=== PATIENT | male | born 1960 | race Caucasian/White ===

== ENCOUNTER 2018-06-16 12:18 | Emergency (ER) | payer OTHER, SELFPAY ==
[2018-06-16 12:19] VITALS: BP 128/73; PULSE 96; RESP 23; TEMP 36.9; O2SAT 94; BMI 38.2
--- NOTE | 2018-06-16 13:14 | EKG12_ITS ---
Test Reason : SYNCOPE Blood Pressure : / mmHG Vent. Rate : 090 BPM Atrial Rate : 090 BPM P-R Int : 184 ms QRS Dur : 088 ms QT Int : 346 ms P-R-T Axes : 010 -10 017 degrees QTc Int : 423 ms Normal sinus rhythm Normal ECG Low voltage QRS (limb leads) Confirmed by DAX PEREZ, HEATHER ([id number]), acquisitions editor WALLACE MARRERO ([id number]) on 06/18/2018 4:21:30 PM Referred By: CATIE Confirmed By:HEATHER VERDUZCO MD
--- NOTE | 2018-06-16 13:14 | CT_ITS ---
STUDY: CT BRAIN WITHOUT CONTRAST REASON FOR EXAM: Male, 57 years old. Dizziness. RADIATION DOSAGE (If Supplied By Facility): CTDIvol = ( 60.81 ) mGy, DLP = ( 1089.89 ) mGycm TECHNIQUE: Transaxial CT imaging of the brain was performed without administration of intravenous contrast material. Individualized dose optimization techniques were used for this CT. COMPARISON: None. FINDINGS: Normal soft tissue structures. Normal calvarium. Normal size ventricles and extra-axial spaces for the patient's age. Normal white matter tracts of the cerebral hemispheres. Normal basal ganglia and thalami. Normal brainstem. Normal cerebellum. There is no intracranial hemorrhage. There are no findings of an acute ischemic infarction. Normal visualized paranasal sinuses. CT/Brain/Head without Contrast IMPRESSION: Normal unenhanced CT scan of the brain. Electronically Signed: Ian De La Torre MD at 14:39 EST Tel [phone], Service support ,
--- NOTE | 2018-06-16 13:16 | ED.VISSUMM ---
- ER Visit Summary Date of Service: 06/16/18 Chief Complaint: Dizziness History of Present Illness: The patient is a 57 M past medical history of low blood sugar. Possible prior cardiac dysrhythmia. Patient states the last 2 hours he had trouble with his balance. He denies any headache. He did have a minor head injury yesterday playing football. He tripped and fell onto a wood pile. Denies any LOC. He is on no blood thinners. Denies any neck pain. He denies any vertigo-like dizziness. Says he describes his dizziness as being off balance. Denies any trouble moving his arms or legs. No visual change. No nausea. Physical Examination: Middle-aged male. No acute distress. Vital signs are stable and afebrile. HEENT exam is a small bruise on his left cheek. Pupils round reactive light. Pupils are about 2 mm. No facial droop. Extraocular motions are intact. I will help her normal speech. Neck nontender. Lungs clear to auscultation bilaterally. Heart regular rhythm no murmur chest wall nontender. Abdomen soft nontender. Patient is moving all 4 extremities. They are neurovascularly intact. Neurologic exam patient is awake and alert. No focal motor deficits. Equal symmetrical account services associate strength. Equal symmetrical dorsi and plantar flexion. Fingertip to nose within normal limits. Normal speech. No facial droop. Extraocular motions are intact. While in bed his NIH score is 0. Exam I did look at his ear canals left has wax but is patent ending see the TM. Right's unremarkable without wax. Test Results: CT of the brain without contrast shows no acute abnormality read both by myself and the radiologist. EKG sinus rhythm rate of EMEA. No dysrhythmia. CBC normal. Electrolytes unremarkable. Normal gap and creatinine. Orthostatic vital signs patient lying and sitting unremarkable. Emergency Department Course and Treatment: She will be evaluated for his dizziness with screening labs and a CT scan of his brain. Treatment Plan: Patient doing well on repeat exam. Patient stood without any difficulty at 1638 and was able to ambulate without any ataxia. Disposition: Discharge Impression: Acute dizziness of uncertain etiology This note was generated with [employer] dictation software. It may contain incorrect words, spelling, and punctuation that were not noted in review of the chart prior to signing ED Disposition - Plan for ED Patient: Chief Complaint: Dizziness Referrals: Care Physician,No Primary [Primary Care Provider] -
--- NOTE | 2018-06-16 13:20 | PCA ---
NO OLD EKG
[2018-06-16 13:30] LABS: Absolute Lymphocyte Count 1.19 X10^3/ul (0.83-4.51); Absolute Neutrophil Count 12.3 X10^3/uL (2.0-7.7); Basophil# 0.04 X10^3/uL; Basophil% 0.3 % (0-1); Eosinophil# 0.44 X10^3/uL; Eosinophils% 3.1 % (0-5); Hematocrit 42.6 % (40-54); Hemoglobin 14.2 g/dl (13.0-16.5); Lymphocyte # 1.19 X10^3/ul (4.0); Lymphocyte % 8.3 % (19-41); Mean Corp Hgb Conc 33.3 g/gl (32-36); Mean Corpuscular Hgb 30.3 pg (27.0-32.0); Mean Platelet Vol. 10.5 fl (6.2-12.0); Monocyte# 0.41 X10^3/uL; Monocyte% 2.8 % (0-10); Neutrophil # 12.32 X10^3/uL (2.7-7.7); Neutrophil % 85.4 % (47-70); POSITIVE COUNT NO; POSITIVE DIFFERENTIAL NO; POSITIVE MORPHOLOGY NO; Platelet Count 220 K/mm3 (150-450); RBC Distribution Width CV 13.8 % (11.6-14.6); RBC Distribution Width SD 45.3 fl (35.1-43.9); Red Blood Count 4.68 M/mm3 (4.6-6.2); White Blood Count 14.4 K/mm3 (4.4-11.0)
[2018-06-16 13:36] VITALS: BP 111/79
[2018-06-16 13:36] LABS: Anion Gap 6 (5-15); BUN 20 mg/dL (7-18); BUN/Creat Ratio 16.1 RATIO (10-20); Calcium,Total 9.2 mg/dL (8.5-10.1); Chloride 103 mmol/L (98-107); Creatinine, Serum 1.24 mg/dL (0.70-1.30); EST Glomerular Filtration Rate 64 mL/min (>60); Est Glom Filt Rate - Afr Amer 77 mL/min (>60); Estimated Creatinine Clearance 57.17 ml/min; Glucose 142 mg/dL (74-106); Potassium 3.8 mmol/L (3.5-5.1); Sodium Level 137 mmol/L (136-145)
[2018-06-16 15:03] VITALS: BP 122/81
[2018-06-16 16:13] VITALS: TEMP 37.2
--- NOTE | 2018-06-16 16:38 | ED.DEP ---
ED Disposition - Plan for ED Patient: Disposition: Home or Assisted Living Chief Complaint: Dizziness Instructions: ED Dizziness [facility] Referrals: Care Physician,No Primary [Primary Care Provider] - 1-2 Days if not improving Additional Instructions: Your workup today was negative including your blood work and CAT scan. All up with your doctor if not improving or return to the ER feeling worse.
[2018-06-16 17:06] VITALS: BP 103/67; PULSE 72; RESP 18; O2SAT 97
== END 2018-06-16 17:07 | disposition home or self-care (01) ==
PROVIDERS: Emergency Provider Emergency Medicine
DX: R42 Dizziness and giddiness (principal); Z72.0 Tobacco use
CPT/HCPCS: 70450; 80048; 85025; 93005; 99285

== ENCOUNTER 2023-03-30 13:51 | Emergency (ER) | payer BC, SELFPAY ==
[2023-03-30 13:52] VITALS: BP 135/98; PULSE 73; RESP 16; TEMP 36.1; O2SAT 99; BMI 41.8
[2023-03-30 14:38] VITALS: BP 128/77; PULSE 64; RESP 18; O2SAT 97
--- NOTE | 2023-03-30 14:50 | EDS_ITS ---
<Statement entered by Levy Shafer MD - 03/30/23 21:30> I have personally performed a face to face assessment of the patient and have reviewed the IRENE Note. HPI <MITZY Frye - Last Filed: 03/30/23 16:13> History of Present Illness Chief Complaint: Chest Pain Narrative Narrative: Patient is a 62-year-old male with history of tobacco use, 1.5 to 2 packs/day however is currently trying to quit, history of CAD who had 2 stents placed in January 2022. Patient states he has not follow-up with a PCP, does not follow-up with a card decorator. Patient states over the last 24 hours he has been having palpitations where he feels like his heart is missing beats. He states every now and then he does get pain to the left upper shoulder. Patient is asymptomatic at this time. Patient has had difficulty sleeping last night secondary to the palpitations. He denies any shortness of breath. Denies any history of blood clots in the legs or lungs. He currently does take 1 baby aspirin. [facility] <MITZY Frye - Last Filed: 03/30/23 16:13> [facility] Medical History (Updated 03/30/23 @ 16:12 by MITZY Frye) Heart attack Home Medications NK 06/16/18 [History Last Taken Unknown] Allergy/AdvReac Type Severity Reaction Status Date / Time Penicillins Allergy Unknown Verified 03/30/23 13:53 Social History Smoking Status: Current every day smoker tobacco type: cigarettes ROS <MITZY Frye - Last Filed: 03/30/23 16:13> ROS ED ROS Narrative Constitutional: Negative for fever, chills, weight loss, weakness Eyes: Negative for vision loss, vision change, double vision ENT: Negative for any sore throat, ear pain, congestion Cardiovascular: Negative for any chest pain, tightness. Positive palpitations, pain to the left shoulder Respiratory: Negative for any cough, sputum production, hemoptysis, dyspnea, dyspnea on exertion, orthopnea Gastrointestinal: Negative for any abdominal pain, nausea, vomiting, diarrhea, constipation, blood in stool, blood in vomit : Negative for any urinary frequency, dysuria, retention, blood in urine Muscle skeletal: Negative for any muscle joint pain, stiffness, myalgias, arthralgias, neck pain, back pain Neurological: Negative for any headache, syncope, numbness or tingling, dizziness Skin: Negative for any rashes, lumps, itching, abrasions, lacerations Psychiatric: Negative for any depression, anxiety, stress, suicidal ideation, homicidal ideation Hematologic: Negative for any easy bruising, excessive bruising, easy bleeding Allergies: Negative for any eczema, hives, rash EXAM <MITZY Frye - Last Filed: 03/30/23 16:13> Physical Exam Narrative Exam Narrative: Vital signs reviewed. Patient is asymptomatic during initial assessment HEET: Head normocephalic atraumatic, TMs clear bilaterally. Posterior pharynx is clear, moist mucous membranes. Nares clear bilaterally. Neck: Supple with no lymphadenopathy or tenderness. No signs of meningismus, negative jolt sign. Cardiac: Regular rate and rhythm no murmurs gallops or rubs, equal peripheral pulses bilaterally. Respiratory: Lungs clear to auscultation bilaterally. No chest tenderness. Abdomen: Soft, nontender, nondistended. No abdominal bruit or pulsatile masses. No hepatosplenomegaly Extremities: No peripheral edema, no signs of gross trauma or deformity. Active full range of motion of all extremities. Neuro: Cranial nerves II through XII intact, no focal neurological deficits. Skin: Clean dry and intact with no rash, purpura, petechiae, vesicles or pustules. Backs/flank: No CVA tenderness, no midline spinal tenderness, no deformity. Psych: Normal mood and affect. No SI, HI or acute psychosis. Const Vital Signs: 03/30/23 13:52 03/30/23 14:38 03/30/23 15:59 Temperature 97 F L Temperature Source Temporal Pulse Rate 73 64 Respiratory Rate 16 18 Blood Pressure 135/98 H 128/77 H Blood Pressure Mean 110 94 Pulse Ox 99 97 Oxygen Delivery Method Room Air Room Air Room Air Positive well nourished and well developed General Appearance ED: well developed <Dr. Levy Shafer MD - Last Filed: 04/04/23 15:17> Physical Exam Const Vital Signs: 03/30/23 13:52 03/30/23 14:38 03/30/23 15:59 Temperature 97 F L Temperature Source Temporal Pulse Rate 73 64 Respiratory Rate 16 18 Blood Pressure 135/98 H 128/77 H Blood Pressure Mean 110 94 Pulse Ox 99 97 Oxygen Delivery Method Room Air Room Air Room Air [facility] <MITZY Frye - Last Filed: 03/30/23 16:13> [facility] Lab Data Labs: Laboratory Results - last 24 hr 03/30/23 03/30/23 03/30/23 14:35 14:35 15:24 WBC Cancelled 7.2 Corrected WBC Cancelled RBC Cancelled 4.65 Hgb Cancelled 14.1 Hct Cancelled 44.5 MCV Cancelled 95.7 H MCH Cancelled 30.3 MCHC Cancelled 31.7 L RDW Std Deviation Cancelled 49.4 H RDW Coeff of Ginny Cancelled 14.0 Plt Count Cancelled 236 MPV Cancelled 10.7 Immature Gran % (Auto) Cancelled 0.300 Neut % (Auto) Cancelled 58.5 Lymph % (Auto) Cancelled 30.9 [place] % (Auto) Cancelled 7.3 Eos % (Auto) Cancelled 1.9 Baso % (Auto) Cancelled 1.1 H Absolute Neuts (auto) Cancelled 4.2 Absolute Lymphs (auto) Cancelled 2.23 Total Counted Cancelled Neutrophils % (Manual) Cancelled Band Neutrophils % Cancelled Lymphocytes % (Manual) Cancelled Monocytes % (Manual) Cancelled Eosinophils % (Manual) Cancelled Basophils % (Manual) Cancelled Metamyelocytes % Cancelled Myelocytes % Cancelled Promyelocytes % Cancelled Blast Cells % Cancelled Plasma Cell % (Manual) Cancelled Other Cells % Cancelled Nucleated RBC % Cancelled 0 Nucleated RBCs/100 WBC Cancelled Differential Comment Cancelled Diff Path Review Cancelled Hypersegmented Neuts Cancelled Atypical Lymphocytes Cancelled Reactive Lymphocytes Cancelled Smudge Cells Cancelled Toxic Granulation Cancelled Toxic Vacuolation Cancelled Dohle Bodies Cancelled Khadar Rods Cancelled Platelet Estimate Cancelled Plt Morphology Comment Cancelled RBC Morphology Cancelled Cancelled Polychromasia Cancelled Hypochromasia Cancelled Poikilocytosis Cancelled Basophilic Stippling Cancelled Anisocytosis Cancelled Microcytosis Cancelled Macrocytosis Cancelled Spherocytes Cancelled Sickle Cells Cancelled Target Cells Cancelled Tear Drop Cells Cancelled Ovalocytes Cancelled Stomatocytes Cancelled [place] Bodies Cancelled Lazarus Cells Cancelled Bite Cells Cancelled Crenated Cell Cancelled Acanthocytes (Spur) Cancelled Rouleaux Cancelled Schistocytes Cancelled Sodium 137 Potassium 4.1 Chloride 107 Carbon Dioxide 25.0 Anion Gap 5 BUN 15 Creatinine 0.97 Estim Creat Clear Calc 71.25 Est GFR (MDRD) Af Amer 101 Est GFR (MDRD) Non-Af 83 BUN/Creatinine Ratio 15.5 Glucose 132 H Calcium 8.7 Troponin I High Sens 6 TSH 0.91 Radiography Diagnostic Testing: Clinical Impression(s) from Imaging Studies Chest X-Ray 03/30/23 15:18 IMPRESSION: No radiographic evidence of acute cardiopulmonary disease. Electronically Signed: Jame Phillips MD at 15:36 EDT , EKG EKG shows normal sinus rhythm: Attestation: I personally reviewed and interpreted this EKG as follows: Interpretation: Sinus Rhythm Comments: Sinus rhythm, rate of 63 bpm, ID 196 ms, QRS duration 90 ms, no acute ST elevation, no acute infarct noted. Treatment and Re-Evaluation :: Patient appears generally well, patient appears nontoxic, vital signs are stable. Presenting to the emergency department for palpitations, left shoulder pain. Secondary to the patient's cardiac history, patient received a cardiac work-up here. Chest pain work-up with 2 view chest x-ray, laboratory values including 2 troponins. This we concerning for any ACS, [place]. Patient will receive a chest x-ray concerning for any pleural effusion, pneumonia. Patient remains symptom-free. Patient's laboratory values showed a normal CBC, chemistries were unremarkable, negative troponin. TSH within normal limits at 0.91. At this time is no evidence of ACS, [place]. Speaking with the patient, patient is feeling better and will follow-up outpatient. Patient two-view chest x-ray is read by ER physician was negative for cardiopulmonary process. Patient will receive a 48-hour Holter monitor. This will be placed on another visit number. Patient will follow-up with cardiology here. At this time he verbally understands the importance of follow-up. All questions answered, patient stable for discharge. Patient's heart score was 2. Patient stable for discharge. <Dr. Levy Shafer MD - Last Filed: 04/04/23 15:17> MDM Lab Data Labs: Laboratory Results - last 24 hr 03/30/23 03/30/23 03/30/23 14:35 14:35 15:24 WBC Cancelled 7.2 Corrected WBC Cancelled RBC Cancelled 4.65 Hgb Cancelled 14.1 Hct Cancelled 44.5 MCV Cancelled 95.7 H MCH Cancelled 30.3 MCHC Cancelled 31.7 L RDW Std Deviation Cancelled 49.4 H RDW Coeff of Ginny Cancelled 14.0 Plt Count Cancelled 236 MPV Cancelled 10.7 Immature Gran % (Auto) Cancelled 0.300 Neut % (Auto) Cancelled 58.5 Lymph % (Auto) Cancelled 30.9 [place] % (Auto) Cancelled 7.3 Eos % (Auto) Cancelled 1.9 Baso % (Auto) Cancelled 1.1 H Absolute Neuts (auto) Cancelled 4.2 Absolute Lymphs (auto) Cancelled 2.23 Total Counted Cancelled Neutrophils % (Manual) Cancelled Band Neutrophils % Cancelled Lymphocytes % (Manual) Cancelled Monocytes % (Manual) Cancelled Eosinophils % (Manual) Cancelled Basophils % (Manual) Cancelled Metamyelocytes % Cancelled Myelocytes % Cancelled Promyelocytes % Cancelled Blast Cells % Cancelled Plasma Cell % (Manual) Cancelled Other Cells % Cancelled Nucleated RBC % Cancelled 0 Nucleated RBCs/100 WBC Cancelled Differential Comment Cancelled Diff Path Review Cancelled Hypersegmented Neuts Cancelled Atypical Lymphocytes Cancelled Reactive Lymphocytes Cancelled Smudge Cells Cancelled Toxic Granulation Cancelled Toxic Vacuolation Cancelled Dohle Bodies Cancelled Khadar Rods Cancelled Platelet Estimate Cancelled Plt Morphology Comment Cancelled RBC Morphology Cancelled Cancelled Polychromasia Cancelled Hypochromasia Cancelled Poikilocytosis Cancelled Basophilic Stippling Cancelled Anisocytosis Cancelled Microcytosis Cancelled Macrocytosis Cancelled Spherocytes Cancelled Sickle Cells Cancelled Target Cells Cancelled Tear Drop Cells Cancelled Ovalocytes Cancelled Stomatocytes Cancelled [place] Bodies Cancelled [place] Cells Cancelled Bite Cells Cancelled Crenated Cell Cancelled Acanthocytes (Spur) Cancelled Rouleaux Cancelled Schistocytes Cancelled Sodium 137 Potassium 4.1 Chloride 107 Carbon Dioxide 25.0 Anion Gap 5 BUN 15 Creatinine 0.97 Estim Creat Clear Calc 71.25 Est GFR (MDRD) Af Amer 101 Est GFR (MDRD) Non-Af 83 BUN/Creatinine Ratio 15.5 Glucose 132 H Calcium 8.7 Troponin I High Sens 6 TSH 0.91 Radiography Diagnostic Testing: Clinical Impression(s) from Imaging Studies Chest X-Ray 03/30/23 15:18 IMPRESSION: No radiographic evidence of acute cardiopulmonary disease. Electronically Signed: Jame Phillips MD at 15:36 EDT , Discharge Plan Triage Chief Complaint: Chest Pain ED Midlevel Provider: Levy Castro ED Provider: Levy Shafer Dx/Rx/DC Orders Clinical Impression: Heart palpitations Instructions: ED Palpitations Prescriptions: No Action NK Primary Care Provider: Care Physician,No Primary Referrals: Walker Erickson MD [Med Staff - Cosmetician Apprentice] - Leonel Torrez MD [Med Staff - Active Staff] - Care Physician,No Primary [Primary Care Provider] - Activity Restrictions/Additional Instructions: Please follow the instructions of the cafeteria monitor. Need to follow-up with both PCP as well as cardiology. Return for any worsening symptoms. Disposition Disposition: Home, Self Care Discharge Date/Time: 03/30/23 16:37
--- NOTE | 2023-03-30 15:08 | EKG12_ITS ---
Test Reason : Blood Pressure : / mmHG Vent. Rate : 063 BPM Atrial Rate : 063 BPM P-R Int : 196 ms QRS Dur : 090 ms QT Int : 416 ms P-R-T Axes : 000 -13 -09 degrees QTc Int : 425 ms Normal sinus rhythm Inferior infarct , age undetermined Abnormal ECG Confirmed by JORI PEREZ, CHERYL ([id number]), medical transcription editor PEREZ LEIVA ([id number]) on 04/08/2023 7:19:57 AM Referred By: MARIAM Confirmed By:CHERYL HSIEH MD
--- NOTE | 2023-03-30 15:18 | RAD_ITS ---
INDICATION: chest pain EXAMINATION/TECHNIQUE: X-RAY - XR Chest 2 Views COMPARISON: No prior examinations are available for comparison. FINDINGS: LINES/DEVICES: None. LUNGS: No consolidation, edema or effusion. No pneumothorax. MEDIASTINUM AND CARDIOVASCULAR STRUCTURES: Cardiac silhouette not enlarged. Central airways and mediastinal contour are unremarkable. BONES AND SOFT TISSUES: Unremarkable. RAD/Chest PA and Lateral IMPRESSION: No radiographic evidence of acute cardiopulmonary disease. Electronically Signed: Jame Phillips MD at 15:36 EDT ,
[2023-03-30 15:36] LABS: Absolute Lymphocyte Count 2.23 X10^3/uL (0.83-4.51); Absolute Neutrophil Count 4.2 X10^3/uL (2.0-7.7); Basophil# 0.08 X10^3/uL; Basophil% 1.1 % (0-1); Eosinophil# 0.14 X10^3/uL; Eosinophils% 1.9 % (0-5); Hematocrit 44.5 % (40-54); Hemoglobin 14.1 g/dL (13.0-16.5); Lymphocyte # 2.23 X10^3/ul (0.83-4.51); Lymphocyte % 30.9 % (19-41); Mean Corp Hgb Conc 31.7 g/dL (32-36); Mean Corpuscular Hgb 30.3 pg (27.0-32.0); Mean Corpuscular Volume 95.7 fL (80-94); Mean Platelet Vol. 10.7 fl (6.2-12.0); Monocyte# 0.53 X10^3/uL; Monocyte% 7.3 % (0-10); NRBC Flagged by Analyzer 0 % (0-5); Neutrophil # 4.22 X10^3/uL (2.7-7.7); Neutrophil % 58.5 % (47-70); Platelet Count 236 K/mm3 (150-450); RBC Distribution Width SD 49.4 fl (35.1-43.9); Red Blood Count 4.65 M/mm3 (4.6-6.2); White Blood Count 7.2 K/mm3 (4.4-11.0)
[2023-03-30 15:43] LABS: Anion Gap 5 (5-15); BUN 15 mg/dL (7-18); BUN/Creat Ratio 15.5 RATIO (10-20); Calcium,Total 8.7 mg/dL (8.5-10.1); Chloride 107 mmol/L (98-107); Creatinine, Serum 0.97 mg/dL (0.70-1.30); EST Glomerular Filtration Rate 83 mL/min (>60); Est Glom Filt Rate - Afr Amer 101 mL/min (>60); Estimated Creatinine Clearance 71.25 ml/min; Glucose 132 mg/dL (74-106); Potassium 4.1 mmol/L (3.5-5.1); Sodium Level 137 mmol/L (136-145); Thyroid Stim Hormone (TSH) 0.91 uIU/mL (0.358-3.74); Troponin-I HS (w/2H Reflex) 6 pg/mL (3.0-78.0)
[2023-03-30 16:36] VITALS: BP 125/69; PULSE 74; RESP 16; O2SAT 98
[2023-03-30 17:14] LABS: Reflex Troponin-HS? (from REC) Y
== END 2023-03-30 16:37 | disposition home or self-care (01) ==
PROVIDERS: Nurse Practitioner; Emergency Provider Emergency Medicine; Visit Provider Emergency Medicine
DX: R00.2 Palpitations (principal); I25.2 Old myocardial infarction; F17.210 Nicotine dependence, cigarettes, uncomplicated
CPT/HCPCS: 71046; 80048; 84443; 84484; 85025; 93005; 99284; A4216

== ENCOUNTER → 2023-03-30 | Outpatient (CLI) | payer OTHER, SELFPAY | END | disposition home or self-care (01) | PROVIDERS: Visit Provider Emergency Medicine | DX: R00.2 Palpitations (principal) | CPT/HCPCS: 93225; 93226 ==

== ENCOUNTER 2023-05-03 09:23 | Emergency (ER) | payer OTHER, BC, SELFPAY ==
[2023-05-03 09:24] VITALS: BP 153/71; PULSE 69; RESP 14; TEMP 36.4; O2SAT 98; BMI 40.3
--- NOTE | 2023-05-03 09:50 | RAD_ITS ---
STUDY: X-RAY - RIGHT KNEE REASON FOR EXAM: Male, 62 years old. Pain. TECHNIQUE: 4 views of the right knee. COMPARISON: None. FINDINGS: Normal visualized distal femur. Normal visualized proximal tibia and fibula. Normal proximal tibiofibular articulation. There is no demonstrated fracture. Normal medial femorotibial compartment. Normal lateral femorotibial compartment. Normal patellofemoral articulation. There is a small joint effusion. The soft tissue structures are unremarkable. RAD/Knee 4 or More Views IMPRESSION: Small joint effusion. No demonstrated fracture. Electronically Signed: Eliud Duncan MD at 10:01 EDT ,
[2023-05-03 10:24] VITALS: BP 118/76; PULSE 68; RESP 18; O2SAT 97
--- NOTE | 2023-05-03 11:11 | EDS_ITS ---
HPI History of Present Illness Chief Complaint: Lower Extremity Injury Narrative Narrative: 62-year-old male presenting with right knee pain. He states it is above and behind the right knee. It is on the medial aspect. Patient states he felt a pop the other day. He has been ambulating with an antalgic gait. No direct trauma. No numbness or tingling. No bruising. [facility] Medical History AAA (abdominal aortic aneurysm) without rupture Aortic stenosis Celiac artery stenosis Hyperlipidemia Obesity STEMI (ST elevation myocardial infarction) Tobacco abuse Home Medications aspirin 81 mg tablet,delayed release 81 mg PO DAILY 05/01/23 [History Last Taken Unknown] atorvastatin 40 mg tablet 40 mg PO QHS 05/01/23 [History Last Taken Unknown] glimepiride 4 mg tablet 4 mg PO DAILY 05/01/23 [History Last Taken Unknown] metformin 500 mg tablet 500 mg PO BID 05/01/23 [History Last Taken Unknown] Allergy/AdvReac Type Severity Reaction Status Date / Time Penicillins Allergy Unknown Verified 05/03/23 09:25 Family History Other Heart disease Surgical History History of appendectomy History of arthroscopy of right shoulder History of coronary artery stent placement (01/17/22) History of umbilical hernia repair Social History Smoking Status: Current every day smoker tobacco type: cigarettes alcohol intake: never substance use type: does not use ROS ROS ED Constitutional Constitutional ED: Denies chills, fever(s) or sweats Eyes Eyes: Denies blurry vision or change in vision ENT ENT ED: Denies ear pain or sore throat Cardiovascular Cardiovascular: Denies chest pain, palpitations or racing heartbeat Respiratory/Chest Respiratory/Chest: Denies cough, dyspnea or sputum Gastrointestinal Gastrointestinal: Denies abdominal pain, constipation, diarrhea, nausea or vomiting Genitourinary Genitourinary ED: Denies dysuria, hematuria or urinary frequency Musculoskeletal Musculoskeletal: Reports other Details: Left knee and posterior thigh pain ; Denies arthralgias, myalgias or neck pain Integumentary Denies abscess, Abrasions or rash Neurologic Neurologic: Denies headache(s), paresthesias or weakness Psychiatric Psychiatric: Denies anxiety, depression, suicidal ideation or suicidal thoughts Endocrine Endocrinology: Denies polydipsia or polyuria EXAM Physical Exam Const Vital Signs: 05/03/23 09:24 05/03/23 10:24 Temperature 97.5 F L Temperature Source Temporal Pulse Rate 69 68 Respiratory Rate 14 18 Blood Pressure 153/71 H 118/76 Blood Pressure Mean 98 90 Pulse Ox 98 97 Oxygen Delivery Method Room Air Positive well nourished HEENT Reports moist mucous membranes normocephalic and atraumatic Resp normal respiratory effort Cardio regular rate and regular rhythm Extremity Extremity Narrative: There is tenderness to palpation medially superior, posterior to the left knee. Left knee has no ligamentous laxity. Full range of motion in flexion and extension. No patellar tenderness. Neuro Motor Exam: strength 5/5 throughout Psych mental status grossly normal Skin no wounds MDM MDM MDM Narrative Medical decision making narrative: 62-year-old male with left knee pain. Differential includes muscle tear, knee strain, meniscal tear. Patient given ibuprofen for pain. X-ray of the left knee on my interpretation shows no acute fracture. There is small joint effusion. Patient counseled he could have torn something, however I do not believe it is a ACL, MCL, PCL. He is walking with a antalgic gait but his knee joint is not unstable. Recommended compression and NSAIDs. I will give him follow-up with orthopedics. Impression: 1. Knee strain 2. Muscle strain Radiography Diagnostic Testing: Clinical Impression(s) from Imaging Studies Knee X-Ray 05/03/23 09:50 IMPRESSION: Small joint effusion. No demonstrated fracture. Electronically Signed: Eliud Duncan MD at 10:01 EDT , Discharge Plan Triage Chief Complaint: Lower Extremity Injury ED Provider: Cortes Fraire Dx/Rx/DC Orders Instructions: ED Knee Sprain, ED Muscle Strain, Extremity Prescriptions: No Action aspirin 81 mg tablet,delayed release (DR/EC) 81 mg PO DAILY Patient Comments: TAKE 1 TABLET BY MOUTH EVERY DAY atorvastatin 40 mg tablet 40 mg PO QHS glimepiride 4 mg tablet 4 mg PO DAILY metformin 500 mg tablet 500 mg PO BID Primary Care Provider: Latrell Castillo Referrals: Paulo Carter MD [Med Staff - Active Staff] - 3-5 Days Care Physician,No Primary [Non-Staff] - Disposition Disposition: Home, Self Care
== END 2023-05-03 12:15 | disposition home or self-care (01) ==
LOC: ED 11:14
PROVIDERS: Emergency Provider Student in an Organized Health Care Education/Training Program; PCP Family Medicine; Visit Provider Student in an Organized Health Care Education/Training Program
DX: S86.811A Strain of other muscle(s) and tendon(s) at lower leg level, right leg, initial encounter (principal); E78.5 Hyperlipidemia, unspecified; I25.2 Old myocardial infarction; I5A Non-ischemic myocardial injury (non-traumatic); Z79.82 Long term (current) use of aspirin; Z79.899 Other long term (current) drug therapy; Z90.49 Acquired absence of other specified parts of digestive tract; Z95.5 Presence of coronary angioplasty implant and graft; F17.210 Nicotine dependence, cigarettes, uncomplicated
CPT/HCPCS: 73564; 99283

== ENCOUNTER → 2023-05-24 | Outpatient (CLI) | payer BC, SELFPAY ==
--- NOTE | 2023-05-24 08:35 | AAAS_ITS ---
Reason For Study: HX AAA Aorta Measurements Aorta Doppler Measurements Proximal aorta measures2.95 x 3.38cm. in cross- Peak systolic flow velocities within the proximal sectional axis. aorta measure 54.1 cm/sec. Proximal aorta measures2.87cm. in longitudinal Peak systolic flow velocities within the mid aorta axis. measure 132.6 cm/sec. Mid aorta measures5.08 x 4.90cm. in cross- Peak systolic flow velocities within the distal sectional axis. aorta measure 18.3 cm/sec. Mid aorta measures5.23cm. in longitudinal axis. Distal aorta measures4.78 x 4.96cm. in cross- sectional axis. Distal aorta measures4.76cm. in longitudinal axis. Left Iliac Artery Left iliac artery measures 1.23 x 1.29 cm. in the cross-sectional axis. Left iliac artery measures 1.25 cm. in the longitudinal axis. Peak systolic velocity in the left iliac artery measures 113.0 cm/sec. Right Iliac Artery Right iliac artery measures 1.79 x 1.64 cm. in the cross-sectional axis. Right iliac artery measures 1.56 cm. in the longitudinal axis. Peak systolic velocity in the right iliac artery measures 154.4 cm/sec. Procedure Aorta IVC Iliac vasculature or bypass grafts [id number]. The exam was diagnostic. Exam performed in department. VL/AAA Screening Interpretation Summary Aorta patent, 5.23 cm aneurysm present Right iliac artery patent, ectasia to 1.29 cm Left iliac artery patent, ectasia to 1.79 cm Ordering Physician: Mike Mcmahan Referring Physician: Latrell Castillo Performed By: Elian Harry, RVT
--- NOTE | 2023-05-24 08:35 | CDU_ITS ---
Reason For Study: BRUIT Rt. Velocities/BP Lt. Velocities/BP Prox CCA 77.1/19.5 cm/sec. Prox CCA 101.4/35.5 cm/sec. Mid CCA 63.9/20.4 cm/sec. Mid CCA 90.2/29.3 cm/sec. Dist CCA 66.0/27.0 cm/sec. Dist CCA 70.3/24.4 cm/sec. Prox ICA 66.6/27.0 cm/sec. Prox ICA 71.3/26.3 cm/sec. Mid ICA 101.4/44.9 cm/sec. Mid ICA 61.6/26.8 cm/sec. Dist ICA 84.2/35.1 cm/sec. Dist ICA 65.4/29.3 cm/sec. Rt. ICA/CCA = 101.4/63.9=1.6. Lt. ICA/CCA = 71.3/90.2=0.8. Prox ECA 108.8/24.1 cm/sec. Prox ECA 130.8/24.8 cm/sec. Rt. Vert. 37.2/14.5 cm/sec. Lt. Vert. 44.0/18.5 cm/sec. Right Extracranial There is intimal thickening but no significant atherosclerotic plaque noted in the right common carotid artery. There is heterogeneous, smooth atherosclerotic plaque noted in the right internal carotid artery. There is no significant atherosclerotic plaque noted in the right external carotid artery. Antegrade flow is noted in the right vertebral artery. Left Extracranial There is intimal thickening but no significant atherosclerotic plaque noted in the left common carotid artery. There is heterogeneous, smooth atherosclerotic plaque noted in the left internal carotid artery. There is homogeneous, smooth atherosclerotic plaque noted in the left external carotid artery. Antegrade flow is noted in the left vertebral artery. Procedure Carotid Duplex 37194. This is a Carotid Duplex examination using B-mode, color flow and specral Doppler. Exam performed in department. VL/Carotid Duplex Ultrasound Interpretation Summary Smooth calcific plaque with shadowing at the proximal right internal carotid ar sunny with less than 50% stenosis Less than 50% stenosis right external carotid artery Minimal smooth plaque at the proximal left internal carotid artery with less th an 50% stenosis Less than 50% stenosis left external carotid artery Patent and antegrade vertebral arteries bilaterally Ordering Physician: Mike Mcmahan Referring Physician: Latrell Castillo Performed By: Siri Soto, MITA, RVT
== END | disposition home or self-care (01) ==
LOC: CVS 08:35
PROVIDERS: PCP Family Medicine; Referring Provider Internal Medicine Cardiovascular Disease; Visit Provider Internal Medicine Cardiovascular Disease
DX: I71.40 Abdominal aortic aneurysm, without rupture, unspecified (principal); E78.5 Hyperlipidemia, unspecified; I25.10 Atherosclerotic heart disease of native coronary artery without angina pectoris; R09.89 Other specified symptoms and signs involving the circulatory and respiratory systems; Z95.5 Presence of coronary angioplasty implant and graft; I35.0 Nonrheumatic aortic (valve) stenosis
CPT/HCPCS: 76706; 93880

== ENCOUNTER → 2023-06-10 | Outpatient (CLI) | payer OTHER, SELFPAY ==
--- NOTE | 2023-06-10 08:45 | MRI_ITS ---
STUDY: MRI RIGHT KNEE REASON FOR EXAM: Male, 62 years old. Assess MCL tear. Evaluate for medial meniscal tear. TECHNIQUE: Standardized fat and water weighted pulse sequences were obtained in all 3 orthogonal planes. COMPARISON: Right knee radiographs dated 05/03/2023. FINDINGS: There is a radial tear of the posterior horn of the medial meniscus (axial T2 series 3 image 12; coronal T2 series 7 images 21-22). Normal hyaline cartilage of the medial femorotibial compartment. Normal medial femoral condyle and tibial plateau. Normal medial collateral ligamentous complex (MCL). Normal distal semimembranosus, gracilis and semitendinosus tendons. Normal lateral meniscus. Normal hyaline cartilage of the lateral femorotibial compartment. Normal lateral femoral condyle and tibial plateau. There is a 2.5 cm ganglion cyst deep to the popliteus muscle, posterior to the proximal tibiofibular articulation (sagittal T2 series 4 images 16-19). Normal lateral collateral (fibular) ligament. Normal popliteus tendon. Normal biceps femoris tendon. Normal anterior cruciate ligament (ACL). Normal posterior cruciate ligament (PCL). There is slight lateral patellar subluxation. Normal hyaline cartilage of the patellofemoral compartment. Normal medial and lateral patellar retinaculum. Normal quadriceps tendon. Normal patellar tendon. Normal Hoffa''s fat pad. There is a small joint effusion. There is no popliteal cyst. There is mild subcutaneous soft tissue edema around the anterior half of the knee. The otherwise visualized osseous structures are unremarkable. MRI/Lower Ext Joint Only (Routine) IMPRESSION: Radial tear of the posterior horn of the medial meniscus. 2.5 cm ganglion cyst deep to the popliteus muscle, posterior to the proximal tibiofibular articulation. Slight lateral patellar subluxation. Small joint effusion. Mild subcutaneous soft tissue edema around the anterior half of the knee. Electronically Signed: Eliud Duncan MD at 10:45 EST ,
== END | disposition home or self-care (01) ==
LOC: MRI 08:11
PROVIDERS: PCP Family Medicine; Referring Provider Orthopaedic Surgery Sports Medicine; Visit Provider Orthopaedic Surgery Sports Medicine
DX: S83.241A Other tear of medial meniscus, current injury, right knee, initial encounter (principal); M67.461 Ganglion, right knee; M25.461 Effusion, right knee; X58.XXXA Exposure to other specified factors, initial encounter
CPT/HCPCS: 73721

== ENCOUNTER → 2023-06-12 | Outpatient (CLI) | payer BC, SELFPAY ==
--- NOTE | 2023-06-12 06:54 | ECHOD_ITS ---
Reason For Study: CAD/ASHD Procedure This was a 2D Doppler, Color Flow transthoracic echocardiogram. Exam performed in department. Left Ventricle Normal LV size. Left ventricular systolic function is normal. The left ventricular ejection fraction is 50 %. Stage 1 diastolic dysfunction. No regional wall motion abnormalities noted. Right Ventricle Normal RV size. Normal systolic function. Atria Normal left atrium. Normal right atrium. Mitral Valve Normal mitral valve. Tricuspid Valve Normal tricuspid valve. Aortic Valve The aortic valve is not well visualized. Pulmonic Valve Normal pulmonic valve. Great Vessels Normal aortic root. The pulmonary artery is normal size. Normal inferior vena cava. Pericardium/Pleural No pericardial effusion. MMode/2D Measurements & Calculations Ao root diam: 3.6 cm LAV(MOD-bp): 38.9 ml LVAd ap4: 36.4 cm2 LAV(MOD-bp) Indexed: 17.7 ml/m2 LVLd ap4: 9.2 cm LAV(MOD-sp2): 35.2 ml EDV(MOD-sp4): 120.1 ml LAV(MOD-sp4): 40.7 ml EDV(sp4-el): 122.0 ml LVAs ap4: 19.0 cm2 LVLs ap4: 6.9 cm ESV(MOD-sp4): 47.3 ml ESV(sp4-el): 44.6 ml EF(MOD-sp4): 60.6 % EF(sp4-el): 63.5 % SV(MOD-sp4): 72.8 ml SV(sp4-el): 77.4 ml LA A4 area: 16.2 cm2 LA dimension(2D): 3.3 cm RA A4 area: 15.3 cm2 TAPSE: 3.2 cm Time Measurements MV dec time: 0.16 sec Doppler Measurements & Calculations MV E max akira: 66.3 cm/sec Lat Peak E' Akira: 10.7 cm/sec Med Peak E' Akira: 5.6 cm/sec MV A max akira: 94.9 cm/sec E/E' lat: 6.2 E/E' med: 11.7 MV E/A: 0.70 MV V2 max: 91.9 cm/sec MV dec slope: 459.2 cm/sec2 Ao V2 max: 115.5 cm/sec MV max P.4 mmHg Ao max P.3 mmHg MV V2 mean: 56.8 cm/sec Ao V2 mean: 78.0 cm/sec MV mean P.4 mmHg Ao mean P.8 mmHg MV V2 VTI: 37.0 cm Ao V2 VTI: 27.1 cm AV (velocity ratio): 0.88 LV V1 max: 100.3 cm/sec PA V2 max: 85.2 cm/sec LV V1 max P.0 mmHg PA V2 mean: 57.2 cm/sec LV V1 mean P.3 mmHg LV V1 mean: 70.7 cm/sec LV V1 VTI: 23.9 cm ECHO/Echo Complete Interpretation Summary Normal LV size. Left ventricular systolic function is normal. The left ventricular ejection fraction is 50 %. Stage 1 diastolic dysfunction. Ordering Physician: Mike Mcmahan Referring Physician: Mike Mcmahan Performed By: Jannie Swann RCS
--- NOTE | 2023-06-12 10:00 | STRESSREP ---
Stress Test Report Pharmacologic myocardial perfusion stress test. 62-year-old man with a history of chest pain Resting EKG demonstrates sinus rhythm with a rate of 58 bpm. Resting blood pressure is 134/80 mmHg. 0.4 mg of regadenoson was infused per usual protocol followed by rapid intravenous saline flush injection. Continuous EKG monitoring was performed. The maximum heart rate was 75 bpm which was 47% of max impacted heart rate the maximum workload was 1 metabolic equivalent. At rest there were no ST or T wave changes noted to suggest ischemia and at peak infusion nonspecific ST changes were noted which did not meet the criteria for ischemia. No clinical angina is noted. The final blood pressure was 124/70 mmHg. Myocardial perfusion protocol. 14.7 mCi of technetium 99m sestamibi was injected at rest. 0.4 mg of regadenoson was infused per usual protocol. At peak infusion 45.0 mCi of technetium 99m sestamibi was injected stress images were obtained stress and rest images were reconstructed and compared in the short axis vertical long and horizontal long axis. Gated images were also obtained. Perfusion SPECT analysis: Review of the stress images demonstrate normal uptake of tracer noted in all areas of the myocardium. The resting images similar demonstrated normal uptake of tracer noted in all areas of the myocardium. No areas of reversibility are noted to suggest ischemia and no previous infarct is noted. Gated SPECT analysis: The gated ejection fraction is 52%. Conclusion: Normal pharmacologic myocardial perfusion stress test. Preserved ejection fraction.
== END | disposition home or self-care (01) ==
LOC: CVS 06:52
PROVIDERS: PCP Family Medicine; Referring Provider Internal Medicine Cardiovascular Disease; Visit Provider Internal Medicine Cardiovascular Disease
DX: Z95.5 Presence of coronary angioplasty implant and graft (principal); I25.2 Old myocardial infarction; I5A Non-ischemic myocardial injury (non-traumatic)
CPT/HCPCS: 78452; 93017; 93306; A9500; Q9957; A4216; J2785

== ENCOUNTER → 2023-06-24 | Outpatient (CLI) | payer BC, SELFPAY ==
--- NOTE | 2023-06-24 17:42 | CT_ITS ---
STUDY: CTA ABDOMEN AND PELVIS WITH CONTRAST REASON FOR EXAM: Male, 63 years old. AAA RADIATION DOSAGE (If Supplied By Facility): CTDIvol = ( 25.64 ) mGy, DLP = ( 1130.29 ) mGycm TECHNIQUE: Transaxial images were obtained from the dome of the diaphragm to the symphysis pubis without oral contrast. IV 100mL Isovue-370 was administered. Sagittal and coronal images were reconstructed. 3-D images were reconstructed. Individualized dose optimization techniques were used for this CT. COMPARISON: None. FINDINGS: The visualized lung bases are unremarkable. Coronary artery calcification. There is a 6.7 mm hypodensity in the dome of the right lobe of the liver posteriorly. This may represent a small cyst. Normal gallbladder and extrahepatic biliary system. Normal spleen. Normal pancreas. Normal bilateral adrenal glands. Normal right kidney. Normal left kidney. There is a small hiatal hernia. Normal small intestine. There are multiple colonic diverticula consistent with diverticulosis. The appendix is visualized and appears normal. There is evidence of a fusiform infrarenal abdominal aortic aneurysm extending down to the aortic bifurcation. The transverse lumen measures 5.3 cm. Mural thrombus is seen. Normal inferior vena cava. Normal retroperitoneum. Normal urinary bladder. There are prostatic calcifications. There is a small umbilical hernia containing fat. There are diffuse degenerative changes of the visualized lumbar spine. CT/CTA Abd/Pelvis W/WO Contrast IMPRESSION: Fusiform infrarenal abdominal aortic aneurysm with a transverse dimension of 5.3 cm. Mural thrombus is seen. Electronically Signed: Ian De La Torre MD at 13:38 EST ,
[2023-06-24 18:06] LABS: CREATININE FINGERSTICK 1.1 mg/dL (0.70-1.30); EGFR FINGERSTICK > 60.0000 mL/min (>60)
== END | disposition home or self-care (01) ==
PROVIDERS: PCP Family Medicine; Referring Provider Physician Assistant; Visit Provider Physician Assistant
DX: I71.40 Abdominal aortic aneurysm, without rupture, unspecified (principal)
CPT/HCPCS: 74174; Q9967

== ENCOUNTER → 2023-09-02 | Outpatient (CLI) | payer BC, SELFPAY ==
--- OUTSIDE RECORDS SUMMARY | 2023-09-02 11:07 | XMS RPT_ITS | CCD ---
Author Name Unknown Address [address] [place] [address] Organization [facility] Care Team Providers Care Barrel Handler Name Role Phone NO REFERRING DR Unavailable Unavailable PARANJAPE, TRAUMA/CHARUD Unavailable Unavail able PARANJAPE, TRAUMA/CHARUD Unavailable Unavail able CHRISTINA ADAIR Unavailable Unavailable DAVIDFLASH WILLS G Unavailable Unavailable [place] HEENA WELCH Unavailable Unavailable System, Provider Not In Primary Care Provider Un available RACHELLE BISHOP Attending Unavailable RACHELLE BISHOP Primary Care Unavailable RACHELLE BISHOP Admitting Unavailable SYSTEM, PROVIDER NOT IN Referring Unavaila SHELDON Baugh Admitting Unavailab Salomón Rome III Consulting Unavailable SYSTEM, PROVIDER NOT IN Primary Care Unavaila MALLORIE William Attending Unavailable Unavailable Primary Care Provider UnavailBAYRON Duffy Referring Unavailable ORI WAGONER Attending Unavailable Allergies Allergy Classification Reported Allergen(s) Allergy Type Date of Onset Reaction(s) Facility (4 sources) Penicillins; Translations: [PENICILLINS] Propensity to adverse reactions (disorder) 0 [facility] Repository (1 source) Penicillin Drug Allergy [facility] Repository Medications Completed/Discontinued Medications Medication Drug Class(es) Dates Sig (Normalized) Sig (Original) acetaminophen 325 mg oral tablet (1 source) Start: 05-17-2020 End: 05-18-2020 take 1 tablet by mouth every four hours as needed 650 mg, Oral, Every 4 hours PRN, mild pain, fever 100.4 F or greater, headaches, Starting Sat05/17/20 at 0007 albuterol 0.83 mg/ml inhalant solution (1 source) beta2-Adrenergic Agonist Start: 05-17-2020 End: 05-18-2020 take 2.5 mg by inhalation every two hours as needed 2.5 mg, Inhalation, Every 2 hour PRN (RT), wheezing, shortness of breath, Starting Sat05/17/20 at 0007 bisacodyl 10 mg rectal suppository (1 source) Stimulant Laxative Start: 05-17-2020 End: 05-18-2020 take 10 mg rectal route once daily as needed for constipation 10 mg, Rectal, Daily PRN, constipation, Starting Sat05/17/20 at 0007 Try oral medications first for constipation.&nbs p; Try rectal medication if oral meds are ineffective, not tolerated, or not ordered. 250 ml heparin sodium, porcine 100 unt/ml injection (1 source) Unfractionated Heparin, Anti-coagulant Start: 05-17-2020 End: 05-17-2020 0-70 Units/kg/hr 117.3 kg Order-specific weight (0-82.11 mL/hr, rounded to 0-82.1 mL/hr), Intravenous, at 0-82.1 mL/hr, Continuous, Starting Sat05/17/20 at 0100 Choose one of the following protocols: Cardiac / Arterial Bolus options: Protocol WITH initial bolus AND re-bolus For Downtime Calculator, use: Heparin Infusion Standard heparin bolus from bag 0-5,000 Units (1 source) Start: 05-17-2020 End: 05-17-2020 0-5,000 Units, Intravenous, Continuous PRN, IF the MAR calculator for heparin infusion specifies a bolus from bag is to be administered, Starting Sat05/17/20 at 0007 Choose one of the following protocols: Cardiac / Arterial Bolus options: Protocol WITH initial bolus AND re-bolus For Downtime Calculator, use: Heparin Infusion Standard magnesium hydroxide 80 mg/ml oral suspension (1 source) Start: 05-17-2020 End: 05-18-2020 take 2400 mg by mouth once daily as needed for constipation 2,400 mg (30 mL), Oral, Daily PRN, constipation, For constipation., Starting Sat05/17/20 at 0007 1000 ml sodium chloride 9 mg/ml injection (1 source) Start: 05-17-2020 End: 05-17-2020 take 100 mL intravenous route every hour 100 mL/hr, Intravenous, Continuous, Starting Sat05/17/20 at 0100 traZODone hydrochloride 50 mg oral tablet (1 source) Serotonin Reuptake Inhibitor Start: 05-17-2020 End: 05-18-2020 take 50 mg by mouth once daily as needed for sleep 50 mg, Oral, Nightly PRN, sleep, Starting Sat05/17/20 at 0007 [] May repeat times 1 in 30 minutes if still awake. Problems Active Problems Problem Classification Problem Date Documented Da te Episodic/Chronic Allergic reactions (1 source) Allergy status to penicillin; Translations: [Allergy status to penicillin] Onset: 05-16-2020 Episodic Aortic; peripheral; and visceral artery aneurysms (3 sources) Abdominal aortic aneurysm without rupture; Translations: [Abdominal aortic aneurysm (AAA) without rupture (HCC)] Onset: 05-17-2020 05-17-2020 Chronic Heart valve disorders (1 source) Nonrheumatic aortic (valve) stenosis; Translations: [Nonrheumatic aortic (valve) stenosis] Onset: 05-16-2020 Chronic Other circulatory disease (3 sources) Stenosis of artery; Translations: [Celiac artery stenosis (HCC)] Onset: 05-17-2020 05-17-2020 Other connective tissue disease (2 sources) Muscle spasm of calf; Translations: [Muscle spasm of calf] Onset: 05-16-2020 Episodic Substance-related disorders (4 sources) Nicotine dependence; Translations: [Nicotine dependence, unspecified, uncomplicated] Onset: 05-16-2020 05-17-2020 Chronic Unclassified (1 source) Unknown / UNK(Unknown) Onset: 07-05-2014 Unclassified (1 source) Juxtarenal abdominal aortic aneurysm, without rupture; Translations: [Juxtarenal abdominal aortic aneurysm, without rupture] Onset: 08-12-2023 Past or Other Problems Problem Classification Problem Date Documented Da te Episodic/Chronic Unclassified (1 source) LUMBAR FRACTURE, FALL, RIB FRACTURE Onset: 07-05-2014 Unclassified (1 source) Juxtarenal abdominal aortic aneurysm, without rupture; Translations: [Juxtarenal abdominal aortic aneurysm, without rupture] Onset: 08-12-2023 Results Test Name Value Interpretation Reference Range Facil ity Vital Signs Date Time Vital Sign Value Performing Clinician Bjorn camarenay 05-18-2020 11:21-0400 Body Temperature 98.1 [degF] [facility] 05-18-2020 11:21-0400 BP Diastolic 91 mm[Hg] [facility] 05-18-2020 11:21-0400 BP Systolic 128 mm[Hg] [facility] 05-18-2020 11:21-0400 Pulse (Heart Rate) 73 /min [facility] 05-18-2020 11:21-0400 Pulse Oximetry 96 % [facility] 05-18-2020 11:21-0400 Respiratory Rate 16 /min [facility] 05-18-2020 06:28-0400 BMI (Body Mass Index) 41.6 kg/m2 [facility] 05-18-2020 06:28-0400 Body weight 116.9 kg [facility] 05-16-2020 23:-0400 Height 167.6 cm [facility] Encounters Encounter Date Encounter Type Care Provider Facility Start: 08-12-2023 [facility] Facility:[facility] Start: 01-24-2022 Telephone encounter No Current Pcp-General (Histo) Family [facility] Peng Procedures Date Procedure Procedure Detail Performing Clinician Start: 05-18-2020 Creatine kinase [Enz ymatic activity/volume] in Serum or Plasma Mallorie Rios Work Phone: Start: 05-18-2020 MRI of lumbar spine without contrast Tu Hsieh Work Phone: Start: 05-18-2020 MRI of thoracic spin e without contrast Courtney Gomez Work Phone: Start: 05-17-2020 APTT - reference Tu Hsieh Work Phone: Start: 05-17-2020 End: 05-17-2020 Computerized tomography, limited studies External Transcribed Start: 05-17-2020 Doppler ultrasonogra phy of artery of lower limb Yumiko Almeida Work Phone: Start: 05-17-2020 aPTT in Blood by Coa gulation assay Marci Freedman Work Phone: Start: 05-17-2020 Basic metabolic 2000 panel - Serum or Plasma Marci Freedman Work Phone: Start: 05-17-2020 Complete blood count with white cell differential, automated Marci Freedman Work Phone: Start: 05-17-2020 Complete blood count with white cell differential, manual Marci Freedman Work Phone: Start: 05-17-2020 Creatine kinase [Enz ymatic activity/volume] in Serum or Plasma Courtney Gomez Work Phone: Start: 05-17-2020 Erythrocyte sediment ation rate by Westergren method Courtney Gomez Work Phone: Start: 05-17-2020 Complete blood count (hemogram) panel - Blood by Automated count Marci Freedman Work Phone: Start: 05-16-2020 Urinalysis RACHELLE BLANTON JOSE E Plan of Treatment Date Care Activity Detail Author Start: 03-22-2022 Influenza vaccination INFLUENZA (#1) [facility] Start: 03-22-2020 Influenza vaccinatio n given Sequential Influenza Vaccine (#1) [facility] Start: 07-05-2017 DIABETES SCREEN DIABETES SCREEN [facility] Start: 2015 PROSTATE CANCER SCRE ENING DISCUSSION PROSTATE CANCER SCREENING DISCUSSION [facility] Start: 2010 Administration of he rpes zoster vaccine Zoster Vaccines (1 of 2) [facility] Start: 2010 Screening for malign ant neoplasm of colon [facility] Start: 2010 SHINGRIX VACCINE (1 of 2) SHINGRIX V ACCINE (1 of 2) [facility] Start: 2005 COLOGUARD (FIT-DNA) COLOGUARD (FIT-D NA) [facility] Start: 2005 Colonoscopy COLONOSCOPY [facility] Start: 2005 COLORECTAL CANCER SCREENING COLORECTAL CANCER SCREENING [facility] Start: [address] COLONOGRAPHY [facility] Start: 2005 FECAL OCCULT BLOOD FECAL OCCULT BLOO D [facility] Start: 2005 SIGMOIDOSCOPY SIGMOIDOSCOPY [facility] Start: 1995 LIPID SCREEN LIPID SCREEN [facility] Start: 1979 Urine microalbumin profile DTAP,TDAP ,TD (1 - Tdap) [facility] Start: 1978 Hepatitis C antibody , confirmatory test Hepatitis C Screening [facility] Start: 1978 HEPATITIS C SCREENING HEPATITIS C SC REENING [facility] Start: 1978 HIV SCREENING HIV SCREENING [facility] Start: 1976 COVID-19 Vaccine (1 of 2) COVID-19 V accine (1 of 2) [facility] Start: 1975 HIV screening HIV Screening [facility] Start: 1972 Adolescent depressio n screening assessment [facility] Start: 1963 History and physical examination, annual for health maintenance Wellness Visit [facility] Start: 1960 COVID-19 VACCINE (#1) COVID-19 VACCI NE (#1) [facility] Start: 1960 Prostate specific an tigen measurement PSA Level [facility] Start: 1960 Screening for malign ant neoplasm of lung Low-dose CT Lung Cancer Screen [facility] Start: 1960 Tetanus vaccination Tetanus: Every 1 0yrs [facility] Payers Date Payer Category Payer Unknown [id number] 2021 Unknown MICHAEL BRAMBILA ACCE SS PPO [id number] 2021-Present [phone] [address] [place] [address] PPO [id number] 1960 Unknown [id number] 1960 Unknown [id number] 1960 Unknown [id number] Unknown Unknown [facility] [id number] Effective for all dates [id number] Unknown [id number] Social History Date Type Detail Facility Start: 05-18-2020 Tobacco smoking stat [facility] Current every day smoker [facility] Start: 05-18-2020 Cigarettes smoked cu rrent (pack per day) - Reported [facility] Start: 05-18-2020 Tobacco use and exposure Never used [facility] Start: 05-18-2020 Alcohol intake Ex-drinker (finding) [facility] Start: 1960 Sex Assigned At Not on file [facility] Tobacco smoking stat [facility] Tobacco smoking consumption unknown [facility] Note 01-24-2022 Telephone Encounter - Emma Alonzo - 01/24/2022 1:58 PM EDTTelephone Encounter - Lanie Gutierrez APRN.SCAR - 01/24/2022 1:04 PM EDTTelephone Encounter - Aicha Andersen - 01/24/2022 12:34 PM EDT Note Date & Type Note Facility 01-24-2022 Miscellaneous Notes Patient is scheduled for first available and placed on wait list It does not appear he has been seen by a [facility] personal counselor. He will need to be scheduled with one of the personal counselor. 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 They did surgery there but since he's mainly from around here he needs to establish with a personal counselor. He is off this Saturday before heading back on the road If he's able to be seen, if not and you can advise a few other sooner dates I would appreciate it. [phone] documented in this encounter [facility] Summary Purpose Family History No Family History Records FoundNo Family History Records FoundNo Family History Records FoundNo Family History Records FoundNo Family History Records Found Advance Directives No Advanced Directives Records FoundDocuments on File Type Date Recorded 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 [employer] Expl anation Advance Directives and Livin g Will 05/17/2020 12:00 AM Latest Code Status on File Code Status Date Activated Date Inactivated Comments Full Code 05/17/2020 12:07 AM 05/18/2020 4:57 PM Documents on File Type Date Recorded 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 [employer] 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 Advance Directives and Livin g Will 05/17/2020 12:00 AM Latest Code Status on File Code Status Date Activated Date Inactivated Comments Full Code 05/17/2020 12:07 AM 05/18/2020 4:57 PM Hospital Course * Mallorie Rios MD - 05/18/2020 1:01 PM EDT HOSPITALIST DISCHARGE SUMMARY Patient: Tariq Apple Account: [id number] Admitted: 05/16/2020 Discharge Date/Time: 05/18/2020 Clinical Summary FINAL DIAGNOSIS: Active Problems: Celiac artery stenosis (HCC) Abdominal aortic aneurysm (AAA) without rupture (HCC) Cigarette nicotine dependence without complication Acute onset bilateral lower extremity weakness, improved REASON FOR HOSPITALIZATION AND ADMITTING DIAGNOSIS: No chief complaint on file. aortic stenosis, celiac artery stenosis HOSPITAL COURSE: Acute onset bilateral lower extremity weakness, improved Patient reports that it came on all of a sudden, he was getting to his truck when his knee started feeling weak and within seconds his legs totally gave out. Denies any urinary or bowel incontinence. Denies any sensory loss issues. Presented at outlying facility, CT angiogram of the abdomen showed some abnormality he was transferred here. Looks like he has infrarenal aneurysm with some stenosis ? Thrombus at this time continue Heparin drip. ABIs. Likely no further intervention per vascular surgery, but official consult pending Patient denies any recent viral-like syndrome. 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 Denies going in the yang or having any tick bites. We will obtain MRI lumbar spine. Neurology evaluation. Likely outpatient EMG. Nicotine dependence Consult of for smoking cessation for more than 3 minutes and discussed about his significant risk that smoking poses to progression of his AAA. He understands as his dad from AAA rupture as well. I will prescribe him nicotine patches. AAA aneurysm 4.4 cm, possibility of a thrombus present. Vascular surgery following. Likely routine screening with 6 months ultrasound CONDITION AT DISCHARGE: Stable Physical Examination: Blood pressure (!) 128/91, pulse 73, temperature 98.1 F (36.7 C), temperature source Oral, resp. rate 16, height 5' 6 , weight 116.9 kg (257 lb 11.5 oz), SpO2 96 %. General appearance: alert, cooperative, in no acute distress. Head/Neck: Head- normocephalic. Neck- supple, non-tender, without lymphadenopathy Eyes: No Scleral icterus or pallor; EOMI ENT: Trachea midline. Cardiovascular: regular rate and rhythm; normal S1, S2; no murmurs, rubs, clicks or gallops; No/+ peripheral edema. Respiratory: lungs clear to auscultation; without wheezes, rales or rhonchi. Abdomen: soft, non tender, non-distended; positive bowel sounds. Neurological: alert, oriented, normal speech; no focal findings or movement disorder noted. Musculoskeletal: no significant deformity noted. Skin: normal coloration, texture and turgor; no lesions or eruptions. Procedures: No orders of the defined types were placed in this encounter. Consults: Procedures Inpatient consult to Neurology Other Tests: No orders of the defined types were placed in this encounter. LAST LABS: Results from last 7 days Lab Units 05/17/20 0830 SODIUM mmol/L 139 POTASSIUM mmol/L 4.1 CHLORIDE mmol/L 107 BUN mg/dL 12 CREATININE mg/dL 0.97 GLUCOSE mg/dL 114* CALCIUM mg/dL 8.5 Invalid input(s): LABALBU Results from last 7 days Lab Units 05/17/20 1506 PTT seconds 55* Results from last 7 days Lab Units 05/17/20 0830 WBC K/mcL 8.23 HGB g/dL 14.8 HCT % 45.4 PLT K/mcL 214 Allergies: Penicillins Discharge Diet: Diet Special; Cardiac Disposition: Discharge Medications Medication List You have not been prescribed any medications. Physician(s) Family: Provider Not in System, Phone: None, Address: None Follow Up: EXTERNAL PLACE OF SERVICE NOT IN SYSTEM Follow up Patient instructions, including activity, were given to the patient/family at discharge. Please seethe After Visit Summary in the medical record for details. Time spent on discharge: 45 mins Completed by: Mallorie Rios on 05/18/20, 1:01 PM documented in this encounter Discharge Instructions * Attachments The following attachments cannot be sent through Care Everywhere. * Aortic Aneurysm: Abdominal (Kiswahili) documented in this encounter History of Present Illness * Courtney Gomez MD - 05/18/2020 7:08 AM EDT Neurology Inpatient Consult [facility] 05/18/2020 Patient: Tariq Apple Date of : 1960 (59 y.o.) Referring Provider: Refer to consult order in electronic medical record PCP: Provider Not in System ASSESSMENT: 59 y.o. male presented to [facility] on 05/16/2020 with an onset of bilateral severe leg cramps and weakness this lasted for an hour in duration and spontaneously resolved. There is no discoloration, radicular symptoms, incontinence, or numbness. He did mention years of mild aching chronic low back pain. He had history of vertebral disc fracture in the past. He denies any symptoms in the upper extremities. Current neurologic exam is unrevealing. ESR 15, CPK 778 to 760 Thoracic spine: 1. Mild degenerative disc disease as detailed above. Lumbar spine Lumbosacral spine: 1. The multilevel degenerative disc disease associated with significant amount of epidural lipomatosis causing significant spinal canal narrowing specially at L3-L4 and L4-5 as detailed above. Clinical correlation for level by level is recommended. PLAN: Outpatient Neurosurgery evaluation Monitor for any recurrent symptoms. Therapy and fall precautions. Discontinue smoking. Outpatient EMG if symptoms recurs or persists. No further suggestion at this time. Will sign off. Please call if needed. I have personally reviewed/visualized the patient's images, as documented above. I have personally reviewed the patient's labs, as listed above. Impression, plan and suggestions was discussed with the patient. Questions and concerns were discussed and addressed. Nicky miller: Portions of this chart was created using [employer] voice recognition software. Occasional wrong-word or sound-like substitutions may have occurred due to inherent limitations of the voice recognition software. Please read the chart carefully and recognize, using context, where the substitutions have occurred. Leg weakness Answered questions and rediscussed plan at length with Patient. DIAGNOSTIC TESTING SUMMARY: Resulted Testing: (MRI/CT/XR, EEG, EMG, CSF, Cardiac, Labs) SUBJECTIVE: Chief Complaint/Reason for Consult: Leg weakness Informant(s): Patient, Care Team/Chart History of Present Illness: Tariq Apple is a 59 y.o. male who was admitted because of sudden onset leg weakness. Around 2 PM May 16, 2020 while walking, he suddenly experienced severe cramping on both calves and radiatingproximally to the whole legs up to the inguinal area. This caused him to be weak and slowly went down on the floor. He has to drag himself to reach the phone and call for assistance. He denies any incontinence, headache, visual symptoms, dysarthria, dysphagia, or altered level consciousness. He denies any previous similar symptoms. He did mention chronic aching low back pain without any radicularsymptoms. He was initially seen at [facility]. CT angiogram showed infrarenal aortic aneurysm with thrombus and celiac artery stenosis. Patient mentioned history of vertebral fracture in the past and has an aching mild low back pain that he sometimes needs a cart to walk and leaned over when he goes to the grocery. He has no bladder or bowel symptoms. He has no neck pain or radicular symptoms. He denies any leg swelling or claudication. May 18- patient is awake and alert. He denies any new symptoms. No recurrent pain or weakness. He does have chronic low back pain and history of vertebral fractures in the past. No radicular symptoms. No bladder or bowel problems. Past medical history is otherwise unremarkable. Patient is a smoker but denies alcohol or recreational drug use. He lives alone. 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 Review of Systems: All systems reviewed and negative except pertinent positives and negatives documented in the History of Present Illness (HPI). History: History reviewed. No pertinent past medical history. Past Surgical History: Procedure Laterality Date APPENDECTOMY HERNIA REPAIR SHOULDER SURGERY Social History Socioeconomic History Marital status: Spouse name: Not on file Number of children: Not on file Years of education: Not on file Highest education level: Not on file Occupational History Not on file Social Needs Financial resource strain: Not on file Food insecurity Worry: Not on file Inability: Not on file Transportation needs Medical: Not on file Non-medical: Not on file Tobacco Use Smoking status: Current Every Day Smoker Packs/day: 1.00 Years: 43.00 Pack years: 43.00 Smokeless tobacco: Never Used Substance and Sexual Activity Alcohol use: Not Currently Drug use: Never Sexual activity: Not on file Lifestyle Physical activity Days per week: Not on file Minutes per session: Not on file Stress: Not on file Relationships Social connections Talks on phone: Not on file Gets together: Not on file Attends temple service: Not on file Active member of club or organization: Not on file Attends meetings of clubs or organizations: Not on file Relationship status: Not on file Other Topics Concern Not on file Social History Narrative Not on file History reviewed. No pertinent family history. Additional History Comments: None Allergies: Penicillins HOME Medications: Prior to Admission medications Not on File HOSPITAL Infusions: HOSPITAL Scheduled Medications: HOSPITAL PRN Medications: acetaminophen, albuterol, bisacodyL, magnesium hydroxide, traZODone OBJECTIVE: Physical Examination: BP (!) 142/86 Pulse 66 Temp 97.9 F (36.6 C) (Oral) Resp 16 Ht 5' 6 Wt 116.9 kg (257 lb 11.5 oz) SpO2 93% BMI 41.60 kg/m Patient is awake and alert. Neck is supple. No carotid bruit. Heart rate and rhythm is regular. Pulses are 2+ symmetrically. Patient is oriented. Attention is intact. Speech is fluent and is spontaneous. Language is intact. Pupils are 4 mm equally reactive to light. No ptosis, nystagmus, or visual field cuts. Face is symmetrical and facial sensation is intact. Hearing is grossly intact. Palate moved symmetrical upward. Positive shoulder shrug. Tongue is midline. Gross strength in the upper and lower extremity were 5/5. Normal muscle tone and bulk. No muscle fasciculations. Gross sensory is intact to primary modalities. No tremors, ataxia or dysmetria. Finger to nose test was normal. Deep tendon reflexes are symmetrical. Toes are downgoing on plantar stimulation. * Tu Hsieh MD - 05/17/2020 12:10 PM EDT [facility] Inpatient Follow-up 05/17/2020 Tu Hiseh MD [facility] Patient: Tariq Apple Date of : 1960 (59 y.o.) PCP: Provider Not in System ASSESSMENT/PLAN: Tariq Apple 59 y.o. male presented with complains of LE weakness Active Problems: Celiac artery stenosis (HCC) Abdominal aortic aneurysm (AAA) without rupture (HCC) Cigarette nicotine dependence without complication PLAN: Acute onset bilateral lower extremity weakness, improved Patient reports that it came on all of a sudden, he was getting to his truck when his knee started feeling weak and within seconds his legs totally gave out. Denies any urinary or bowel incontinence. Denies any sensory loss issues. Presented at outlying facility, CT angiogram of the abdomen showed some abnormality he was transferred here. Looks like he has infrarenal aneurysm with some stenosis ? Thrombus at this time continue Heparin drip. ABIs. Likely no further intervention per vascular surgery, but official consult pending Patient denies any recent viral-like syndrome. 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 Denies going in the yang or having any tick bites. We will obtain MRI lumbar spine. Neurology evaluation. Likely outpatient EMG. Nicotine dependence Consult of for smoking cessation for more than 3 minutes and discussed about his significant risk that smoking poses to progression of his AAA. He understands as his dad from AAA rupture as well. I will prescribe him nicotine patches. AAA aneurysm 4.4 cm, possibility of a thrombus present. Vascular surgery following. Likely routine screening with 6 months ultrasound. SUBJECTIVE: Currently feeling better still with minimal weakness of lower extremity but not as bad as when he came in. All other systems reviewed and negative other than noted above. OBJECTIVE: Physical Examination: BP 138/82 Pulse 69 Temp 98.2 F (36.8 C) (Oral) Resp 14 Ht 5' 6 Wt 117.5 kg (259 lb 0.7 oz) SpO2 95% BMI 41.81 kg/m General Appearance: Alert, well appearing, and in no acute distress. HEENT: Head - Normocephalic, atraumatic. Eyes - WILMA bilaterally and EOMI. Ears - normal external appearance, hearing intact. Nose - normal, no erythema. Throat - mucous membranes moist, pharynx without lesions. Neck: Supple, trachea midline. Cardiovascular: S1, S2 normal. No murmurs, rubs, clicks or gallops appreciated. No pedal edema. Respiratory: Lungs clear to auscultation, no wheezes, rales or rhonchi heard. Abdomen: Soft, non-tender, normal bowel sounds, non-distended, no masses or organomegaly appreciated. Neurological: Strength grossly back to normal both lower extremities. No sensory deficits. No facial droop. Vascular nerves intact. Musculoskeletal: No joint tenderness, deformity or swelling. Skin: Normal coloration and turgor. No rashes. Psych: Alert, oriented x 3. Normal mood and affect. CURRENT MEDICATIONS: Results/Medications Reviewed 05/17/20 12:10 PM: Results from last 7 days Lab Units 05/17/20 0830 SODIUM mmol/L 139 POTASSIUM mmol/L 4.1 CHLORIDE mmol/L 107 BUN mg/dL 12 CREATININE mg/dL 0.97 GLUCOSE mg/dL 114* CALCIUM mg/dL 8.5 Results from last 7 days Lab Units 05/17/20 0830 05/17/20 0021 WBC K/mcL 8.23 10.35 HGB g/dL 14.8 15.1 HCT % 45.4 46.5 PLT K/mcL 214 234 Results from last 7 days Lab Units 05/17/20 0830 PTT seconds 36* Invalid input(s): LABALBU CULTURES: Reviewed 12:10 PM IMAGING: Reviewed 12:10 PM documented in this encounter Assessments Diagnosis Celiac artery stenosis (HCC) Stricture of artery Abdominal aortic aneurysm (AAA) without rupture (HCC) Cigarette nicotine dependence without complication Additional Source Comments (unrecognized sect ion and content) No Status Records FoundNo Status Records FoundNo Status Records FoundNo Status Records FoundNo Status Records Found INFORMATION SOURCE (unrecogn ized section and content) DATE CREATED AUTHOR AUTHOR'S ORGANIZ ATION 05/27/2020 Jose Maria Peter [facility] DATE CREATED AUTHOR AUTHOR'S ORGANIZ ATION 06/06/2020 [facility] DATE CREATED AUTHOR AUTHOR'S ORGANIZ ATION 03/30/[address] [facility] DATE CREATED AUTHOR AUTHOR'S ORGANIZ ATION 08/18/2023 [facility] Reason for Visit (unrecogniz ed section and content) Reason Comments Appointment Crystal Cherry, PT - 05/18/2020 9:09 AM Salomón Dias III, DO - 05/17/2020 4:36 PM Audelia Tillman OTR/L - 05/17/2020 3:10 PM Courtney Hassan MD - 05/17/2020 2:39 PM EDT Consult Notes (unrecognized section and content) Physical Therapy PHYSICAL THERAPY EVALUATION NOTE Skilled Therapy Needs After Discharge Are Skilled Therapy Services Needed After Discharge: No Rehab Potential: Excellent Outcomes Measures Prior Function - Basic Mobility % Impaired: AM-PAC - Basic Mobility Raw Score: 24 Points AM-PAC - Basic Mobility % Impaired: 0% functionally impaired Physical Therapy Assessment History: Tariq Apple is a 59 y.o. male presenting from [facility] with complaint of bilateral lower extremity weakness. Patient reports at approximately 2 PM today he lost the ability to ambulate. States that prior to that he noticed that his legs were cramping especially in his calves. Patient stated that he had horrible pain that shot from his hip down to his feet. Patient states that the symptoms have resolved at this time. He reports that he is currently able to move his lower extremities, but they feel very weak. Patient denies any residual pain. Patient denies any spontaneous loss of bowel or bladder. Patient underwent a CT angiogram AAA with runoff at [facility] which revealed distal to the renal artery is an abrupt reduction in caliber of the aorta, proximal abdominal aorta diameter is 2.4 cm, distal to the renal arteries the diameter is 1.5 cm, the focal narrowing is a short segment with 10 mm, immediately distal to the focal narrowing is dilation of the aorta with diameter of 4.4 cm, true lumen is 3.4 cm x 2.8 cm, thrombus is present in the right, there is no other significant stenosis identified The following factors influence the patient's participation in the PT plan of care: Personal Factors: Age, Body Habitus, Limited Compliance Environmental Factors: Lives alone, Steps to enter home The following co-morbidities (from this admission or prior) influence the patient's participation in this plan of care: obesity, smoker, see H&P Number of History elements affecting this patient's PT plan of care: 3 or more Examination of Body Systems: The patient presents with: . These impairments result in limitations of . These impairments result in restrictions of . Number of Body Systems elements affecting this patient's PT plan of care: 1 to 2. Clinical Presentation: patient seen for PT evaluation. Patient is independent with all functional mobility.Pt is able to Ambulate without AD or LOB. Pt does not require and further PT intervention at this time.pt seen for evaluation only. The patient's clinical presentation for this PT evaluation is stable as evidenced by current PT documentation. Activity Tolerance Activity Tolerance: Endurance does not limit participation in activity Therapy Precautions Orthotic Devices: No Weight Bearing Status: WFL General Rehab Precautions: (pt isindependent) Balance Sitting Balance - Static: Sits without support for more than 30 seconds Sitting Balance - Dynamic: Moves / returns trunkal midpoint more than 2 inches in all planes Standing Balance - Static: Stands without support for more than 30 seconds Standing Balance - Dynamic: Moves / returns trunkal midpoint more than 2 inches in all planes Bed Mobility Rolling: Modified independence Supine to Sit: Modified independence Sit to Supine: Modified [place] Transfers Sit to Stand: Independent Bed to Chair: Independent Gait/Locomotion Gait Assistance: Supervision, Independent Assistive Device: None Distance: 100 Feet Pattern: Within Functional Limits Exercise Home Living Type of Home: House Home Layout: One level, Stairs to enter with rails Bathroom Shower/Tub: Tub/shower unit Bathroom Toilet: Standard Bathroom Accessibility: Accessible Additional Comments: no AD for gait Prior Level of Function Level of [place]: Independent with ADLs and functional transfers, Independent with homemaking with ambulation Lives With: Alone Receives Help From: Family ADL Assistance: Independent Homemaking Assistance: Independent 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 Independent with homemaing when home. History reviewed. No pertinent past medical history. Past Surgical History: Procedure Laterality Date APPENDECTOMY HERNIA REPAIR SHOULDER SURGERY For complete objective data, detailed plan of care and patient education refer to: PT EVALUATION flow sheet, PT TREATMENT flow sheet, patient Plan of Care, Plan of Care progress note, and Patient Education. This note stands as the current Discharge Summary upon patient discharge from the hospital or completion of Physical Therapy Plan of Care. Impression: 1) moderate sized infrarenal abdominal aortic aneurysm 2) morbid obesity 3) tobacco abuse Recommendation: At the present time, Mr. Apple has a 4.4 cm infra abdominal aortic aneurysm. There is no evidence of stenosis of the aorta. He also appears to have some ectasia/aneurysmal dilatation at the juxtarenal level measuring approximate 3.5 cm. I do not feel he needs a heparin drip at the present time since there is no evidence of arterial occlusive disease. I do feel that regular monitoring (yearly at the present time) is appropriate to monitor his infrarenal abdominal aortic aneurysm (specially since his father passed from a ruptured infrarenal abdominal aortic aneurysm). There is nothing further from a vascular surgical standpoint other than recommendation that he quit smoking and exercise and try to lose weight. He can be discharged at the discretion of neurology, as well as the hospitalist services. He is to probably coordinate with the [facility] for family doctor management and then will contact us if he wants to follow with our office for his AAA evaluation. If there are any problems or difficulties in the interval, please contact us. We will sign off of this case at the present time. HPI: This 59-year-old male was transferred to [facility] from [facility] after being seen at their emergency room for a fall with numbness and significant weakness and loss of function of the lower extremities. After a few moments, those symptoms resolved, but work-up in the emergency room included a CTA which was read as a stenosis of the infrarenal aorta with a poststenotic dilatation of 4.4 cm. At the time of transfer, he was asymptomatic regarding his legs with good warmth and palpable pulses, but the ER at [facility] was adamant about getting him into a larger facility. He states he is done well since his been in this hospital. He said no further problems with the legs. He denies any abdominal pain or back pain other than his arthritic changes with obesity. 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 He denies any claudication symptoms. He denies any venous disease. He denies any past history of aneurysmal disease. He does state his father from a ruptured abdominal aneurysm. It has been at least 15 to 20 years since he has been seen by family doctor and does not see a physician regularly. PMH: Morbid obesity, tobacco abuse PSH: Appendectomy, hernia repair, shoulder surgery. Allergies: Penicillins Medications: Home medications are none, Hospital medications include: As needed medications and IV heparin drip Social history: Positive tobacco abuse (1 pack/day) for greater than 40 years. Negative for alcohol drug use history. ROS: Noncontributory except above-noted medical issues. PE: This pleasant but morbidly obese white male is alert, oriented x3, no acute distress. HEENT is grossly within normal's. Neck is supple without JVD. No bruits are auscultated. Heart is regular rate and rhythm. Lungs decreased breath sounds at the bases but otherwise are clear. Chest is good inspiration expiration efforts bilaterally. Abdomen is morbidly obese, soft, nontender. Unable to palpate 1 aorta due to morbid obesity and limited body habitus evaluation. Extremities real palpable proximal distal pulses upper and lower extremities. No cyanosis clubbing edema tremors. Neurologically is grossly intact without lateralizing signs. Cranials 2 through 12 are satisfactory. Psychologically is intact without evidence of anxiety or depression. Vitals were reviewed. Laboratory/testing: CTA of the abdomen, pelvis, lower extremities formed at [facility] on May 16, 2020 was read as short segment stenosis of the abdominal aorta distal to the renal arteries measuring 10 mm in length, with a diameter of the aorta at that time is 1.5 cm. There is posttraumatic dilatation with a diameter 4.4 cm. The length of the aortic dilatation is 8.3 cm. There is a short segment stenosis (50%) of the celiac artery approximately 12 mm from its origin. No other evidence of lower extremity arterial disease noted. (My personal review of the CT films indicated no evidence of aortic stenosis or poststenotic dilatation. However findings of a moderate size infrarenal bowel aortic aneurysm measuring 4.4 cm is noted. The suspected stenosis is actually laminar clot thrombus at that level of the aorta. He is also noted to have ectasia/aneurysmal dilatation of the juxtarenal artery measuring approximate 3.5 cm.) Occupational Therapy OCCUPATIONAL THERAPY EVALUATION NOTE Diagnosis: celiac a. Stenosis, BLE weakness Skilled Therapy Needs After Discharge Are Skilled Therapy Services Needed After Discharge: No further occupational therapy is needed. Patient is accomplishing ADL's independently/modified independently. He is independent with bed mobility and toilet transfer. He does have to half-kneel to don his socks d/t past back injury, but this is his baseline. He does report that his BLE feel sore . He reports that his son is available if he needs any assist at home. Outcomes Measures Prior Function Daily Activity: Raw Score: 24 Prior Function Daily Activity % Impaired: 0% functionally impaired AM-PAC Daily Activity: Raw Score: 24 AM-PAC Daily Activity % Impaired: 0% functionally impaired Occupational Therapy Assessment Patient is accomplishing ADL's, bed mobility, toilet transfers WFL. The patient's co morbidities (past back injury) do affect patient performance in the above activities and roles. The patient's home setup is a curriculum facilitator, family / caregiver support is a curriculum facilitator for return to prior level of function. The patient's compliance is a curriculum facilitator, awareness of own capacity and performance is a curriculum facilitator to return to prior level of function. During the assessment, minimal to moderate modification of task was required and limited treatment options were identified in the plan of care. This consultation required brief review of the medical and therapy history. Activity Tolerance Activity Tolerance: Tolerates 10 - 20 min activity with multiple rests Therapy Precautions Orthotic Devices: No Weight Bearing Status: WFL Cognition Overall Cognitive Status: Within Functional Limits Arousal/Alertness: Appropriate responses to stimuli Orientation Level: Oriented X4 Safety Judgment: Good awareness of safety precautions Attention: Attends to quiet environment Hearing Status: WFL Social Interaction: WFL, Cooperative, Appropriate ADL/IADL Feeding: Independent Grooming : Independent LE Dressing: Modified independence Toileting : Independent Bed Mobility Supine to Sit: Modified independence Sit to Supine: Independent Functional Transfers Sit to Stand: Independent Bed to Chair Transfers: Independent Toilet Transfers: Independent Skilled Intervention: Walked, SBA, from bed to toilet to sink to bed. No LOB, but states his legs feel sore . Exercise BUE WNL. Interventions Home Living Type of Home: House Home Layout: One level, Stairs to enter with rails Bathroom Shower/Tub: Tub/shower unit Bathroom Toilet: Standard Bathroom Accessibility: Accessible Additional Comments: Ambulates independently w/o device. Showers in standing. 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 Independent with homemaing when home. History reviewed. No pertinent past medical history. Past Surgical History: Procedure Laterality Date APPENDECTOMY HERNIA REPAIR SHOULDER SURGERY For complete objective data, detailed plan of care and patient education refer to: OT EVALUATION flow sheet, OT TREATMENT flow sheet, patient Plan of Care, Plan of Care progress note, and Patient Education. This note stands as the current Discharge Summary upon patient discharge from the hospital or completion of Occupational Therapy Plan of Care. Neurology Inpatient Consult [facility] 05/17/2020 Patient: Traiq Apple Date of : 1960 (59 y.o.) Referring Provider: Refer to consult order in electronic medical record PCP: Provider Not in System ASSESSMENT: 59 y.o. male presented to [facility] on 05/16/2020 with an onset of bilateral severe leg cramps and weakness this lasted for an hour in duration and spontaneously resolved. There is no discoloration, radicular symptoms, incontinence, or numbness. He did mention years of mild aching chronic low back pain. He had history of vertebral disc fracture in the past. He denies any symptoms in the upper extremities. Current neurologic exam is unrevealing. PLAN: We will check MRI of the thoracic and lumbosacral area. Monitor for any recurrent symptoms. We will check CPK and sed rate. Therapy and fall precautions. Discontinue smoking. Outpatient EMG if symptoms recurs or persists. I have personally reviewed/visualized the patient's images, as documented above. I have personally reviewed the patient's labs, as listed above. Impression, plan and suggestions was discussed with the patient. Questions and concerns were discussed and addressed. Nicky miller: Portions of this chart was created using [employer] voice recognition software. Occasional wrong-word or sound-like substitutions may have occurred due to inherent limitations of the voice recognition software. Please read the chart carefully and recognize, using context, where the substitutions have occurred. Leg weakness Answered questions and rediscussed plan at length with Patient. DIAGNOSTIC TESTING SUMMARY: Resulted Testing: (MRI/CT/XR, EEG, EMG, CSF, Cardiac, Labs) SUBJECTIVE: Chief Complaint/Reason for Consult: Leg weakness Informant(s): Patient, Care Team/Chart History of Present Illness: Tairq Apple is a 59 y.o. male who was admitted because of sudden onset leg weakness. Around 2 PM May 16, 2020 while walking, he suddenly experienced severe cramping on both calves and radiating proximally to the whole legs up to the inguinal area. This caused him to be weak and slowly went down on the floor. He has to drag himself to reach the phone and call for assistance. He denies any incontinence, headache, visual symptoms, dysarthria, dysphagia, or altered level consciousness. He denies any previous similar symptoms. He did mention chronic aching low back pain without any radicular symptoms. He was initially seen at [facility]. CT angiogram showed infrarenal aortic aneurysm with thrombus and celiac artery stenosis. Patient mentioned history of vertebral fracture in the past and has an aching mild low back pain that he sometimes needs a cart to walk and leaned over when he goes to the grocery. He has no bladder or bowel symptoms. He has no neck pain or radicular symptoms. He denies any leg swelling or claudication. Past medical history is otherwise unremarkable. Patient is a smoker but denies alcohol or recreational drug use. He lives alone. 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 Review of Systems: All systems reviewed and negative except pertinent positives and negatives documented in the History of Present Illness (HPI). History: History reviewed. No pertinent past medical history. Past Surgical History: Procedure Laterality Date APPENDECTOMY HERNIA REPAIR SHOULDER SURGERY Social History Socioeconomic History Marital status: Spouse name: Not on file Number of children: Not on file Years of education: Not on file Highest education level: Not on file Occupational History Not on file Social Needs Financial resource strain: Not on file Food insecurity Worry: Not on file Inability: Not on file Transportation needs Medical: Not on file Non-medical: Not on file Tobacco Use Smoking status: Current Every Day Smoker Packs/day: 1.00 Years: 43.00 Pack years: 43.00 Smokeless tobacco: Never Used Substance and Sexual Activity Alcohol use: Not Currently Drug use: Never Sexual activity: Not on file Lifestyle Physical activity Days per week: Not on file Minutes per session: Not on file Stress: Not on file Relationships Social connections Talks on phone: Not on file Gets together: Not on file Attends temple service: Not on file Active member of club or organization: Not on file Attends meetings of clubs or organizations: Not on file Relationship status: Not on file Other Topics Concern Not on file Social History Narrative Not on file History reviewed. No pertinent family history. Additional History Comments: None Allergies: Penicillins HOME Medications: Prior to Admission medications Not on File HOSPITAL Infusions: heparin infusion (weight based dosing) 11 Units/kg/hr (05/17/20 1244) heparin HOSPITAL Scheduled Medications: HOSPITAL PRN Medications: acetaminophen, albuterol, bisacodyL, heparin, magnesium hydroxide, traZODone OBJECTIVE: Physical Examination: BP 138/82 Pulse 69 Temp 98.2 F (36.8 C) (Oral) Resp 16 Ht 5' 6 Wt 117.5 kg (259 lb 0.7 oz) SpO2 95% BMI 41.81 kg/m Patient is awake and alert. Normal development and fairly groomed. Not in distress or pain. Vital signs were reviewed. Neck is supple. No carotid bruits. No meningeal sign. Heart rate and rhythm is regular. No cardiac murmur. Breath sounds are clear bilateral lung martin. No pedal edema. Pulses are 2+ symmetrically. No skin rash. Negative straight leg raising. No calf tenderness or Homans' sign. Patient is oriented to month, season, year, place, and person. Attention is intact. Concentration is intact. Remote memory is intact. Recall: 3/3. Intact calculation, spelling, and abstraction. Language is intact. Able to name and repeat. Speech is fluent and is spontaneous. General fund of knowledge is intact. Pupils are 4 mm equally reactive to light. No ptosis, nystagmus, or visual field cuts. Extraocular muscles are intact. Fundus was not adequately visualized. Face is symmetrical and facial sensation is intact. Hearing is grossly intact. Palate moves symmetrical upward. Positive shoulder shrug. Tongue is midline. Gross strength is 5/5. Normal muscle tone and bulk. No muscle fasciculations. Sensory is intact to pinprick, vibration, light touch, and proprioception. No tremors, ataxia, dysmetria, or other abnormal involuntary movement. Deep tendon reflexes are 2+ symmetrically in the upper extremity and 1+ in the lower extremities. No ankle clonus. Toes are downgoing on plantar stimulation. Finger to nose tests was normal. Toe to finger test was normal. Heel knee to daigle test was normal. Associated Order(s): IP CONSULT TO VASCULAR SURGERY CONSULT NOTE Patient Name: Tariq Apple Admit Date: MR #: [id number] : 1960 Physicians: Physician No (Family); No ref. provider found (referring) Assessment and Plan: Abdominal aortic aneurysm (AAA) without rupture (HCC) Assessment & Plan A CT angiogram that was performed [place] prior to transfer to [facility] has been reviewed. Patient is noted to have a 4.4 cm infrarenal abdominal aortic aneurysm without evidence of rupture. Thrombus is noted within the aneurysmal sac which is a normal finding. This gentleman has no prior knowledge of his aneurysmal disease at this time is stable with no indications for urgent vascular intervention. Would recommend 6-month follow-up with repeat imaging and for patient to be monitored on a regular basis by PCP our vascular specialist near [place]. Discussion has been held with the gentleman regarding familial trait of aneurysmal disease. He is aware that complete smoking cessation is necessary at this time. This gentleman continues to smoke he will increase his risk of his aneurysm sac enlarging quicker over time. At this time there is no need for any further vascular interventions and we will sign off this patient at this time. Patient CTA findings are not to contribute to the patient's chief complaint of charley horse with brief leg paralysis. If we can be of any further assistance please do not hesitate to contact. Cigarette nicotine dependence without complication Assessment & Plan Patient does have a chronic nicotine abuse history. 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 Spent more than 10 minutes discussing the need for complete smoking cessation and ways to go about doing this. This gentleman is aware of increased risk of his general health as well as the increase in his aneurysmal sac if he continues to smoke tobacco. He does say his understanding of this and is willing to try to obtain the goal of complete smoking cessation. Chief Complaint/Reason for Visit: Charley horse with brief paralysis of lower extremities History of Present Illness: Tariq Apple is a 59 y.o. y/o male presenting from OSH with c/o acute episode of severe charley horse with brief leg paralysis. During this time he had sharp pain that shot from his hip down to his ankle. He has no residual side effects or symptoms at this time. Patient underwent a CT angiogram AAA with runoff at [facility] which revealed distal to the renal artery is an abrupt reduction in caliber of the aorta, proximal abdominal aorta diameter is 2.4 cm, distal to the renal arteries the diameter is 1.5 cm, the focal narrowing is a short segment with 10 mm, immediately distal to the focal narrowing is dilation of the aorta with diameter of 4.4 cm, true lumen is 3.4 cm x 2.8 cm, thrombus is present in the right, there is no other significant stenosis identified. 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 He is not followed up with a doctor in 20+ years and has no PCP. Gentleman had no incontinence, chest pain shortness of breath or history of back injury prior to his chief complaints. This gentleman is ambulatory without the aid of a cane or walker. He denies experiencing claudication with ambulation nor history of any peripheral vascular disease or interventions in the past. History: History reviewed. No pertinent past medical history. Past Surgical History: Procedure Laterality Date APPENDECTOMY HERNIA REPAIR SHOULDER SURGERY History reviewed. No pertinent family history. Social History Socioeconomic History Marital status: Spouse name: Not on file Number of children: Not on file Years of education: Not on file Highest education level: Not on file Occupational History Not on file Social Needs Financial resource strain: Not on file Food insecurity Worry: Not on file Inability: Not on file Transportation needs Medical: Not on file Non-medical: Not on file Tobacco Use Smoking status: Current Every Day Smoker Packs/day: 1.00 Years: 43.00 Pack years: 43.00 Smokeless tobacco: Never Used Substance and Sexual Activity Alcohol use: Not Currently Drug use: Never Sexual activity: Not on file Lifestyle Physical activity Days per week: Not on file Minutes per session: Not on file Stress: Not on file Relationships Social connections Talks on phone: Not on file Gets together: Not on file Attends temple service: Not on file Active member of club or organization: Not on file Attends meetings of clubs or organizations: Not on file Relationship status: Not on file Other Topics Concern Not on file Social History Narrative Not on file Allergy Information: I have reviewed the patient's allergies. Penicillins Home Medications: No current outpatient medications on file as of 05/17/2020. Review of Systems: The following system(s) were reviewed and pertinent findings noted: Review of Systems Constitution: Negative for chills and fever. HENT: Negative for congestion, nosebleeds and tinnitus. Eyes: Negative for blurred vision and double vision. Cardiovascular: Negative for chest pain, dyspnea on exertion, near-syncope and syncope. Respiratory: Negative for cough and shortness of breath. Endocrine: Negative for cold intolerance and heat intolerance. Hematologic/Lymphatic: Does not bruise/bleed easily. Skin: Negative for color change and rash. Musculoskeletal: Positive for muscle cramps and muscle weakness per chief complaint. Gastrointestinal: Negative for abdominal pain, change in bowel habit, nausea and vomiting. Genitourinary: Negative for dysuria. Neurological: Negative for dizziness and light-headedness. Psychiatric/Behavioral: Negative for altered mental status. Physical Examination: Vital Signs: BP 123/79 (BP Location: Right arm, Patient Position: Lying) Pulse 70 Temp 98 F (36.7 C) (Oral) Resp 16 Ht 5' 6 Wt 117.5 kg (259 lb 0.7 oz) SpO2 94% BMI 41.81 kg/m General Appearance: Alert, cooperative, no distress, appears stated age Head: Normocephalic, without obvious abnormality, atraumatic Eyes: PERRL, conjunctiva/corneas clear, EOM's intact, fundi benign both eyes Throat: Lips, mucosa, and tongue normal; teeth and gums normal Neck: Supple, symmetrical, trachea midline, no adenopathy; thyroid: no enlargement/tenderness/nodules; no carotid bruit or JVD Back: Symmetric, no curvature, ROM normal, no CVA tenderness Lungs: Clear to auscultation bilaterally, respirations unlabored Chest wall: No tenderness or deformity Cardiovascular: Regular rate and rhythm, S1 and S2 normal, no murmur, rub or gallop; palpable pulses 2+ femoral and popliteal bilaterally patient has palpable posterior tibial pulse 1-2+ with a 2+ palpable left DP, patient has nonpalpable right DP and symmetric all extremities Abdomen: Soft, non-tender, bowel sounds active all four quadrants, no masses, no organomegaly. Patient's body habitus does limit the abdominal examination. No abdominal pulsatile masses or bruits are noted Osteopathic: Extremities equal with normal ROM; no tenderness, swelling or joint deformities; no tissue texture changes; no kyphosis, scoliosis or lordosis; no asymmetry; no tenderness to palpation Skin: Skin color, texture, turgor normal, no rashes or lesions Neurologic: CNII-XII intact; normal strength, sensation and reflexes throughout Psych: Mood and affect appropriate Laboratory and Additional Data Reviewed: Lab Results Component Value Date WBC 8.23 05/17/2020 HGB 14.8 05/17/2020 HCT 45.4 05/17/2020 MCV 90.6 05/17/2020 PLT 214 05/17/2020 RBC 5.01 05/17/2020 Lab Results Component Value Date GLUCOSE 114 (H) 05/17/2020 CALCIUM 8.5 05/17/2020 NA 139 05/17/2020 K 4.1 05/17/2020 CL 107 05/17/2020 BUN 12 05/17/2020 CREATININE 0.97 05/17/[address] angiogram AAA with runoff at [facility] which revealed distal to the renal artery is an abrupt reduction in caliber of the aorta, proximal abdominal aorta diameter is 2.4 cm, distal to the renal arteries the diameter is 1.5 cm, the focal narrowing is a short segment with 10 mm, immediately distal to the focal narrowing is dilation of the aorta with diameter of 4.4 cm, true lumen is 3.4 cm x 2.8 cm, thrombus is present in the right, there is no other significant stenosis identified. Associated attestation - Ryne Witt MD - 05/18/2020 11:08 AM EDT The patient is a 4.4 cm juxtarenal abdominal aortic aneurysm. In a male there is no indication for repair following national guidelines until aneurysm reaches 5.5 cm. 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 It is asymptomatic and does not need intervention. The patient does not have intestinal angina.documented in this encounter Plan of Care - Krissy Castro RN - 05/18/2020 1:17 PM EDTUtilization Review - Lima Bryant RN - 05/18/2020 11:46 AM EDTPlan of Care - Joy Multani RN - 05/18/2020 1:12 AM EDT Miscellaneous Notes (unrecog nized section and content) Problem: Actual or potential alteration in health Goal: Absence of healthcare acquired conditions Outcome: Met Goal: Knowledge of Interdisciplinary Plan of Care Outcome: Met Goal: Knowledge of Enviroment Outcome: Met Problem: Plan for Discharge Goal: Knowledge of discharge plan and instructions Outcome: Met Problem: Cardiac Output - Decreased Goal: Cardiac output within specified parameters Outcome: Met [facility] Utilization Review Notes 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 from [facility] after being seen at their emergency room for a fall with numbness and significant weakness and loss of function of the lower extremities. After a few moments, those symptoms resolved, but work-up in the emergency room included a CTA which was read as a stenosis of the infrarenal aorta with a poststenotic dilatation of 4.4 cm. At the time of transfer, he was asymptomatic regarding his legs with good warmth and palpable pulses, but the ER at [facility] was adamant about getting him into a larger facility. He states he is done well since his been in this hospital. He said no further problems with the legs. SYMPTOMS: stated above in hx PENDING TESTS: Per vascular surgeon: Do not feel he needs a heparin drip at the present time since there is no evidence of arterial occlusive disease. I do feel that regular monitoring (yearly at the present time) is appropriate to monitor his infrarenal abdominal aortic aneurysm (specially since his father passed from a ruptured infrarenal abdominal aortic aneurysm). There is nothing further from a vascular surgical standpoint other than recommendation that he quit smoking and exercise and try to lose weight. He can be discharged at the discretion of neurology, as well as the hospitalist services. Per Neuro: Current neurologic exam is unrevealing. Outpatient EMG if symptoms recurs or persists. Problem: Actual or potential alteration in health Goal: Absence of healthcare acquired conditions Outcome: Met Goal: Knowledge of Interdisciplinary Plan of Care Outcome: Met Goal: Knowledge of Enviroment Outcome: Met Problem: Plan for Discharge Goal: Knowledge of discharge plan and instructions Outcome: Met Problem: Cardiac Output - Decreased Goal: Cardiac output within specified parameters Outcome: Met Associated Problem(s): Cigarette nicotine dependence without complication Patient does have a chronic nicotine abuse history. 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 Spent more than 10 minutes discussing the need for complete smoking cessation and ways to go about doing this. This gentleman is aware of increased risk of his general health as well as the increase in his aneurysmal sac if he continues to smoke tobacco. He does say his understanding of this and is willing to try to obtain the goal of complete smoking cessation. Associated Problem(s): Abdominal aortic aneurysm (AAA) without rupture (HCC) A CT angiogram that was performed [place] prior to transfer to [facility] has been reviewed. Patient is noted to have a 4.4 cm infrarenal abdominal aortic aneurysm without evidence of rupture. Thrombus is noted within the aneurysmal sac which is a normal finding. This gentleman has no prior knowledge of his aneurysmal disease at this time is stable with no indications for urgent vascular intervention. Would recommend 6-month follow-up with repeat imaging and for patient to be monitored on a regular basis by PCP our vascular specialist near [place]. Discussion has been held with the gentleman regarding familial trait of aneurysmal disease. He is aware that complete smoking cessation is necessary at this time. This gentleman continues to smoke he will increase his risk of his aneurysm sac enlarging quicker over time. At this time there is no need for any further vascular interventions and we will sign off this patient at this time. Patient CTA findings are not to contribute to the patient's chief complaint of charley horse with brief leg paralysis. If we can be of any further assistance please do not hesitate to contact. Problem: Actual or potential alteration in health Goal: Absence of healthcare acquired conditions Outcome: Partially Met Goal: Knowledge of Interdisciplinary Plan of Care Outcome: Partially Met Goal: Knowledge of Enviroment Outcome: Partially Met Problem: Plan for Discharge Goal: Knowledge of discharge plan and instructions Outcome: Partially Met Problem: Cardiac Output - Decreased Goal: Cardiac output within specified parameters Outcome: Partially Met Problem: Actual or potential alteration in health Goal: Absence of healthcare acquired conditions Outcome: Not Met Goal: Knowledge of Interdisciplinary Plan of Care Outcome: Not Met Goal: Knowledge of Enviroment Outcome: Not Met Problem: Plan for Discharge Goal: Knowledge of discharge plan and instructions Outcome: Not Met Problem: Cardiac Output - Decreased Goal: Cardiac output within specified parameters Outcome: Not Met documented in this encounter Source Comments (unrecognize d section and content) In the event this informatio n is protected by the Federal Confidentiality of Alcohol and Drug Abuse Patient Records regulations: The Federal rules restrict any use of the information to criminally investigate or prosecute any alcohol or drug abuse patient.[facility] FOR RECORDS PERTAINING TO PATIENTS WHO ARE OR HAVE BEEN ENROLLED IN A CHEMICAL DEPENDENCY/SUBSTANCEABUSE PROGRAM, SOME INFORMATION MAY BE OMITTED. This clinical summary was aggregated from multiple sources. Caution should be exercised in using it in the provision of clinical care. This summary normalizes information from multiple sources, and as a consequence, information in this document may materially change the coding, format and clinical context of patient data. In addition, data may be omitted in some cases. CLINICAL DECISIONS SHOULD BE BASED ON THE PRIMARY CLINICAL RECORDS. [facility]. provides no warranty or guarantee of the accuracy or completeness of information in this document.
== END | disposition home or self-care (01) ==
PROVIDERS: PCP Family Medicine
DX: I71.42 Juxtarenal abdominal aortic aneurysm, without rupture (principal)
CPT/HCPCS: 94060; 94726; 94729

== ENCOUNTER → 2024-01-06 | Outpatient (CLI) | payer BC, SELFPAY ==
[2024-01-06 18:31] LABS: Absolute Lymphocyte Count 4.42 X10^3/uL (0.83-4.51); Absolute Neutrophil Count 2.6 X10^3/uL (2.0-7.7); Basophil# 0.07 X10^3/uL; Basophil% 0.9 % (0-1); Eosinophils% 3.8 % (0-5); Hematocrit 39.2 % (40-54); Lymphocyte # 4.42 X10^3/ul (0.83-4.51); Lymphocyte % 55.6 % (19-41); Mean Corp Hgb Conc 30.6 g/dL (32-36); Mean Corpuscular Volume 88.1 fL (80-94); Mean Platelet Vol. 12.7 fl (6.2-12.0); Monocyte# 0.49 X10^3/uL; Monocyte% 6.2 % (0-10); NRBC Flagged by Analyzer 0 % (0-5); Neutrophil # 2.63 X10^3/uL (2.7-7.7); POSITIVE MORPHOLOGY YES; Platelet Count 181 K/mm3 (150-450); RBC Distribution Width CV 13.7 % (11.6-14.6); RBC Distribution Width SD 44.4 fl (35.1-43.9); Red Blood Count 4.45 M/mm3 (4.6-6.2)
[2024-01-06 18:52] LABS: ALB/GLOB Ratio 0.7 RATIO (0.9-2.4); AST(SGOT) 25 U/L (15-37); Alanine Aminotransfer ALT/SGPT 32 U/L (16-61); Albumin, Serum 3.1 g/dL (3.2-5.0); Alkaline Phosphatase 73 U/L (45-117); Anion Gap 6 (5-15); BUN 20 mg/dL (7-18); Calcium,Total 8.9 mg/dL (8.5-10.1); Chloride 107 mmol/L (98-107); EST Glomerular Filtration Rate 104 mL/min (>60); Est Glom Filt Rate - Afr Amer 126 mL/min (>60); Globulin 4.6 g/dL (2.2-4.2); Glucose 107 mg/dL (74-106); Potassium 3.7 mmol/L (3.5-5.1); Protein, Total 7.7 g/dL (6.4-8.2); Sodium Level 139 mmol/L (136-145)
[2024-01-06 18:57] LABS: Differential Indicated SCAN CRITERIA MET
[2024-01-06 19:17] LABS: Differential Comment SCANNED; Reactive Lymphocyte RARE
== END | disposition home or self-care (01) ==
LOC: MFPLAB 15:38
PROVIDERS: PCP Family Medicine; Visit Provider Family Medicine
DX: R50.9 Fever, unspecified (principal)
CPT/HCPCS: 36415; 80053; 85025

== ENCOUNTER → 2025-06-18 | Outpatient (CLI) | payer BC, SELFPAY ==
--- OUTSIDE RECORDS SUMMARY | 2025-06-18 06:08 | XMS RPT_ITS | CCD ---
Author Organization [facility] Inform ion Partnership [facility] Care Team Providers [employer] Division Chair Name Role Phone NO REFERRING DR Unavailable Unavailable PARANJAPE, TRAUMA/CHARUD Unavailable Unavail able PARANJAPE, TRAUMA/CHARUD Unavailable Unavail able CHRISTINA ADAIR Unavailable Unavailable DAVIDFLASH WILLS G Unavailable Unavailable [facility], HEENA Unavailable Unavailable System, Provider Not In Primary Care Provider Un available RACHELLE BISHOP Attending Unavailable RACHELLE BISHOP Primary Care Unavailable RACHELLE BISHOP Admitting Unavailable SYSTEM, PROVIDER NOT IN Referring Unavaila ble AL SHELDON SORIANO Admitting Unavailab Salomón Rome III Consulting Unavailable SYSTEM, PROVIDER NOT IN Primary Care Unavaila SANGEETA William Attending Unavailable Unavailable Primary Care Provider Unavailabl MD Latrell Buchanan Primary Care Provider MD Latrell Bernal Referring Provider MD Paulo Carter Attending Provider [phone] Care Physician, No Primary Referring Provider Un available Dr. Mike Mcmahan Attending Provider [phone] Ryne Taylor Attending Provider Dr. Mike Mcmahan Referring Provider [phone] Rush Rankin Attending Provider [phone] Regina GOSPEL WORKER, GOSPEL WORKER-C Omar Tim Attending Provider Tommy GOSPEL WORKER, GOSPEL WORKER-C Flakita Attending Provider ROGELIO Moore Attending Provider [phone] Mike Mcmahan Other Provider MD Latrell Bernal Primary Care Provider MD Latrell Bernal Referring Provider MD Paulo Carter Attending Provider Unavailable Primary Care Provider Unavailabl e Dolores PEREZ, Stevenjakub Primary Care Provider Dolores PEREZ, Latrell Primary Care Provider LATRELL BERNAL Primary Care Unavailable EYER, MOISE Referring Unavailable EYER, MOISE Attending Unavailable DOLORES, [facility] Primary Care Unavailable REX, XIAOYI Attending Unavailable FM [facility] PROVIDER, [facility] Referring Unavailable REX, XIAOYI Attending Unavailable MOORE MAGALI Referring Unavailable REX, XIAOYI Attending Unavailable SELF, SELF Referring Unavailable CONSULT, [facility] Consulting Radha vailable REX, XIAOYI Admitting Unavailable REX, XIAOYI Attending Unavailable REX, XIAOYI Referring Unavailable REX, XIAOYI Attending Unavailable [facility] Unavailable REX, XIAOYI Attending Unavailable REX, XIAOYI Referring Unavailable [facility] Primary Care Unavailable REX, XIAOYI Attending Unavailable REX, XIAOYI Referring Unavailable Dolores, Chalon Referring Unavailable Roof, Omar H Attending Unavailable [facility] Unavailable Dolores, Chalon Referring Unavailable Dolores, Chalon Primary Care Unavailable Dolores, Stevenon Attending Unavailable Allergies Allergy Classification Reported Allergen(s) Allergy Type Date of Onset Reaction(s) Facility (16 sources) Penicillins; Translations: [PENICILLINS] Propensity to adverse reactions (disorder) 0 Unknown [facility] Repository (1 source) Penicillin Drug Allergy [facility] Repository Medications Current Medications Medication Drug Class(es) Dates Sig (Normalized) Sig (Original) acetaminophen 325 mg oral tablet (6 sources) Start: 10-01-2023 End: 10-06-2023 take 2 tablets by mouth every four hours as needed Acetaminophen 325 MG tablet Take 2 tablets by mouth every 4 hours as needed for Mild Pain. 30 tablet 10/05/2023 Active Start: 05-17-2020 End: 05-18-2020 take 1 tablet by mouth every four hours as needed 650 mg, Oral, Every 4 hours PRN, mild pain, fever 100.4 F or greater, headaches, Starting 05/17/20 at 0007 cephalexin 500 mg oral capsule (3 sources) Cephalosporin Antibacterial Start: 10-04-2023 End: 10-09-2023 Drug or medicament (substance) (1 source) glimepiride 4 mg oral tablet (6 sources) Sulfonylurea Start: 05-01-2023 take 4 mg by mouth once daily Glimepiride Active 4 MG PO DAILY April 30, 2023 11:00pm metFORMIN hydrochloride 500 mg oral tablet (10 sources) Biguanide Start: 05-01-2023 take 500 mg by mouth twice daily Metformin Active 500 MG PO TWICE A DAY April 30, 2023 11:00pm take 1 tablet by mouth once lucinda y metFORMIN 1000 MG tablet Take 1 tablet by mouth daily. Active Semaglutide (OZEMPIC, 0.25 O R 0.5 MG/DOSE, SC) (3 sources) Semaglutide (OZE MPIC, 0.25 OR 0.5 MG/DOSE, SC) Inject 0.25 mg under the skin once a week. Active sennosides, detention 8.6 mg oral tablet (3 sources) Start: 10-01-2023 End: 11-05-2023 Completed/Discontinued Medications Medication Drug Class(es) Dates Sig (Normalized) Sig (Original) 500 ml albumin human, detention 50 mg/ml injection (1 source) Human Serum Albumin Start: 10-03-2023 End: 10-03-2023 [id number] 200 actuat albuterol 0.09 mg/actuat metered dose inhaler (2 sources) beta2-Adrenergic Agonist Start: 10-03-2023 End: 10-06-2023 Start: 05-17-2020 End: 05-18-2020 take 2.5 mg by inhalation every two hours as needed 2.5 mg, Inhalation, Every 2 hour PRN (RT), wheezing, shortness of breath, Starting Sat05/17/20 at 0007 aspirin 81 mg chewable tablet (12 sources) Platelet Aggregation Inhibitor, Nonsteroidal Anti-inflammatory Drug Start: 10-01-2023 End: 10-06-2023 Start: 09-30-2023 End: 10-01-2023 Start: 05-01-2023 take 81 mg by mouth once daily Aspirin Active 81 MG PO DAILY April 30, 2023 11:00pm atorvastatin 40 mg oral tabl et (11 sources) HMG-CoA Reductase Inhibitor Start: 05-01-2023 End: 10-06-2023 bisacodyl 10 mg rectal suppo sitory (2 sources) Stimulant Laxative Start: 09-30-2023 End: 10-06-2023 Start: 05-17-2020 End: 05-18-2020 take 10 mg rectal route once daily as needed for constipation 10 mg, Rectal, Daily PRN, constipation, Starting Sat05/17/20 at 0007 Try oral medications first for constipation. Try rectal medication if oral meds are ineffective, not tolerated, or not ordered. calcium chloride 0.0014 meq/ ml / potassium chloride 0.004 meq/ml / sodium chloride 0.103 meq/ml / sodium lactate 0.028 meq/ml injectable solution (4 sources) Start: 10-03-2023 End: 10-03-2023 Start: 09-30-2023 End: 10-01-2023 10 ml calcium gluconate 100 mg/ml injection (1 source) Start: 10-05-2023 End: 10-05-2023 castor oil 0.788 mg/mg / liberian balsam 0.087 mg/mg topical ointment (1 source) Standardized Chemical Allergen Start: 09-30-2023 End: 10-06-2023 4 ml furosemide 10 mg/ml injection (2 sources) Loop Diuretic Start: 10-05-2023 End: 10-05-2023 Start: 10-04-2023 End: 10-04-2023 250 ml heparin sodium, porcine 100 unt/ml [...] For Downtime Calculator, use: Heparin Infusion Standard 1 ml hydrALAZINE hydrochloride 20 mg/ml injection (1 source) Arteriolar Vasodilator Start: 09-30-2023 End: 10-06-2023 take 10 mg intravenously every four hours as needed 1 ml HYDROmorphone hydrochloride 1 mg/ml cartridge (6 sources) Opioid Agonist Start: 09-30-2023 End: 10-02-2023 take 1 mg intravenously every three hours as needed Start: 09-30-2023 End: 09-30-2023 take 0.5 mg intravenously every four hours as needed insulin, regular, human 100 unt/ml injectable solution (1 source) Insulin Start: 09-30-2023 End: 10-02-2023 iohexol (OMNIPAQUE) 350 MG/ML injection 1-171 mL (1 source) Start: 11-07-2023 End: 11-07-2023 1-171 mL, Intravenous, ONCE, 1 dose, On Lisa 11/07/23 at 0800, Extravasation Risk, CT Procedure 1 ml ketorolac tromethamine 15 mg/ml cartridge (1 source) Nonsteroidal Anti-inflammatory Drug, Cyclooxygenase Inhibitor Start: 10-02-2023 End: 10-04-2023 labetalol hydrochloride 5 mg/ml injectable solution (1 source) beta-Adrenergic Laura Start: 09-30-2023 End: 10-06-2023 take 10 mg intravenously every six hours as needed lidocaine 0.04 mg/mg medicated patch (1 source) Antiarrhythmic, Amide Local Anesthetic Start: 10-01-2023 End: 10-06-2023 magnesium hydroxide 80 mg/ml oral suspension (1 source) Start: 05-17-2020 End: 05-18-2020 take 2400 mg by mouth once daily as needed for constipation 2,400 mg (30 mL), Oral, Daily PRN, constipation, For constipation., Starting Sat05/17/20 at 0007 50 ml magnesium sulfate 80 mg/ml injection (1 source) Start: 09-30-2023 End: 10-06-2023 melatonin 3 mg oral tablet (1 source) Start: 10-04-2023 End: 10-06-2023 methocarbamol 750 mg oral tablet (6 sources) Muscle Relaxant Start: 10-05-2023 End: 11-07-2023 take 1 tablet by mouth three times daily as needed for muscle spasms Methocarbamol 750 MG tablet Take 1 tablet by mouth 3 times daily as needed for Muscle spasms for up to 14 days. 42 tablet 10/05/2023 11/07/2023 Discontinued Start: 10-01-2023 End: 10-06-2023 metoprolol tartrate 25 mg or al tablet (10 sources) beta-Adrenergic Laura Start: 10-02-2023 End: 10-06-2023 Start: 05-13-2023 take 1 tablet by contreras th once daily Metoprolol Succinate (Toprol Xl) 25 mg tablet extended release 24 hr Active 25 MG PO DAILY May 12, 2023 11:00pm nitrofurantoin, macrocrystals 25 mg / nitrofurantoin, monohydrate 75 mg oral capsule (1 source) Nitrofuran Antibacterial Start: 10-05-2023 End: 10-05-2023 oxyCODONE hydrochloride 5 mg oral tablet (7 sources) Opioid Agonist Start: 10-05-2023 End: 11-14-2023 take 1 tablet by mouth every six hours as needed for pain oxyCODONE 5 MG tablet Indications: Abdominal aortic aneurysm (AAA) without rupture, unspecified part Take 1 tablet by mouth every 6 hours as needed for Moderate Pain or Severe Pain for up to 7 days. 28 tablet 10/05/2023 11/07/2023 Discontinued Start: 10-01-2023 End: 10-02-2023 take 5 mg by mouth every four hours as needed microencapsulated potassium chloride 20 meq extended release oral tablet (4 sources) Start: 10-03-2023 End: 10-06-2023 Start: 09-30-2023 End: 10-06-2023 0.25 mg, 0.5 mg dose 1.5 ml semaglutide 1.34 mg/ml pen injector (1 source) Start: 08-05-2023 Semaglutide Ac tive 0.25 MG SC EVERY WEEK August 05, 2023 12:00am for 4 weeks 20 ml sodium chloride 9 mg/m l injection (3 sources) Start: 11-07-2023 End: 11-07-2023 1-100 mL, Intravenous, ONCE NEEDED, 1 dose, Starting on Lisa 11/07/23 at 0747, Until Lisa 11/07/23 at 0747, Flush, CT Procedure Start: 09-30-2023 End: 09-30-2023 Start: 05-17-2020 End: 05-17-2020 take 100 mL [...] 1 in 30 minutes if still awake. Vancomycin HCl in NaCl (Vancocin) 1,250 mg 287.5 ml premade IVPB (1 source) Start: 09-30-2023 End: 09-30-2023 (13 sources) Start: 10-04-2023 End: 10-06-2023 [Order 1 Start] Name: Sodium-potassium phosphate (K-PHOS NEUTRAL) tablet 500-1,000 mg Signed Summary: 500-1,000 mg, Oral, ADMINISTER DIRECTED, Starting on Sat10/04/23 at 0543, Until 10/06/23 at 1432, See admin instructions, Administer 2 tablets if phosphate level is 2.1-2.6mg/dL. Administer 4 tablets for phosphorous level less than or equal to 2.0 mg/dL. If patient does not have enteral access, please notify MD/DEWAYNE for intravenous replacements. Replacement is primarily indicated in critically ill patients. [Order 1 End] [Order 2 Start] Name: Sodium-potassium phosphate (K-PHOS NEUTRAL) tablet 500-1,000 mg Signed Summary: 500-1,000 mg, Per NG tube, ADMINISTER DIRECTED, Starting on Sat10/04/23 at 0543, Until 10/06/23 at 1432, See admin instructions, Administer 2 tablets if phosphate level is 2.1-2.6mg/dL. Administer 4 tablets for phosphorous level less than or equal to 2.0 mg/dL. If patient does not have enteral access, please notify MD/DEWAYNE for intravenous replacements. Replacement is primarily indicated in critically ill patients. [Order 2 End] Start: 10-04-2023 End: 10-04-2023 Start: 10-03-2023 End: 10-04-2023 take 2 g intravenously every eight hours Start: 10-02-2023 End: 10-03-2023 Start: 10-02-2023 End: 10-02-2023 Start: 10-02-2023 End: 10-06-2023 take 5 mg by mouth every four hours as needed [Order 1 Start] Name: oxyCODONE (ROXICODONE) tablet 5 mg Signed Summary: 5 mg, Oral, EVERY 4 HOURS NEEDED, Starting on Sat10/02/23 at 0954, Until 10/06/23 at 1432, Moderate Pain, Severe Pain, Use as initial dose. Higher dose may be administered if lower dose was previously documented as ineffective and did not result in adverse effects (RR<10, negative change in RASS of 2 or more). [Order 1 End] [Order 2 Start] Name: oxyCODONE HCl (ROXICODONE) tablet 10 mg Signed Summary: 10 mg, Oral, EVERY 4 HOURS NEEDED, Starting on Sat10/02/23 at 0954, Until Sat10/06/23 at 1432, Moderate Pain, Severe Pain, Higher dose may be administered if lower dose was previously documented as ineffective and did not result in adverse effects (RR<10, negative change in RASS of 2 or more). Decrease back to lower dose if patient has adverse effects or no PRN use in previous 12 hours. Hold for sedation. [Order 2 End] Start: 10-01-2023 End: 10-02-2023 Start: 10-01-2023 End: 10-01-2023 Start: 10-01-2023 End: 10-01-2023 Start: 10-01-2023 End: 10-06-2023 [Order 1 Start] Name: Nicoti ne (NICODERM CQ) 21 MG/24HR patch 1 patch Signed Summary: 1 patch, Transdermal, EVERY 24 HOURS, First dose on Sat10/01/23 at 0745, Until Discontinued, Apply patch to hairless skin site on upper body or arm. Rotate sites for each application. Do not cut or alter patch. Remove patch after duration of 16-24 hours. To dispose, fold adhesive ends together. [Order 1 End] [Order 2 Start] Name: VERIFY LINKED PATCH PLACEMENT Signed Summary: Other, EVERY 12 HOURS, First dose on Sat10/01/23 at 0900, Until Discontinued, Confirm continued adhesion of nicotine 21 mg/24hr patch at documented site. [Order 2 End] Start: 09-30-2023 End: 10-06-2023 [Order 1 Start] Name: Hepari n injection 7,500 Units Signed Summary: 7,500 Units, Subcutaneous, EVERY 8 HOURS (0800/1600/2200), First dose on Sat09/30/23 at 2200, Until Discontinued [Order 1 End] [Order 2 Start] Name: PLATELET COUNT Signed Summary: Routine, EVERY 3 DAYS AM LAB, First occurrence on Sat09/30/23 at 1635, Until Specified, New collection [Order 2 End] Start: 09-30-2023 End: 10-01-2023 Start: 09-30-2023 End: 10-06-2023 take 4 mg by mouth every six hours as needed [Order 1 Start] Name: Ondansetron (ZOFRAN) tablet 4 mg Signed Summary: 4 mg, Oral, EVERY 6 HOURS NEEDED, Starting on Sat09/30/23 at 1543, Until Sat10/06/23 at 1432, Nausea / Vomiting, 1st Line, Post-op/Post-Proc [Order 1 End] [Order 2 Start] Name: Ondansetron 4mg/2ml (ZOFRAN) injection 4 mg Signed Summary: 4 mg, Intravenous, EVERY 6 HOURS NEEDED, Starting on Sat09/30/23 at 1543, Until Sat10/06/23 at 1432, Nausea / Vomiting, 1st line, If patient unable to tolerate PO., Post-op/Post-Proc [Order 2 End] (1 source) Start: 09-30-2023 End: 10-01-2023 (1 source) Start: 09-29-2023 End: 09-30-2023 Problems Active Problems Problem Classification Problem Date Documented Da te Episodic/Chronic Acute myocardial infarction (6 sources) Myocardial infarction; Translations: [ST elevation (STEMI) myocardial infarction of unspecified site] 05-01-2023 Chronic Allergic reactions (1 source) Allergy status to penicillin; Translations: [Allergy status to penicillin] Onset: 05-16-2020 Episodic Aortic; peripheral; and visceral artery aneurysms (20 sources) Abdominal aortic aneurysm without rupture; Translations: [Abdominal aortic aneurysm (AAA) without rupture] Onset: 05-17-2020 05-17-2020 Chronic Cardiac dysrhythmias (7 sources) Palpitations; Translations: [Palpitations] 03-30-2023 Episodic Coronary atherosclerosis and other heart disease (6 sources) Coronary atherosclerosis; Translations: [Atherosclerotic heart disease of telida coronary artery without angina pectoris] Onset: 05-31-2025 05-14-2023 Chronic Diabetes mellitus without complication (6 sources) Increased glucose level; Translations: [Other abnormal glucose] 05-01-2023 Episodic Disorders of lipid metabolism (12 sources) Hyperlipidemia; Translations: [Hyperlipidemia, unspecified] Onset: 06-29-2024 05-01-2023 Chronic Heart valve disorders (7 sources) Nonrheumatic aortic (valve) stenosis; Translations: [Aortic valve stenosis] Onset: 05-16-2020 05-01-2023 Chronic Joint disorders and dislocations; trauma-related (5 sources) Tear of medial meniscus of knee; Translations: [Other tear of medial meniscus, current injury, right knee, initial encounter] 06-24-2023 Episodic Other circulatory disease (6 sources) Stenosis of celiac artery; Translations: [Stricture of artery] 05-01-2023 Chronic Other circulatory disease (5 sources) Carotid bruit; Translations: [Other specified symptoms and signs involving the circulatory and respiratory systems] 05-13-2023 Episodic Other circulatory disease (3 sources) Stenosis of artery; Translations: [Celiac artery stenosis (HCC)] Onset: 05-17-2020 05-17-2020 Other connective tissue disease (2 sources) Muscle spasm of calf; Translations: [Muscle spasm of calf] Onset: 05-16-2020 Episodic Other non-traumatic joint disorders (10 sources) Pain in right knee; Translations: [Right knee pain] 05-07-2023 Episodic Other non-traumatic joint disorders (2 sources) Effusion of right knee joint; Translations: [Effusion, right knee] 06-24-2023 Episodic Other non-traumatic joint disorders (3 sources) Effusion, right knee; Translations: [Effusion of joint, lower leg] 06-24-2023 Episodic Residual codes; unclassified (6 sources) Tobacco user; Translations: [Tobacco use] 05-01-2023 Episodic Sprains and strains (9 sources) Sprain of medial collateral ligament of right knee, initial encounter; Translations: [Sprain of medial collateral ligament of right knee] 05-07-2023 Episodic Substance-related disorders (4 sources) Nicotine dependence; Translations: [Nicotine dependence, unspecified, uncomplicated] Onset: 05-16-2020 05-17-2020 Chronic Unclassified (1 source) Unknown / UNK(Unknown) Onset: 07-05-2014 Unclassified (1 source) Abdominal aortic aneurysm, without rupture, unspecified; Translations: [Abdominal aortic aneurysm, without rupture, unspecified] Onset: 09-30-2023 Unclassified (2 sources) Juxtarenal abdominal aortic aneurysm, without rupture; Translations: [Juxtarenal abdominal aortic aneurysm, without rupture] Onset: 09-30-2023 Past or Other Problems Problem Classification Problem Date Documented Da te Episodic/Chronic Coronary atherosclerosis and other heart disease (6 sources) Presence of coronary angioplasty implant and graft; Translations: [Percutaneous transluminal coronary angioplasty status] Onset: 01-17-2022 05-13-2023 Episodic Other circulatory disease (6 sources) Other specified symptoms and signs involving the circulatory and respiratory systems; Translations: [Other symptoms involving cardiovascular system] Onset: 06-29-2024 05-13-2023 Episodic Unclassified (1 source) LUMBAR FRACTURE, FALL, RIB FRACTURE Onset: 07-05-2014 Unclassified (1 source) Abdominal aortic aneurysm, without rupture, unspecified; Translations: [Abdominal aortic aneurysm, without rupture, unspecified] Onset: 11-07-2023 Unclassified (1 source) Juxtarenal abdominal aortic aneurysm, without rupture; Translations: [Juxtarenal abdominal aortic aneurysm, without rupture] Onset: 11-07-2023 Results Test Name Value Interpretation Reference Range Facility Cardiology Visit Reporton Cardiology Visit Report [facility] [address] [place] [address] OFFICE VISIT Date of Service: 06/29/24 MR#: [id number] Acct: [id number] Name: TARIQ ARIAS Rep #: [id number] : 1960 Provider: MITZY caraballo Age/Sex: 64/M Location: [facility] Status: Signed HPI HPI History of Present Illness Details: 64-year-old man who presents for an initial evaluation here. 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 He underwent a cardiac catheterization which demonstrated an occluded right coronary artery for which she underwent PCI thrombectomy and stenting. His LAD and circumflex had no significant disease and he did have an echocardiogram which demonstrated an ejection fraction of 50 to 55% with mild mitral calcification and hypokinesis of the inferolateral segments. He was placed on aspirin as well as ticagrelor but he has not had any further cardiac follow-up. Prior to this in 2019 he said that he had a problem with his legs and was evaluated with a CT angiogram with runoff and contrast in [place] and he had an area in his descending aorta with a poststenotic dilatation of 4.4 cm. He has not had any further issues with his leg. He unfortunately continues to use tobacco products. He denies chest, arm, jaw, or neck discomfort. He denies palpitations. He denies bilateral lower extremity edema. He denies claudication. He denies shortness of breath with activity, shortness of breath at rest, orthopnea, or PND. He denies chronic cough. He denies significant, sudden weight gain. He denies lightheadedness, dizziness, near-syncope, or syncope. He denies blood in urine, blood in stool, or epistaxis. He denies fever with chills. He denies myalgia. He denies fatigue. His exercise level has remained stable. Intake Vital Signs 05/13/23 13:49 06/29/24 09:35 Height 5 ft 6 in 5 ft 6 in Weight: 250 lb BMI 40.3 BP 134/73 H Blood Pressure Location Lt brachial Position Sitting Respiration 16 Pulse 59 L Pulse Source NIBP Intake Visit Reasons: DOT APPT/OK PER R Switch Maker Required: No Is patient in pain?: No Allergies Penicillins Allergy (Intermediate, Verified 06/29/24 09:38) Unknown Medications ???Medication ???Instructions ???Recorded ???Confirmed ???Type aspirin 81 mg tablet,delayed 81 mg PO DAILY 05/01/23 06/29/24 History release atorvastatin 40 mg tablet 40 mg PO QHS 05/01/23 06/29/24 History metoprolol succinate 25 mg 25 mg PO DAILY #90 tabs 05/13/23 06/29/24 Rx tablet,extended release 24 hr (Toprol XL) metformin 1,000 mg tablet 1,000 mg PO BID 06/29/24 06/29/24 History Ejection fraction %: 50 Have you fallen in the past year?: No PFSH Medical History Tear of medial meniscus of right knee Effusion, right knee Atherosclerosis of coronary artery of telida heart without angina pectoris MCL sprain of right knee Right knee pain Obesity Tobacco abuse AAA (abdominal aortic aneurysm) without rupture Celiac artery stenosis Aortic stenosis Hyperlipidemia STEMI (ST elevation myocardial infarction) Surgical History History of abdominal aortic aneurysm (AAA) repair ( 09/2023) History of appendectomy History of coronary artery stent placement (01/17/22) History of arthroscopy of right shoulder History of umbilical hernia repair Family History Other Heart disease Social History (Updated 06/29/24 @ 09:41 by Maria C Da Silva) Smoking Status: Current every day smoker tobacco type: cigarettes alcohol intake: never substance use type: does not use caffeine: Yes Type: coffee Number of servings: 2 ROS Const Const: Negative for fatigue or weakness Eyes Eyes: Negative for change in vision ENT ENT: Negative for dizziness or balance problems Cardio Chest Pain: No Palpitations: No Edema: None Muscle aches with walking: None Resp Respiratory: Negative for SOB with activity, SOB at rest or SOB orthopnea SOB lying down GI GI: Negative nausea or heartburn : Negative for hematuria or frequent nighttime urination/ nocturia Musc Musc: Negative for balance problems Skin Skin: Negative non-healing lesions or rash Neuro Neuro: Negative for dizziness, lightheadedness, near syncope, syncope or weakness Endo Endo: Negative for fatigue Allergy Allergy/Immunology: Negative for rash Cardiology Exam Const Appearance: cooperative, healthy appearing, comfortable and no acute distress Nutritional Appearance: well nourished and obese Orientation: alert, awake and oriented x3 (more content not included)... Normal [facility] CREAT/GFRon 11-07-2023 Creatinine [Mass/Vol] 0.94 mg/dL 0.70 - 1.30 mg/dL [facility] GFR/1.73 sq M.predicted CKD-EPI (S/P/Bld) [Vol rate/Area] - PINF [facility] Comment on above: Reported eGFR is bas ed on the CKD-EPI 2020 equation using creatinine, age, and sex. Interpretation and review of laboratory results Normal [facility] Test performed at address of the patient encounter. [facility] CT ANGIO ABDOMEN PELVISon CT ANGIO ABDOMEN PELVIS EXAM: CT ANGIO ABDOMEN PELVIS, 11/07/2023 07:55 AM CLINICAL INDICATIONS: 09/29: retroperitoneal repair of AAA using 18x9 rifampin soaked gelsoft graft; RELEVANT CLINICAL HISTORY: I71.42:Juxtarenal abdominal aortic aneurysm (AAA) without rupture CONTRAST: iohexol (OMNIPAQUE) 350 MG/ML injection 1-171 mL; Route of Administration: Intravenous; Dose: 110 mL. --------- COMPARISON: June 24, 2023 TECHNIQUE: Submillimeter contiguous axial sections were taken from the intertronchanteric level to the upper pole of the kidneys during the arterial phase of intravenous injection of contrast. Oral contrast was not used so as to optimize the visualization of the vasculature. Additional multiplanar and 3D reconstructions were provided. 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 The grafted sac measures up to 5.4 x 4.6 cm distally. No evidence of active contrast examination or graft leak. Abdominal aortic branches: Proximally occluded inferior mesenteric artery, with distal reconstitution. Other visceral branches are grossly patent. Iliofemoral arteries: Patent bilateral iliac graft limbs Non-Vascular findings: Chest: Heart and pericardium: Coronary calcifications Lungs and airways: No consolidation or mass. Pleura:No pleural effusion or pleural thickening. Bones: No suspicious osseous lesions. Chest wall:Unremarkable. Abdomen and pelvis: Liver: Smooth hepatic surface contour. Small right hepatic lobe cyst. Gall bladder and biliary tract: Unremarkable. No intra- or extra- hepatic bile ductal dilation. Pancreas: Unremarkable. The main pancreatic duct is nondilated. Spleen: Unremarkable. Kidneys: Symmetric bilateral renal perfusion. Subcentimeter cortical hypodensities too small to characterize, likely cysts.. No nephrolithiasis or evidence of hydronephrosis. Adrenal glands:Unremarkable. Bowel: Uncomplicated colonic diverticulosis. The stomach and small bowel are unremarkable. Peritoneum and Mesentery: Mild retroperitoneal/lisa aortic stranding, could be postsurgical Lymph nodes: No evidence of intra-abdominal or pelvic lymphadenopathy. Genital organs: The prostate and seminal vesicles are within normal limits. Urinary bladder: Unremarkable. Portal veins: The main portal vein, and intrahepatic branches are grossly patent. IVC and hepatic veins: Patent. Abdominal wall: Postsurgical changes, with fluid collection along the left abdominal wall incision, likely postoperative seroma (series 8, image 44), 12.5 x 3.8 cm . Bones: Multilevel changes of the lumbosacral spine. No suspicious osseous lesions. IMPRESSION: 1. Postsurgical changes related to aortobiiliac open graft repair of juxtarenal aneurysm. 2. Other ancillary findings are noted as above. Normal [facility] CT Abdomen and Pelvis and CT angiogram Abdominal aorta WO and W contrast Jose 11-07-2023 IMPRESSION: 1. Postsurgical changes related to aortobiiliac open graft repair of juxtarenal aneurysm. 2. Other ancillary findings are noted as above. OLOGY EXAM: CT ANGIO ABDOMEN PELVIS, 11/07/2023 07:55 AM CLINICAL INDICATIONS: 09/29: retroperitoneal repair of AAA using 18x9 rifampin soaked gelsoft graft; RELEVANT CLINICAL HISTORY: I71.42:Juxtarenal abdominal aortic aneurysm (AAA) without rupture CONTRAST: iohexol (OMNIPAQUE) 350 MG/ML injection 1-171 mL; Route of Administration: Intravenous; Dose: 110 mL. --------- COMPARISON: June 24, 2023 TECHNIQUE: Submillimeter contiguous axial sections were taken from the intertronchanteric level to the upper pole of the kidneys during the arterial phase of intravenous injection of contrast. Oral contrast was not used so as to optimize the visualization of the vasculature. Additional multiplanar and 3D reconstructions were provided. 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 The grafted sac measures up to 5.4 x 4.6 cm distally. No evidence of active contrast examination or graft leak. Abdominal aortic branches: Proximally occluded inferior mesenteric artery, with distal reconstitution. Other visceral branches are grossly patent. Iliofemoral arteries: Patent bilateral iliac graft limbs Non-Vascular findings: Chest: Heart and pericardium: Coronary calcifications Lungs and airways: No consolidation or mass. Pleura:No pleural effusion or pleural thickening. Bones: No suspicious osseous lesions. Chest wall:Unremarkable. Abdomen and pelvis: Liver: Smooth hepatic surface contour. Small right hepatic lobe cyst. Gall bladder and biliary tract: Unremarkable. No intra- or extra- hepatic bile ductal dilation. Pancreas: Unremarkable. The main pancreatic duct is nondilated. Spleen: Unremarkable. Kidneys: Symmetric bilateral renal perfusion. Subcentimeter cortical hypodensities too small to characterize, likely cysts.. No nephrolithiasis or evidence of hydronephrosis. Adrenal glands:Unremarkable. Bowel: Uncomplicated colonic diverticulosis. The stomach and small bowel are unremarkable. Peritoneum and Mesentery: Mild retroperitoneal/lisa aortic stranding, could be postsurgical Lymph nodes: No evidence of intra-abdominal or pelvic lymphadenopathy. Genital organs: The prostate and seminal vesicles are within normal limits. Urinary bladder: Unremarkable. Portal veins: The main portal vein, and intrahepatic branches are grossly patent. IVC and hepatic veins: Patent. Abdominal wall: Postsurgical changes, with fluid collection along the left abdominal wall incision, likely postoperative seroma (series 8, image 44), 12.5 x 3.8 cm . Bones: Multilevel changes of the lumbosacral spine. No suspicious osseous lesions. RADIOLOGY Matt Strickland MD - 11/07/2023 EXAM: CT ANGIO ABDOMEN PELVIS, 11/07/2023 07:55 AM CLINICAL INDICATIONS: 09/29: retroperitoneal repair of AAA using 18x9 rifampin soaked gelsoft graft; RELEVANT CLINICAL HISTORY: I71.42:Juxtarenal abdominal aortic aneurysm (AAA) without rupture CONTRAST: iohexol (OMNIPAQUE) 350 MG/ML injection 1-171 mL; Route of Administration: Intravenous; Dose: 110 mL. --- --------- COMPARISON: June 24, 2023 TECHNIQUE: Submillimeter contiguous axial sections were taken from the intertronchanteric level to the upper pole of the kidneys during the arterial phase of intravenous injection of contrast. Oral contrast was not used so as to optimize the visualization of the vasculature. Additional multiplanar and 3D reconstructions were provided. 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 The grafted sac measures up to 5.4 x 4.6 cm distally. No evidence of active contrast examination or graft leak. Abdominal aortic branches: Proximally occluded inferior mesenteric artery, with distal reconstitution. Other visceral branches are grossly patent. Iliofemoral arteries: Patent bilateral iliac graft limbs Non-Vascular findings: Chest: Heart and pericardium: Coronary calcifications Lungs and airways: No consolidation or mass. Pleura:No pleural effusion or pleural thickening. Bones: No suspicious osseous lesions. Chest wall:Unremarkable. Abdomen and pelvis: Liver: Smooth hepatic surface contour. Small right hepatic lobe cyst. Gall bladder and biliary tract: Unremarkable. No intra- or extra- hepatic bile ductal dilation. Pancreas: Unremarkable. The main pancreatic duct is nondilated. Spleen: Unremarkable. Kidneys: Symmetric bilateral renal perfusion. Subcentimeter cortical hypodensities too small to characterize, likely cysts.. No nephrolithiasis or evidence of hydronephrosis. Adrenal glands:Unremarkable. Bowel: Uncomplicated colonic diverticulosis. The stomach and small bowel are unremarkable. Peritoneum and Mesentery: Mild retroperitoneal/lisa aortic stranding, could be postsurgical Lymph nodes: No evidence of intra-abdominal or pelvic lymphadenopathy. Genital organs: The prostate and seminal vesicles are within normal limits. Urinary bladder: Unremarkable. Portal veins: The main portal vein, and intrahepatic branches are grossly patent. IVC and hepatic veins: Patent. Abdominal wall: Postsurgical changes, with fluid collection along the left abdominal wall incision, likely postoperative seroma (series 8, image 44), 12.5 x 3.8 cm . Bones: Multilevel changes of the lumbosacral spine. No suspicious osseous lesions. IMPRESSION IMPRESSION: 1. Postsurgical changes related to aortobiiliac open graft repair of juxtarenal aneurysm. 2. Other ancillary findings are noted as above. [facility] Radiology Study observation (narrative) [facility] CT Abdomen and Pelvis and CT angiogram Abdominal aorta WO and W contrast IVOrdered By: Matt Strickland on 11-07-2023 [facility] CBC,PLATELETSon 10-06-2023 Hematocrit (Bld) [Volume fraction] 24.7 % Low 39.6-48.8 [facility] Comment on above: Performed By: #### I LEENA MENDEZ CMPN #### [facility] (DEFAULT) [address] [place] [address] Hemoglobin (Bld) [Mass/Vol] 8.0 g/dL Low 13.4-16.8 [facility] Comment on above: Performed By: #### I LEENA MENDEZ CMPN #### [facility] (DEFAULT) [address] [address] MCV (RBC) [Entitic vol] 91.8 fL Normal 79.0-94.5 [facility] Comment on above: Performed By: #### I PB, MGO, CMPN #### [facility] (DEFAULT) [address] [place] [address] 62287 Mean Cell Hgb 29.7 pg Normal 26.1-33.3 [facility] Comment on above: Performed By: #### I PB, MGO, CMPN #### [facility] (DEFAULT) [address] [place] [address] 61414 Mean Cell Hgb Conc 32.4 g/dL Normal 31.9-36.5 [facility] Comment on above: Performed By: #### I PB, MGO, CMPN #### [facility] (DEFAULT) [address] [place] [address] 23498 Platelet mean volume (Bld) [Entitic vol] 10.9 fL Normal 8.7-12.3 [facility] Comment on above: Performed By: #### I PB, MGO, CMPN #### [facility] (DEFAULT) [address] [place] [address] 24760 Platelets (Bld) [#/Vol] 241 10*3/uL Normal 146-337 [facility] Comment on above: Performed By: #### I PB, MGO, CMPN #### [facility] (DEFAULT) [address] [place] [address] 89142 RBC (Bld) [#/Vol] 2.69 10*6/uL Low 4.38-5.83 [facility] Comment on above: Performed By: #### I PB, MGO, CMPN #### [facility] (DEFAULT) [address] [place] [address] 20991 RBC Distribution 14.1 % Normal 10.9-14.3 [facility] Comment on above: Performed By: #### I PB, MGO, CMPN #### [facility] (DEFAULT) [address] [place] [address] 11266 WBC (Bld) [#/Vol] 8.81 10*3/uL Normal 3.73-10.10 [facility] Comment on above: Performed By: #### I PB, MGO, CMPN #### [facility] (DEFAULT) [address] [place] [address] 77950 Erythrocyte distribution width (RBC) [Ratio] 14.1 % 10.9 - 14.3 % [facility] Hematocrit (Bld) [Volume fraction] 24.7 % Low 39.6 - 48.8 % [facility] Hemoglobin (Bld) [Mass/Vol] 8.0 g/dL Low 13.4 - 16.8 g/dL [facility] Interpretation and review of laboratory results Abnormal [facility] MCH (RBC) [Entitic mass] 29.7 pg 26.1 - 33.3 pg [facility] MCHC (RBC) [Mass/Vol] 32.4 g/dL 31.9 - 36.5 g/dL [facility] MCV (RBC) [Entitic vol] 91.8 fL 79.0 - 94.5 fL [facility] Platelet mean volume (Bld) [Entitic vol] 10.9 fL 8.7 - 12.3 fL [facility] Platelets (Bld) [#/Vol] 241 10*3/uL 146 - 337 K/uL [facility] RBC (Bld) [#/Vol] 2.69 10*6/uL Low [facility] WBC (Bld) [#/Vol] 8.81 10*3/uL 3.73 - 10. 10 K/uL [facility] COMPREHENSIVE METABOLIC PANE Oniel 10-06-2023 Albumin [Mass/Vol] 3.3 g/dL Low 3.5-5.0 [facility] Comment on above: Performed By: #### RENÉ LEWIS #### [facility] (DEFAULT) [address] [place] [address] ALP [Catalytic activity/Vol] 61 U/L Normal 32-126 [facility] Comment on above: Performed By: #### RENÉ LEWIS #### [facility] (DEFAULT) [address] [place] [address] 75032 ALT [Catalytic activity/Vol] 55 U/L High 10-52 [facility] Comment on above: Performed By: #### Ann QUINONES CHM7 #### [facility] (DEFAULT) [address] [place] [address] 56714 Anion gap [Moles/Vol] 15 mmol/L Normal 7-17 [facility] Comment on above: Performed By: #### Ann QUINONES CHM7 #### [facility] (DEFAULT) [address] [place] [address] 39572 AST [Catalytic activity/Vol] 55 U/L High 10-39 [facility] Comment on above: Performed By: #### Ann QUINONES CHM7 #### [facility] (DEFAULT) [address] [place] [address] 96361 Bilirubin [Mass/Vol] 0.4 mg/dL Normal <1.5 [facility] Comment on above: Performed By: #### Ann QUINONES CHM7 #### [facility] (DEFAULT) [address] [place] [address] 9[address]10 Calcium [Mass/Vol] 8.0 mg/dL Low 8.6-10.5 [facility] Comment on above: Performed By: #### Ann QUINONES CHM7 #### [facility] (DEFAULT) [address] [place] [address] 78632 Chloride [Moles/Vol] 101 mmol/L Normal 98-108 [facility] Comment on above: Performed By: #### Ann QUINONES CHM7 #### [facility] (DEFAULT) [address] [place] [address] 87572 CO2 [Moles/Vol] 25 mmol/L Normal 21-31 [facility] Comment on above: Performed By: #### Ann QUINONES CHM7 #### [facility] (DEFAULT) [address] [place] [address] 74764 Creatinine [Mass/Vol] 1.16 mg/dL Normal 0.70-1.30 [facility] Comment on above: Performed By: #### Ann QUINONES CHM7 #### [facility] (DEFAULT) [address] [place] [address] 76448 GFR/1.73 sq M.predicted among non-blacks MDRD (S/P/Bld) [Vol rate/Area] 71 mL/min/{1.73_m2} Normal >=60 [facility] Comment on above: Result Comment: Repo rted eGFR is based on the CKD-EPI 2020 equation using creatinine, age, and sex. Performed By: #### CELESTE LEWIS7 #### [place] [facility] (DEFAULT) [address] [place] [address] 28070 Glucose [Mass/Vol] 122 mg/dL High 70-99 [facility] Comment on above: Performed By: #### CELESTE LEWIS7 #### [place] [facility] (DEFAULT) [address] [place] [address] 91061 Osmolality [Osmolality] 291 mosm/kg Normal 278-305 [facility] Comment on above: Performed By: #### Ann QUINONES CHM7 #### [facility] (DEFAULT) [address] [place] [address] 46195 Potassium [Moles/Vol] 3.8 mmol/L Normal 3.5-5.0 [facility] Comment on above: Performed By: #### Ann QUINONES CHM7 #### [facility] (DEFAULT) [address] [place] [address] 39456 Protein [Mass/Vol] 6.4 g/dL Normal 6.4-8.3 [facility] Comment on above: Performed By: #### Ann QUINONES CHM7 #### [facility] (DEFAULT) [address] [place] [address] 40912 Sodium [Moles/Vol] 137 mmol/L Normal 135-145 [facility] Comment on above: Performed By: #### Ann QUINONES CHM7 #### [facility] (DEFAULT) [address] [place] [address] Urea nitrogen [Mass/Vol] 21 mg/dL Normal 7-25 [facility] Comment on above: Performed By: #### CELESTE LEWIS7 #### [facility] (DEFAULT) [address] [place] [address] Urea nitrogen/Creatinine [Mass ratio] 18 mg/mg Normal [facility] Comment on above: Performed By: #### CELESTE LEWIS7 #### [facility] (DEFAULT) [address] [place] [address] Albumin [Mass/Vol] 3.3 g/dL Low 3.5 - 5.0 g/dL [facility] ALP [Catalytic activity/Vol] 61 U/L 32 - 126 U/L [facility] ALT [Catalytic activity/Vol] 55 U/L High 10 - 52 U/L [facility] Anion gap [Moles/Vol] 15 mmol/L 7 - 17 mmol/L [facility] AST [Catalytic activity/Vol] 55 U/L High 10 - 39 U/L [facility] Bilirubin [Mass/Vol] 0.4 mg/dL NINF - 1.5 mg/dL [facility] Calcium [Mass/Vol] 8.0 mg/dL Low 8.6 - 10. 5 mg/dL [facility] Chloride [Moles/Vol] 101 mmol/L 98 - 10 8 mmol/L [facility] CO2 [Moles/Vol] 25 mmol/L 21 - 31 mmol/L [facility] Creatinine [Mass/Vol] 1.16 mg/dL 0.70 - 1.30 mg/dL [facility] eGFR, CKD-EPI, Male 71 - PINF [facility] Glucose [Mass/Vol] 122 mg/dL High 70 - 99 mg/dL [facility] Interpretation and review of laboratory results Abnormal [facility] Osmolality Calc [Osmolality] 291 [facility] Potassium [Moles/Vol] 3.8 mmol/L 3.5 - 5.0 mmol/L [facility] Protein [Mass/Vol] 6.4 g/dL 6.4 - 8.3 g/dL [facility] Sodium [Moles/Vol] 137 mmol/L 135 - 145 mmol/L [facility] Urea nitrogen [Mass/Vol] 21 mg/dL 7 - 25 mg/dL [facility] Urea nitrogen/Creatinine [Mass ratio] 18 mg/mg [facility] IONIZED CALCIUM, WHOLE BLOOD on 10-06-2023 ICA 4.31 mg/dL Low 4.60-5.30 [facility] Comment on above: Performed By: #### RENÉ LEWIS #### [facility] (DEFAULT) [address] [place] [address] 48669 IONIZED CALCIUM, WHOLE BLOOD Ordered By: Jasson Jay on 10-06-2023 Calcium.ionized (Bld) [Moles/Vol] 4.31 mg/dL Low 4.60 - 5.30 mg/dL [facility] Interpretation and review of laboratory results Abnormal [facility] MAGNESIUMon 10-06-2023 Magnesium [Mass/Vol] 1.7 mg/dL Normal 1.6-2.6 [facility] Comment on above: Performed By: #### RENÉ LEWIS #### [facility] (DEFAULT) [address] [place] [address] Magnesium [Mass/Vol] 1.7 mg/dL 1.6 - 2 .6 mg/dL [facility] No Panel Informationon 10-05 Interpretation and review of laboratory results Normal [facility] PHOSPHATE, INORGANICon 10-05 Phosphorous 2.9 mg/dL Normal 2.2-4.6 [facility] Comment on above: Performed By: #### RENÉ LEWIS #### [facility] (DEFAULT) [address] [place] [address] 12372 Phosphate [Mass/Vol] 2.9 mg/dL 2.2 - 4 .6 mg/dL [facility] PT,INR,PTTon 10-06-2023 aPTT Coag (Bld) [Time] 32.4 s Normal 24.0-34.3 [facility] Comment on above: Performed By: #### X MPO #### [facility] (DEFAULT) [address] [place] [address] 09172 INR Coag (PPP) [Relative time] 0.9 {INR} Normal 0.9-1.1 [facility] Comment on above: Performed By: #### X MPO #### [facility] (DEFAULT) [address] [place] [address] 06267 PT Coag (PPP) [Time] 12.3 s Normal 11.9-14.2 [facility] Comment on above: Performed By: #### X MPO #### [facility] (DEFAULT) [address] [place] [address] 24034 aPTT Coag (PPP) [Time] 32.4 s [facility] INR Coag (Bld) [Relative time] 0.9 {INR} 0.9 - 1.1 [facility] Interpretation and review of laboratory results Normal [facility] PT Coag (PPP) [Time] 12.3 s [facility] CBC,PLATELETSon 10-05-2023 Hematocrit (Bld) [Volume fraction] 23.4 % Low 39.6-48.8 [facility] Comment on above: Performed By: #### H EMOGC #### [facility] (DEFAULT) [address] [place] [address] 79848 Hemoglobin (Bld) [Mass/Vol] 7.8 g/dL Low 13.4-16.8 [facility] Comment on above: Performed By: #### H EMOGC #### [facility] (DEFAULT) [address] [place] [address] 71734 MCV (RBC) [Entitic vol] 91.1 fL Normal 79.0-94.5 [facility] Comment on above: Performed By: #### H EMOGC #### [facility] (DEFAULT) [address] [place] [address] 78198 Mean Cell Hgb 30.4 pg Normal 26.1-33.3 [facility] Comment on above: Performed By: #### H EMOGC #### [facility] (DEFAULT) [address] [place] [address] 96162 Mean Cell Hgb Conc 33.3 g/dL Normal 31.9-36.5 [facility] Comment on above: Performed By: #### H EMOGC #### [facility] (DEFAULT) [address] [address] Platelet mean volume (Bld) [Entitic vol] 11.1 fL Normal 8.7-12.3 [facility] Comment on above: Performed By: #### H EMOGC #### [facility] (DEFAULT) [address] [address] Platelets (Bld) [#/Vol] 203 10*3/uL Normal 146-337 [facility] Comment on above: Performed By: #### H EMOGC #### [facility] (DEFAULT) [address] [address] RBC (Bld) [#/Vol] 2.57 10*6/uL Low 4.38-5.83 [facility] Comment on above: Performed By: #### H EMOGC #### [facility] (DEFAULT) [address] [address] RBC Distribution 13.7 % Normal 10.9-14.3 [facility] Comment on above: Performed By: #### H EMOGC #### [facility] (DEFAULT) [address] [address] WBC (Bld) [#/Vol] 8.74 10*3/uL Normal 3.73-10.10 [facility] Comment on above: Performed By: #### H EMOGC #### [facility] (DEFAULT) [address] [address] Erythrocyte distribution width (RBC) [Ratio] 13.7 % 10.9 - 14.3 % [facility] Hematocrit (Bld) [Volume fraction] 23.4 % Low 39.6 - 48.8 % [facility] Hemoglobin (Bld) [Mass/Vol] 7.8 g/dL Low 13.4 - 16.8 g/dL [facility] Interpretation and review of laboratory results Abnormal [facility] MCH (RBC) [Entitic mass] 30.4 pg 26.1 - 33.3 pg [facility] MCHC (RBC) [Mass/Vol] 33.3 g/dL 31.9 - 36.5 g/dL [facility] MCV (RBC) [Entitic vol] 91.1 fL 79.0 - 94.5 fL [facility] Platelet mean volume (Bld) [Entitic vol] 11.1 fL 8.7 - 12.3 fL [facility] Platelets (Bld) [#/Vol] 203 10*3/uL 146 - 337 K/uL [facility] RBC (Bld) [#/Vol] 2.57 10*6/uL Low [facility] WBC (Bld) [#/Vol] 8.74 10*3/uL 3.73 - 10. 10 K/uL [facility] COMPREHENSIVE METABOLIC PANE Oniel 10-05-2023 Albumin [Mass/Vol] 3.3 g/dL Low 3.5-5.0 [facility] Comment on above: Performed By: #### I PB, MGO, CMPN #### [facility] (DEFAULT) [address] [place] [address] ALP [Catalytic activity/Vol] 49 U/L Normal 32-126 [facility] Comment on above: Performed By: #### I PB, MGO, CMPN #### [facility] (DEFAULT) [address] [place] [address] ALT [Catalytic activity/Vol] 41 U/L Normal 10-52 [facility] Comment on above: Performed By: #### I PB, MGO, CMPN #### [facility] (DEFAULT) [address] [place] [address] 02275 Anion gap [Moles/Vol] 16 mmol/L Normal 7-17 [facility] Comment on above: Performed By: #### I PB, MGO, CMPN #### [facility] (DEFAULT) [address] [place] [address] 66642 AST [Catalytic activity/Vol] 45 U/L High 10-39 [facility] Comment on above: Performed By: #### I PB, MGO, CMPN #### [facility] (DEFAULT) [address] [place] [address] 14849 Bilirubin [Mass/Vol] 0.6 mg/dL Normal <1.5 [facility] Comment on above: Performed By: #### I PB, MGO, CMPN #### [facility] (DEFAULT) [address] [place] [address] 28177 Calcium [Mass/Vol] 7.9 mg/dL Low 8.6-10.5 [facility] Comment on above: Performed By: #### I PB, MGO, CMPN #### [facility] (DEFAULT) [address] [place] [address] 41219 Chloride [Moles/Vol] 100 mmol/L Normal 98-108 [facility] Comment on above: Performed By: #### I PB, MGO, CMPN #### [facility] (DEFAULT) [address] [place] [address] 37648 CO2 [Moles/Vol] 24 mmol/L Normal 21-31 [facility] Comment on above: Performed By: #### I PB, MGO, CMPN #### [facility] (DEFAULT) [address] [place] [address] 74883 Creatinine [Mass/Vol] 1.11 mg/dL Normal 0.70-1.30 [facility] Comment on above: Performed By: #### I PB, MGO, CMPN #### [facility] (DEFAULT) [address] [place] [address] 54043 GFR/1.73 sq M.predicted among non-blacks MDRD (S/P/Bld) [Vol rate/Area] 75 mL/min/{1.73_m2} Normal >=60 [facility] Comment on above: Result Comment: Repo rted eGFR is based on the CKD-EPI 2020 equation using creatinine, age, and sex. Performed By: #### I PB, MGO, CMPN #### [facility] (DEFAULT) [address] [place] [address] 41695 Glucose [Mass/Vol] 120 mg/dL High 70-99 [facility] Comment on above: Performed By: #### I PB MGO, CMPN #### [facility] (DEFAULT) [address] [place] [address] 58788 Osmolality [Osmolality] 292 mosm/kg Normal 278-305 [facility] Comment on above: Performed By: #### I PB MGO, CMPN #### [facility] (DEFAULT) [address] [place] [address] 61927 Potassium [Moles/Vol] 3.9 mmol/L Normal 3.5-5.0 [facility] Comment on above: Performed By: #### I PB, MGO, CMPN #### [facility] (DEFAULT) [address] [place] [address] 81261 Protein [Mass/Vol] 6.3 g/dL Low 6.4-8.3 [facility] Comment on above: Performed By: #### I PB, MGO, CMPN #### [facility] (DEFAULT) [address] [place] [address] 78059 Sodium [Moles/Vol] 136 mmol/L Normal 135-145 [facility] Comment on above: Performed By: #### I PB, MGO, CMPN #### [facility] (DEFAULT) [address] [place] [address] 79061 Urea nitrogen [Mass/Vol] 28 mg/dL High 7-25 [facility] Comment on above: Performed By: #### I LEENA MENDEZ CMPN #### [facility] (DEFAULT) [address] [place] [address] Urea nitrogen/Creatinine [Mass ratio] 25 mg/mg Normal [facility] Comment on above: Performed By: #### I LEENA MENDEZ CMPN #### [facility] (DEFAULT) [address] [place] [address] Albumin [Mass/Vol] 3.3 g/dL Low 3.5 - 5.0 g/dL [facility] ALP [Catalytic activity/Vol] 49 U/L 32 - 126 U/L [facility] ALT [Catalytic activity/Vol] 41 U/L 10 - 52 U/L [facility] Anion gap [Moles/Vol] 16 mmol/L 7 - 17 mmol/L [facility] AST [Catalytic activity/Vol] 45 U/L High 10 - 39 U/L [facility] Bilirubin [Mass/Vol] 0.6 mg/dL NINF - 1.5 mg/dL [facility] Calcium [Mass/Vol] 7.9 mg/dL Low 8.6 - 10. 5 mg/dL [facility] Chloride [Moles/Vol] 100 mmol/L 98 - 10 8 mmol/L [facility] CO2 [Moles/Vol] 24 mmol/L 21 - 31 mmol/L [facility] Creatinine [Mass/Vol] 1.11 mg/dL 0.70 - 1.30 mg/dL [facility] eGFR, CKD-EPI, Male 75 - PINF [facility] Glucose [Mass/Vol] 120 mg/dL High 70 - 99 mg/dL [facility] Interpretation and review of laboratory results Abnormal [facility] Osmolality Calc [Osmolality] 292 [facility] Potassium [Moles/Vol] 3.9 mmol/L 3.5 - 5.0 mmol/L [facility] Protein [Mass/Vol] 6.3 g/dL Low 6.4 - 8.3 g/dL [facility] Sodium [Moles/Vol] 136 mmol/L 135 - 145 mmol/L [facility] Urea nitrogen [Mass/Vol] 28 mg/dL High 7 - 25 mg/dL [facility] Urea nitrogen/Creatinine [Mass ratio] 25 mg/mg [facility] CONTINUOUS CARDIAC MONITORIN G STRIPon 10-05-2023 [facility] GLUCOSE POCon 10-05-2023 Glucose [Mass/Vol] 124 mg/dL High 70 - 99 mg/dL [facility] Interpretation and review of laboratory results Abnormal [facility] POC Sample Type CAPBL [facility] Glucose [Mass/Vol] 107 mg/dL High 70 - 99 mg/dL [facility] Interpretation and review of laboratory results Abnormal [facility] POC Sample Type CAPBL [facility] IONIZED CALCIUM, WHOLE BLOOD on 10-05-2023 ICA 4.33 mg/dL Low 4.60-5.30 [facility] Comment on above: Performed By: #### I PB, MGO, CMPN #### [facility] (DEFAULT) [address] [address] IONIZED CALCIUM, WHOLE BLOOD Ordered By: Nas Meeks on 10-05-2023 Calcium.ionized (Bld) [Moles/Vol] 4.33 mg/dL Low 4.60 - 5.30 mg/dL [facility] Interpretation and review of laboratory results Abnormal [facility] MAGNESIUMon 10-05-2023 Magnesium [Mass/Vol] 1.9 mg/dL Normal 1.6-2.6 [facility] Comment on above: Performed By: #### I PB, MGO, CMPN #### [facility] (DEFAULT) [address] [place] [address] 52888 Magnesium [Mass/Vol] 1.9 mg/dL 1.6 - 2 .6 mg/dL [facility] No Panel Informationon 10-04 Interpretation and review of laboratory results Normal [facility] PHOSPHATE, INORGANICon 10-04 Phosphorous 2.5 mg/dL Normal 2.2-4.6 [facility] Comment on above: Performed By: #### I PB, MGO, CMPN #### [facility] (DEFAULT) [address] [place] [address] 57482 Phosphate [Mass/Vol] 2.5 mg/dL 2.2 - 4 .6 mg/dL [facility] PT,INR,PTTon 10-05-2023 aPTT Coag (Bld) [Time] 36.5 s High 24.0-34.3 [facility] Comment on above: Performed By: #### X MPO #### [facility] (DEFAULT) [address] [place] [address] 59512 INR Coag (PPP) [Relative time] 1.1 {INR} Normal 0.9-1.1 [facility] Comment on above: Performed By: #### X MPO #### [facility] (DEFAULT) [address] [place] [address] 66703 PT Coag (PPP) [Time] 13.9 s Normal 11.9-14.2 [facility] Comment on above: Performed By: #### X MPO #### [facility] (DEFAULT) [address] [place] [address] 11226 aPTT Coag (PPP) [Time] 36.5 s High [facility] INR Coag (Bld) [Relative time] 1.1 {INR} 0.9 - 1.1 [facility] Interpretation and review of laboratory results Abnormal [facility] PT Coag (PPP) [Time] 13.9 s [facility] Portable XR Chest Viewson RADIOLOGY RADIOLOGY [facility] Radiology Study observation (narrative) [facility] TYPE AND SCREENon 10-05-2023 ABO/RH(D) TYPE Positive Normal [facility] Comment on above: Performed By: #### I LEENA MENDEZ, SEAMUSN #### [facility] (DEFAULT) [address] [address] ABO/RH(D) TYPE Positive [facility] XR CHEST 1 VIEW PORTABLEon 0 10-05-2023 XR CHEST 1 VIEW PORTABLE EXAM: XR CHEST 1 VIEW PORTABLE, 10/05/2023 09:17 AM CLINICAL INDICATIONS: previous PTX RELEVANT CLINICAL HISTORY: COMPARISON: Compared to the prior study performed one day prior. FINDINGS: No visible pneumothorax. Increased left effusion with volume loss in the left lung base. Clear right lung. Normal heart size. Pulmonary vascular engorgement, no pratibha pulmonary edema. Degenerative change of the thoracic spine. Suspected hiatal hernia. IMPRESSION: 1. No pneumothorax 2. Increased left effusion and associated volume loss in the left lung base. Normal [facility] CBC,PLATELETSon 10-04-2023 Hematocrit (Bld) [Volume fraction] 25.7 % Low 39.6-48.8 [facility] Comment on above: Performed By: #### C HM7 #### [facility] (DEFAULT) [address] [address] Hemoglobin (Bld) [Mass/Vol] 8.3 g/dL Low 13.4-16.8 [facility] Comment on above: Performed By: #### C HM7 #### [facility] (DEFAULT) [address] [address] MCV (RBC) [Entitic vol] 93.1 fL Normal 79.0-94.5 [facility] Comment on above: Performed By: #### C HM7 #### [facility] (DEFAULT) [address] [address] Mean Cell Hgb 30.1 pg Normal 26.1-33.3 [facility] Comment on above: Performed By: #### C HM7 #### [facility] (DEFAULT) [address] [address] Mean Cell Hgb Conc 32.3 g/dL Normal 31.9-36.5 [facility] Comment on above: Performed By: #### Lolly HM7 #### [facility] (DEFAULT) [address] [address] Platelet mean volume (Bld) [Entitic vol] 11.7 fL Normal 8.7-12.3 [facility] Comment on above: Performed By: #### C HM7 #### [facility] (DEFAULT) [address] [address] Platelets (Bld) [#/Vol] 171 10*3/uL Normal 146-337 [facility] Comment on above: Performed By: #### C HM7 #### [facility] (DEFAULT) [address] [address] RBC (Bld) [#/Vol] 2.76 10*6/uL Low 4.38-5.83 [facility] Comment on above: Performed By: #### C HM7 #### [facility] (DEFAULT) [address] [place] [address] 79755 RBC Distribution 13.8 % Normal 10.9-14.3 [facility] Comment on above: Performed By: #### C HM7 #### [place] [facility] (DEFAULT) [address] [address] WBC (Bld) [#/Vol] 7.74 10*3/uL Normal 3.73-10.10 [facility] Comment on above: Performed By: #### C HM7 #### [facility] (DEFAULT) [address] [address] Erythrocyte distribution width (RBC) [Ratio] 13.8 % 10.9 - 14.3 % [facility] Hematocrit (Bld) [Volume fraction] 25.7 % Low 39.6 - 48.8 % [facility] Hemoglobin (Bld) [Mass/Vol] 8.3 g/dL Low 13.4 - 16.8 g/dL [facility] Interpretation and review of laboratory results Abnormal [facility] MCH (RBC) [Entitic mass] 30.1 pg 26.1 - 33.3 pg [facility] MCHC (RBC) [Mass/Vol] 32.3 g/dL 31.9 - 36.5 g/dL [facility] MCV (RBC) [Entitic vol] 93.1 fL 79.0 - 94.5 fL [facility] Platelet mean volume (Bld) [Entitic vol] 11.7 fL 8.7 - 12.3 fL [facility] Platelets (Bld) [#/Vol] 171 10*3/uL 146 - 337 K/uL [facility] RBC (Bld) [#/Vol] 2.76 10*6/uL Low [facility] WBC (Bld) [#/Vol] 7.74 10*3/uL 3.73 - 10. 10 K/uL [facility] Hematocrit (Bld) [Volume fraction] 23.7 % Low 39.6-48.8 [facility] Comment on above: Performed By: #### H [facility] #### [facility] (DEFAULT) [address] [place] [address]00 Hemoglobin (Bld) [Mass/Vol] 7.7 g/dL Low 13.4-16.8 [facility] Comment on above: Performed By: #### H EMO #### [facility] (DEFAULT) [address] [place] [address] 12715 MCV (RBC) [Entitic vol] 92.9 fL Normal 79.0-94.5 [facility] Comment on above: Performed By: #### H EMOGC #### [facility] (DEFAULT) [address] [place] [address] Mean Cell Hgb 30.2 pg Normal 26.1-33.3 [facility] Comment on above: Performed By: #### H EMOGC #### [facility] (DEFAULT) [address] [address] Mean Cell Hgb Conc 32.5 g/dL Normal 31.9-36.5 [facility] Comment on above: Performed By: #### H EMOGC #### [facility] (DEFAULT) [address] [address] Platelet mean volume (Bld) [Entitic vol] 12.4 fL High 8.7-12.3 [facility] Comment on above: Performed By: #### H EMOGC #### [facility] (DEFAULT) [address] [address] Platelets (Bld) [#/Vol] 119 10*3/uL Low 146-337 [facility] Comment on above: Performed By: #### H EMOGC #### [facility] (DEFAULT) [address] [address] RBC (Bld) [#/Vol] 2.55 10*6/uL Low 4.38-5.83 [facility] Comment on above: Performed By: #### H EMOGC #### [facility] (DEFAULT) [address] [address] RBC Distribution 13.7 % Normal 10.9-14.3 [facility] Comment on above: Performed By: #### H EMOGC #### [facility] (DEFAULT) [address] [address] WBC (Bld) [#/Vol] 8.31 10*3/uL Normal 3.73-10.10 [facility] Comment on above: Performed By: #### H EMOGC #### [facility] (DEFAULT) [address] [address] Erythrocyte distribution width (RBC) [Ratio] 13.7 % 10.9 - 14.3 % [facility] Hematocrit (Bld) [Volume fraction] 23.7 % Low 39.6 - 48.8 % [facility] Hemoglobin (Bld) [Mass/Vol] 7.7 g/dL Low 13.4 - 16.8 g/dL [facility] Interpretation and review of laboratory results Abnormal [facility] MCH (RBC) [Entitic mass] 30.2 pg 26.1 - 33.3 pg [facility] MCHC (RBC) [Mass/Vol] 32.5 g/dL 31.9 - 36.5 g/dL [facility] MCV (RBC) [Entitic vol] 92.9 fL 79.0 - 94.5 fL [facility] Platelet mean volume (Bld) [Entitic vol] 12.4 fL High 8.7 - 12.3 fL [facility] Platelets (Bld) [#/Vol] 119 10*3/uL Low 146 - 337 K/uL [facility] RBC (Bld) [#/Vol] 2.55 10*6/uL Low [facility] WBC (Bld) [#/Vol] 8.31 10*3/uL 3.73 - 10. 10 K/uL [facility] CHEM 7 (LYTES,BUN,CREA,GLUC) on 10-04-2023 Anion gap [Moles/Vol] 12 mmol/L Normal 7-17 [facility] Comment on above: Performed By: #### RENÉ LEWIS #### [facility] (DEFAULT) [address] [address] Chloride [Moles/Vol] 101 mmol/L Normal 98-108 [facility] Comment on above: Performed By: #### RENÉ LEWIS #### [facility] (DEFAULT) [address] [place] [address] 86308 CO2 [Moles/Vol] 27 mmol/L Normal 21-31 [facility] Comment on above: Performed By: ###RENÉ DRISCOLL #### [facility] (DEFAULT) [address] [place] [address] 64187 Creatinine [Mass/Vol] 1.41 mg/dL High 0.70-1.30 [facility] Comment on above: Performed By: #### Ann QUINONES CHAnn7 #### [place] [facility] (DEFAULT) [address] [place] [address]69[address] GFR/1.73 sq M.predicted among non-blacks MDRD (S/P/Bld) [Vol rate/Area] 56 mL/min/{1.73_m2} Low >=60 [facility] Comment on above: Result Comment: Repo rted eGFR is based on the CKD-EPI 2020 equation using creatinine, age, and sex. Performed By: #### CELESTE LEWIS7 #### [place] [facility] (DEFAULT) [address] [place] [address] 12094 Glucose [Mass/Vol] 141 mg/dL High 70-99 [facility] Comment on above: Performed By: #### CELESTE LEWIS7 #### [place] [facility] (DEFAULT) [address] [place] [address] 28550 Osmolality [Osmolality] 295 mosm/kg Normal 278-305 [facility] Comment on above: Performed By: #### Ann QUINONES CHAnn7 #### [place] [facility] (DEFAULT) [address] [place] [address] 20375 Potassium [Moles/Vol] 3.9 mmol/L Normal 3.5-5.0 [facility] Comment on above: Performed By: #### Ann QUINONES CHM7 #### [place] [facility] (DEFAULT) [address] [place] [address] 18586 Sodium [Moles/Vol] 136 mmol/L Normal 135-145 [facility] Comment on above: Performed By: #### Ann QUINONES CHM7 #### [place] [facility] (DEFAULT) [address] [place] [address] 26788 Urea nitrogen [Mass/Vol] 32 mg/dL High 7-25 [facility] Comment on above: Performed By: #### M JONI CHM7 #### [facility] (DEFAULT) [address] [place] [address] Urea nitrogen/Creatinine [Mass ratio] 23 mg/mg Normal [facility] Comment on above: Performed By: #### M JONI CHM7 #### [facility] (DEFAULT) [address] [place] [address] Anion gap [Moles/Vol] 12 mmol/L 7 - 17 mmol/L [facility] Chloride [Moles/Vol] 101 mmol/L 98 - 10 8 mmol/L [facility] CO2 [Moles/Vol] 27 mmol/L 21 - 31 mmol/L [facility] Creatinine [Mass/Vol] 1.41 mg/dL High 0.70 - 1.30 mg/dL [facility] eGFR, CKD-EPI, Male 56 Low - PINF [facility] Glucose [Mass/Vol] 141 mg/dL High 70 - 99 mg/dL [facility] Interpretation and review of laboratory results Abnormal [facility] Osmolality Calc [Osmolality] 295 [facility] Potassium [Moles/Vol] 3.9 mmol/L 3.5 - 5.0 mmol/L [facility] Sodium [Moles/Vol] 136 mmol/L 135 - 145 mmol/L [facility] Urea nitrogen [Mass/Vol] 32 mg/dL High 7 - 25 mg/dL [facility] Urea nitrogen/Creatinine [Mass ratio] 23 mg/mg [facility] COMPREHENSIVE METABOLIC PANE Oniel 10-04-2023 Albumin [Mass/Vol] 3.4 g/dL Low 3.5-5.0 [facility] Comment on above: Performed By: #### I LEENA MENDEZ CMPN #### [facility] (DEFAULT) [address] [place] [address] ALP [Catalytic activity/Vol] 37 U/L Normal 32-126 [facility] Comment on above: Performed By: #### I LEENA MENDEZ CMPN #### [facility] (DEFAULT) [address] [place] [address] 66066 ALT [Catalytic activity/Vol] 37 U/L Normal 10-52 [facility] Comment on above: Result Comment: Slig htly hemolyzed Performed By: #### I PB, MGO, CMPN #### [facility] (DEFAULT) [address] [place] [address] Anion gap [Moles/Vol] 13 mmol/L Normal 7-17 [facility] Comment on above: Performed By: #### I PB, MGO, CMPN #### [facility] (DEFAULT) [address] [place] [address] 55761 AST [Catalytic activity/Vol] 60 U/L High 10-39 [facility] Comment on above: Result Comment: Slig htly hemolyzed Performed By: #### I PB, MGO, CMPN #### [facility] (DEFAULT) [address] [place] [address]21 Bilirubin [Mass/Vol] 0.5 mg/dL Normal <1.5 [facility] Comment on above: Result Comment: Slig htly hemolyzed Performed By: #### I PB, MGO, CMPN #### [facility] (DEFAULT) [address] [place] [address] Calcium [Mass/Vol] 8.2 mg/dL Low 8.6-10.5 [facility] Comment on above: Performed By: #### I PB, MGO, CMPN #### [facility] (DEFAULT) [address] [place] [address]111 Chloride [Moles/Vol] 101 mmol/L Normal 98-108 [facility] Comment on above: Performed By: #### I PB, MGO, CMPN #### [facility] (DEFAULT) [address] [place] [address] CO2 [Moles/Vol] 24 mmol/L Normal 21-31 [facility] Comment on above: Performed By: #### I PB MGO, SEAMUSN #### [facility] (DEFAULT) [address] [place] [address] 33390 Creatinine [Mass/Vol] 1.36 mg/dL High 0.70-1.30 [facility] Comment on above: Performed By: #### I PB MGOSEAMUSN #### [facility] (DEFAULT) [address] [place] [address] 59069 GFR/1.73 sq M.predicted among non-blacks MDRD (S/P/Bld) [Vol rate/Area] 58 mL/min/{1.73_m2} Low >=60 [facility] Comment on above: Result Comment: Repo rted eGFR is based on the CKD-EPI 2020 equation using creatinine, age, and sex. Performed By: #### I ANDREA MGSEAMUS SorianoN #### [place] [facility] (DEFAULT) [address] [place] [address] Glucose [Mass/Vol] 103 mg/dL High 70-99 [facility] Comment on above: Performed By: #### I LEENA MENDEZ CMPN #### [facility] (DEFAULT) [address] [place] [address] Osmolality [Osmolality] 288 mosm/kg Normal 278-305 [facility] Comment on above: Performed By: #### I LEENA MENDEZ CMPN #### [place] [facility] (DEFAULT) [address] [place] [address] Potassium [Moles/Vol] 4.8 mmol/L Normal 3.5-5.0 [facility] Comment on above: Result Comment: Slig htly hemolyzed Performed By: #### I PB MGOSEAMUSN #### [facility] (DEFAULT) [address] [place] [address]132 Protein [Mass/Vol] 6.3 g/dL Low 6.4-8.3 [facility] Comment on above: Performed By: #### I PB MGOSEAMUSN #### [facility] (DEFAULT) [address] [place] [address] Sodium [Moles/Vol] 133 mmol/L Low 135-145 [facility] Comment on above: Performed By: #### I PB, MGO, CMPN #### [facility] (DEFAULT) [address] [place] [address] Urea nitrogen [Mass/Vol] 32 mg/dL High 7-25 [facility] Comment on above: Performed By: #### I PB, MGO, CMPN #### [facility] (DEFAULT) [address] [place] [address] Urea nitrogen/Creatinine [Mass ratio] 24 mg/mg Normal [facility] Comment on above: Performed By: #### I PB, MGO, CMPN #### [facility] (DEFAULT) [address] [place] [address] Albumin [Mass/Vol] 3.4 g/dL Low 3.5 - 5.0 g/dL [facility] ALP [Catalytic activity/Vol] 37 U/L 32 - 126 U/L [facility] ALT [Catalytic activity/Vol] 37 U/L 10 - 52 U/L [facility] Anion gap [Moles/Vol] 13 mmol/L 7 - 17 mmol/L [facility] AST [Catalytic activity/Vol] 60 U/L High 10 - 39 U/L [facility] Bilirubin [Mass/Vol] 0.5 mg/dL NINF - 1.5 mg/dL [facility] Calcium [Mass/Vol] 8.2 mg/dL Low 8.6 - 10. 5 mg/dL [facility] Chloride [Moles/Vol] 101 mmol/L 98 - 10 8 mmol/L [facility] CO2 [Moles/Vol] 24 mmol/L 21 - 31 mmol/L [facility] Creatinine [Mass/Vol] 1.36 mg/dL High 0.70 - 1.30 mg/dL [facility] eGFR, CKD-EPI, Male 58 Low - PINF [facility] Glucose [Mass/Vol] 103 mg/dL High 70 - 99 mg/dL [facility] Osmolality Calc [Osmolality] 288 [facility] Potassium [Moles/Vol] 4.8 mmol/L 3.5 - 5.0 mmol/L [facility] Protein [Mass/Vol] 6.3 g/dL Low 6.4 - 8.3 g/dL [facility] Sodium [Moles/Vol] 133 mmol/L Low 135 - 145 mmol/L [facility] Urea nitrogen [Mass/Vol] 32 mg/dL High 7 - 25 mg/dL [facility] Urea nitrogen/Creatinine [Mass ratio] 24 mg/mg [facility] CONTINUOUS CARDIAC MONITORIN G STRIPon 10-04-2023 [facility] GLUCOSE POCon 10-04-2023 Glucose [Mass/Vol] 129 mg/dL High 70 - 99 mg/dL [facility] Interpretation and review of laboratory results Abnormal [facility] POC Sample Type CAPBL [facility] Glucose [Mass/Vol] 149 mg/dL High 70 - 99 mg/dL [facility] Interpretation and review of laboratory results Abnormal [facility] POC Sample Type [facility] Glucose [Mass/Vol] 116 mg/dL High 70 - 99 mg/dL [facility] Interpretation and review of laboratory results Abnormal [facility] POC Sample Type [facility] Glucose [Mass/Vol] 122 mg/dL High 70 - 99 mg/dL [facility] Interpretation and review of laboratory results Abnormal [facility] POC [facility] Glucose [Mass/Vol] 87 mg/dL 70 - 99 mg/dL [facility] POC Sample Type CAPBL [facility] IONIZED CALCIUM, WHOLE BLOOD on 10-04-2023 ICA 4.34 mg/dL Low 4.60-5.30 [facility] [facility] Comment on above: Performed By: #### H EMOGC #### [facility] (DEFAULT) [address] [place] [address] ICA 4.29 mg/dL Low 4.60-5.30 [facility] Comment on above: Performed By: #### X MPO #### [facility] (DEFAULT) [address] [place] [address] IONIZED CALCIUM, WHOLE BLOOD Ordered By: Lanie Malone on 10-04-2023 Calcium.ionized (Bld) [Moles/Vol] 4.34 mg/dL Low 4.60 - 5.30 mg/dL [facility] Interpretation and review of laboratory results Abnormal [facility] IONIZED CALCIUM, WHOLE BLOOD Ordered By: Jan Fowler on 10-04-2023 Calcium.ionized (Bld) [Moles/Vol] 4.29 mg/dL Low 4.60 - 5.30 mg/dL [facility] Interpretation and review of laboratory results Abnormal [facility] MAGNESIUMon 10-04-2023 Magnesium [Mass/Vol] 2.0 mg/dL Normal 1.6-2.6 [facility] Comment on above: Performed By: #### M GO, CHM7 #### [facility] (DEFAULT) [address] [place] [address] Interpretation and review of laboratory results Normal [facility] Magnesium [Mass/Vol] 2.0 mg/dL 1.6 - 2 .6 mg/dL [facility] Magnesium [Mass/Vol] 2.1 mg/dL Normal 1.6-2.6 [facility] Comment on above: Result Comment: Slig htly hemolyzed Performed By: #### I PB, MGO, CMPN #### [facility] (DEFAULT) [address] [place] [address] Interpretation and review of laboratory results Normal [facility] Magnesium [Mass/Vol] 2.1 mg/dL 1.6 - 2 .6 mg/dL [facility] No Panel Informationon 10-03 [facility] Interpretation and review of laboratory results Abnormal [facility] PHOSPHATE, INORGANICon 10-03 Phosphorous 1.9 mg/dL Low 2.2-4.6 [facility] Comment on above: Result Comment: Slig htly hemolyzed Performed By: #### I PB, MGO, CMPN #### [facility] (DEFAULT) [address] [place] [address] Phosphate [Mass/Vol] 1.9 mg/dL Low 2.2 - 4 .6 mg/dL [facility] PT,INR,PTTon 10-04-2023 aPTT Coag (Bld) [Time] 27.9 s Normal 24.0-34.3 [facility] Comment on above: Result Comment: Resu lts inconsistent with previous results Performed By: #### RENÉ LEWIS #### [facility] (DEFAULT) [address] [place] [address] 10114 INR Coag (PPP) [Relative time] 1.1 {INR} Normal 0.9-1.1 [facility] Comment on above: Performed By: #### RENÉ LEWIS #### [facility] (DEFAULT) [address] [place] [address] 56800 PT Coag (PPP) [Time] 13.6 s Normal 11.9-14.2 [facility] Comment on above: Performed By: #### RENÉ LEWIS #### [facility] (DEFAULT) [address] [place] [address] aPTT Coag (PPP) [Time] 27.9 s [facility] INR Coag (Bld) [Relative time] 1.1 {INR} 0.9 - 1.1 [facility] Interpretation and review of laboratory results Normal [facility] PT Coag (PPP) [Time] 13.6 s [facility] Portable XR Chest Viewson RADIOLOGY RADIOLOGY [facility] Radiology Study observation (narrative) [facility] XR CHEST 1 VIEW PORTABLEon 0 10-04-2023 XR CHEST 1 VIEW PORTABLE EXAM: XR CHEST 1 VIEW PORTABLE, 10/04/2023 06:23 AM COMPARISON: October 03, 2023 CLINICAL INDICATIONS: f/u left apical PTX RELEVANT CLINICAL HISTORY: FINDINGS: (Adequate technique) Implanted Devices: None Thorax: Tiny left apical pneumothorax is slightly decreased in size compared to the prior study. Minimal volume loss at the medial left lung base. Lungs are otherwise clear. No new abnormality. IMPRESSION: Slightly decreased size of tiny left apical pneumothorax. Normal [facility] XR CHEST PA AND LATERAL 2 EWSon 10-04-2023 XR CHEST PA AND LATERAL 2 VIEWS EXAM: XR CHEST PA AND LATERAL 2 VIEWS, 10/04/2023 18:52 PM CLINICAL INDICATIONS: F/U left apical PTX RELEVANT CLINICAL HISTORY: COMPARISON: October 04, 2023 FINDINGS: No visible residual pneumothorax. Trace left effusion with mild left basilar volume loss. Clear right lung. Normal heart size. No pulmonary edema IMPRESSION: 1. Resolved left apical pneumothorax. 2. Small left effusion with mild left basilar volume loss. Normal [facility] XR Chest PA and Lateralon RADIOLOGY RADIOLOGY [facility] Radiology Study observation (narrative) [facility] CBC,PLATELETSon 10-03-2023 Hematocrit (Bld) [Volume fraction] 25.5 % Low 39.6-48.8 [facility] Comment on above: Performed By: #### M RENÉ QUINONES #### [facility] (DEFAULT) [address] [place] [address] Hemoglobin (Bld) [Mass/Vol] 8.2 g/dL Low 13.4-16.8 [facility] Comment on above: Performed By: #### Ann QUINONES CHM7 #### U [facility] (DEFAULT) [address] [place] [address] 56149 MCV (RBC) [Entitic vol] 94.1 fL Normal 79.0-94.5 O [facility] Comment on above: Performed By: #### Ann QUINONES CHM7 #### U [facility] (DEFAULT) [address] [place] [address] 95262 Mean Cell Hgb 30.3 pg Normal 26.1-33.3 [facility] Comment on above: Performed By: #### Ann QUINONES CHM7 #### U [facility] (DEFAULT) [address] [place] [address] 40567 Mean Cell Hgb Conc 32.2 g/dL Normal 31.9-36.5 [facility] Comment on above: Performed By: #### Ann QUINONES CHM7 #### [facility] (DEFAULT) [address] [address] Mean Platelet Volume Normal [facility] Comment on above: Result Comment: Not measured Performed By: #### Ann QUINONES CHM7 #### [facility] (DEFAULT) [address] [place] [address] 21826 Platelets (Bld) [#/Vol] 137 10*3/uL Low 146-337 [facility] Comment on above: Performed By: #### Ann QUINONES CHM7 #### U [facility] (DEFAULT) [address] [place] [address]1854 RBC (Bld) [#/Vol] 2.71 10*6/uL Low 4.38-5.83 [facility] Comment on above: Performed By: #### Ann QUINONES, CHM7 #### U [facility] (DEFAULT) [address] [place] [address] 76693 RBC Distribution 13.8 % Normal 10.9-14.3 [facility] Comment on above: Performed By: #### M CELESTE QUINONES7 #### [facility] (DEFAULT) [address] [place] [address] 66028 WBC (Bld) [#/Vol] 9.08 10*3/uL Normal 3.73-10.10 [facility] Comment on above: Performed By: #### CELESTE LEWIS7 #### [facility] (DEFAULT) [address] [place] [address] Erythrocyte distribution width (RBC) [Ratio] 13.8 % 10.9 - 14.3 % [facility] Hematocrit (Bld) [Volume fraction] 25.5 % Low 39.6 - 48.8 % [facility] Hemoglobin (Bld) [Mass/Vol] 8.2 g/dL Low 13.4 - 16.8 g/dL [facility] Interpretation and review of laboratory results Abnormal [facility] MCH (RBC) [Entitic mass] 30.3 pg 26.1 - 33.3 pg [facility] MCHC (RBC) [Mass/Vol] 32.2 g/dL 31.9 - 36.5 g/dL [facility] MCV (RBC) [Entitic vol] 94.1 fL 79.0 - 94.5 fL [facility] Platelet mean volume (Bld) [Entitic vol] [facility] Platelets (Bld) [#/Vol] 137 10*3/uL Low 146 - 337 K/uL [facility] RBC (Bld) [#/Vol] 2.71 10*6/uL Low [facility] WBC (Bld) [#/Vol] 9.08 10*3/uL 3.73 - 10. 10 K/uL [facility] Hematocrit (Bld) [Volume fraction] 26.5 % Low 39.6-48.8 [facility] Comment on above: Performed By: #### I PB, MGO, CMPN #### [facility] (DEFAULT) [address] [place] [address]014 Hemoglobin (Bld) [Mass/Vol] 8.7 g/dL Low 13.4-16.8 [facility] Comment on above: Performed By: #### I PB, MGO, CMPN #### U [facility] (DEFAULT) [address] [place] [address] 23584 MCV (RBC) [Entitic vol] 94.0 fL Normal 79.0-94.5 [facility] Comment on above: Performed By: #### I PB, MGO, CMPN #### [facility] (DEFAULT) [address] [place] [address] 08769 Mean Cell Hgb 30.9 pg Normal 26.1-33.3 [facility] Comment on above: Performed By: #### I PB, MGO, CMPN #### [facility] (DEFAULT) [address] [place] [address] 88228 Mean Cell Hgb Conc 32.8 g/dL Normal 31.9-36.5 [facility] Comment on above: Performed By: #### I PB, MGO, CMPN #### [facility] (DEFAULT) [address] [place] [address] 32096 Platelet mean volume (Bld) [Entitic vol] 11.6 fL Normal 8.7-12.3 [facility] Comment on above: Performed By: #### I PB, MGO, CMPN #### [facility] (DEFAULT) [address] [place] [address] 51381 Platelets (Bld) [#/Vol] 141 10*3/uL Low 146-337 [facility] Comment on above: Performed By: #### I PB, MGO, CMPN #### [facility] (DEFAULT) [address] [place] [address] 43106 RBC (Bld) [#/Vol] 2.82 10*6/uL Low 4.38-5.83 [facility] Comment on above: Performed By: #### I LEENA MENDEZ CMPN #### [facility] (DEFAULT) [address] [place] [address] RBC Distribution 13.8 % Normal 10.9-14.3 [facility] Comment on above: Performed By: #### I ANDREA MGSEAMUS SorianoN #### [facility] (DEFAULT) [address] [place] [address] WBC (Bld) [#/Vol] 10.42 10*3/uL High 3.73-10.10 [facility] Comment on above: Performed By: #### I LEENA MENDEZ CMPN #### [facility] (DEFAULT) [address] [place] [address] 74667 Erythrocyte distribution width (RBC) [Ratio] 13.8 % 10.9 - 14.3 % [facility] Hematocrit (Bld) [Volume fraction] 26.5 % Low 39.6 - 48.8 % [facility] Hemoglobin (Bld) [Mass/Vol] 8.7 g/dL Low 13.4 - 16.8 g/dL [facility] Interpretation and review of laboratory results Abnormal [facility] MCH (RBC) [Entitic mass] 30.9 pg 26.1 - 33.3 pg [facility] MCHC (RBC) [Mass/Vol] 32.8 g/dL 31.9 - 36.5 g/dL [facility] MCV (RBC) [Entitic vol] 94.0 fL 79.0 - 94.5 fL [facility] Platelet mean volume (Bld) [Entitic vol] 11.6 fL 8.7 - 12.3 fL [facility] Platelets (Bld) [#/Vol] 141 10*3/uL Low 146 - 337 K/uL [facility] RBC (Bld) [#/Vol] 2.82 10*6/uL Low [facility] WBC (Bld) [#/Vol] 10.42 10*3/uL High 3.73 - 10 .10 K/uL [facility] CHEM 7 (LYTES,BUN,CREA,GLUC) on 10-03-2023 Anion gap [Moles/Vol] 13 mmol/L Normal 7-17 [facility] Comment on above: Performed By: #### I PB, MGO, CMPN #### [facility] (DEFAULT) [address] [place] [address] 35438 Chloride [Moles/Vol] 101 mmol/L Normal 98-108 [facility] Comment on above: Performed By: #### I PB, MGO, CMPN #### [facility] (DEFAULT) [address] [place] [address] 58249 CO2 [Moles/Vol] 26 mmol/L Normal 21-31 [facility] Comment on above: Performed By: #### I PB, MGO, CMPN #### [facility] (DEFAULT) [address] [place] [address] 11427 Creatinine [Mass/Vol] 1.60 mg/dL High 0.70-1.30 [facility] Comment on above: Performed By: #### I PB, MGO, CMPN #### [facility] (DEFAULT) [address] [place] [address] 25793 GFR/1.73 sq M.predicted among non-blacks MDRD (S/P/Bld) [Vol rate/Area] 48 mL/min/{1.73_m2} Low >=60 [facility] Comment on above: Result Comment: Repo rted eGFR is based on the CKD-EPI 2020 equation using creatinine, age, and sex. Performed By: #### I PB, MGO, CMPN #### [facility] (DEFAULT) [address] [place] [address] 47176 Glucose [Mass/Vol] 136 mg/dL High 70-99 [facility] Comment on above: Performed By: #### I PB, MGO, CMPN #### [facility] (DEFAULT) [address] [place] [address] 43900 Osmolality [Osmolality] 294 mosm/kg Normal 278-305 [facility] Comment on above: Performed By: #### I LEENA MENDEZ CMPN #### U [facility] (DEFAULT) [address] [place] [address] 41114 Potassium [Moles/Vol] 3.9 mmol/L Normal 3.5-5.0 [facility] Comment on above: Performed By: #### LEENA MIKE, SEAMUSN #### [facility] (DEFAULT) [address] [place] [address] 04761 Sodium [Moles/Vol] 136 mmol/L Normal 135-145 [facility] Comment on above: Performed By: #### LEENA MIKE CMPN #### [facility] (DEFAULT) [address] [place] [address] 94836 Urea nitrogen [Mass/Vol] 31 mg/dL High 7-25 [facility] Comment on above: Performed By: #### LEENA MIKE CMPN #### [facility] (DEFAULT) [address] [place] [address] 79321 Urea nitrogen/Creatinine [Mass ratio] 19 mg/mg Normal [facility] Comment on above: Performed By: #### LEENA MIKE CMPN #### [facility] (DEFAULT) [address] [place] [address] 75938 Anion gap [Moles/Vol] 13 mmol/L 7 - 17 mmol/L [facility] Chloride [Moles/Vol] 101 mmol/L 98 - 10 8 mmol/L [facility] CO2 [Moles/Vol] 26 mmol/L 21 - 31 mmol/L [facility] Creatinine [Mass/Vol] 1.60 mg/dL High 0.70 - 1.30 mg/dL [facility] eGFR, CKD-EPI, Male 48 Low - PINF [facility] Glucose [Mass/Vol] 136 mg/dL High 70 - 99 mg/dL [facility] Interpretation and review of laboratory results Abnormal [facility] Osmolality Calc [Osmolality] 294 [facility] Potassium [Moles/Vol] 3.9 mmol/L 3.5 - 5.0 mmol/L [facility] Sodium [Moles/Vol] 136 mmol/L 135 - 145 mmol/L [facility] Urea nitrogen [Mass/Vol] 31 mg/dL High 7 - 25 mg/dL [facility] Urea nitrogen/Creatinine [Mass ratio] 19 mg/mg [facility] COMPREHENSIVE METABOLIC PANE Oniel 10-03-2023 Albumin [Mass/Vol] 3.1 g/dL Low 3.5-5.0 [facility] Comment on above: Performed By: #### I LEENA MENDEZ CMPN #### [facility] (DEFAULT) [address] [place] [address] ALP [Catalytic activity/Vol] 40 U/L Normal 32-126 [facility] Comment on above: Performed By: #### I LEENA MENDEZ CMPN #### [facility] (DEFAULT) [address] [place] [address] ALT [Catalytic activity/Vol] 31 U/L Normal 10-52 [facility] Comment on above: Performed By: #### I LEENA MENDEZ CMPN #### [facility] (DEFAULT) [address] [place] [address] Anion gap [Moles/Vol] 13 mmol/L Normal 7-17 [facility] Comment on above: Performed By: #### I PB MGO CMPN #### [facility] (DEFAULT) [address] [place] [address] AST [Catalytic activity/Vol] 61 U/L High 10-39 [facility] Comment on above: Performed By: #### I PB MGO, CMPN #### [facility] (DEFAULT) [address] [place] [address] Bilirubin [Mass/Vol] 0.4 mg/dL Normal <1.5 [facility] Comment on above: Performed By: #### I PBMGO, CMPN #### [facility] (DEFAULT) [address] [place] [address] 77419 Calcium [Mass/Vol] 7.8 mg/dL Low 8.6-10.5 [facility] Comment on above: Performed By: #### I PB, MGO, CMPN #### [facility] (DEFAULT) [address] [place] [address] 15177 Chloride [Moles/Vol] 100 mmol/L Normal 98-108 [facility] Comment on above: Performed By: #### I PB, MGO, CMPN #### [facility] (DEFAULT) [address] [place] [address] 76564 CO2 [Moles/Vol] 23 mmol/L Normal 21-31 [facility] Comment on above: Performed By: #### I PB, MGO, CMPN #### [facility] (DEFAULT) [address] [place] [address] 45802 Creatinine [Mass/Vol] 1.38 mg/dL High 0.70-1.30 [facility] Comment on above: Performed By: #### I PB, MGO, CMPN #### [facility] (DEFAULT) [address] [place] [address] 21193 GFR/1.73 sq M.predicted among non-blacks MDRD (S/P/Bld) [Vol rate/Area] 57 mL/min/{1.73_m2} Low >=60 [facility] Comment on above: Result Comment: Repo rted eGFR is based on the CKD-EPI 2020 equation using creatinine, age, and sex. Performed By: #### I PB, MGO, CMPN #### [facility] (DEFAULT) [address] [place] [address] 42005 Glucose [Mass/Vol] 146 mg/dL High 70-99 [facility] Comment on above: Performed By: #### I PB, MGO, CMPN #### [facility] (DEFAULT) [address] [place] [address] 57762 Osmolality [Osmolality] 286 mosm/kg Normal 278-305 [facility] Comment on above: Performed By: #### I PB MGO, CMPN #### [facility] (DEFAULT) [address] [place] [address] 42103 Potassium [Moles/Vol] 4.1 mmol/L Normal 3.5-5.0 [facility] Comment on above: Performed By: #### I PB MGO, CMPN #### [facility] (DEFAULT) [address] [place] [address] 11395 Protein [Mass/Vol] 5.8 g/dL Low 6.4-8.3 [facility] Comment on above: Performed By: #### I PB, MGO, CMPN #### [facility] (DEFAULT) [address] [place] [address] 49599 Sodium [Moles/Vol] 132 mmol/L Low 135-145 [facility] Comment on above: Performed By: #### I PB, MGO, CMPN #### [facility] (DEFAULT) [address] [place] [address] 66814 Urea nitrogen [Mass/Vol] 26 mg/dL High 7-25 [facility] Comment on above: Performed By: #### I PB, MGO, CMPN #### [facility] (DEFAULT) [address] [place] [address] 55013 Urea nitrogen/Creatinine [Mass ratio] 19 mg/mg Normal [facility] Comment on above: Performed By: #### I PB, MGO, CMPN #### [facility] (DEFAULT) [address] [place] [address] 68107 Albumin [Mass/Vol] 3.1 g/dL Low 3.5 - 5.0 g/dL [facility] ALP [Catalytic activity/Vol] 40 U/L 32 - 126 U/L [facility] ALT [Catalytic activity/Vol] 31 U/L 10 - 52 U/L [facility] Anion gap [Moles/Vol] 13 mmol/L 7 - 17 mmol/L [facility] AST [Catalytic activity/Vol] 61 U/L High 10 - 39 U/L [facility] Bilirubin [Mass/Vol] 0.4 mg/dL NINF - 1.5 mg/[facility] Calcium [Mass/Vol] 7.8 mg/dL Low 8.6 - 10. 5 mg/dL [facility] Chloride [Moles/Vol] 100 mmol/L 98 - 10 8 mmol/L [facility] CO2 [Moles/Vol] 23 mmol/L 21 - 31 mmol/L [facility] Creatinine [Mass/Vol] 1.38 mg/dL High 0.70 - 1.30 mg/dL [facility] eGFR, CKD-EPI, Male 57 Low - PINF [facility] Glucose [Mass/Vol] 146 mg/dL High 70 - 99 mg/dL [facility] Osmolality Calc [Osmolality] 286 [facility] Potassium [Moles/Vol] 4.1 mmol/L 3.5 - 5.0 mmol/L [facility] Protein [Mass/Vol] 5.8 g/dL Low 6.4 - 8.3 g/dL [facility] Sodium [Moles/Vol] 132 mmol/L Low 135 - 145 mmol/L [facility] Urea nitrogen [Mass/Vol] 26 mg/dL High 7 - 25 mg/dL [facility] Urea nitrogen/Creatinine [Mass ratio] 19 mg/mg [facility] CONTINUOUS CARDIAC MONITORIN G STRIPOrdered By: Unassigned Pacs on 10-03-2023 [facility] Work Phone: GLUCOSE POCon 10-03-2023 Glucose [Mass/Vol] 114 mg/dL High 70 - 99 mg/dL [facility] Interpretation and review of laboratory results Abnormal [facility] POC Sample Type CAPBL [facility] Glucose [Mass/Vol] 135 mg/dL High 70 - 99 mg/dL [facility] Interpretation and review of laboratory results Abnormal [facility] POC Sample Type CAPBL [facility] Glucose [Mass/Vol] 108 mg/dL High 70 - 99 mg/dL [facility] Interpretation and review of laboratory results Abnormal [facility] POC Sample Type [facility] Glucose [Mass/Vol] 131 mg/dL High 70 - 99 mg/dL [facility] Interpretation and review of laboratory results Abnormal [facility] POC Sample Type CAPBL [facility] IONIZED CALCIUM, WHOLE BLOOD on 10-03-2023 ICA 4.43 mg/dL Low 4.60-5.30 [facility] Comment on above: Performed By: #### H [facility] #### [facility] (DEFAULT) [address] [address] ICA 4.37 mg/dL Low 4.60-5.30 [facility] Comment on above: Performed By: #### H [facility] #### [facility] (DEFAULT) [address] [place] [address] IONIZED CALCIUM, WHOLE BLOOD Ordered By: Marcy Bear on 10-03-2023 Calcium.ionized (Bld) [Moles/Vol] 4.43 mg/dL Low 4.60 - 5.30 mg/dL [facility] Interpretation and review of laboratory results Abnormal [facility] IONIZED CALCIUM, WHOLE BLOOD Ordered By: Emily Pulliam on 10-03-2023 Calcium.ionized (Bld) [Moles/Vol] 4.37 mg/dL Low 4.60 - 5.30 mg/dL [facility] Interpretation and review of laboratory results Abnormal [facility] MAGNESIUMon 10-03-2023 Magnesium [Mass/Vol] 2.0 mg/dL Normal 1.6-2.6 [facility] Comment on above: Performed By: #### I LEENA MENDEZ CMPN #### [facility] (DEFAULT) [address] [place] [address] 62595 Interpretation and review of laboratory results Normal [facility] Magnesium [Mass/Vol] 2.0 mg/dL 1.6 - 2 .6 mg/dL [facility] Magnesium [Mass/Vol] 1.9 mg/dL Normal 1.6-2.6 [facility] Comment on above: Performed By: #### I PB MGOSEAMUSN #### [facility] (DEFAULT) [address] [place] [address] 53526 Interpretation and review of laboratory results Normal [facility] Magnesium [Mass/Vol] 1.9 mg/dL 1.6 - 2 .6 mg/dL [facility] No Panel Informationon 10-02 [facility] Interpretation and review of laboratory results Abnormal [facility] PHOSPHATE, INORGANICon 10-02 Phosphorous 1.9 mg/dL Low 2.2-4.6 [facility] Comment on above: Performed By: #### I LEENA MENDEZ CMPN #### [facility] (DEFAULT) [address] [place] [address] 76145 Phosphate [Mass/Vol] 1.9 mg/dL Low 2.2 - 4 .6 mg/dL [facility] PT,INR,PTTon 10-03-2023 aPTT Coag (Bld) [Time] 38.1 s High 24.0-34.3 [facility] Comment on above: Performed By: #### RENÉ LEWIS #### [facility] (DEFAULT) [address] [place] [address] 86816 INR Coag (PPP) [Relative time] 1.1 {INR} Normal 0.9-1.1 [facility] Comment on above: Performed By: #### RENÉ LEWIS #### [facility] (DEFAULT) [address] [place] [address] PT Coag (PPP) [Time] 14.4 s High 11.9-14.2 [facility] Comment on above: Performed By: #### M CELESTE QUINONES7 #### [facility] (DEFAULT) [address] [place] [address] aPTT Coag (PPP) [Time] 38.1 s High [facility] INR Coag (Bld) [Relative time] 1.1 {INR} 0.9 - 1.1 [facility] Interpretation and review of laboratory results Abnormal [facility] [facility] PT Coag (PPP) [Time] 14.4 s High [facility] Portable XR Chest Viewson RADIOLOGY RADIOLOGY [facility] Radiology Study observation (narrative) [facility] URINE CULTUREon 10-03-2023 Bacteria identified Cx Nom (Unsp spec) No Growth [facility] XR CHEST 1 VIEW PORTABLEon 0 10-03-2023 XR CHEST 1 VIEW PORTABLE EXAM: XR CHEST 1 VIEW PORTABLE, 10/03/2023 06:38 AM COMPARISON: October 02, 2023 CLINICAL INDICATIONS: pneumothorax RELEVANT CLINICAL HISTORY: FINDINGS: (Adequate technique) Implanted Devices: None Thorax: Bibasilar atelectasis with increased airspace opacities of the bilateral lower lungs. Decreased size of left pneumothorax, now measures 0.4 cm from 0.9 cm. Cardiac mediastinal silhouette is within normal limits. No acute osseous abnormality. IMPRESSION: 1. Bibasilar atelectasis with worsening bibasilar opacities compatible with inflammatory/infecti ous etiology such as aspiration or pneumonia. 2. Improved size of left-sided pneumothorax. I personally viewed and interpreted these images and I have reviewed and approved this report. Normal [facility] ARTERIAL BLOOD GAS PLUS LACT ATEon 10-02-2023 Base Excess 0.4 mmol/L Normal -3.0-3.0 [facility] Comment on above: Performed By: #### Ann QUINONES CHM7 #### U [facility] (DEFAULT) [address] [place] [address] 43468 HCO3 (Bld) [Moles/Vol] 25 mmol/L Normal 22-28 [facility] Comment on above: Performed By: #### Ann QUINONES CHM7 #### U [facility] (DEFAULT) [address] [place] [address] 41956 Lactate, Whole Blood 0.9 mmol/L Normal 0.5-1.6 [facility] Comment on above: Performed By: #### Ann QUINONES CHM7 #### U [facility] (DEFAULT) [address] [place] [address] 08010 Oxygen saturation in Blood 97 % Normal 94-98 [facility] Comment on above: Performed By: #### Ann QUINONES CHM7 #### [facility] (DEFAULT) [address] [place] [address] 50551 pCO2 42 mm Hg Normal 32-48 [facility] Comment on above: Performed By: #### CELESTE LEWIS7 #### U [facility] (DEFAULT) [address] [place] [address] 35963 pH, Arterial 7.39 Normal 7.35-7.45 [facility] Comment on above: Performed By: #### Ann QUINONES CHM7 #### U [facility] (DEFAULT) [address] [place] [address] 94362 pO2 70 mm Hg Low 83-108 [facility] Comment on above: Performed By: #### Ann QUINONES CHM7 #### U [facility] (DEFAULT) [address] [place] [address] 65009 Specimen type Nom (Spec) Arterial Normal [facility] Comment on above: Performed By: #### Ann QUINONES CHM7 #### U [facility] (DEFAULT) [address] [place] [address] 04725 Base excess Calc (Bld) [Moles/Vol] 0.4 mmol/L -3.0 - 3.0 mmol/L [facility] CO2 (Bld) [Partial pressure] 42 mm[Hg] [facility] HCO3 (Bld) [Moles/Vol] 25 mmol/L 22 - 28 mmol/L [facility] Interpretation and review of laboratory results Abnormal [facility] Lactate [Moles/Vol] 0.9 mmol/L 0.5 - 1. 6 mmol/L [facility] Oxygen (Bld) [Partial pressure] 70 mm[Hg] Low [facility] Oxygen saturation in Blood 97 % 94 - 98 % [facility] pH (Bld) 7.39 [pH] 7.35 - 7.45 [facility] Specimen source Nom (Unsp spec) Arterial [facility] Base Excess 0.4 mmol/L Normal -3.0-3.0 [facility] Comment on above: Performed By: #### RENÉ LEWIS #### [facility] (DEFAULT) [address] [place] [address] 52332 FIO2 Normal [facility] Comment on above: Result Comment: 3l Performed By: #### RENÉ LEWIS #### [facility] (DEFAULT) [address] [place] [address] 56966 HCO3 (Bld) [Moles/Vol] 25 mmol/L Normal 22-28 [facility] Comment on above: Performed By: #### RENÉ LEWIS #### [facility] (DEFAULT) [address] [place] [address] 22399 Lactate, Whole Blood 1.3 mmol/L Normal 0.5-1.6 [facility] Comment on above: Performed By: #### RENÉ LEWIS #### [facility] (DEFAULT) [address] [place] [address] 62123 Oxygen saturation in Blood 96 % Normal 94-98 [facility] Comment on above: Performed By: #### RENÉ LEWIS #### [facility] (DEFAULT) [address] [place] [address] 09606 pCO2 42 mm Hg Normal 32-48 [facility] Comment on above: Performed By: #### RENÉ LEWIS #### [facility] (DEFAULT) [address] [place] [address] 48391 pH, Arterial 7.39 Normal 7.35-7.45 [facility] Comment on above: Performed By: #### RENÉ LEWIS #### [facility] (DEFAULT) [address] [place] [address] 27662 pO2 71 mm Hg Low 83-108 [facility] Comment on above: Performed By: #### RENÉ LEWIS #### [facility] (DEFAULT) [address] [place] [address] 90625 Specimen type Nom (Spec) Arterial Normal [facility] Comment on above: Performed By: #### RENÉ LEWIS #### [facility] (DEFAULT) [address] [place] [address] 75575 Base excess Calc (Bld) [Moles/Vol] 0.4 mmol/L -3.0 - 3.0 mmol/L [facility] CO2 (Bld) [Partial pressure] 42 mm[Hg] [facility] HCO3 (Bld) [Moles/Vol] 25 mmol/L 22 - 28 mmol/L [facility] Inhaled oxygen concentration [facility] Interpretation and review of laboratory results Abnormal [facility] Lactate [Moles/Vol] 1.3 mmol/L 0.5 - 1. 6 mmol/L [facility] Oxygen (Bld) [Partial pressure] 71 mm[Hg] Low [facility] Oxygen saturation in Blood 96 % 94 - 98 % [facility] pH (Bld) 7.39 [pH] 7.35 - 7.45 [facility] Specimen source Nom (Unsp spec) Arterial [facility] Base Excess 0.8 mmol/L Normal -3.0-3.0 [facility] Comment on above: Performed By: #### H EMOGC #### [facility] (DEFAULT) [address] [address] HCO3 (Bld) [Moles/Vol] 25 mmol/L Normal 22-28 [facility] Comment on above: Performed By: #### H EMOGC #### U [facility] (DEFAULT) [address] [address] Lactate, Whole Blood 1.0 mmol/L Normal 0.5-1.6 [facility] Comment on above: Performed By: #### H EMOGC #### [facility] (DEFAULT) [address] [address] Oxygen saturation in Blood 97 % Normal 94-98 [facility] Comment on above: Performed By: #### H EMOGC #### [facility] (DEFAULT) [address] [address] pCO2 40 mm Hg Normal 32-48 [facility] Comment on above: Performed By: #### H EMOGC #### [facility] (DEFAULT) [address] [address] pH, Arterial 7.41 Normal 7.35-7.45 [facility] Comment on above: Performed By: #### H EMOGC #### [facility] (DEFAULT) [address] [address] pO2 75 mm Hg Low 83-108 [facility] Comment on above: Performed By: #### H EMOGC #### [facility] (DEFAULT) [address] [address] Specimen type Nom (Spec) Arterial Normal [facility] Comment on above: Performed By: #### H EMOGC #### U [facility] (DEFAULT) [address] [address] BLOOD CULTUREon 10-02-2023 Bacteria identified Cx Nom (Unsp spec) NO GROWTH DAY 5 OF 5 Normal [facility] Comment on above: Order Comment: 2 Bot tles (1 Set - consists of 1 Aerobic bottle and 1 Anaerobic bottle) -1st Peripheral DrawFor syringe method draw:If able to obtain adequate sample (20 ml) inoculate anaerobic bottle firstIf inadequate sample obtained (less than 20 ml) inoculate aerobic bottle firstFor vacutainer method draw: Fill aerobic bottle first, then anaerobic Performed By: #### H EMO #### U [facility] (DEFAULT) [address] [place] [address] 56830 CBC,PLATELETSon 10-02-2023 Hematocrit (Bld) [Volume fraction] 30.8 % Low 39.6-48.8 [facility] Comment on above: Performed By: #### I PB MGO CMPN #### [place] [facility] (DEFAULT) [address] [place] [address] 25842 Hemoglobin (Bld) [Mass/Vol] 9.9 g/dL Low 13.4-16.8 [facility] Comment on above: Performed By: #### I PB MGO, CMPN #### U [facility] (DEFAULT) [address] [place] [address] 53712 MCV (RBC) [Entitic vol] 93.1 fL Normal 79.0-94.5 O [facility] Comment on above: Performed By: #### I PB MGO, CMPN #### U [facility] (DEFAULT) [address] [place] [address] 77359 Mean Cell Hgb 29.9 pg Normal 26.1-33.3 [facility] Comment on above: Performed By: #### I PB, MGO, CMPN #### U [facility] (DEFAULT) [address] [place] [address] 04192 Mean Cell Hgb Conc 32.1 g/dL Normal 31.9-36.5 [facility] Comment on above: Performed By: #### I PB, MGO, CMPN #### [facility] (DEFAULT) [address] [place] [address] 91704 Platelet mean volume (Bld) [Entitic vol] 11.8 fL Normal 8.7-12.3 [facility] Comment on above: Performed By: #### I PB MGO, CMPN #### [facility] (DEFAULT) [address] [place] [address] 73101 Platelets (Bld) [#/Vol] 145 10*3/uL Low 146-337 [facility] Comment on above: Performed By: #### I PB, MGO, CMPN #### [facility] (DEFAULT) [address] [place] [address] 04659 RBC (Bld) [#/Vol] 3.31 10*6/uL Low 4.38-5.83 [facility] Comment on above: Performed By: #### I PB, MGO, CMPN #### [facility] (DEFAULT) [address] [place] [address] 37209 RBC Distribution 14.2 % Normal 10.9-14.3 [facility] Comment on above: Performed By: #### I PB, MGO, CMPN #### [facility] (DEFAULT) [address] [place] [address] 03197 WBC (Bld) [#/Vol] 11.19 10*3/uL High 3.73-10.10 [facility] Comment on above: Performed By: #### I PB, MGO, CMPN #### [facility] (DEFAULT) [address] [place] [address] 02478 Erythrocyte distribution width (RBC) [Ratio] 14.2 % 10.9 - 14.3 % [facility] Hematocrit (Bld) [Volume fraction] 30.8 % Low 39.6 - 48.8 % [facility] Hemoglobin (Bld) [Mass/Vol] 9.9 g/dL Low 13.4 - 16.8 g/dL [facility] Interpretation and review of laboratory results Abnormal [facility] MCH (RBC) [Entitic mass] 29.9 pg 26.1 - 33.3 pg [facility] MCHC (RBC) [Mass/Vol] 32.1 g/dL 31.9 - 36.5 g/dL [facility] MCV (RBC) [Entitic vol] 93.1 fL 79.0 - 94.5 fL [facility] Platelet mean volume (Bld) [Entitic vol] 11.8 fL 8.7 - 12.3 fL [facility] Platelets (Bld) [#/Vol] 145 10*3/uL Low 146 - 337 K/uL [facility] RBC (Bld) [#/Vol] 3.31 10*6/uL Low [facility] WBC (Bld) [#/Vol] 11.19 10*3/uL High 3.73 - 10 .10 K/uL [facility] COMPREHENSIVE METABOLIC PANE Oniel 10-02-2023 Albumin [Mass/Vol] 3.2 g/dL Low 3.5-5.0 [facility] Comment on above: Performed By: #### X MPO #### [facility] (DEFAULT) [address] [place] [address] 41409 ALP [Catalytic activity/Vol] 40 U/L Normal 32-126 [facility] Comment on above: Performed By: #### X MPO #### [facility] (DEFAULT) [address] [place] [address] 22040 ALT [Catalytic activity/Vol] 28 U/L Normal 10-52 [facility] Comment on above: Performed By: #### X MPO #### [facility] (DEFAULT) [address] [place] [address] 66018 Anion gap [Moles/Vol] 11 mmol/L Normal 7-17 [facility] Comment on above: Performed By: #### X MPO #### [facility] (DEFAULT) [address] [place] [address] 85100 AST [Catalytic activity/Vol] 63 U/L High 10-39 [facility] Comment on above: Performed By: #### X MPO #### [facility] (DEFAULT) [address] [place] [address] 07049 Bilirubin [Mass/Vol] 0.6 mg/dL Normal <1.5 [facility] Comment on above: Performed By: #### X MPO #### [facility] (DEFAULT) [address] [place] [address] 67403 Calcium [Mass/Vol] 8.4 mg/dL Low 8.6-10.5 [facility] Comment on above: Performed By: #### X MPO #### U [facility] (DEFAULT) [address] [address] Chloride [Moles/Vol] 102 mmol/L Normal 98-108 [facility] Comment on above: Performed By: #### X MPO #### U [facility] (DEFAULT) [address] [address] CO2 [Moles/Vol] 26 mmol/L Normal 21-31 [facility] Comment on above: Performed By: #### X MPO #### [facility] (DEFAULT) [address] [address] Creatinine [Mass/Vol] 1.08 mg/dL Normal 0.70-1.30 [facility] Comment on above: Performed By: #### X MPO #### U [facility] (DEFAULT) [address] [place] [address] 13242 GFR/1.73 sq M.predicted among non-blacks MDRD (S/P/Bld) [Vol rate/Area] 77 mL/min/{1.73_m2} Normal >=60 [facility] Comment on above: Result Comment: Repo rted eGFR is based on the CKD-EPI 2020 equation using creatinine, age, and sex. Performed By: #### X MPO #### [facility] (DEFAULT) [address] [address] Glucose [Mass/Vol] 114 mg/dL High 70-99 [facility] Comment on above: Performed By: #### X MPO #### U [facility] (DEFAULT) [address] [place] [address] 27948 Osmolality [Osmolality] 288 mosm/kg Normal 278-305 [facility] Comment on above: Performed By: #### X MPO #### [facility] (DEFAULT) [address] [place] [address] 51759 Potassium [Moles/Vol] 4.4 mmol/L Normal 3.5-5.0 [facility] Comment on above: Performed By: #### X MPO #### [facility] (DEFAULT) [address] [place] [address] 06963 Protein [Mass/Vol] 5.6 g/dL Low 6.4-8.3 [facility] Comment on above: Performed By: #### X MPO #### [facility] (DEFAULT) [address] [place] [address] 22913 Sodium [Moles/Vol] 135 mmol/L Normal 135-145 [facility] Comment on above: Performed By: #### X MPO #### [facility] (DEFAULT) [address] [place] [address] 71800 Urea nitrogen [Mass/Vol] 20 mg/dL Normal 7-25 [facility] Comment on above: Performed By: #### X MPO #### [facility] (DEFAULT) [address] [place] [address] 55230 Urea nitrogen/Creatinine [Mass ratio] 19 mg/mg Normal [facility] Comment on above: Performed By: #### X MPO #### [facility] (DEFAULT) [address] [place] [address] 56830 Albumin [Mass/Vol] 3.2 g/dL Low 3.5 - 5.0 g/dL [facility] ALP [Catalytic activity/Vol] 40 U/L 32 - 126 U/L [facility] ALT [Catalytic activity/Vol] 28 U/L 10 - 52 U/L [facility] Anion gap [Moles/Vol] 11 mmol/L 7 - 17 mmol/L [facility] AST [Catalytic activity/Vol] 63 U/L High 10 - 39 U/L [facility] Bilirubin [Mass/Vol] 0.6 mg/dL NINF - 1.5 mg/dL [facility] Calcium [Mass/Vol] 8.4 mg/dL Low 8.6 - 10. 5 mg/dL [facility] Chloride [Moles/Vol] 102 mmol/L 98 - 10 8 mmol/L [facility] CO2 [Moles/Vol] 26 mmol/L 21 - 31 mmol/L [facility] Creatinine [Mass/Vol] 1.08 mg/dL 0.70 - 1.30 mg/dL [facility] eGFR, CKD-EPI, Male 77 - PINF [facility] Glucose [Mass/Vol] 114 mg/dL High 70 - 99 mg/dL [facility] Interpretation and review of laboratory results Abnormal [facility] Osmolality Calc [Osmolality] 288 [facility] Potassium [Moles/Vol] 4.4 mmol/L 3.5 - 5.0 mmol/L [facility] Protein [Mass/Vol] 5.6 g/dL Low 6.4 - 8.3 g/dL [facility] Sodium [Moles/Vol] 135 mmol/L 135 - 145 mmol/L [facility] Urea nitrogen [Mass/Vol] 20 mg/dL 7 - 25 mg/dL [facility] Urea nitrogen/Creatinine [Mass ratio] 19 mg/mg [facility] EXTRA MICROon 10-02-2023 [facility] GLUCOSE POCon 10-02-2023 Glucose [Mass/Vol] 160 mg/dL High 70 - 99 mg/dL [facility] Interpretation and review of laboratory results Abnormal [facility] POC Sample Type CAPBL [facility] Glucose [Mass/Vol] 139 mg/dL High 70 - 99 mg/dL [facility] Glucose [Mass/Vol] 137 mg/dL High 70 - 99 mg/dL [facility] POC Sample Type ARTER [facility] POC Sample Type CAPBL [facility] Glucose [Mass/Vol] 114 mg/dL High 70 - 99 mg/dL [facility] Interpretation and review of laboratory results Abnormal [facility] POC Sample Type ARTER [facility] IONIZED CALCIUM, WHOLE BLOOD on 10-02-2023 ICA 4.53 mg/dL Low 4.60-5.30 [facility] Comment on above: Performed By: #### M JONI CHM7 #### [facility] (DEFAULT) [address] [place] [address] Calcium.ionized (Bld) [Moles/Vol] 4.53 mg/dL Low 4.60 - 5.30 mg/dL [facility] Interpretation and review of laboratory results Abnormal [facility] LACTATE, BLOODon 10-02-2023 Lactate, Blood 1.1 mmol/L Normal 0.5-1.6 [facility] Comment on above: Performed By: #### M IVÁN QUINONESM7 #### [facility] (DEFAULT) [address] [place] [address] 95651 LACTATE, BLOODOrdered By: Olivia Raymundo on 10-02-2023 Interpretation and review of laboratory results Normal [facility] Lactate [Moles/Vol] 1.1 mmol/L 0.5 - 1. 6 mmol/L [facility] MAGNESIUMon 10-02-2023 Magnesium [Mass/Vol] 1.7 mg/dL Normal 1.6-2.6 [facility] Comment on above: Performed By: #### X MPO #### [facility] (DEFAULT) [address] [place] [address] 43334 Magnesium [Mass/Vol] 1.7 mg/dL 1.6 - 2 .6 mg/dL [facility] No Panel Informationon 10-01 Interpretation and review of laboratory results Abnormal [facility] Interpretation and review of laboratory results Normal [facility] PHOSPHATE, INORGANICon 10-01 Phosphorous 3.3 mg/dL Normal 2.2-4.6 [facility] Comment on above: Performed By: #### X MPO #### [facility] (DEFAULT) [address] [place] [address] 19114 Phosphate [Mass/Vol] 3.3 mg/dL 2.2 - 4 .6 mg/dL [facility] PT,INR,PTTon 10-02-2023 aPTT Coag (Bld) [Time] 31.7 s Normal 24.0-34.3 [facility] Comment on above: Performed By: #### C HM7 #### [facility] (DEFAULT) [address] [place] [address] 74255 INR Coag (PPP) [Relative time] 1.1 {INR} Normal 0.9-1.1 [facility] Comment on above: Performed By: #### C HM7 #### [facility] (DEFAULT) [address] [place] [address] 46249 PT Coag (PPP) [Time] 14.5 s High 11.9-14.2 [facility] Comment on above: Performed By: #### C HM7 #### [facility] (DEFAULT) [address] [place] [address] 04423 aPTT Coag (PPP) [Time] 31.7 s OS [facility] INR Coag (Bld) [Relative time] 1.1 {INR} 0.9 - 1.1 [facility] Interpretation and review of laboratory results Abnormal [facility] PT Coag (PPP) [Time] 14.5 s High [facility] Portable XR Chest Viewson RADIOLOGY RADIOLOGY [facility] Radiology Study observation (narrative) [facility] Portable XR Chest ViewsOrder ed By: Tariq Raymundo on 10-02-2023 [facility] Work Phone: URINALYSIS REFLEX TO CULTURE PERFORMABLEon 10-02-2023 Appearance (U) Cloudy Abnormal Clear [facility] Comment on above: Order Comment: For i ndwelling catheters, specimen collection is acceptable on catheter day 1 and 2 only. ? Performed By: #### U [id number] #### U [facility] (DEFAULT) [address] [place] [address]21 Bacteria TRACE Abnormal ABSENT [facility] Comment on above: Order Comment: For i ndwelling catheters, specimen collection is acceptable on catheter day 1 and 2 only. ? Performed By: #### U [id number] #### [facility] (DEFAULT) [address] [place] [address] 95118 Blood Urine Large Abnormal Negative [facility] Comment on above: Order Comment: For i ndwelling catheters, specimen collection is acceptable on catheter day 1 and 2 only. ? Performed By: #### U [id number] #### [facility] (DEFAULT) [address] [place] [address] 83749 Color (U) Yellow Normal Yellow [facility] Comment on above: Order Comment: For i ndwelling catheters, specimen collection is acceptable on catheter day 1 and 2 only. ? Performed By: #### U [id number] #### [facility] (DEFAULT) [address] [place] [address] 7[address]99 Glucose Ql (U) Negative Normal Negative [facility] Comment on above: Order Comment: For i ndwelling catheters, specimen collection is acceptable on catheter day 1 and 2 only. ? Performed By: #### U [id number] #### U [facility] (DEFAULT) [address] [place] [address] 80373 Ketones Ql (U) Negative Normal Negative [facility] Comment on above: Order Comment: For i ndwelling catheters, specimen collection is acceptable on catheter day 1 and 2 only. ? Performed By: #### U [id number] #### [facility] (DEFAULT) [address] [place] [address] 59560 Leukocyte esterase Test strip Ql (U) Moderate Abnormal Negative [facility] Comment on above: Order Comment: For i ndwelling catheters, specimen collection is acceptable on catheter day 1 and 2 only. ? Performed By: #### U [id number] #### U [facility] (DEFAULT) [address] [place] [address] 24833 Nitrites Urine Negative Normal Negative [facility] Comment on above: Order Comment: For i ndwelling catheters, specimen collection is acceptable on catheter day 1 and 2 only. ? Performed By: #### U [id number] #### [facility] (DEFAULT) [address] [place] [address] 57856 pH (U) 5.0 [pH] Normal 5.0-7.0 [facility] Comment on above: Order Comment: For i ndwelling catheters, specimen collection is acceptable on catheter day 1 and 2 only. ? Performed By: #### U [id number] #### [facility] (DEFAULT) [address] [place] [address] 42289 Protein Urine 30 mg/dL Abnormal Negative [facility] Comment on above: Order Comment: For i ndwelling catheters, specimen collection is acceptable on catheter day 1 and 2 only. ? Performed By: #### U [id number] #### [facility] (DEFAULT) [address] [place] [address] 64983 RBC Urine 11-25 Abnormal 0-2 [facility] Comment on above: Order Comment: For i ndwelling catheters, specimen collection is acceptable on catheter day 1 and 2 only. ? Performed By: #### U [id number] #### [facility] (DEFAULT) [address] [place] [address] 28174 Specific [place] Urine 1.017 Normal 1.001-1.035 [facility] Comment on above: Order Comment: For i ndwelling catheters, specimen collection is acceptable on catheter day 1 and 2 only. ? Performed By: #### U [id number] #### [facility] (DEFAULT) [address] [place] [address] 65051 Squamous/Epithelial Cells 0-2/hpf Normal 0-2/hpf, 3-5/hpf = 1+ [facility] Comment on above: Order Comment: For i ndwelling catheters, specimen collection is acceptable on catheter day 1 and 2 only. ? Performed By: #### U [id number] #### [facility] (DEFAULT) [address] [place] [address] 21752 Urobilinogen Urine 0.2 E.U./dL Normal 0.2 E.U/d L, 1.0 E.U/dL [facility] Comment on above: Order Comment: For i ndwelling catheters, specimen collection is acceptable on catheter day 1 and 2 only. ? Performed By: #### U [id number] #### [facility] (DEFAULT) [address] [place] [address] 22334 WBC Urine 11 - 20 Abnormal 0 - 5 [facility] Comment on above: Order Comment: For i ndwelling catheters, specimen collection is acceptable on catheter day 1 and 2 only. ? Performed By: #### U [id number] #### [facility] (DEFAULT) [address] [place] [address] 69351 Appearance (U) Cloudy Abnormal Clear [facility] Bacteria LM Ql (Urine sed) TRACE Abnormal ABSENT [facility] Color (U) Yellow Yellow [facility] Epithelial cells.squamous LM Ql (Urine sed) 0-2/hpf 0-2/hpf, 3-5/hpf = 1+ [facility] Glucose Test strip (U) [Mass/Vol] Negative Negative [facility] Interpretation and review of laboratory results Abnormal [facility] Ketones (U) [Mass/Vol] Negative Negative [facility] Leukocyte esterase Test strip Ql (U) Moderate Abnormal Negative [facility] Nitrite Ql (U) Negative Negative [facility] pH (U) 5.0 [pH] 5.0 - 7.0 [facility] Protein (U) [Mass/Vol] 30 mg/dL Abnormal Negative [facility] RBC (U) [#/Vol] Large Abnormal Negative [facility] RBC LM.HPF (Urine sed) [#/Area] 11-25 Abnormal [facility] Specific gravity (U) [Rel density] 1.017 1.001 - 1.035 [facility] Urobilinogen (U) [Mass/Vol] 0.2 E.U./dL 0.2 E.U/dL, 1.0 E.U/dL [facility] WBC LM.HPF (Urine sed) [#/Area] 11 - 20 Abnormal [facility] URINE CULTUREon 10-02-2023 Bacteria identified Cx Nom (U) No Growth Normal [facility] Comment on above: Order Comment: For i ndwelling catheters, specimen collection is acceptable on catheter day 1 and 2 only. Anderson top vacutainer. Urine must be to the fill line to process (4mls). If minimum volume, send urine in a yellow top vacutainer tube.For indwelling catheters, specimen collection is acceptable on catheter day 1 and 2 only. ? Performed By: #### I ANDREA, LEENA, CMPN #### [facility] (DEFAULT) [address] [place] [address] XR CHEST 1 VIEW PORTABLEon 0 10-02-2023 XR CHEST 1 VIEW PORTABLE EXAM: XR CHEST 1 VIEW PORTABLE, 10/02/2023 05:57 AM COMPARISON: October 01, 2023 CLINICAL INDICATIONS: f/u left apical PTX RELEVANT CLINICAL HISTORY: FINDINGS: (Adequate technique) Implanted Devices: Right IJ sheath. Interval removal of enteric tube. Thorax: No area of focal consolidation or pattern of edema. Unchanged small left apicolateral pneumothorax. No pleural effusion. Normal heart size. No acute osseous abnormality. IMPRESSION: Unchanged small left apicolateral pneumothorax. I personally viewed and interpreted these images and I have reviewed and approved this report. Normal [facility] ARTERIAL BLOOD GAS PLUS LACT ATEon 10-01-2023 Base excess Calc (Bld) [Moles/Vol] 0.8 mmol/L -3.0 - 3.0 mmol/L [facility] CO2 (Bld) [Partial pressure] 40 mm[Hg] [facility] HCO3 (Bld) [Moles/Vol] 25 mmol/L 22 - 28 mmol/L [facility] Interpretation and review of laboratory results Abnormal [facility] Lactate [Moles/Vol] 1.0 mmol/L 0.5 - 1. 6 mmol/L [facility] Oxygen (Bld) [Partial pressure] 75 mm[Hg] Low [facility] Oxygen saturation in Blood 97 % 94 - 98 % [facility] pH (Bld) 7.41 [pH] 7.35 - 7.45 [facility] Specimen source Nom (Unsp spec) Arterial [facility] Base Excess 0.0 mmol/L Normal -3.0-3.0 [facility] Comment on above: Performed By: #### H [facility] #### [facility] (DEFAULT) [address] [place] [address] 34941 HCO3 (Bld) [Moles/Vol] 25 mmol/L Normal 22-28 [facility] Comment on above: Performed By: #### H EMO #### [facility] (DEFAULT) [address] [place] [address] 79632 Lactate, Whole Blood 2.1 mmol/L High 0.5-1.6 [facility] Comment on above: Result Comment: Lact ate results >/= 2.0 mmol/L should be followed up with a measurement 4 hours later for patients with suspicion of sepsis. Performed By: #### H EMOGC #### [facility] (DEFAULT) [address] [place] [address] 81032 Oxygen saturation in Blood 91 % Low 94-98 [facility] Comment on above: Performed By: #### H EMOGC #### [facility] (DEFAULT) [address] [place] [address] 83518 pCO2 40 mm Hg Normal 32-48 [facility] Comment on above: Performed By: #### H EMOGC #### [facility] (DEFAULT) [address] [place] [address] 07902 pH, Arterial 7.40 Normal 7.35-7.45 [facility] Comment on above: Performed By: #### H [facility] #### [facility] (DEFAULT) [address] [place] [address] 54395 pO2 56 mm Hg Low 83-108 [facility] Comment on above: Performed By: #### H EMO #### [facility] (DEFAULT) [address] [place] [address] 45731 Specimen type Nom (Spec) Arterial Normal [facility] Comment on above: Performed By: #### H [facility] #### [facility] (DEFAULT) [address] [place] [address] 74189 Base excess Calc (Bld) [Moles/Vol] 0.0 mmol/L -3.0 - 3.0 mmol/L [facility] CO2 (Bld) [Partial pressure] 40 mm[Hg] [facility] HCO3 (Bld) [Moles/Vol] 25 mmol/L 22 - 28 mmol/L [facility] Interpretation and review of laboratory results Abnormal [facility] Lactate [Moles/Vol] 2.1 mmol/L High 0.5 - 1. 6 mmol/L [facility] Oxygen (Bld) [Partial pressure] 56 mm[Hg] Low [facility] Oxygen saturation in Blood 91 % Low 94 - 98 % [facility] pH (Bld) 7.40 [pH] 7.35 - 7.45 [facility] Specimen source Nom (Unsp spec) Arterial [facility] Base Excess -1.1 mmol/L Normal -3.0-3.0 [facility] Comment on above: Performed By: #### M RENÉ QUINONES #### [facility] (DEFAULT) [address] [place] [address] 83655 HCO3 (Bld) [Moles/Vol] 24 mmol/L Normal 22-28 [facility] Comment on above: Performed By: #### M JONI CHM7 #### [facility] (DEFAULT) [address] [place] [address] 02074 Lactate, Whole Blood 1.2 mmol/L Normal 0.5-1.6 [facility] Comment on above: Performed By: #### Ann QUINONES, CHM7 #### [facility] (DEFAULT) [address] [place] [address] 83840 Oxygen saturation in Blood 98 % Normal 94-98 [facility] Comment on above: Performed By: #### Ann QUINONES CHM7 #### [facility] (DEFAULT) [address] [place] [address] 27879 pCO2 43 mm Hg Normal 32-48 [facility] Comment on above: Performed By: #### Ann QUINONES CHM7 #### [facility] (DEFAULT) [address] [place] [address] 22395 pH, Arterial 7.36 Normal 7.35-7.45 [facility] Comment on above: Performed By: #### Ann QUINONES CHM7 #### [facility] (DEFAULT) [address] [place] [address] 52671 pO2 84 mm Hg Normal 83-108 [facility] Comment on above: Performed By: #### Ann QUINONES CHM7 #### [facility] (DEFAULT) [address] [place] [address] 12301 Specimen type Nom (Spec) Arterial Normal [facility] Comment on above: Performed By: #### Ann QUINONES CHM7 #### [facility] (DEFAULT) [address] [place] [address] 16652 Base excess Calc (Bld) [Moles/Vol] -1.1000 mmol/L -3.0 - 3.0 mmol/L [facility] CO2 (Bld) [Partial pressure] 43 mm[Hg] [facility] HCO3 (Bld) [Moles/Vol] 24 mmol/L 22 - 28 mmol/L [facility] Lactate [Moles/Vol] 1.2 mmol/L 0.5 - 1. 6 mmol/L [facility] Oxygen (Bld) [Partial pressure] 84 mm[Hg] [facility] Oxygen saturation in Blood 98 % 94 - 98 % [facility] pH (Bld) 7.36 [pH] 7.35 - 7.45 [facility] Specimen source Nom (Unsp spec) Arterial [facility] Base Excess -0.5 mmol/L Normal -3.0-3.0 [facility] Comment on above: Performed By: #### Ann QUINONES CHM7 #### [facility] (DEFAULT) [address] [place] [address] 55740 HCO3 (Bld) [Moles/Vol] 25 mmol/L Normal 22-28 [facility] Comment on above: Performed By: #### Ann QUINONES CHM7 #### [facility] (DEFAULT) [address] [place] [address] 56627 Lactate, Whole Blood 0.9 mmol/L Normal 0.5-1.6 [facility] Comment on above: Performed By: #### Ann QUINONES CHM7 #### [facility] (DEFAULT) [address] [place] [address] 25470 Oxygen saturation in Blood 97 % Normal 94-98 [facility] Comment on above: Performed By: #### Ann QUINONES CHM7 #### [facility] (DEFAULT) [address] [place] [address] 40804 pCO2 44 mm Hg Normal 32-48 [facility] Comment on above: Performed By: #### Ann QUINONES CHM7 #### [facility] (DEFAULT) [address] [place] [address] 33368 pH, Arterial 7.36 Normal 7.35-7.45 [facility] Comment on above: Performed By: #### Ann QUINONES CHM7 #### [facility] (DEFAULT) [address] [place] [address] 24258 pO2 76 mm Hg Low 83-108 [facility] Comment on above: Performed By: #### RENÉ LEWIS #### [facility] (DEFAULT) [address] [place] [address] 14598 Specimen type Nom (Spec) Arterial Normal [facility] Comment on above: Performed By: #### RENÉ LEWIS #### [facility] (DEFAULT) [address] [place] [address] Base excess Calc (Bld) [Moles/Vol] -0.5000 mmol/L -3.0 - 3.0 mmol/L [facility] CO2 (Bld) [Partial pressure] 44 mm[Hg] [facility] HCO3 (Bld) [Moles/Vol] 25 mmol/L 22 - 28 mmol/L [facility] Interpretation and review of laboratory results Abnormal [facility] Lactate [Moles/Vol] 0.9 mmol/L 0.5 - 1. 6 mmol/L [facility] Oxygen (Bld) [Partial pressure] 76 mm[Hg] Low [facility] Oxygen saturation in Blood 97 % 94 - 98 % [facility] pH (Bld) 7.36 [pH] 7.35 - 7.45 [facility] Specimen source Nom (Unsp spec) Arterial [facility] Base Excess -2.2 mmol/L Normal -3.0-3.0 [facility] Comment on above: Performed By: #### RENÉ LEWIS #### [facility] (DEFAULT) [address] [place] [address] 32212 HCO3 (Bld) [Moles/Vol] 24 mmol/L Normal 22-28 [facility] Comment on above: Performed By: #### RENÉ LEWIS #### [facility] (DEFAULT) [address] [place] [address] 31412 Lactate, Whole Blood 1.0 mmol/L Normal 0.5-1.6 [facility] Comment on above: Performed By: #### RENÉ LEWIS #### U [facility] (DEFAULT) [address] [place] [address] 75019 Oxygen saturation in Blood 98 % Normal 94-98 [facility] Comment on above: Performed By: #### Ann QUINONES CHM7 #### [facility] (DEFAULT) [address] [place] [address] 46922 pCO2 45 mm Hg Normal 32-48 [facility] Comment on above: Performed By: #### Ann QUINONES CHM7 #### [facility] (DEFAULT) [address] [place] [address] 70393 pH, Arterial 7.33 Low 7.35-7.45 [facility] Comment on above: Performed By: #### Ann QUINONES CHM7 #### [facility] (DEFAULT) [address] [place] [address] 34408 pO2 89 mm Hg Normal 83-108 [facility] Comment on above: Performed By: #### CELESTE LEWIS7 #### [facility] (DEFAULT) [address] [place] [address] 80462 Specimen type Nom (Spec) Arterial Normal [facility] Comment on above: Performed By: #### CELESTE LEWIS7 #### [facility] (DEFAULT) [address] [place] [address] 33778 Base excess Calc (Bld) [Moles/Vol] -2.2000 mmol/L -3.0 - 3.0 mmol/L [facility] CO2 (Bld) [Partial pressure] 45 mm[Hg] [facility] HCO3 (Bld) [Moles/Vol] 24 mmol/L 22 - 28 mmol/L [facility] Interpretation and review of laboratory results Abnormal [facility] Lactate [Moles/Vol] 1.0 mmol/L 0.5 - 1. 6 mmol/L [facility] Oxygen (Bld) [Partial pressure] 89 mm[Hg] [facility] Oxygen saturation in Blood 98 % 94 - 98 % [facility] pH (Bld) 7.33 [pH] Low 7.35 - 7.45 [facility] Specimen source Nom (Unsp spec) Arterial [facility] CBC,PLATELETSon 10-01-2023 Hematocrit (Bld) [Volume fraction] 34.6 % Low 39.6-48.8 [facility] Comment on above: Performed By: #### I PB, MGO, CMPN #### [facility] (DEFAULT) [address] [place] [address] 12530 Hemoglobin (Bld) [Mass/Vol] 11.0 g/dL Low 13.4-16.8 [facility] Comment on above: Performed By: #### I PB, MGO, CMPN #### [facility] (DEFAULT) [address] [place] [address] 48582 MCV (RBC) [Entitic vol] 94.3 fL Normal 79.0-94.5 [facility] Comment on above: Performed By: #### I PB, MGO, CMPN #### [facility] (DEFAULT) [address] [place] [address] 01269 Mean Cell Hgb 30.0 pg Normal 26.1-33.3 [facility] Comment on above: Performed By: #### I PB, MGO, CMPN #### [facility] (DEFAULT) [address] [place] [address] 16757 Mean Cell Hgb Conc 31.8 g/dL Low 31.9-36.5 [facility] Comment on above: Performed By: #### I PB, MGO, CMPN #### [facility] (DEFAULT) [address] [place] [address] 46362 Platelet mean volume (Bld) [Entitic vol] 11.5 fL Normal 8.7-12.3 [facility] Comment on above: Performed By: #### I PB, MGO, CMPN #### [facility] (DEFAULT) [address] [place] [address] 61176 Platelets (Bld) [#/Vol] 172 10*3/uL Normal 146-337 [facility] Comment on above: Performed By: #### I LEENA MENDEZ CMPN #### [facility] (DEFAULT) [address] [place] [address] RBC (Bld) [#/Vol] 3.67 10*6/uL Low 4.38-5.83 [facility] Comment on above: Performed By: #### I LEENA MENDEZ CMPN #### [facility] (DEFAULT) [address] [place] [address] 31754 RBC Distribution 14.4 % High 10.9-14.3 [facility] Comment on above: Performed By: #### LEENA MIKE CMPN #### [facility] (DEFAULT) [address] [place] [address] 05890 WBC (Bld) [#/Vol] 9.04 10*3/uL Normal 3.73-10.10 [facility] Comment on above: Performed By: #### I LEENA MENDEZ CMPN #### [facility] (DEFAULT) [address] [place] [address] 95079 Erythrocyte distribution width (RBC) [Ratio] 14.4 % High 10.9 - 14.3 % [facility] Hematocrit (Bld) [Volume fraction] 34.6 % Low 39.6 - 48.8 % [facility] Hemoglobin (Bld) [Mass/Vol] 11.0 g/dL Low 13.4 - 16.8 g/dL [facility] Interpretation and review of laboratory results Abnormal [facility] MCH (RBC) [Entitic mass] 30.0 pg 26.1 - 33.3 pg [facility] MCHC (RBC) [Mass/Vol] 31.8 g/dL Low 31.9 - 36.5 g/dL [facility] MCV (RBC) [Entitic vol] 94.3 fL 79.0 - 94.5 fL [facility] Platelet mean volume (Bld) [Entitic vol] 11.5 fL 8.7 - 12.3 fL [facility] Platelets (Bld) [#/Vol] 172 10*3/uL 146 - 337 K/uL [facility] RBC (Bld) [#/Vol] 3.67 10*6/uL Low [facility] WBC (Bld) [#/Vol] 9.04 10*3/uL 3.73 - 10. 10 K/uL [facility] Hematocrit (Bld) [Volume fraction] 37.1 % Low 39.6-48.8 [facility] Comment on above: Performed By: #### CELESTE LEWIS7 #### [facility] (DEFAULT) [address] [address] Hemoglobin (Bld) [Mass/Vol] 11.9 g/dL Low 13.4-16.8 [facility] Comment on above: Performed By: #### CELESTE LEWIS7 #### [facility] (DEFAULT) [address] [address] MCV (RBC) [Entitic vol] 93.9 fL Normal 79.0-94.5 [facility] Comment on above: Performed By: #### Ann QUINONES CHM7 #### [facility] (DEFAULT) [address] [place] [address] 42766 Mean Cell Hgb 30.1 pg Normal 26.1-33.3 [facility] Comment on above: Performed By: #### Ann QUINONES CHM7 #### [facility] (DEFAULT) [address] [place] [address] 75681 Mean Cell Hgb Conc 32.1 g/dL Normal 31.9-36.5 [facility] Comment on above: Performed By: #### Ann QUINONES CHM7 #### [facility] (DEFAULT) [address] [place] [address] 09101 Platelet mean volume (Bld) [Entitic vol] 11.4 fL Normal 8.7-12.3 [facility] Comment on above: Performed By: #### CELESTE LEWIS7 #### [facility] (DEFAULT) [address] [place] [address] 26828 Platelets (Bld) [#/Vol] 174 10*3/uL Normal 146-337 [facility] Comment on above: Performed By: #### CELESTE LEWIS7 #### [facility] (DEFAULT) [address] [place] [address] 24963 RBC (Bld) [#/Vol] 3.95 10*6/uL Low 4.38-5.83 [facility] Comment on above: Performed By: #### CELESTE LEWIS7 #### [facility] (DEFAULT) [address] [place] [address] 29095 RBC Distribution 14.3 % Normal 10.9-14.3 [facility] Comment on above: Performed By: #### RENÉ LEWIS #### [facility] (DEFAULT) [address] [place] [address] 91185 WBC (Bld) [#/Vol] 10.55 10*3/uL High 3.73-10.10 [facility] Comment on above: Performed By: #### CELESTE LEWIS7 #### [facility] (DEFAULT) [address] [place] [address] 30509 Erythrocyte distribution width (RBC) [Ratio] 14.3 % 10.9 - 14.3 % [facility] Hematocrit (Bld) [Volume fraction] 37.1 % Low 39.6 - 48.8 % [facility] Hemoglobin (Bld) [Mass/Vol] 11.9 g/dL Low 13.4 - 16.8 g/dL [facility] Interpretation and review of laboratory results Abnormal [facility] MCH (RBC) [Entitic mass] 30.1 pg 26.1 - 33.3 pg [facility] MCHC (RBC) [Mass/Vol] 32.1 g/dL 31.9 - 36.5 g/dL [facility] MCV (RBC) [Entitic vol] 93.9 fL 79.0 - 94.5 fL [facility] Platelet mean volume (Bld) [Entitic vol] 11.4 fL 8.7 - 12.3 fL [facility] Platelets (Bld) [#/Vol] 174 10*3/uL 146 - 337 K/uL [facility] RBC (Bld) [#/Vol] 3.95 10*6/uL Low [facility] WBC (Bld) [#/Vol] 10.55 10*3/uL High 3.73 - 10 .10 K/uL [facility] COMPREHENSIVE METABOLIC PANE Oniel 10-01-2023 Albumin [Mass/Vol] 3.2 g/dL Low 3.5-5.0 [facility] Comment on above: Performed By: #### C HM7 #### [facility] (DEFAULT) [address] [place] [address] 40715 ALP [Catalytic activity/Vol] 44 U/L Normal 32-126 [facility] Comment on above: Performed By: #### C HM7 #### [facility] (DEFAULT) [address] [place] [address] 56468 ALT [Catalytic activity/Vol] 23 U/L Normal 10-52 [facility] Comment on above: Performed By: #### C HM7 #### [facility] (DEFAULT) [address] [place] [address] 83722 Anion gap [Moles/Vol] 12 mmol/L Normal 7-17 [facility] Comment on above: Performed By: #### C HM7 #### [facility] (DEFAULT) [address] [place] [address] 33704 AST [Catalytic activity/Vol] 38 U/L Normal 10-39 [facility] Comment on above: Performed By: #### C HM7 #### [facility] (DEFAULT) [address] [place] [address] 74433 Bilirubin [Mass/Vol] 0.4 mg/dL Normal <1.5 [facility] Comment on above: Performed By: #### C HM7 #### [facility] (DEFAULT) [address] [place] [address] 43274 Calcium [Mass/Vol] 8.3 mg/dL Low 8.6-10.5 [facility] Comment on above: Performed By: #### C HM7 #### [place] [facility] (DEFAULT) [address] [place] [address] 90878 Chloride [Moles/Vol] 107 mmol/L Normal 98-108 [facility] Comment on above: Performed By: #### C HM7 #### [place] [facility] (DEFAULT) [address] [place] [address] 36443 CO2 [Moles/Vol] 24 mmol/L Normal 21-31 [facility] Comment on above: Performed By: #### C HM7 #### [facility] (DEFAULT) [address] [place] [address] 83942 Creatinine [Mass/Vol] 1.04 mg/dL Normal 0.70-1.30 [facility] Comment on above: Performed By: #### C HM7 #### [facility] (DEFAULT) [address] [place] [address] 10572 GFR/1.73 sq M.predicted among non-blacks MDRD (S/P/Bld) [Vol rate/Area] 81 mL/min/{1.73_m2} Normal >=60 [facility] Comment on above: Result Comment: Repo rted eGFR is based on the CKD-EPI 2020 equation using creatinine, age, and sex. Performed By: #### C HM7 #### [facility] (DEFAULT) [address] [place] [address] 79201 Glucose [Mass/Vol] 113 mg/dL High 70-99 [facility] Comment on above: Performed By: #### C HM7 #### [place] [facility] (DEFAULT) [address] [place] [address] 72601 Osmolality [Osmolality] 293 mosm/kg Normal 278-305 [facility] Comment on above: Performed By: #### C HM7 #### [facility] (DEFAULT) [address] [place] [address] 52403 Potassium [Moles/Vol] 4.8 mmol/L Normal 3.5-5.0 [facility] Comment on above: Performed By: #### C HM7 #### [facility] (DEFAULT) [address] [place] [address] 78348 Protein [Mass/Vol] 5.3 g/dL Low 6.4-8.3 [facility] Comment on above: Performed By: #### C HM7 #### [place] [facility] (DEFAULT) [address] [place] [address] 20929 Sodium [Moles/Vol] 138 mmol/L Normal 135-145 [facility] Comment on above: Performed By: #### C HM7 #### [facility] (DEFAULT) [address] [place] [address] 26496 Urea nitrogen [Mass/Vol] 18 mg/dL Normal 7-25 [facility] Comment on above: Performed By: #### C HM7 #### [facility] (DEFAULT) [address] [place] [address] [id number] Urea nitrogen/Creatinine [Mass ratio] 17 mg/mg Normal [facility] Comment on above: Performed By: #### C HM7 #### [facility] (DEFAULT) [address] [place] [address]6514 Albumin [Mass/Vol] 3.2 g/dL Low 3.5 - 5.0 g/dL [facility] ALP [Catalytic activity/Vol] 44 U/L 32 - 126 U/L [facility] ALT [Catalytic activity/Vol] 23 U/L 10 - 52 U/L [facility] Anion gap [Moles/Vol] 12 mmol/L 7 - 17 mmol/L [facility] AST [Catalytic activity/Vol] 38 U/L 10 - 39 U/L [facility] Bilirubin [Mass/Vol] 0.4 mg/dL NINF - 1.5 mg/dL [facility] Calcium [Mass/Vol] 8.3 mg/dL Low 8.6 - 10. 5 mg/dL [facility] Chloride [Moles/Vol] 107 mmol/L 98 - 10 8 mmol/L [facility] CO2 [Moles/Vol] 24 mmol/L 21 - 31 mmol/L [facility] Creatinine [Mass/Vol] 1.04 mg/dL 0.70 - 1.30 mg/dL [facility] eGFR, CKD-EPI, Male 81 - PINF [facility] Glucose [Mass/Vol] 113 mg/dL High 70 - 99 mg/dL [facility] Interpretation and review of laboratory results Abnormal [facility] Osmolality Calc [Osmolality] 293 [facility] Potassium [Moles/Vol] 4.8 mmol/L 3.5 - 5.0 mmol/L [facility] Protein [Mass/Vol] 5.3 g/dL Low 6.4 - 8.3 g/dL [facility] Sodium [Moles/Vol] 138 mmol/L 135 - 145 mmol/L [facility] Urea nitrogen [Mass/Vol] 18 mg/dL 7 - 25 mg/dL [facility] Urea nitrogen/Creatinine [Mass ratio] 17 mg/mg [facility] Albumin [Mass/Vol] 3.2 g/dL Low 3.5-5.0 [facility] Comment on above: Performed By: #### X MPO #### [facility] (DEFAULT) [address] [place] [address] ALP [Catalytic activity/Vol] 43 U/L Normal 32-126 [facility] Comment on above: Performed By: #### X MPO #### [facility] (DEFAULT) [address] [place] [address] ALT [Catalytic activity/Vol] 23 U/L Normal 10-52 [facility] Comment on above: Performed By: #### X MPO #### [facility] (DEFAULT) [address] [place] [address] 50716 Anion gap [Moles/Vol] 13 mmol/L Normal 7-17 [facility] Comment on above: Performed By: #### X MPO #### [facility] (DEFAULT) [address] [place] [address] 08734 AST [Catalytic activity/Vol] 33 U/L Normal 10-39 [facility] Comment on above: Performed By: #### X MPO #### [facility] (DEFAULT) [address] [place] [address] 48541 Bilirubin [Mass/Vol] 0.3 mg/dL Normal <1.5 [facility] Comment on above: Performed By: #### X MPO #### [facility] (DEFAULT) [address] [place] [address] 26275 Calcium [Mass/Vol] 8.0 mg/dL Low 8.6-10.5 [facility] Comment on above: Performed By: #### X MPO #### [facility] (DEFAULT) [address] [place] [address] 91167 Chloride [Moles/Vol] 107 mmol/L Normal 98-108 [facility] Comment on above: Performed By: #### X MPO #### [facility] (DEFAULT) [address] [place] [address] 48377 CO2 [Moles/Vol] 22 mmol/L Normal 21-31 [facility] Comment on above: Performed By: #### X MPO #### [facility] (DEFAULT) [address] [place] [address] 31616 Creatinine [Mass/Vol] 0.97 mg/dL Normal 0.70-1.30 [facility] Comment on above: Performed By: #### X MPO #### [facility] (DEFAULT) [address] [place] [address] 33346 GFR/1.73 sq M.predicted among non-blacks MDRD (S/P/Bld) [Vol rate/Area] 88 mL/min/{1.73_m2} Normal >=60 [facility] Comment on above: Result Comment: Repo rted eGFR is based on the CKD-EPI 2020 equation using creatinine, age, and sex. Performed By: #### X MPO #### [facility] (DEFAULT) [address] [place] [address]10 Glucose [Mass/Vol] 99 mg/dL Normal 70-99 [facility] Comment on above: Performed By: #### X MPO #### [facility] (DEFAULT) [address] [place] [address]505 Osmolality [Osmolality] 291 mosm/kg Normal 278-305 [facility] Comment on above: Performed By: #### X MPO #### [facility] (DEFAULT) [address] [place] [address] 20091 Potassium [Moles/Vol] 5.4 mmol/L High 3.5-5.0 [facility] Comment on above: Performed By: #### X MPO #### [facility] (DEFAULT) [address] [place] [address] 29034 Protein [Mass/Vol] 5.6 g/dL Low 6.4-8.3 [facility] Comment on above: Performed By: #### X MPO #### [facility] (DEFAULT) [address] [place] [address] 27443 Sodium [Moles/Vol] 137 mmol/L Normal 135-145 [facility] Comment on above: Performed By: #### X MPO #### [facility] (DEFAULT) [address] [place] [address] 67311 Urea nitrogen [Mass/Vol] 17 mg/dL Normal 7-25 [facility] Comment on above: Performed By: #### X MPO #### [facility] (DEFAULT) [address] [place] [address] 97133 Urea nitrogen/Creatinine [Mass ratio] 18 mg/mg Normal [facility] Comment on above: Performed By: #### X MPO #### [facility] (DEFAULT) [address] [place] [address] Albumin [Mass/Vol] 3.2 g/dL Low 3.5 - 5.0 g/dL [facility] ALP [Catalytic activity/Vol] 43 U/L 32 - 126 U/L [facility] ALT [Catalytic activity/Vol] 23 U/L 10 - 52 U/L [facility] Anion gap [Moles/Vol] 13 mmol/L 7 - 17 mmol/L [facility] AST [Catalytic activity/Vol] 33 U/L 10 - 39 U/L [facility] Bilirubin [Mass/Vol] 0.3 mg/dL NINF - 1.5 mg/dL [facility] Calcium [Mass/Vol] 8.0 mg/dL Low 8.6 - 10. 5 mg/dL [facility] Chloride [Moles/Vol] 107 mmol/L 98 - 10 8 mmol/L [facility] CO2 [Moles/Vol] 22 mmol/L 21 - 31 mmol/L [facility] Creatinine [Mass/Vol] 0.97 mg/dL 0.70 - 1.30 mg/dL [facility] eGFR, CKD-EPI, Male 88 - [facility]F [facility] Glucose [Mass/Vol] 99 mg/dL 70 - 99 mg/dL [facility] Interpretation and review of laboratory results Abnormal [facility] Osmolality Calc [Osmolality] 291 [facility] Potassium [Moles/Vol] 5.4 mmol/L High 3.5 - 5.0 mmol/L [facility] Protein [Mass/Vol] 5.6 g/dL Low 6.4 - 8.3 g/dL [facility] Sodium [Moles/Vol] 137 mmol/L 135 - 145 mmol/L [facility] Urea nitrogen [Mass/Vol] 17 mg/dL 7 - 25 mg/dL [facility] Urea nitrogen/Creatinine [Mass ratio] 18 mg/mg [facility] GLUCOSE POCon 10-01-2023 Glucose [Mass/Vol] 140 mg/dL High 70 - 99 mg/dL [facility] Glucose [Mass/Vol] 118 mg/dL High 70 - 99 mg/dL [facility] Glucose [Mass/Vol] 127 mg/dL High 70 - 99 mg/dL [facility] Interpretation and review of laboratory results Abnormal [facility] POC Sample Type ARTER [facility] Glucose [Mass/Vol] 110 mg/dL High 70 - 99 mg/dL [facility] Interpretation and review of laboratory results Abnormal [facility] POC Sample Type ARTER [facility] Glucose [Mass/Vol] 97 mg/dL 70 - 99 mg/dL [facility] POC Sample Type ARTER [facility] IONIZED CALCIUM, WHOLE BLOOD on 10-01-2023 ICA 4.67 mg/dL Normal 4.60-5.30 [facility] Comment on above: Performed By: #### C HM7 #### [facility] (DEFAULT) [address] [address] ICA 4.76 mg/dL Normal 4.60-5.30 [facility] Comment on above: Performed By: #### RENÉ LEWIS #### [facility] (DEFAULT) [address] [address] Calcium.ionized (Bld) [Moles/Vol] 4.76 mg/dL 4.60 - 5.30 mg/dL [facility] Interpretation and review of laboratory results Normal [facility] ICA 4.35 mg/dL Low 4.60-5.30 [facility] Comment on above: Performed By: #### Ann QUINONES CHM7 #### [facility] (DEFAULT) [address] [place] [address] IONIZED CALCIUM, WHOLE BLOOD Ordered By: Estrellita Tristan on 10-01-2023 Calcium.ionized (Bld) [Moles/Vol] 4.67 mg/dL 4.60 - 5.30 mg/dL [facility] Interpretation and review of laboratory results Normal [facility] IONIZED CALCIUM, WHOLE BLOOD Ordered By: Dangelo Jeronimo on 10-01-2023 Calcium.ionized (Bld) [Moles/Vol] 4.35 mg/dL Low 4.60 - 5.30 mg/dL [facility] Interpretation and review of laboratory results Abnormal [facility] MAGNESIUMon 10-01-2023 Magnesium [Mass/Vol] 1.9 mg/dL Normal 1.6-2.6 [facility] Comment on above: Performed By: #### I PB, MGO, CMPN #### [facility] (DEFAULT) [address] [address] Magnesium [Mass/Vol] 1.9 mg/dL 1.6 - 2 .6 mg/dL [facility] Magnesium [Mass/Vol] 2.1 mg/dL 1.6 - 2 .6 mg/dL [facility] Magnesium [Mass/Vol] 2.1 mg/dL Normal 1.6-2.6 [facility] Comment on above: Performed By: #### C HM7 #### [facility] (DEFAULT) [address] [place] [address] Magnesium [Mass/Vol] 1.8 mg/dL Normal 1.6-2.6 [facility] Comment on above: Performed By: #### H [facility] #### [facility] (DEFAULT) [address] [place] [address] Interpretation and review of laboratory results Normal [facility] Magnesium [Mass/Vol] 1.8 mg/dL 1.6 - 2 .6 mg/dL [facility] No Panel Informationon 09-30 Interpretation and review of laboratory results Abnormal [facility] POC Sample Type ARTER [facility] Interpretation and review of laboratory results Normal [facility] Interpretation and review of laboratory results Normal [facility] ABO/RH(D) TYPE Positive [facility] BLOOD COMPONENT TYPE Red Cells, Leukoreduced [facility] BLOOD COMPONENT TYPE Plasma, Thawed [facility] EXPIRATION DATE [facility] EXPIRATION DATE [facility] Product ABO/RH(D) Positive [facility] Product ABO/RH(D) NUMBER 5100 [facility] PRODUCT CODE [id number] [facility] PRODUCT CODE [id number] [facility] UNIT NUMBER [id number] [facility] UNIT STATUS released [facility] PHOSPHATE, INORGANICon 09-30 Phosphate [Mass/Vol] 4.3 mg/dL 2.2 - 4 .6 mg/dL [facility] Phosphorous 4.3 mg/dL Normal 2.2-4.6 [facility] Comment on above: Performed By: #### G AS5L #### [facility] (DEFAULT) [address] [place] [address] 060[address] POTASSIUMon 10-01-2023 Potassium [Moles/Vol] 4.7 mmol/L Normal 3.5-5.0 [facility] Comment on above: Performed By: #### I PB, MGO, CMPN #### [facility] (DEFAULT) [address] [place] [address] 19120 Potassium [Moles/Vol] 4.7 mmol/L 3.5 - 5.0 mmol/L [facility] PREPARE TO TRANSFUSE OR PLAS MAon 10-01-2023 PRODUCT CODE [id number] [facility] UNIT NUMBER [id number] [facility] UNIT NUMBER [id number] [facility] UNIT NUMBER [id number] [facility] UNIT NUMBER [id number] [facility] PREPARE TO TRANSFUSE OR RED BLOOD CELLSon 10-01-2023 PRODUCT CODE [id number] [facility] PRODUCT CODE [id number] [facility] UNIT NUMBER [id number] [facility] UNIT NUMBER [id number] [facility] PT,INR,PTTon 10-01-2023 aPTT Coag (Bld) [Time] 31.5 s Normal 24.0-34.3 [facility] Comment on above: Performed By: #### LEENA MIKE CMPN #### [facility] (DEFAULT) [address] [place] [address]459 INR Coag (PPP) [Relative time] 1.1 {INR} Normal 0.9-1.1 [facility] Comment on above: Performed By: #### LEENA MIKE CMPN #### [facility] (DEFAULT) [address] [place] [address] 37963 PT Coag (PPP) [Time] 13.8 s Normal 11.9-14.2 [facility] Comment on above: Performed By: #### LEENA MIKE, CMPN #### [facility] (DEFAULT) [address] [place] [address] 08599 aPTT Coag (PPP) [Time] 31.5 s [facility] INR Coag (Bld) [Relative time] 1.1 {INR} 0.9 - 1.1 [facility] Interpretation and review of laboratory results Normal [facility] PT Coag (PPP) [Time] 13.8 s [facility] aPTT Coag (Bld) [Time] 29.9 s Normal 24.0-34.3 [facility] Comment on above: Performed By: #### C HM7 #### [facility] (DEFAULT) [address] [place] [address] [place] [address] INR Coag (PPP) [Relative time] 1.0 {INR} Normal 0.9-1.1 [facility] Comment on above: Performed By: #### C HM7 #### [facility] [address] [place] [address] PT Coag (PPP) [Time] 13.0 s Normal 11.9-14.2 [facility] Comment on above: Performed By: #### C HM7 #### [facility] (DEFAULT) [address] [place] [address] 767[address] aPTT Coag (PPP) [Time] 29.9 s [facility] INR Coag (Bld) [Relative time] 1.0 {INR} 0.9 - 1.1 [facility] Interpretation and review of laboratory results Normal [facility] PT Coag (PPP) [Time] 13.0 s [facility] Portable XR Chest Viewson RADIOLOGY RADIOLOGY [facility] RADIOLOGY RADIOLOGY [facility] Radiology Study observation (narrative) [facility] Portable XR Chest ViewsOrder ed By: Richar Hansen on 10-01-2023 [facility] Work Phone: XR CHEST 1 VIEW PORTABLEon 0 10-01-2023 XR CHEST 1 VIEW PORTABLE EXAM: XR CHEST 1 VIEW PORTABLE, 10/01/2023 06:25 AM COMPARISON: September 30, 2023 CLINICAL INDICATIONS: Evaluate L. Apical Pneumo RELEVANT CLINICAL HISTORY: FINDINGS: (Adequate technique) Implanted Devices: Unchanged and adequately positioned. Thorax: Small left apical pneumothorax appears slightly increased in size compared to the prior study. Pleural separation laterally measures up to about 1.0 cm compared to 0.4 cm previously. No pleural effusion. No new airspace disease. No other change. IMPRESSION: Slightly increased size of a small left apical pneumothorax. Normal [facility] XR CHEST 1 VIEW PORTABLE EXAM: XR CHEST 1 VIEW PORTABLE, 09/30/2023 22:10 PM COMPARISON: September 30, 2023 CLINICAL INDICATIONS: Monitor post operative pneumothorax RELEVANT CLINICAL HISTORY: FINDINGS: (Adequate technique) Implanted Devices: Unchanged and adequately positioned. Thorax: The tiny left apical pneumothorax is stable in size. No other change compared to the prior exam. IMPRESSION: Stable size of a tiny left apical pneumothorax. Normal [facility] ABORH TYPE RECONFIRMATIONon 09-30-2023 ABO/RH(D) TYPE Positive Normal [facility] Comment on above: Performed By: #### I LEENA MENDEZ CMPN #### [facility] (DEFAULT) [address] [place] [address] ABO/RH(D) TYPE Positive [facility] ACT* LOW RANGE, POCon 2023 ACT LOW RANGE, POC 137.0 [facility] Interpretation and review of laboratory results Normal [facility] ACT LOW RANGE, POC 232.0 High [facility] Interpretation and review of laboratory results Abnormal [facility] ACT LOW RANGE, POC 281.0 High [facility] Interpretation and review of laboratory results Abnormal [facility] ACT LOW RANGE, POC 265.0 High [facility] Interpretation and review of laboratory results Abnormal [facility] ACT LOW RANGE, POC 239.0 High [facility] Interpretation and review of laboratory results Abnormal [facility] ARTERIAL BLOOD GAS PLUS LACT ATEon 09-30-2023 Base Excess -4.4 mmol/L Low -3.0-3.0 [facility] Comment on above: Performed By: #### M RENÉ QUINONES #### [facility] (DEFAULT) [address] [place] [address] FIO2 Normal [facility] Comment on above: Result Comment: 15L Performed By: #### CELESTE LEWIS7 #### [facility] (DEFAULT) [address] [place] [address] 68743 HCO3 (Bld) [Moles/Vol] 23 mmol/L Normal 22-28 [facility] Comment on above: Performed By: #### CELESTE LEWIS7 #### [facility] (DEFAULT) [address] [place] [address] 60186 Lactate, Whole Blood 1.8 mmol/L High 0.5-1.6 [facility] Comment on above: Performed By: #### RENÉ LEWIS #### [facility] (DEFAULT) [address] [place] [address] 49753 Oxygen saturation in Blood 100 % High 94-98 [facility] Comment on above: Performed By: #### RENÉ LEWIS #### [facility] (DEFAULT) [address] [place] [address] 82312 pCO2 49 mm Hg High 32-48 [facility] Comment on above: Performed By: #### CELESTE LEWIS7 #### [facility] (DEFAULT) [address] [place] [address] 83629 pH, Arterial 7.27 Low 7.35-7.45 [facility] Comment on above: Performed By: #### RENÉ LEWIS #### [facility] (DEFAULT) [address] [place] [address] 24894 pO2 241 mm Hg High 83-108 [facility] Comment on above: Performed By: #### RENÉ LEWIS #### [facility] (DEFAULT) [address] [place] [address] 75058 Specimen type Nom (Spec) Arterial Normal [facility] Comment on above: Performed By: #### RENÉ LEWIS #### [place] [facility] (DEFAULT) [address] [place] [address] 49909 Base excess Calc (Bld) [Moles/Vol] -4.4000 mmol/L Low -3.0 - 3.0 mmol/L [facility] CO2 (Bld) [Partial pressure] 49 mm[Hg] [facility] HCO3 (Bld) [Moles/Vol] 23 mmol/L 22 - 28 mmol/L [facility] Inhaled oxygen concentration [facility] Interpretation and review of laboratory results Abnormal [facility] Lactate [Moles/Vol] 1.8 mmol/L High 0.5 - 1. 6 mmol/L [facility] Oxygen (Bld) [Partial pressure] 241 mm[Hg] High [facility] Oxygen saturation in Blood 100 % High 94 - 98 % [facility] pH (Bld) 7.27 [pH] Low 7.35 - 7.45 [facility] Specimen source Nom (Unsp spec) Arterial [facility] Base Excess -3.9 mmol/L Low -3.0-3.0 [facility] Comment on above: Performed By: #### G AS5L #### [facility] (DEFAULT) [address] [place] [address] 15672 FIO2 Normal [facility] Comment on above: Result Comment: 6L Performed By: #### G AS5L #### [facility] (DEFAULT) [address] [place] [address] 89621 HCO3 (Bld) [Moles/Vol] 22 mmol/L Normal 22-28 [facility] Comment on above: Performed By: #### G AS5L #### [facility] (DEFAULT) [address] [address] Lactate, Whole Blood 2.8 mmol/L High 0.5-1.6 [facility] Comment on above: Result Comment: Lact ate results >/= 2.0 mmol/L should be followed up with a measurement 4 hours later for patients with suspicion of sepsis. Performed By: #### G AS5L #### [facility] (DEFAULT) [address] [place] [address] 54423 Oxygen saturation in Blood 96 % Normal 94-98 [facility] Comment on above: Performed By: #### Tremayne AS5L #### [facility] (DEFAULT) [address] [place] [address] 05792 pCO2 43 mm Hg Normal 32-48 [facility] Comment on above: Performed By: #### G AS5L #### [facility] (DEFAULT) [address] [place] [address] 91468 pH, Arterial 7.32 Low 7.35-7.45 [facility] Comment on above: Performed By: #### Tremayne AS5L #### [facility] (DEFAULT) [address] [place] [address] 98985 pO2 71 mm Hg Low 83-108 [facility] Comment on above: Performed By: #### Tremayne AS5L #### [facility] (DEFAULT) [address] [place] [address] 46151 Specimen type Nom (Spec) Arterial Normal [facility] Comment on above: Performed By: #### Tremayne AS5L #### [facility] (DEFAULT) [address] [place] [address] Base excess Calc (Bld) [Moles/Vol] -3.9000 mmol/L Low -3.0 - 3.0 mmol/L [facility] CO2 (Bld) [Partial pressure] 43 mm[Hg] [facility] HCO3 (Bld) [Moles/Vol] 22 mmol/L 22 - 28 mmol/L [facility] Inhaled oxygen concentration [facility] Interpretation and review of laboratory results Abnormal [facility] Lactate [Moles/Vol] 2.8 mmol/L High 0.5 - 1. 6 mmol/L [facility] Oxygen (Bld) [Partial pressure] 71 mm[Hg] Low [facility] Oxygen saturation in Blood 96 % 94 - 98 % [facility] pH (Bld) 7.32 [pH] Low 7.35 - 7.45 [facility] Specimen source Nom (Unsp spec) Arterial [facility] CBC,PLATELETSon 09-30-2023 Hematocrit (Bld) [Volume fraction] 38.1 % Low 39.6-48.8 [facility] Comment on above: Performed By: #### C HM7 #### [facility] (DEFAULT) [address] [place] [address] 00355 Hemoglobin (Bld) [Mass/Vol] 12.2 g/dL Low 13.4-16.8 [facility] Comment on above: Performed By: #### C HM7 #### [facility] (DEFAULT) [address] [place] [address] 54676 MCV (RBC) [Entitic vol] 94.3 fL Normal 79.0-94.5 [facility] Comment on above: Performed By: #### C HM7 #### [facility] (DEFAULT) [address] [place] [address] 28204 Mean Cell Hgb 30.2 pg Normal 26.1-33.3 [facility] Comment on above: Performed By: #### C HM7 #### [facility] (DEFAULT) [address] [place] [address] 18435 Mean Cell Hgb Conc 32.0 g/dL Normal 31.9-36.5 [facility] Comment on above: Performed By: #### C HM7 #### [facility] (DEFAULT) [address] [place] [address] 50642 Platelet mean volume (Bld) [Entitic vol] 11.6 fL Normal 8.7-12.3 [facility] Comment on above: Performed By: #### C HM7 #### [facility] (DEFAULT) [address] [place] [address] 61492 Platelets (Bld) [#/Vol] 195 10*3/uL Normal 146-337 [facility] Comment on above: Performed By: #### C HM7 #### [facility] (DEFAULT) [address] [place] [address] 44311 RBC (Bld) [#/Vol] 4.04 10*6/uL Low 4.38-5.83 [facility] Comment on above: Performed By: #### C HM7 #### [facility] (DEFAULT) [address] [place] [address] 37646 RBC Distribution 14.1 % Normal 10.9-14.3 [facility] Comment on above: Performed By: #### C HM7 #### [facility] (DEFAULT) [address] [place] [address] 86[address] WBC (Bld) [#/Vol] 12.39 10*3/uL High 3.73-10.10 [facility] Comment on above: Performed By: #### C HM7 #### [facility] (DEFAULT) [address] [place] [address] 39662 Erythrocyte distribution width (RBC) [Ratio] 14.1 % 10.9 - 14.3 % [facility] Hematocrit (Bld) [Volume fraction] 38.1 % Low 39.6 - 48.8 % [facility] Hemoglobin (Bld) [Mass/Vol] 12.2 g/dL Low 13.4 - 16.8 g/dL [facility] Interpretation and review of laboratory results Abnormal [facility] MCH (RBC) [Entitic mass] 30.2 pg 26.1 - 33.3 pg [facility] MCHC (RBC) [Mass/Vol] 32.0 g/dL 31.9 - 36.5 g/dL [facility] MCV (RBC) [Entitic vol] 94.3 fL 79.0 - 94.5 fL [facility] Platelet mean volume (Bld) [Entitic vol] 11.6 fL 8.7 - 12.3 fL [facility] Platelets (Bld) [#/Vol] 195 10*3/uL 146 - 337 K/uL [facility] RBC (Bld) [#/Vol] 4.04 10*6/uL Low [facility] WBC (Bld) [#/Vol] 12.39 10*3/uL High 3.73 - 10 .10 K/uL [facility] Hematocrit (Bld) [Volume fraction] 37.1 % Low 39.6-48.8 [facility] Comment on above: Performed By: #### H EMOGC #### [facility] (DEFAULT) [address] [place] [address] 50470 Hemoglobin (Bld) [Mass/Vol] 12.1 g/dL Low 13.4-16.8 [facility] Comment on above: Performed By: #### H EMOGC #### [facility] (DEFAULT) [address] [place] [address] 50274 MCV (RBC) [Entitic vol] 92.5 fL Normal 79.0-94.5 [facility] Comment on above: Performed By: #### H EMOGC #### [facility] (DEFAULT) [address] [place] [address] 06416 Mean Cell Hgb 30.2 pg Normal 26.1-33.3 [facility] Comment on above: Performed By: #### H EMOGC #### [facility] (DEFAULT) [address] [place] [address] 98393 Mean Cell Hgb Conc 32.6 g/dL Normal 31.9-36.5 [facility] Comment on above: Performed By: #### H EMOGC #### [facility] (DEFAULT) [address] [place] [address] 17791 Platelet mean volume (Bld) [Entitic vol] 11.1 fL Normal 8.7-12.3 [facility] Comment on above: Performed By: #### H EMOGC #### [facility] (DEFAULT) [address] [place] [address] 46522 Platelets (Bld) [#/Vol] 187 10*3/uL Normal 146-337 [facility] Comment on above: Performed By: #### H EMO #### [facility] (DEFAULT) [address] [place] [address] 09462 RBC (Bld) [#/Vol] 4.01 10*6/uL Low 4.38-5.83 [facility] Comment on above: Performed By: #### H EMO #### [facility] (DEFAULT) [address] [place] [address] 13055 RBC Distribution 13.9 % Normal 10.9-14.3 [facility] Comment on above: Performed By: #### H EMO #### [facility] (DEFAULT) [address] [place] [address] 75550 WBC (Bld) [#/Vol] 14.22 10*3/uL High 3.73-10.10 [facility] Comment on above: Performed By: #### H [facility] #### [facility] (DEFAULT) [address] [place] [address] 85282 Erythrocyte distribution width (RBC) [Ratio] 13.9 % 10.9 - 14.3 % [facility] Hematocrit (Bld) [Volume fraction] 37.1 % Low 39.6 - 48.8 % [facility] Hemoglobin (Bld) [Mass/Vol] 12.1 g/dL Low 13.4 - 16.8 g/dL [facility] Interpretation and review of laboratory results Abnormal [facility] MCH (RBC) [Entitic mass] 30.2 pg 26.1 - 33.3 pg [facility] MCHC (RBC) [Mass/Vol] 32.6 g/dL 31.9 - 36.5 g/dL [facility] MCV (RBC) [Entitic vol] 92.5 fL 79.0 - 94.5 fL [facility] Platelet mean volume (Bld) [Entitic vol] 11.1 fL 8.7 - 12.3 fL [facility] Platelets (Bld) [#/Vol] 187 10*3/uL 146 - 337 K/uL [facility] RBC (Bld) [#/Vol] 4.01 10*6/uL Low [facility] WBC (Bld) [#/Vol] 14.22 10*3/uL High 3.73 - 10 .10 K/uL [facility] COMPREHENSIVE METABOLIC PANE Oniel 09-30-2023 Albumin [Mass/Vol] 3.2 g/dL Low 3.5-5.0 [facility] Comment on above: Performed By: #### X MPO #### [facility] (DEFAULT) [address] [place] [address] ALP [Catalytic activity/Vol] 45 U/L Normal 32-126 [facility] Comment on above: Performed By: #### X MPO #### [facility] (DEFAULT) [address] [place] [address] ALT [Catalytic activity/Vol] 22 U/L Normal 10-52 [facility] Comment on above: Performed By: #### X MPO #### [facility] (DEFAULT) [address] [place] [address] 90960 Anion gap [Moles/Vol] 14 mmol/L Normal 7-17 [facility] Comment on above: Performed By: #### X MPO #### [facility] (DEFAULT) [address] [place] [address] AST [Catalytic activity/Vol] 25 U/L Normal 10-39 [facility] Comment on above: Performed By: #### X MPO #### [facility] (DEFAULT) [address] [place] [address] Bilirubin [Mass/Vol] 0.3 mg/dL Normal <1.5 [facility] Comment on above: Performed By: #### X MPO #### [facility] (DEFAULT) [address] [place] [address] Calcium [Mass/Vol] 8.0 mg/dL Low 8.6-10.5 [facility] Comment on above: Performed By: #### X MPO #### [facility] (DEFAULT) [address] [place] [address] 20527 Chloride [Moles/Vol] 107 mmol/L Normal 98-108 [facility] Comment on above: Performed By: #### X MPO #### [facility] (DEFAULT) [address] [place] [address] 35427 CO2 [Moles/Vol] 21 mmol/L Normal 21-31 [facility] Comment on above: Performed By: #### X MPO #### [facility] (DEFAULT) [address] [place] [address] 83559 Creatinine [Mass/Vol] 0.97 mg/dL Normal 0.70-1.30 [facility] Comment on above: Performed By: #### X MPO #### [facility] (DEFAULT) [address] [place] [address] 46024 GFR/1.73 sq M.predicted among non-blacks MDRD (S/P/Bld) [Vol rate/Area] 88 mL/min/{1.73_m2} Normal >=60 [facility] Comment on above: Result Comment: Repo rted eGFR is based on the CKD-EPI 2020 equation using creatinine, age, and sex. Performed By: #### X MPO #### [facility] (DEFAULT) [address] [place] [address] 35310 Glucose [Mass/Vol] 183 mg/dL High 70-99 [facility] Comment on above: Performed By: #### X MPO #### [facility] (DEFAULT) [address] [place] [address] 28722 Osmolality [Osmolality] 296 mosm/kg Normal 278-305 [facility] Comment on above: Performed By: #### X MPO #### [facility] (DEFAULT) [address] [place] [address] 79788 Potassium [Moles/Vol] 5.2 mmol/L High 3.5-5.0 [facility] Comment on above: Performed By: #### X MPO #### [facility] (DEFAULT) [address] [place] [address] 99452 Protein [Mass/Vol] 5.5 g/dL Low 6.4-8.3 [facility] Comment on above: Performed By: #### X MPO #### [facility] (DEFAULT) [address] [place] [address] Sodium [Moles/Vol] 137 mmol/L Normal 135-145 [facility] Comment on above: Performed By: #### X MPO #### [facility] (DEFAULT) [address] [place] [address] 92872 Urea nitrogen [Mass/Vol] 17 mg/dL Normal 7-25 [facility] Comment on above: Performed By: #### X MPO #### [facility] (DEFAULT) [address] [place] [address] 05456 Urea nitrogen/Creatinine [Mass ratio] 18 mg/mg Normal [facility] Comment on above: Performed By: #### X MPO #### [facility] (DEFAULT) [address] [place] [address] 88357 Albumin [Mass/Vol] 3.2 g/dL Low 3.5 - 5.0 g/dL [facility] ALP [Catalytic activity/Vol] 45 U/L 32 - 126 U/L [facility] ALT [Catalytic activity/Vol] 22 U/L 10 - 52 U/L [facility] Anion gap [Moles/Vol] 14 mmol/L 7 - 17 mmol/L [facility] AST [Catalytic activity/Vol] 25 U/L 10 - 39 U/L [facility] Bilirubin [Mass/Vol] 0.3 mg/dL NINF - 1.5 mg/dL [facility] Calcium [Mass/Vol] 8.0 mg/dL Low 8.6 - 10. 5 mg/dL [facility] Chloride [Moles/Vol] 107 mmol/L 98 - 10 8 mmol/L [facility] CO2 [Moles/Vol] 21 mmol/L 21 - 31 mmol/L [facility] Creatinine [Mass/Vol] 0.97 mg/dL 0.70 - 1.30 mg/dL [facility] eGFR, CKD-EPI, Male 88 - PINF [facility] Glucose [Mass/Vol] 183 mg/dL High 70 - 99 mg/dL [facility] Interpretation and review of laboratory results Abnormal [facility] Osmolality Calc [Osmolality] 296 [facility] Potassium [Moles/Vol] 5.2 mmol/L High 3.5 - 5.0 mmol/L [facility] Protein [Mass/Vol] 5.5 g/dL Low 6.4 - 8.3 g/dL [facility] Sodium [Moles/Vol] 137 mmol/L 135 - 145 mmol/L [facility] Urea nitrogen [Mass/Vol] 17 mg/dL 7 - 25 mg/dL [facility] Urea nitrogen/Creatinine [Mass ratio] 18 mg/mg [facility] Albumin [Mass/Vol] 2.9 g/dL Low 3.5-5.0 [facility] Comment on above: Performed By: #### U [id number] #### [facility] (DEFAULT) [address] [place] [address] 65772 ALP [Catalytic activity/Vol] 44 U/L Normal 32-126 [facility] Comment on above: Performed By: #### U [id number] #### [facility] (DEFAULT) [address] [place] [address] ALT [Catalytic activity/Vol] 20 U/L Normal 10-52 [facility] Comment on above: Performed By: #### U [id number] #### [facility] (DEFAULT) [address] [place] [address] Anion gap [Moles/Vol] 15 mmol/L Normal 7-17 [facility] Comment on above: Performed By: #### U [id number] #### [facility] (DEFAULT) [address] [place] [address] 40789 AST [Catalytic activity/Vol] 19 U/L Normal 10-39 [facility] Comment on above: Performed By: #### U [id number] #### [facility] (DEFAULT) [address] [place] [address] 69308 Bilirubin [Mass/Vol] 0.5 mg/dL Normal <1.5 [facility] Comment on above: Performed By: #### U [id number] #### [facility] (DEFAULT) [address] [place] [address] 53700 Calcium [Mass/Vol] 7.7 mg/dL Low 8.6-10.5 [facility] Comment on above: Performed By: #### U [id number] #### [facility] (DEFAULT) [address] [place] [address] 63649 Chloride [Moles/Vol] 109 mmol/L High 98-108 [facility] Comment on above: Performed By: #### U [id number] #### [facility] (DEFAULT) [address] [place] [address] 67620 CO2 [Moles/Vol] 21 mmol/L Normal 21-31 [facility] Comment on above: Performed By: #### U [id number] #### [facility] (DEFAULT) [address] [place] [address] 11063 Creatinine [Mass/Vol] 0.97 mg/dL Normal 0.70-1.30 [facility] Comment on above: Performed By: #### U [id number] #### [facility] (DEFAULT) [address] [place] [address] 36991 GFR/1.73 sq M.predicted among non-blacks MDRD (S/P/Bld) [Vol rate/Area] 88 mL/min/{1.73_m2} Normal >=60 [facility] Comment on above: Result Comment: Repo rted eGFR is based on the CKD-EPI 2020 equation using creatinine, age, and sex. Performed By: #### U [id number] #### [facility] (DEFAULT) [address] [place] [address] 22197 Glucose [Mass/Vol] 158 mg/dL High 70-99 [facility] Comment on above: Performed By: #### U [id number] #### [facility] (DEFAULT) [address] [place] [address] 96483 Osmolality [Osmolality] 299 mosm/kg Normal 278-305 [facility] Comment on above: Performed By: #### U [id number] #### [facility] (DEFAULT) [address] [place] [address] 23818 Potassium [Moles/Vol] 4.9 mmol/L Normal 3.5-5.0 [facility] Comment on above: Performed By: #### U [id number] #### [facility] (DEFAULT) [address] [place] [address] 42385 Protein [Mass/Vol] 5.2 g/dL Low 6.4-8.3 [facility] Comment on above: Performed By: #### U [id number] #### [facility] (DEFAULT) [address] [place] [address] 21920 Sodium [Moles/Vol] 140 mmol/L Normal 135-145 [facility] Comment on above: Performed By: #### U [id number] #### [facility] (DEFAULT) [address] [place] [address] 94377 Urea nitrogen [Mass/Vol] 16 mg/dL Normal 7-25 [facility] Comment on above: Performed By: #### U [id number] #### [facility] (DEFAULT) [address] [place] [address] 42439 Urea nitrogen/Creatinine [Mass ratio] 16 mg/mg Normal [facility] Comment on above: Performed By: #### U [id number] #### [facility] (DEFAULT) [address] [place] [address] 93735 Albumin [Mass/Vol] 2.9 g/dL Low 3.5 - 5.0 g[facility] ALP [Catalytic activity/Vol] 44 U/L 32 - 126 U/L [facility] ALT [Catalytic activity/Vol] 20 U/L 10 - 52 U/L [facility] Anion gap [Moles/Vol] 15 mmol/L 7 - 17 mmol/L [facility] AST [Catalytic activity/Vol] 19 U/L 10 - 39 U/L [facility] Bilirubin [Mass/Vol] 0.5 mg/dL NINF - 1.5 mg/dL [facility] Calcium [Mass/Vol] 7.7 mg/dL Low 8.6 - 10. 5 mg/dL [facility] Chloride [Moles/Vol] 109 mmol/L High 98 - 10 8 mmol/L [facility] CO2 [Moles/Vol] 21 mmol/L 21 - 31 mmol/L [facility] Creatinine [Mass/Vol] 0.97 mg/dL 0.70 - 1.30 mg/dL [facility] eGFR, CKD-EPI, Male 88 - PINF [facility] Glucose [Mass/Vol] 158 mg/dL High 70 - 99 mg/dL [facility] Interpretation and review of laboratory results Abnormal [facility] Osmolality Calc [Osmolality] 299 [facility] Potassium [Moles/Vol] 4.9 mmol/L 3.5 - 5.0 mmol/L [facility] Protein [Mass/Vol] 5.2 g/dL Low 6.4 - 8.3 g/dL [facility] Sodium [Moles/Vol] 140 mmol/L 135 - 145 mmol/L [facility] Urea nitrogen [Mass/Vol] 16 mg/dL 7 - 25 mg/dL [facility] Urea nitrogen/Creatinine [Mass ratio] 16 mg/mg [facility] FIBRINOGEN, CLOTTABLEon 09-19 Fibrinogen-Clottable 276 mg/dL Normal 220-410 [facility] Comment on above: Result Comment: Func tional Fibrinogen (activity) levels can be affected by direct thrombin inhibitors such as heparins (>2.0 IU/ml) and dabigatran. Abnormal results should be interpreted with caution. Performed By: #### C HM7 #### [facility] (DEFAULT) [address] [place] [address] Fibrinogen Coag (PPP) [Mass/Vol] 276 mg/dL 220 - 410 mg/dL [facility] GLUCOSE POCon 09-30-2023 Glucose [Mass/Vol] 172 mg/dL High 70 - 99 mg/dL [facility] Interpretation and review of laboratory results Abnormal [facility] POC Sample Type ARTER [facility] Glucose [Mass/Vol] 162 mg/dL High 70 - 99 mg/dL [facility] Interpretation and review of laboratory results Abnormal [facility] POC Sample Type ARTER [facility] Glucose [Mass/Vol] 195 mg/dL High 70 - 99 mg/dL [facility] Interpretation and review of laboratory results Abnormal [facility] POC Sample Type ARTER [facility] Glucose [Mass/Vol] 98 mg/dL 70 - 99 mg/dL [facility] POC Sample Type VENO [facility] IONIZED CALCIUM, WHOLE BLOOD on 09-30-2023 ICA 4.16 mg/dL Low 4.60-5.30 [facility] Comment on above: Performed By: #### M GO, CHM7 #### [facility] (DEFAULT) [address] [address] Calcium.ionized (Bld) [Moles/Vol] 4.16 mg/dL Low 4.60 - 5.30 mg/dL [facility] Interpretation and review of laboratory results Abnormal [facility] ICA 4.65 mg/dL Normal 4.60-5.30 [facility] Comment on above: Performed By: #### I PB, MGO, CMPN #### [facility] (DEFAULT) [address] [place] [address] IONIZED CALCIUM, WHOLE BLOOD Ordered By: Radha Quinones on 09-30-2023 Calcium.ionized (Bld) [Moles/Vol] 4.65 mg/dL 4.60 - 5.30 mg/dL [facility] Interpretation and review of laboratory results Normal [facility] No Panel Informationon 09-29 Interpretation and review of laboratory results Normal [facility] POC ARTERIAL BLOOD GASon Base excess Calc (Bld) [Moles/Vol] -5.6000 mmol/L Low -3.0 - 3.0 mmol/L [facility] Calcium.ionized (Bld) [Mass/Vol] 4.59 mg/dL Low 4.60 - 5.30 mg/dL [facility] CO2 (Bld) [Partial pressure] 33 mm[Hg] [facility] Glucose [Mass/Vol] 141 mg/dL High 70 - 99 mg/dL [facility] HCO3 (Bld) [Moles/Vol] 20 mmol/L Low 22 - 28 mmol/L [facility] Hematocrit (Bld) [Volume fraction] 35.0 % Low 40.2 - 50.4 % [facility] Hemoglobin (Bld) [Mass/Vol] 11.5 g/dL Low 13.4 - 16.8 g/dL [facility] Interpretation and review of laboratory results Abnormal [facility] Lactate [Moles/Vol] 3.0 mmol/L High 0.5 - 1. 6 mmol/L [facility] Oxygen (Bld) [Partial pressure] 91 mm[Hg] [facility] Oxygen saturation in Blood 99 % High 94 - 98 % [facility] pH (Bld) 7.38 [pH] 7.35 - 7.45 [facility] Potassium [Moles/Vol] 4.4 mmol/L 3.5 - 5.0 mmol/L [facility] Sodium [Moles/Vol] 133 mmol/L Low 135 - 145 mmol/L [facility] Specimen source Nom (Unsp spec) Arterial [facility] Base excess Calc (Bld) [Moles/Vol] -6.2000 mmol/L Low -3.0 - 3.0 mmol/L [facility] Calcium.ionized (Bld) [Mass/Vol] 4.65 mg/dL 4.60 - 5.30 mg/dL [facility] CO2 (Bld) [Partial pressure] 31 mm[Hg] Low [facility] Glucose [Mass/Vol] 144 mg/dL High 70 - 99 mg/dL [facility] HCO3 (Bld) [Moles/Vol] 19 mmol/L Low 22 - 28 mmol/L [facility] Hematocrit (Bld) [Volume fraction] 34.0 % Low 40.2 - 50.4 % [facility] Hemoglobin (Bld) [Mass/Vol] 11.3 g/dL Low 13.4 - 16.8 g/dL [facility] Interpretation and review of laboratory results Abnormal [facility] Lactate [Moles/Vol] 3.2 mmol/L High 0.5 - 1. 6 mmol/L [facility] Oxygen (Bld) [Partial pressure] 96 mm[Hg] [facility] Oxygen saturation in Blood 99 % High 94 - 98 % [facility] pH (Bld) 7.39 [pH] 7.35 - 7.45 [facility] Potassium [Moles/Vol] 4.4 mmol/L 3.5 - 5.0 mmol/L [facility] Sodium [Moles/Vol] 133 mmol/L Low 135 - 145 mmol/L [facility] Specimen source Nom (Unsp spec) Arterial [facility] Base excess Calc (Bld) [Moles/Vol] -7.0000 mmol/L Low -3.0 - 3.0 mmol/L [facility] Calcium.ionized (Bld) [Mass/Vol] 4.47 mg/dL Low 4.60 - 5.30 mg/dL [facility] CO2 (Bld) [Partial pressure] 42 mm[Hg] [facility] Glucose [Mass/Vol] 155 mg/dL High 70 - 99 mg/dL [facility] HCO3 (Bld) [Moles/Vol] 20 mmol/L Low 22 - 28 mmol/L [facility] Hematocrit (Bld) [Volume fraction] 34.0 % Low 40.2 - 50.4 % [facility] Hemoglobin (Bld) [Mass/Vol] 11.3 g/dL Low 13.4 - 16.8 g/dL [facility] Interpretation and review of laboratory results Abnormal [facility] Lactate [Moles/Vol] 4.3 mmol/L High 0.5 - 1. 6 mmol/L [facility] Oxygen (Bld) [Partial pressure] 89 mm[Hg] [facility] Oxygen saturation in Blood 98 % 94 - 98 % [facility] pH (Bld) 7.28 [pH] Low 7.35 - 7.45 [facility] Potassium [Moles/Vol] 4.6 mmol/L 3.5 - 5.0 mmol/L [facility] Sodium [Moles/Vol] 134 mmol/L Low 135 - 145 mmol/L [facility] Specimen source Nom (Unsp spec) Arterial [facility] Base excess Calc (Bld) [Moles/Vol] -4.4000 mmol/L Low -3.0 - 3.0 mmol/L [facility] Calcium.ionized (Bld) [Mass/Vol] 4.91 mg/dL 4.60 - 5.30 mg/dL [facility] CO2 (Bld) [Partial pressure] 35 mm[Hg] [facility] Glucose [Mass/Vol] 169 mg/dL High 70 - 99 mg/dL [facility] HCO3 (Bld) [Moles/Vol] 21 mmol/L Low 22 - 28 mmol/L [facility] Hematocrit (Bld) [Volume fraction] 34.0 % Low 40.2 - 50.4 % [facility] Hemoglobin (Bld) [Mass/Vol] 11.3 g/dL Low 13.4 - 16.8 g/dL [facility] Interpretation and review of laboratory results Abnormal [facility] Lactate [Moles/Vol] 2.6 mmol/L High 0.5 - 1. 6 mmol/L [facility] Oxygen (Bld) [Partial pressure] 72 mm[Hg] Low [facility] Oxygen saturation in Blood 97 % 94 - 98 % [facility] pH (Bld) 7.38 [pH] 7.35 - 7.45 [facility] Potassium [Moles/Vol] 4.7 mmol/L 3.5 - 5.0 mmol/L [facility] Sodium [Moles/Vol] 134 mmol/L Low 135 - 145 mmol/L [facility] Specimen source Nom (Unsp spec) Arterial [facility] Base excess Calc (Bld) [Moles/Vol] -3.0000 mmol/L -3.0 - 3.0 mmol/L [facility] Calcium.ionized (Bld) [Mass/Vol] 4.33 mg/dL Low 4.60 - 5.30 mg/dL [facility] CO2 (Bld) [Partial pressure] 41 mm[Hg] [facility] Glucose [Mass/Vol] 206 mg/dL High 70 - 99 mg/dL [facility] HCO3 (Bld) [Moles/Vol] 23 mmol/L 22 - 28 mmol/L [facility] Hematocrit (Bld) [Volume fraction] 38.0 % Low 40.2 - 50.4 % [facility] Hemoglobin (Bld) [Mass/Vol] 12.8 g/dL Low 13.4 - 16.8 g/dL [facility] Interpretation and review of laboratory results Abnormal [facility] Lactate [Moles/Vol] 1.3 mmol/L 0.5 - 1. 6 mmol/L [facility] Oxygen (Bld) [Partial pressure] 70 mm[Hg] Low [facility] Oxygen saturation in Blood 96 % 94 - 98 % [facility] pH (Bld) 7.35 [pH] 7.35 - 7.45 [facility] Potassium [Moles/Vol] 4.9 mmol/L 3.5 - 5.0 mmol/L [facility] Sodium [Moles/Vol] 134 mmol/L Low 135 - 145 mmol/L [facility] Specimen source Nom (Unsp spec) Arterial [facility] Base excess Calc (Bld) [Moles/Vol] -2.1000 mmol/L -3.0 - 3.0 mmol/L [facility] Calcium.ionized (Bld) [Mass/Vol] 4.51 mg/dL Low 4.60 - 5.30 mg/dL [facility] CO2 (Bld) [Partial pressure] 48 mm[Hg] [facility] Glucose [Mass/Vol] 111 mg/dL High 70 - 99 mg/dL [facility] HCO3 (Bld) [Moles/Vol] 24 mmol/L 22 - 28 mmol/L [facility] Hematocrit (Bld) [Volume fraction] 38.0 % Low 40.2 - 50.4 % [facility] Hemoglobin (Bld) [Mass/Vol] 12.8 g/dL Low 13.4 - 16.8 g/dL [facility] Interpretation and review of laboratory results Abnormal [facility] Lactate [Moles/Vol] 1.1 mmol/L 0.5 - 1. 6 mmol/L [facility] [facility] Oxygen (Bld) [Partial pressure] 74 mm[Hg] Low [facility] Oxygen saturation in Blood 96 % 94 - 98 % [facility] pH (Bld) 7.31 [pH] Low 7.35 - 7.45 [facility] Potassium [Moles/Vol] 3.7 mmol/L 3.5 - 5.0 mmol/L [facility] Sodium [Moles/Vol] 136 mmol/L 135 - 145 mmol/L [facility] Specimen source Nom (Unsp spec) Arterial [facility] PT,INR,PTTon 09-30-2023 aPTT Coag (Bld) [Time] 28.6 s Normal 24.0-34.3 [facility] Comment on above: Performed By: #### C HM7 #### [facility] (DEFAULT) [address] [place] [address] INR Coag (PPP) [Relative time] 1.0 {INR} Normal 0.9-1.1 [facility] Comment on above: Performed By: #### C HM7 #### [facility] (DEFAULT) [address] [place] [address] PT Coag (PPP) [Time] 13.2 s Normal 11.9-14.2 [facility] Comment on above: Performed By: #### C HM7 #### [facility] (DEFAULT) [address] [place] [address] 61436 aPTT Coag (PPP) [Time] 28.6 s [facility] INR Coag (Bld) [Relative time] 1.0 {INR} 0.9 - 1.1 [facility] Interpretation and review of laboratory results Normal [facility] PT Coag (PPP) [Time] 13.2 s [facility] aPTT Coag (Bld) [Time] 29.8 s Normal 24.0-34.3 [facility] Comment on above: Performed By: #### C HM7 #### [facility] (DEFAULT) [address] [place] [address] 08349 INR Coag (PPP) [Relative time] 1.1 {INR} Normal 0.9-1.1 [facility] Comment on above: Performed By: #### C HM7 #### [facility] (DEFAULT) [address] [place] [address] 85917 PT Coag (PPP) [Time] 13.9 s Normal 11.9-14.2 [facility] Comment on above: Performed By: #### C HM7 #### [facility] (DEFAULT) [address] [place] [address] 15079 aPTT Coag (PPP) [Time] 29.8 s [facility] INR Coag (Bld) [Relative time] 1.1 {INR} 0.9 - 1.1 [facility] PT Coag (PPP) [Time] 13.9 s [facility] Portable XR Chest Viewson Radiology Study observation (narrative) U [facility] RADIOLOGY RADIOLOGY [facility] Radiology Study observation (narrative) [facility] Portable XR Chest ViewsOrder ed By: Chava Griggs on 09-30-2023 [facility] Work Phone: XR ABDOMEN 1 VIEW PORTABLEon 09-30-2023 XR ABDOMEN 1 VIEW PORTABLE EXAM: XR ABDOMEN 1 VIEW PORTABLE, 09/30/2023 16:22 PM COMPARISON: No prior abdominal radiographs available for comparison. CLINICAL INDICATIONS: NG tube placement confirmation On arrival to unit.; FINDINGS: Tubes: Enteric tube is present in the proximal stomach with the sidehole not well seen due to motion. However, the sidehole is likely near the GE junction with the tip in the proximal gastric body or fundus. Bowel gas pattern: Normal. No visible free air. Abnormal calcifications/Radio pacities: None. Bones: No acute abnormality. Other findings: None. IMPRESSION: Gastric tube sidehole is likely near the GE junction. Recommend advancement. Normal [facility] XR Abdomen Single viewon RADIOLOGY RADIOLOGY [facility] Radiology Study observation (narrative) [facility] XR Abdomen Single viewOrdere d By: Natalio Beltran on 09-30-2023 [facility] XR CHEST 1 VIEW PORTABLEon 0 09-30-2023 XR CHEST 1 VIEW PORTABLE EXAM: XR CHEST 1 VIEW PORTABLE, 09/30/2023 16:21 PM CLINICAL INDICATIONS: s/p intubation RELEVANT CLINICAL HISTORY: On arrival to unit.; COMPARISON: January 15, 2024 FINDINGS: Nasogastric tube tip off the inferior edge of the study, distal GE junction. Right IJ sheath. Small left apicolateral pneumothorax. Clear lungs Normal heart size. No pulmonary edema. Mild degenerative change of the thoracic spine. IMPRESSION: Small left apicolateral pneumothorax. I discussed this finding with Juan R Hernadnez MD in anesthesia by telephone with readback at the time of this dictation. Normal [facility] CBC AND ELECTRONIC DIFFon Basophils (Bld) [#/Vol] 0.07 10*3/uL Normal 0.00-0.09 [facility] Comment on above: Order Comment: Labs to be completed within 6 weeks before procedure/surgeryIf done outside the [facility] please fax results to [phone] Performed By: #### X MPO #### [facility] (DEFAULT) [address] [address] Basophils/100 WBC (Bld) 0.9 % Normal [facility] Comment on above: Order Comment: Labs to be completed within 6 weeks before procedure/surgeryIf done outside the [facility] please fax results to [phone] Performed By: #### X MPO #### [facility] (DEFAULT) [address] [place] [address] 61554 DIFF STATUS Electronic Differential Normal [facility] Comment on above: Order Comment: Labs to be completed within 6 weeks before procedure/surgeryIf done outside the [facility] please fax results to [phone] Performed By: #### X MPO #### [facility] (DEFAULT) [address] [address] Eosinophils (Bld) [#/Vol] 0.22 10*3/uL Normal 0.00-0.48 [facility] Comment on above: Order Comment: Labs to be completed within 6 weeks before procedure/surgeryIf done outside the [facility] please fax results to [phone] Performed By: #### X MPO #### [facility] (DEFAULT) [address] [address] Eosinophils/100 WBC (Bld) 2.8 % Normal [facility] Comment on above: Order Comment: Labs to be completed within 6 weeks before procedure/surgeryIf done outside the [facility] please fax results to [phone] Performed By: #### X MPO #### [facility] (DEFAULT) [address] [address] Hematocrit (Bld) [Volume fraction] 46.2 % Normal 39.6-48.8 [facility] Comment on above: Order Comment: Labs to be completed within 6 weeks before procedure/surgeryIf done outside the [facility] please fax results to [phone] Performed By: #### X MPO #### [facility] (DEFAULT) [address] [address] Hemoglobin (Bld) [Mass/Vol] 14.9 g/dL Normal 13.4-16.8 [facility] Comment on above: Order Comment: Labs to be completed within 6 weeks before procedure/surgeryIf done outside the [facility] please fax results to [phone] Performed By: #### X MPO #### [facility] (DEFAULT) [address] [address] Immature Grans % 0.5 % Normal [facility] Comment on above: Order Comment: Labs to be completed within 6 weeks before procedure/surgeryIf done outside the [facility] please fax results to [phone] Performed By: #### X MPO #### [facility] (DEFAULT) [address] [address] Immature Grans Absolute 0.04 K/uL Normal <=0.07 [facility] Comment on above: Order Comment: Labs to be completed within 6 weeks before procedure/surgeryIf done outside the [facility] please fax results to [phone] Performed By: #### X MPO #### [facility] (DEFAULT) [address] [address] Lymphocytes (Bld) [#/Vol] 2.77 10*3/uL Normal 0.83-3.57 [facility] Comment on above: Order Comment: Labs to be completed within 6 weeks before procedure/surgeryIf done outside the [facility] please fax results to [phone] Performed By: #### X MPO #### [facility] (DEFAULT) [address] [address] Lymphocytes/100 WBC (Bld) 35.3 % Normal [facility] Comment on above: Order Comment: Labs to be completed within 6 weeks before procedure/surgeryIf done outside the [facility] please fax results to [phone] Performed By: #### X MPO #### [facility] (DEFAULT) [address] [address] MCV (RBC) [Entitic vol] 93.0 fL Normal 79.0-94.5 [facility] Comment on above: Order Comment: Labs to be completed within 6 weeks before procedure/surgeryIf done outside the [facility] please fax results to [phone] Performed By: #### X MPO #### [facility] (DEFAULT) [address] [address] Mean Cell Hgb 30.0 pg Normal 26.1-33.3 [facility] Comment on above: Order Comment: Labs to be completed within 6 weeks before procedure/surgeryIf done outside the [facility] please fax results to [phone] Performed By: #### X MPO #### [facility] (DEFAULT) [address] [address] Mean Cell Hgb Conc 32.3 g/dL Normal 31.9-36.5 [facility] Comment on above: Order Comment: Labs to be completed within 6 weeks before procedure/surgeryIf done outside the [facility] please fax results to [phone] Performed By: #### X MPO #### [facility] (DEFAULT) [address] [place] [address] Monocytes (Bld) [#/Vol] 0.56 10*3/uL Normal 0.24-0.93 [facility] Comment on above: Order Comment: Labs to be completed within 6 weeks before procedure/surgeryIf done outside the [facility] please fax results to [phone] Performed By: #### X MPO #### [facility] (DEFAULT) [address] [place] [address] Monocytes/100 WBC (Bld) 7.1 % Normal [facility] Comment on above: Order Comment: Labs to be completed within 6 weeks before procedure/surgeryIf done outside the [facility] please fax results to [phone] Performed By: #### X MPO #### [facility] (DEFAULT) [address] [place] [address] Nucleated RBC 0.0 /100 WBC Normal <=0.2 [facility] Comment on above: Order Comment: Labs to be completed within 6 weeks before procedure/surgeryIf done outside the [facility] please fax results to [phone] Performed By: #### X MPO #### [facility] (DEFAULT) [address] [place] [address] Platelet mean volume (Bld) [Entitic vol] 11.6 fL Normal 8.7-12.3 [facility] Comment on above: Order Comment: Labs to be completed within 6 weeks before procedure/surgeryIf done outside the [facility] please fax results to [phone] Performed By: #### X MPO #### [facility] (DEFAULT) [address] [place] [address] Platelets (Bld) [#/Vol] 249 10*3/uL Normal 146-337 [facility] Comment on above: Order Comment: Labs to be completed within 6 weeks before procedure/surgeryIf done outside the [facility] please fax results to [phone] Performed By: #### X MPO #### [facility] (DEFAULT) [address] [address] RBC (Bld) [#/Vol] 4.97 10*6/uL Normal 4.38-5.83 [facility] Comment on above: Order Comment: Labs to be completed within 6 weeks before procedure/surgeryIf done outside the [facility] please fax results to [phone] Performed By: #### X MPO #### [facility] (DEFAULT) [address] [address] RBC Distribution 13.9 % Normal 10.9-14.3 [facility] Comment on above: Order Comment: Labs to be completed within 6 weeks before procedure/surgeryIf done outside the [facility] please fax results to [phone] Performed By: #### X MPO #### [facility] (DEFAULT) [address] [address] Segs + Bands Auto 53.4 % Normal [facility] Comment on above: Order Comment: Labs to be completed within 6 weeks before procedure/surgeryIf done outside the [facility] please fax results to [phone] Performed By: #### X MPO #### [facility] (DEFAULT) [address] [address] Segs + Bands,Absolute Auto 4.18 K/uL Normal 1.57-6.19 [facility] Comment on above: Order Comment: Labs to be completed within 6 weeks before procedure/surgeryIf done outside the [facility] please fax results to [phone] Performed By: #### X MPO #### [facility] (DEFAULT) [address] [address] WBC (Bld) [#/Vol] 7.84 10*3/uL Normal 3.73-10.10 [facility] Comment on above: Order Comment: Labs to be completed within 6 weeks before procedure/surgeryIf done outside the [facility] please fax results to [phone] Performed By: #### X MPO #### [facility] (DEFAULT) [address] [place] [address] CHEM 7 (LYTES,BUN,CREA,GLUC) on 09-16-2023 Anion gap [Moles/Vol] 12 mmol/L Normal 7-17 [facility] Comment on above: Order Comment: Labs to be completed within 6 weeks before procedure/surgery If done outside the [facility] please fax results to [phone] Performed By: #### C HM7 #### [facility] (DEFAULT) [address] [place] [address] Chloride [Moles/Vol] 105 mmol/L Normal 98-108 [facility] Comment on above: Order Comment: Labs to be completed within 6 weeks before procedure/surgery If done outside the [facility] please fax results to [phone] Performed By: #### C HM7 #### [facility] (DEFAULT) [address] [place] [address] CO2 [Moles/Vol] 28 mmol/L Normal 21-31 [facility] Comment on above: Order Comment: Labs to be completed within 6 weeks before procedure/surgery If done outside the [facility] please fax results to [phone] Performed By: #### C HM7 #### [facility] (DEFAULT) [address] [place] [address] Creatinine [Mass/Vol] 0.87 mg/dL Normal 0.70-1.30 [facility] Comment on above: Order Comment: Labs to be completed within 6 weeks before procedure/surgery If done outside the [facility] please fax results to [phone] Performed By: #### C HM7 #### [facility] (DEFAULT) [address] [place] [address] eGFR, CKD-EPI, Male > Normal >=60 [facility] Comment on above: Order Comment: Labs to be completed within 6 weeks before procedure/surgery If done outside the [facility] please fax results to [phone] Result Comment: Repo rted eGFR is based on the CKD-EPI 2020 equation using creatinine, age, and sex. Performed By: #### C HM7 #### [facility] (DEFAULT) [address] [place] [address] Glucose [Mass/Vol] 111 mg/dL High 70-99 [facility] Comment on above: Order Comment: Labs to be completed within 6 weeks before procedure/surgery If done outside the [facility] please fax results to [phone] Performed By: #### C HM7 #### [facility] (DEFAULT) [address] [place] [address] Osmolality [Osmolality] 296 mosm/kg Normal 278-305 [facility] Comment on above: Order Comment: Labs to be completed within 6 weeks before procedure/surgery If done outside the [facility] please fax results to [phone] Performed By: #### C HM7 #### [facility] (DEFAULT) [address] [address] Potassium [Moles/Vol] 5.2 mmol/L High 3.5-5.0 [facility] Comment on above: Order Comment: Labs to be completed within 6 weeks before procedure/surgery If done outside the [facility] please fax results to [phone] Performed By: #### C HM7 #### [facility] (DEFAULT) [address] [place] [address] Sodium [Moles/Vol] 140 mmol/L Normal 135-145 [facility] Comment on above: Order Comment: Labs to be completed within 6 weeks before procedure/surgery If done outside the [facility] please fax results to [phone] Performed By: #### C HM7 #### [facility] (DEFAULT) [address] [place] [address] Urea nitrogen [Mass/Vol] 13 mg/dL Normal 7-25 [facility] Comment on above: Order Comment: Labs to be completed within 6 weeks before procedure/surgery If done outside the [facility] please fax results to [phone] Performed By: #### C HM7 #### [facility] (DEFAULT) [address] [place] [address] Urea nitrogen/Creatinine [Mass ratio] 15 mg/mg Normal [facility] Comment on above: Order Comment: Labs to be completed within 6 weeks before procedure/surgery If done outside the [facility] please fax results to [phone] Performed By: #### C HM7 #### [facility] (DEFAULT) [address] [place] [address] HEMOGLOBIN A1Con 09-16-2023 Glucose [Mass/Vol] 126 mg/dL Normal [facility] Comment on above: Order Comment: Labs to be completed within 6 weeks before procedure/surgeryIf done outside the [facility] please fax results to [phone] Performed By: #### X MPO #### [facility] (DEFAULT) [address] [address] Hemoglobin A1C HPLC 6.0 % High 4.7-5.6 [facility] Comment on above: Order Comment: Labs to be completed within 6 weeks before procedure/surgeryIf done outside the [facility] please fax results to [phone] Performed By: #### X MPO #### [facility] (DEFAULT) [address] [address] PT,INR,PTTon 09-16-2023 aPTT Coag (Bld) [Time] 34.6 s High 24.0-34.3 [facility] Comment on above: Order Comment: Labs to be completed within 6 weeks before procedure/surgeryIf done outside the [facility] please fax results to [phone] Performed By: #### M IVÁN QUINONESM7 #### [facility] (DEFAULT) [address] [place] [address] INR Coag (PPP) [Relative time] 1.0 {INR} Normal 0.9-1.1 [facility] Comment on above: Order Comment: Labs to be completed within 6 weeks before procedure/surgeryIf done outside the [facility] please fax results to [phone] Performed By: #### M IVÁN QUINONESM7 #### [facility] (DEFAULT) [address] [place] [address] PT Coag (PPP) [Time] 12.6 s Normal 11.9-14.2 [facility] Comment on above: Order Comment: Labs to be completed within 6 weeks before procedure/surgeryIf done outside the [facility] please fax results to [phone] Performed By: #### Ann QUINONES CHM7 #### [facility] (DEFAULT) [address] [place] [address] TYPE AND SCREEN - PREADMISSI ONon 09-16-2023 ABO/RH(D) TYPE Positive Normal [facility] Comment on above: Performed By: #### X MPO #### [facility] (DEFAULT) [address] [place] [address] XR CHEST PA AND LATERAL 2 EWSon 09-16-2023 XR CHEST PA AND LATERAL 2 VIEWS EXAM: XR CHEST PA AND LATERAL 2 VIEWS, 09/16/2023 10:45 AM COMPARISON: No prior studies available for comparison. 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 Pleural Spaces: No pleural effusion. No pneumothorax. Mediastinum and Rochelle: Normal Cardiac silhouette and great vessels: Normal heart size. Unremarkable aorta. Chest Wall: Normal IMPRESSION: No acute cardiopulmonary disease Normal [facility] Basophil percentageOrdered B y: Magali Cisneroshn on 06-24-2023 Creatinine [Mass/Vol] 1.1 mg/dL 0.70-1.30 [facility] No Panel InformationOrdered By: Magali Moore on 06-24-2023 Bedside Estimated GFR (eGFR) > 60.0000 mL/min >60 [facility] Absolute lymphocyte countOrd ered By: Levy Shafer on 03-30-2023 Lymphocytes Auto (Unsp spec) [#/Vol] 2.23 10*3/uL 0.83-4.51 [facility] Basophil percentageOrdered B y: Levy Shafer on 03-30-2023 Basophils/100 WBC (Bld) 1.1 % 0-1 [facility] Eosinophils/100 WBC (Bld) 1.9 % 0-5 [facility] Neutrophils (Bld) [#/Vol] 4.2 10*3/uL 2.0-7.7 [facility] Neutrophils/100 WBC (Bld) 58.5 % 47-70 [facility] WBC (Bld) [#/Vol] 7.2 10*3/uL 4.4-11.0 [facility] Basophil percentageOrdered B y: Levy Castro on 03-30-2023 Chloride [Moles/Vol] 107 mmol/L 98-107 [facility] Glucose [Mass/Vol] 132 mg/dL 74-106 [facility] Comment on above: Fasting Glucose resu lt greater than or equal to 126 mg/dL suggests DIABETES MELLITUS per A.D.A. criteria. Potassium [Moles/Vol] 4.1 mmol/L 3.5-5.1 [facility] Sodium [Moles/Vol] 137 mmol/L 136-145 [facility] Blood erythrocytes count (nu mber/volume)Ordered By: Levy Shafer on 03-30-2023 RBC (Bld) [#/Vol] 4.65 10*6/uL 4.6-6.2 [facility] Blood hemoglobin measurement (mass/volume)Ordered By: Levy Shafer on 03-30-2023 Hemoglobin (Bld) [Mass/Vol] 14.1 g/dL 13.0-16.5 [facility] Blood lymphocytes/100 leukoc ytesOrdered By: Levy Shafer on 03-30-2023 Lymphocytes/100 WBC (Bld) 30.9 % 19-41 [facility] Blood monocytes/100 leukocyt esOrdered By: Levy Shafer on 03-30-2023 Monocytes/100 WBC (Bld) 7.3 % 0-10 [facility] Blood platelet mean volumeOr dered By: Levy Shafer on 03-30-2023 Platelet mean volume (Bld) [Entitic vol] 10.7 fL 6.2-12.0 [facility] Determination of erythrocyte mean corpuscular volume (MCV)Ordered By: Levy Shafer on 03-30-2023 MCV (RBC) [Entitic vol] 95.7 fL 80-94 [facility] Hematocrit Auto (Bld) [Volum e fraction]Ordered By: Levy Shafer on 03-30-2023 Hematocrit (Bld) [Volume fraction] 44.5 % 40-54 [facility] Laboratory - Chemistry and C hemistry - challengeOrdered By: Levy Castro on 03-30-2023 CO2 [Moles/Vol] 25.0 mmol/L 21.0-32.0 [facility] Urea nitrogen/Creatinine [Mass ratio] 15.5 mg/mg 10-20 [facility] - Hematology and Cell countsOrdered By: Levy Shafer on 03-30-2023 Erythrocyte distribution width (RBC) [Entitic vol] 49.4 fL 35.1-43.9 [facility] Erythrocyte distribution width (RBC) [Ratio] 14.0 % 11.6-14.6 [facility] Immature granulocytes/100 WBC (Bld) 0.300 % 0.0-0.9 [facility] Comment on above: IG% - Immature Granu locytes (promyelocytes, myelocytes and metamyelocytes) > 1% indicates that a LEFT SHIFT is Present. MCH (RBC) [Entitic mass] 30.3 pg 27.0-32.0 [facility] Nucleated RBC/100 WBC (Bld) [Ratio] 0 % 0-5 [facility] MCHC Auto (RBC) [Mass/Vol]Or dered By: Levy Shafer on 03-30-2023 MCHC (RBC) [Mass/Vol] 31.7 g/dL 32-36 [facility] No Panel InformationOrdered By: Levy Castro on 03-30-2023 Estimated Creatinine Clearance Calc 71.25 ml/min [facility] Estimated GFR (MDRD) Amer 101 mL/min >60 [facility] Comment on above: GFR Calc Estimated GFR (MDRD) Non-Af Amer 83 mL/min >60 [facility] Comment on above: Non- GFR Calc Thyroid Stimulating Hormone (TSH) 0.91 uIU/mL 0.358-3.74 [facility] Troponin I High Sensitivity 6 pg/mL 3.0-78.0 [facility] Comment on above: Please Note: [place] t Units and Gender Specific Reference Ranges. For more information see Policy Stat Procedure Searchlight High Sensitivity Troponin (TNIH) and attachments. Platelets bldOrdered By: Aleta Shafer on 03-30-2023 Platelets (Bld) [#/Vol] 236 10*3/uL 150-450 [facility] Serum or plasma calcium brayan urement (mass/volume)Ordered By: Levy Castro on 03-30-2023 Calcium [Mass/Vol] 8.7 mg/dL 8.5-10.1 [facility] Serum or plasma creatinine m easurement (mass/volume)Ordered By: Levy Castro on 03-30-2023 Creatinine [Mass/Vol] 0.97 mg/dL 0.70-1.30 [facility] Comment on above: The validity of the calculated GFR & GFRAA in patients over 70 years has not been determined. Clinical correlation is essential. Serum or plasma urea nitroge n measurement (mass/volume)Ordered By: Levy Castro on 03-30-2023 Urea nitrogen [Mass/Vol] 15 mg/dL 7-18 [facility] Thin prep Papanicolaou smear with manual screeningOrdered By: Levy Castro on 03-30-2023 Thin prep Papanicolaou smear with manual screening 5 5-15 [facility] CNCOon 03-29-2022 CNCO Letter Text Normal [facility] CNPNon 01-24-2022 CNPN Telephone [facility] TARIQ ARIAS ([id number]) 1960 M DEF Date Time Provider Department 01/24/22 NO CURRENT PCP-GENERAL (ALANA)ESE During your visit today, we recorded the following information about you: Aicha Andersen 01/24/2022 12:40 PM Signed 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 They did surgery there but since he's mainly from around here he needs to establish with a inspector wire rope. He is off this Saturday before heading back on the road If he's able to be seen, if not and you can advise a few other sooner dates I would appreciate it. PH:[phone] Lanie Gutierrez APRN.CNP 01/24/2022 1:06 PM Signed It does not appear he has been seen by a [facility] inspector wire rope. He will need to be scheduled with one of the inspector wire rope. Thanks, Lanie Gutierrez APRN.SCAR Alonzo 01/24/2022 1:59 PM Signed Patient is scheduled for first available and placed on wait list Allergies As of Date: 01/24/2022 (Not on File) Date Reviewed: Never Reviewed Reason for Visit: Appointment [186] Problem List As Of Date: 01/24/2022 (None) Encounter Status:Closed by LANIE GUTIERREZ on 01/24/22 Normal [facility] EMERGENCY REPORTon 0 EMERGENCY REPORT [facility] EMERGENCY ROOM REPORT NAME ACCOUNT SEX AGE ADMIT DISCHARGE PT MED. 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 He got up out of his truck and started feeling cramps and spasms in his bilateral calfs, similar to Art horses. HISTORY OF PRESENT ILLNESS: It went up into his thighs and then both of his legs were stabbing and hurting him, and for a few seconds he felt like he could not walk. He said he has never had anything like that happen before. The ambulance got there and it was almost gone. They gave him some Fentanyl prior to arrival. On arrival, it was resolved and he was able to walk. There was no loss of bowel or bladder function. He states he has had some problems with his back in the past, mostly arthritis but he has never done anything about it. 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 He is overweight. He smokes. He has had high blood pressure in the past. He has not seen a family doctor in about 15 years so he has a lot of risk factors for cardiovascular disease but on arrival he said it is completely gone. His feet have not been cold and he has not had anything in the way of claudication. No abdominal pain. No back pain. No numbness, tingling, weakness, loss of bowel or bladder function. No trauma. No chest pain. No cough. No shortness of breath. No headache, blurred vision, double vision. PAST MEDICAL HISTORY: He says he knows his blood pressure is high but he does not take medicines for it. PAST SURGICAL HISTORY: Appendectomy, shoulder, hernia. MEDICATIONS: See nurses notes. SOCIAL HISTORY: Positive for tobacco. Denies illicit drug abuse. REVIEW OF SYSTEMS: As stated above. PHYSICAL EXAMINATION: Blood pressure 135/60, pulse 84, respiratory rate 16, O2 saturation 97% on room air. General: He is awake, alert. Super nice stacy, talkative. He says everything is resolved now and he feels silly for coming in. He is able to move his extremities. I get him up and ambulate him in the department and he has no trouble walking. His head is normocephalic, atraumatic. Pupils are equal and reactive to light bilaterally. Mucous membranes are moist. Trachea midline. Neck is supple. No anterior or posterior cervical lymphadenopathy. Full range of motion of the neck Page 1 of 2 TARIQ ARIAS Emergency Room Report TARIQ ARIAS : 1960 without any difficulty. Heart rate and rhythm regular without murmur, gallop or rub. Lungs clear to auscultation bilaterally without wheezes, rales or rhonchi. Abdomen is soft, nondistended. Equal bilateral femoral, dorsalis pedis, and posterior tibial pulses and perfusion. DIAGNOSTIC DATA: Labs look normal. CT of the lumbar spine shows arthritis but no acute changes. EMERGENCY DEPARTMENT COURSE AND TREATMENT: Pain is controlled. He is neurovascularly intact. I am going to go ahead and do a CT of the abdomen and pelvis with IV contrast and run off just to make sure there is no arterial vascular disease. DIAGNOSIS: Dictated By: Rachelle Bowie DO 05/16/20 17:31 JOB #: [id number] Transcribed By: hood 05/16/20 20:09 Electronically signed by: E-Sign: RACHELLE BOWIE MD 05/27/20 07:38 Page 2 of 2 TARIQ ARIAS Emergency Room Report Normal [facility] EMERGENCY REPORT [facility] EMERGENCY ROOM REPORT NAME ACCOUNT SEX AGE ADMIT DISCHARGE PT MED. RECORD# NUMBER DATE DATE TYPE TARIQ ARIAS [id number] M 59 05/16/20 05/16/20 3 [id number] ROOM: ER DATE OF : 1960 DICTATING PHYSICIAN: Rachelle Bowie ADDENDUM EMERGENCY DEPARTMENT COURSE AND TREATMENT: As I was preparing for discharge on the patient, I discussed the story with him again, and even though he is completely normal right now I became concerned about a patient I had seen previously with this being related to his aorta so I talked him into doing a CT of the abdomen and pelvis, and he has stenosis of the abdominal aorta distal to the renal arteries with stenosis of 10 mm at the level of 1.5 cm. There is post-stenotic dilatation of 4.4 cm. The length of the aortic dilatation is 8.3 cm with 50% stenosis of the celiac artery at 12 mm from its origin. Given the fact that the patient had an acute neurological event and described almost a paralysis when it first occurred, I feel as though he should be transferred. He wanted to go to [facility]. I spoke with [facility] and arranged for transfer. Critical Care time at the bedside was 30 minutes, excluding billable procedures, including clinical assessment, reassessment and monitoring of vital signs. 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 Dictated By: Rachelle Bowie DO 05/17/20 07:17 JOB #: [id number] Transcribed By: melania 05/17/20 16:16 Electronically signed by: E-Sign: RACHELLE BOWIE MD 05/27/20 07:38 Page 1 of 1 TARIQ ARIAS Emergency Room Report Normal [facility] CPK NO MBon 05-18-2020 CK [Catalytic activity/Vol] 760 U/L High 60 - 225 U/L [facility] Interpretation and review of laboratory results Abnormal [facility] Otheron 05-18-2020 EXAMINATION: MR THORACIC SPINE WITHOUT CONTRAST; MR LUMBAR SPINE WITHOUT CONTRAST HISTORY: Thoracic osteoarthritis Injury/Trauma or Illness?:Illness/Oth er How long have you had these symptoms (acute/chronic)?:Unk nown Reason for exam?:59 y.o. male presented to [facility] on 05/16/2020 with an onset of bilateral severe leg cramps and weakness this lasted for an hour in duration and spontaneously resolved per neurology note:upper and lower back pain: no recent injury: no hx of cancer: Type of Exam?:Unknown Additional signs and symptoms?:n ; chronic back pain, acute onset LE weakness Injury/Trauma or Illness?:Illness/Oth er How long have you had these symptoms (acute/chronic)?:Unk nown Reason for exam?:59 y.o. male presented to [facility] on 05/16/2020 with an onset of bilateral severe leg cramps and weakness this lasted for an hour in duration and spontaneously resolved per neurology note:upper and lower back pain: no recent injury: no hx of cancer: Type of Exam?:Unknown Additional signs and symptoms?:n Injury/Trauma or Illness?:Illness/Oth er How long have you had these symptoms (acute/chronic)?:Unk nown TECHNIQUE: Multiplanar multiecho sequences were obtained through the thoracic spine utilizing T1 and T2 weighting without the administration of intravenous contrast.. 15 series were obtained including localizer series. Multiplanar multiecho sequences were obtained through the lumbar spine utilizing T1 and T2 weighting without the administration of intravenous contrast.. 10 series were obtained including localizer series. FINDINGS: FINDINGS: Thoracic Spine: Diagnostic Quality: Adequate . Alignment: The bony alignment is normal . Marrow: The bone marrow signal overall is within normal limits for patient age.. Vertebrae and Intervertebral Discs: Vertebral bodies height and with and intervertebral disc spaces are reasonably preserved. The intervertebral disc spaces are well-hydrated. Ligaments: The anterior and posterior longitudinal ligaments and interspinous ligaments are intact . Spinal Cord and Spinal Canal: The spinal cord is of normal caliber without abnormal intrinsic signal. Degenerative changes are present at the following levels:Minimal most notably at T7-T8 with posterior disc osteophyte complex causing indentation of the thecal sac with deformity of the cord with no significant spinal canal narrowing. Prevertebral and Paraspinal Soft Tissues: There is no prevertebral or paraspinal soft tissue swelling or mass. Other Findings: None. Lumbar Spine: Diagnostic Quality: Adequate . Alignment: There is an S-shaped scoliosis in the lumbar spine . Marrow: The bone marrow signal overall is within normal limits for patient age.. Vertebrae and Intervertebral Discs: The vertebral bodies height and with are within normal limits. There is loss of disc height at L5-S1. There is mild disc desiccation throughout the lumbar spine.. Ligaments: The anterior and posterior longitudinal ligaments and interspinous ligaments are intact . Spinal Cord and Spinal Canal: The spinal cord is of normal caliber without abnormal intrinsic signal. The conus terminates at the T12 level. There is significant amount of epidural lipomatosis in the lumbar spine especially from L3-L4 down to the sacrum region. Degenerative changes are as follows: T12-L1: . L1-L2: No significant spinal canal or neural foraminal stenosis. L2-L3: No significant spinal canal or neural foraminal stenosis. L3-L4: Minimal broad disc bulge associated with ligamentum flavum thickening, facet joint hypertrophy and significant amount of epidural lipomatosis causing moderate to severe spinal canal narrowing. There is witq-kj-ejsyjxqp bilateral neural foraminal stenosis. L4-L5: Minimal broad disc bulge associated with ligamentum flavum thickening, facet joint hypertrophy and significant amount of epidural lipomatosis causing moderate spinal canal narrowing. There is pijz-wh-erghxscl bilateral neural foraminal stenosis. L5-S1: Broad disc bulge associated with ligamentum flavum thickening and facet joint hypertrophy with epidural lipomatosis causing moderate spinal canal narrowing. There is zegj-jo-scefqhac right and mild left neural foraminal stenosis. Prevertebral and Paraspinal Soft Tissues: There is no prevertebral or paraspinal soft tissue swelling or mass. Other Findings: None . [facility] Rad In [facility] Speechq - 05/18/2020 11:15 AM EDT EXAMINATION: MR THORACIC SPINE WITHOUT CONTRAST; MR LUMBAR SPINE WITHOUT CONTRAST HISTORY: Thoracic osteoarthritis Injury/Trauma or Illness?:Illness/Oth er How long have you had these symptoms (acute/chronic)?:Unk nown Reason for exam?:59 y.o. male presented to [facility] on 05/16/2020 with an onset of bilateral severe leg cramps and weakness this lasted for an hour in duration and spontaneously resolved per neurology note:upper and lower back pain: no recent injury: no hx of cancer: Type of Exam?:Unknown Additional signs and symptoms?:n ; chronic back pain, acute onset LE weakness Injury/Trauma or Illness?:Illness/Oth er How long have you had these symptoms (acute/chronic)?:Unk nown Reason for exam?:59 y.o. male presented to [facility] on 05/16/2020 with an onset of bilateral severe leg cramps and weakness this lasted for an hour in duration and spontaneously resolved per neurology note:upper and lower back pain: no recent injury: no hx of cancer: Type of Exam?:Unknown Additional signs and symptoms?:n Injury/Trauma or Illness?:Illness/Oth er How long have you had these symptoms (acute/chronic)?:Unk nown TECHNIQUE: Multiplanar multiecho sequences were obtained through the thoracic spine utilizing T1 and T2 weighting without the administration of intravenous contrast.. 15 series were obtained including localizer series. Multiplanar multiecho sequences were obtained through the lumbar spine utilizing T1 and T2 weighting without the administration of intravenous contrast.. 10 series were obtained including localizer series. FINDINGS: FINDINGS: Thoracic Spine: Diagnostic Quality: Adequate . Alignment: The bony alignment is normal . Marrow: The bone marrow signal overall is within normal limits for patient age.. Vertebrae and Intervertebral Discs: Vertebral bodies height and with and intervertebral disc spaces are reasonably preserved. The intervertebral disc spaces are well-hydrated. Ligaments: The anterior and posterior longitudinal ligaments and interspinous ligaments are intact . Spinal Cord and Spinal Canal: The spinal cord is of normal caliber without abnormal intrinsic signal. Degenerative changes are present at the following levels:Minimal most notably at T7-T8 with posterior disc osteophyte complex causing indentation of the thecal sac with deformity of the cord with no significant spinal canal narrowing. Prevertebral and Paraspinal Soft Tissues: There is no prevertebral or paraspinal soft tissue swelling or mass. Other Findings: None. Lumbar Spine: Diagnostic Quality: Adequate . Alignment: There is an S-shaped scoliosis in the lumbar spine . Marrow: The bone marrow signal overall is within normal limits for patient age.. Vertebrae and Intervertebral Discs: The vertebral bodies height and with are within normal limits. There is loss of disc height at L5-S1. There is mild disc desiccation throughout the lumbar spine.. Ligaments: The anterior and posterior longitudinal ligaments and interspinous ligaments are intact . Spinal Cord and Spinal Canal: The spinal cord is of normal caliber without abnormal intrinsic signal. The conus terminates at the T12 level. There is significant amount of epidural lipomatosis in the lumbar spine especially from L3-L4 down to the sacrum region. Degenerative changes are as follows: T12-L1: . L1-L2: No significant spinal canal or neural foraminal stenosis. L2-L3: No significant spinal canal or neural foraminal stenosis. L3-L4: Minimal broad disc bulge associated with ligamentum flavum thickening, facet joint hypertrophy and significant amount of epidural lipomatosis causing moderate to severe spinal canal narrowing. There is zhcc-qh-wveqpxdp bilateral neural foraminal stenosis. L4-L5: Minimal broad disc bulge associated with ligamentum flavum thickening, facet joint hypertrophy and significant amount of epidural lipomatosis causing moderate spinal canal narrowing. There is dsgf-vk-rggylhhf bilateral neural foraminal stenosis. L5-S1: Broad disc bulge associated with ligamentum flavum thickening and facet joint hypertrophy with epidural lipomatosis causing moderate spinal canal narrowing. There is gkjv-le-gaxohado right and mild left neural foraminal stenosis. Prevertebral and Paraspinal Soft Tissues: There is no prevertebral or paraspinal soft tissue swelling or mass. Other Findings: None . IMPRESSION: Thoracic spine: 1. Mild degenerative disc disease as detailed above. Lumbar spine 1. The multilevel degenerative disc disease associated with significant amount of epidural lipomatosis causing significant spinal canal narrowing specially at L3-L4 and L4-5 as detailed above. Clinical correlation for level by level is recommended. Workstation ID: [id number] [facility] Thoracic spine: 1. Mild degenerative disc disease as detailed above. Lumbar spine 1. The multilevel degenerative disc disease associated with significant amount of epidural lipomatosis causing significant spinal canal narrowing specially at L3-L4 and L4-5 as detailed above. Clinical correlation for level by level is recommended. Workstation ID: [id number] [facility] APTTon 05-17-2020 aPTT Coag (Bld) [Time] Therapeutic range for APTT's is 68 - 104 seconds [facility] aPTT Coag (Bld) [Time] 55 s High [facility] Interpretation and review of laboratory results Abnormal [facility] aPTT Coag (Bld) [Time] Therapeutic range for APTT's is 68 - 104 seconds [facility] aPTT Coag (Bld) [Time] 36 s High [facility] Interpretation and review of laboratory results Abnormal [facility] Basic Metabolic Panelon 04-22 Anion gap [Moles/Vol] 12 mmol/L 10 - 2 0 mmol/L [facility] Calcium [Mass/Vol] 8.5 mg/dL 8.4 - 10. 2 mg/dL [facility] Chloride [Moles/Vol] 107 mmol/L 98 - 10 8 mmol/L [facility] Creatinine [Mass/Vol] 0.97 mg/dL 0.50 - 1.30 [facility] GFR/1.73 sq M predicted among non-blacks MDRD (S/P/Bld) [Vol rate/Area] The eGFR should be used for monitoring renal function only and not for medication dosing. [facility] GFR/1.73 sq M.predicted CKD-EPI (S/P/Bld) [Vol rate/Area] 85 >=60 mL/min/1.73 m2 [facility] Glucose [Mass/Vol] 114 mg/dL High 65 - 99 mg/dL [facility] HCO3 [Moles/Vol] 24 mmol/L 21 - 32 mmol/L [facility] Interpretation and review of laboratory results Abnormal [facility] Potassium [Moles/Vol] 4.1 mmol/L 3.5 - 5.1 mmol/L [facility] Sodium [Moles/Vol] 139 mmol/L 135 - 145 mmol/L [facility] Urea nitrogen [Mass/Vol] 12 mg/dL 8 - 25 mg/dL [facility] Urea nitrogen/Creatinine [Mass ratio] 12.4 mg/mg [facility] CBCon 05-17-2020 Erythrocyte distribution width (RBC) [Entitic vol] 13.7 % 11.6 - 14.8 % [facility] Hematocrit (Bld) [Volume fraction] 46.5 % 41 - 53 % [facility] Hemoglobin (Bld) [Mass/Vol] 15.1 g/dL 13.5 - 17.5 g/dL [facility] MCH (RBC) [Entitic mass] 29.5 pg 26 - 34 pg [facility] MCHC (RBC) [Mass/Vol] 32.5 g/dL 31 - 37 g/dL [facility] MCV (RBC) [Entitic vol] 91.0 fL 80 - 100 fL [facility] Nucleated RBC (Bld) [#/Vol] 0.00 10*3/uL [facility] Nucleated RBC/100 WBC (Bld) [Ratio] 0.0 % [facility] Platelet mean volume (Bld) [Entitic vol] 10.3 fL 9.4 - 12.4 fL [facility] Platelets (Bld) [#/Vol] 234 10*3/uL [facility] RBC (Bld) [#/Vol] 5.11 10*6/uL [facility] WBC (Bld) [#/Vol] 10.35 10*3/uL [facility] CBC WITH AUTO DIFFERENTIALon 05-17-2020 Basophils (Bld) [#/Vol] 0.07 10*3/uL [facility] Basophils/100 WBC (Bld) 0.9 % [facility] Eosinophils (Bld) [#/Vol] 0.36 10*3/uL [facility] Eosinophils/100 WBC (Bld) 4.4 % [facility] Erythrocyte distribution width (RBC) [Entitic vol] 13.9 % 11.6 - 14.8 % [facility] Hematocrit (Bld) [Volume fraction] 45.4 % 41 - 53 % [facility] Hemoglobin (Bld) [Mass/Vol] 14.8 g/dL 13.5 - 17.5 g/dL [facility] Immature granulocytes (Bld) [#/Vol] 0.03 10*3/uL [facility] Immature granulocytes/100 WBC (Bld) 0.40 % [facility] Comment on above: The IG parameter is the percentage of metamyelocytes, myelocytes and promyelocytes. An immature granulocyte count (IG) of 1% or more suggests the possibility of infection, an IG count of 3% is very likely related to an infection. Lymphocytes (Bld) [#/Vol] 2.39 10*3/uL [facility] Lymphocytes/100 WBC (Bld) 29.0 % [facility] MCH (RBC) [Entitic mass] 29.5 pg 26 - 34 pg [facility] MCHC (RBC) [Mass/Vol] 32.6 g/dL 31 - 37 g/dL [facility] MCV (RBC) [Entitic vol] 90.6 fL 80 - 100 fL [facility] Monocytes (Bld) [#/Vol] 0.62 10*3/uL [facility] Monocytes/100 WBC (Bld) 7.5 % [facility] Neutrophils (Bld) [#/Vol] 4.76 10*3/uL [facility] Neutrophils/100 WBC (Bld) 57.8 % [facility] Nucleated RBC (Bld) [#/Vol] 0.00 10*3/uL [facility] Nucleated RBC/100 WBC (Bld) [Ratio] 0.0 % [facility] Platelet mean volume (Bld) [Entitic vol] 10.7 fL 9.4 - 12.4 fL [facility] Platelets (Bld) [#/Vol] 214 10*3/uL [facility] RBC (Bld) [#/Vol] 5.01 10*6/uL [facility] WBC (Bld) [#/Vol] 8.23 10*3/uL [facility] CPKon 05-17-2020 CK [Catalytic activity/Vol] 778 U/L High 60 - 225 U/L [facility] Interpretation and review of laboratory results Abnormal [facility] CT COMPARISON IMPORTon 05-17 This order has been auto-finalized and does not contain a result. [facility] This order has been auto-finalized and does not contain a result. [facility] MR LUMBAR SPINE WITHOUT CONT RASTon 05-17-2020 MR LUMBAR SPINE WITHOUT CONTRAST EXAMINATION: MR THORACIC SPINE WITHOUT CONTRAST; MR LUMBAR SPINE WITHOUT CONTRAST HISTORY: Thoracic osteoarthritis Injury/Trauma or Illness?:Illness/Oth er How long have you had these symptoms (acute/chronic)?:Unk nown Reason for exam?:59 y.o. male presented to [facility] on 05/16/2020 with an onset of bilateral severe leg cramps and weakness this lasted for an hour in duration and spontaneously resolved per neurology note:upper and lower back pain: no recent injury: no hx of cancer: Type of Exam?:Unknown Additional signs and symptoms?:n ; chronic back pain, acute onset LE weakness Injury/Trauma or Illness?:Illness/Oth er How long have you had these symptoms (acute/chronic)?:Unk nown Reason for exam?:59 y.o. male presented to [facility] on 05/16/2020 with an onset of bilateral severe leg cramps and weakness this lasted for an hour in duration and spontaneously resolved per neurology note:upper and lower back pain: no recent injury: no hx of cancer: Type of Exam?:Unknown Additional signs and symptoms?:n Injury/Trauma or Illness?:Illness/Oth er How long have you had these symptoms (acute/chronic)?:Unk nown TECHNIQUE: Multiplanar multiecho sequences were obtained through the thoracic spine utilizing T1 and T2 weighting without the administration of intravenous contrast.. 15 series were obtained including localizer series. Multiplanar multiecho sequences were obtained through the lumbar spine utilizing T1 and T2 weighting without the administration of intravenous contrast.. 10 series were obtained including localizer series. FINDINGS: FINDINGS: Thoracic Spine: Diagnostic Quality: Adequate . Alignment: The bony alignment is normal . Marrow: The bone marrow signal overall is within normal limits for patient age.. Vertebrae and Intervertebral Discs: Vertebral bodies height and with and intervertebral disc spaces are reasonably preserved. The intervertebral disc spaces are well-hydrated. Ligaments: The anterior and posterior longitudinal ligaments and interspinous ligaments are intact . Spinal Cord and Spinal Canal: The spinal cord is of normal caliber without abnormal intrinsic signal. Degenerative changes are present at the following levels:Minimal most notably at T7-T8 with posterior disc osteophyte complex causing indentation of the thecal sac with deformity of the cord with no significant spinal canal narrowing. Prevertebral and Paraspinal Soft Tissues: There is no prevertebral or paraspinal soft tissue swelling or mass. Other Findings: None. Lumbar Spine: Diagnostic Quality: Adequate . Alignment: There is an S-shaped scoliosis in the lumbar spine . Marrow: The bone marrow signal overall is within normal limits for patient age.. Vertebrae and Intervertebral Discs: The vertebral bodies height and with are within normal limits. There is loss of disc height at L5-S1. There is mild disc desiccation throughout the lumbar spine.. Ligaments: The anterior and posterior longitudinal ligaments and interspinous ligaments are intact . Spinal Cord and Spinal Canal: The spinal cord is of normal caliber without abnormal intrinsic signal. The conus terminates at the T12 level. There is significant amount of epidural lipomatosis in the lumbar spine especially from L3-L4 down to the sacrum region. Degenerative changes are as follows: T12-L1: . L1-L2: No significant spinal canal or neural foraminal stenosis. L2-L3: No significant spinal canal or neural foraminal stenosis. L3-L4: Minimal broad disc bulge associated with ligamentum flavum thickening, facet joint hypertrophy and significant amount of epidural lipomatosis causing moderate to severe spinal canal narrowing. There is asmz-yt-cjlzbgfb bilateral neural foraminal stenosis. L4-L5: Minimal broad disc bulge associated with ligamentum flavum thickening, facet joint hypertrophy and significant amount of epidural lipomatosis causing moderate spinal canal narrowing. There is ungq-mw-dzmywwdl bilateral neural foraminal stenosis. L5-S1: Broad disc bulge associated with ligamentum flavum thickening and facet joint hypertrophy with epidural lipomatosis causing moderate spinal canal narrowing. There is yyga-od-nctrnpol right and mild left neural foraminal stenosis. Prevertebral and Paraspinal Soft Tissues: There is no prevertebral or paraspinal soft tissue swelling or mass. Other Findings: None . IMPRESSION: Thoracic spine: 1. Mild degenerative disc disease as detailed above. Lumbar spine 1. The multilevel degenerative disc disease associated with significant amount of epidural lipomatosis causing significant spinal canal narrowing specially at L3-L4 and L4-5 as detailed above. Clinical correlation for level by level is recommended. Workstation ID: [id number] Dictated by: PALMA SOL on SatMay 18, 2020 11:12:51 AM EDT Transcribed by: PALMA SOL on SatMay 18, 2020 11:12:51 AM EDT Finalized by: PALMA SOL on SatMay 18, 2020 11:12:51 AM EDT Normal [facility] Comment on above: Order Comment: Injur y/Trauma or Illness?:Illness/Other How long have you had these symptoms (acute/chronic)?:Unknown Reason for exam?:59 y.o. male presented to [facility] on 05/16/2020 with an onset of bilateral severe leg cramps and weakness this lasted for an hour in duration and spontaneously resolved per neurology note:upper and lower back pain: no recent injury: no hx of cancer: Type of Exam?:Unknown Additional signs and symptoms?:n MR THORACIC SPINE WITHOUT CO NTRASTon 05-17-2020 MR THORACIC SPINE WITHOUT CONTRAST EXAMINATION: MR THORACIC SPINE WITHOUT CONTRAST; MR LUMBAR SPINE WITHOUT CONTRAST HISTORY: Thoracic osteoarthritis Injury/Trauma or Illness?:Illness/Oth er How long have you had these symptoms (acute/chronic)?:Unk nown Reason for exam?:59 y.o. male presented to [facility] on 05/16/2020 with an onset of bilateral severe leg cramps and weakness this lasted for an hour in duration and spontaneously resolved per neurology note:upper and lower back pain: no recent injury: no hx of cancer: Type of Exam?:Unknown Additional signs and symptoms?:n ; chronic back pain, acute onset LE weakness Injury/Trauma or Illness?:Illness/Oth er How long have you had these symptoms (acute/chronic)?:Unk nown Reason for exam?:59 y.o. male presented to [facility] on 05/16/2020 with an onset of bilateral severe leg cramps and weakness this lasted for an hour in duration and spontaneously resolved per neurology note:upper and lower back pain: no recent injury: no hx of cancer: Type of Exam?:Unknown Additional signs and symptoms?:n Injury/Trauma or Illness?:Illness/Oth er How long have you had these symptoms (acute/chronic)?:Unk nown TECHNIQUE: Multiplanar multiecho sequences were obtained through the thoracic spine utilizing T1 and T2 weighting without the administration of intravenous contrast.. 15 series were obtained including localizer series. Multiplanar multiecho sequences were obtained through the lumbar spine utilizing T1 and T2 weighting without the administration of intravenous contrast.. 10 series were obtained including localizer series. FINDINGS: FINDINGS: Thoracic Spine: Diagnostic Quality: Adequate . Alignment: The bony alignment is normal . Marrow: The bone marrow signal overall is within normal limits for patient age.. Vertebrae and Intervertebral Discs: Vertebral bodies height and with and intervertebral disc spaces are reasonably preserved. The intervertebral disc spaces are well-hydrated. Ligaments: The anterior and posterior longitudinal ligaments and interspinous ligaments are intact . Spinal Cord and Spinal Canal: The spinal cord is of normal caliber without abnormal intrinsic signal. Degenerative changes are present at the following levels:Minimal most notably at T7-T8 with posterior disc osteophyte complex causing indentation of the thecal sac with deformity of the cord with no significant spinal canal narrowing. Prevertebral and Paraspinal Soft Tissues: There is no prevertebral or paraspinal soft tissue swelling or mass. Other Findings: None. Lumbar Spine: Diagnostic Quality: Adequate . Alignment: There is an S-shaped scoliosis in the lumbar spine . Marrow: The bone marrow signal overall is within normal limits for patient age.. Vertebrae and Intervertebral Discs: The vertebral bodies height and with are within normal limits. There is loss of disc height at L5-S1. There is mild disc desiccation throughout the lumbar spine.. Ligaments: The anterior and posterior longitudinal ligaments and interspinous ligaments are intact . Spinal Cord and Spinal Canal: The spinal cord is of normal caliber without abnormal intrinsic signal. The conus terminates at the T12 level. There is significant amount of epidural lipomatosis in the lumbar spine especially from L3-L4 down to the sacrum region. Degenerative changes are as follows: T12-L1: . L1-L2: No significant spinal canal or neural foraminal stenosis. L2-L3: No significant spinal canal or neural foraminal stenosis. L3-L4: Minimal broad disc bulge associated with ligamentum flavum thickening, facet joint hypertrophy and significant amount of epidural lipomatosis causing moderate to severe spinal canal narrowing. There is yisc-kq-tfdxlsrp bilateral neural foraminal stenosis. L4-L5: Minimal broad disc bulge associated with ligamentum flavum thickening, facet joint hypertrophy and significant amount of epidural lipomatosis causing moderate spinal canal narrowing. There is gtmp-hy-zevhajhg bilateral neural foraminal stenosis. L5-S1: Broad disc bulge associated with ligamentum flavum thickening and facet joint hypertrophy with epidural lipomatosis causing moderate spinal canal narrowing. There is qnhv-yw-htpyluvq right and mild left neural foraminal stenosis. Prevertebral and Paraspinal Soft Tissues: There is no prevertebral or paraspinal soft tissue swelling or mass. Other Findings: None . IMPRESSION: Thoracic spine: 1. Mild degenerative disc disease as detailed above. Lumbar spine 1. The multilevel degenerative disc disease associated with significant amount of epidural lipomatosis causing significant spinal canal narrowing specially at L3-L4 and L4-5 as detailed above. Clinical correlation for level by level is recommended. Workstation ID: [id number] Dictated by: PALMA SOL on SatMay 18, 2020 11:12:51 AM EDT Transcribed by: PALMA SOL on SatMay 18, 2020 11:12:51 AM EDT Finalized by: PALMA SOL on SatMay 18, 2020 11:12:51 AM EDT Normal [facility] Comment on above: Order Comment: Injur y/Trauma or Illness?:Illness/Other How long have you had these symptoms (acute/chronic)?:Unknown Reason for exam?:59 y.o. male presented to [facility] on 05/16/2020 with an onset of bilateral severe leg cramps and weakness this lasted for an hour in duration and spontaneously resolved per neurology note:upper and lower back pain: no recent injury: no hx of cancer: Type of Exam?:Unknown Additional signs and symptoms?:n Sedimentation Rateon 020 ESR (Bld) [Velocity] 15 mm/h [facility] Interpretation and review of laboratory results Normal [facility] US DOPPLER SEGMENTAL ARTERIA L LEGS BILATERALon 05-17-2020 US DOPPLER SEGMENTAL ARTERIAL LEGS BILATERAL Patient Info Name: TARIQ ARIAS Age: 59 years : 1960 Gender: Male Exam Date: 05/17/2020 8:43 AM Patient Status: Inpatient 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 Conclusions * Right. * Right ankle brachial index is not accurate due to vessel wall calcification. Based on waveform criteria, this is a normal resting arterial evaluation. * No evidence of small vessel disease at the transmetatarsal level in the right foot. * Right toe brachial index is normal. * Left. * Left ankle brachial index is normal. * No evidence of small vessel disease at the transmetatarsal level in the left foot. * Left toe brachial index is normal. . Doppler Rt Common Femoral: Triphasic Rt Popliteal: Triphasic Rt Posterior Tibial: Triphasic Rt Dorsalis Pedis: Triphasic Lt Common Femoral: Triphasic Lt Popliteal: Triphasic Lt Posterior Tibial: Triphasic Lt Dorsalis Pedis: Triphasic PVR Rt Thigh: Normal Rt Calf: Normal Rt Ankle: Normal Lt Thigh: Normal Lt Calf: Normal Lt Ankle: Normal Rt Digit: Normal Lt Digit: Normal Rt Brachial: 103 Rt Thigh: 122 Rt Calf: 152 Rt Posterior Tibial: 157 Rt Dorsalis Pedis: 126 Rt Digit: 101 1.04 1.30 1.34 1.08 0.86 Lt Brachial: 117 Lt Thigh: 132 Lt Calf: 132 Lt Posterior Tibial: 140 Lt Dorsalis Pedis: 118 Lt Digit: 111 1.13 1.13 1.20 1.01 0.95 Risk Factors Patient has a history of tobacco use-current. Patient states bilateral calves cramped and bilateral leg weakness yesterday. Today bilateral calf muscle soreness. . Report Signatures Finalized by Ryne Witt MD, RPVI on 05/17/2020 11:53 AM Normal [facility] Interface, Rad In [facility] Ech[facility] - 05/17/2020 11:55 AM EDT Patient Info Name: TARIQ ARIAS Age: 59 years : 1960 Gender: Male Exam Date: 05/17/2020 8:43 AM Patient Status: Inpatient School Principal: KAREN DUDLEY RVSp Referring Physician: YUMIKO CAMPA; Indications I73.9 - Peripheral vascular disease, unspecified Procedure Description 53440 Limited bilateral noninvasive physiologic studies of upper or lower extremity arteries with bidirectional Doppler/PVR waveform analysis at 1-2 levels. Conclusions * Right. * Right ankle brachial index is not accurate due to vessel wall calcification. Based on waveform criteria, this is a normal resting arterial evaluation. * No evidence of small vessel disease at the transmetatarsal level in the right foot. * Right toe brachial index is normal. * Left. * Left ankle brachial index is normal. * No evidence of small vessel disease at the transmetatarsal level in the left foot. * Left toe brachial index is normal. . Doppler Rt Common Femoral: Triphasic Rt Popliteal: Triphasic Rt Posterior Tibial: Triphasic Rt Dorsalis Pedis: Triphasic Lt Common Femoral: Triphasic Lt Popliteal: Triphasic Lt Posterior Tibial: Triphasic Lt Dorsalis Pedis: Triphasic PVR Rt Thigh: Normal Rt Calf: Normal Rt Ankle: Normal Lt Thigh: Normal Lt Calf: Normal Lt Ankle: Normal Rt Digit: Normal Lt Digit: Normal Rt Brachial: 103 Rt Thigh: 122 Rt Calf: 152 Rt Posterior Tibial: 157 Rt Dorsalis Pedis: 126 Rt Digit: 101 1.04 1.30 1.34 1.08 0.86 Lt Brachial: 117 Lt Thigh: 132 Lt Calf: 132 Lt Posterior Tibial: 140 Lt Dorsalis Pedis: 118 Lt Digit: 111 1.13 1.13 1.20 1.01 0.95 Risk Factors Patient has a history of tobacco use-current. Patient states bilateral calves cramped and bilateral leg weakness yesterday. Today bilateral calf muscle soreness. . Report Signatures Finalized by Ryne Witt MD, RPVI on 05/17/2020 11:53 AM [facility] Patient Info Name: TARIQ ARIAS Age: 59 years : 1960 Gender: Male Exam Date: 05/17/2020 8:43 AM Patient Status: Inpatient School Principal: KAREN DUDLEY RVT Referring Physician: YUMIKO CAMPA; Indications I73.9 - Peripheral vascular disease, unspecified Procedure Description 31114 Limited bilateral noninvasive physiologic studies of upper or lower extremity arteries with bidirectional Doppler/PVR waveform analysis at 1-2 levels. Conclusions * Right. * Right ankle brachial index is not accurate due to vessel wall calcification. Based on waveform criteria, this is a normal resting arterial evaluation. * No evidence of small vessel disease at the transmetatarsal level in the right foot. * Right toe brachial index is normal. * Left. * Left ankle brachial index is normal. * No evidence of small vessel disease at the transmetatarsal level in the left foot. * Left toe brachial index is normal. . Doppler Rt Common Femoral: Triphasic Rt Popliteal: Triphasic Rt Posterior Tibial: Triphasic Rt Dorsalis Pedis: Triphasic Lt Common Femoral: Triphasic Lt Popliteal: Triphasic Lt Posterior Tibial: Triphasic Lt Dorsalis Pedis: Triphasic PVR Rt Thigh: Normal Rt Calf: Normal Rt Ankle: Normal Lt Thigh: Normal Lt Calf: Normal Lt Ankle: Normal Rt Digit: Normal Lt Digit: Normal Rt Brachial: 103 Rt Thigh: 122 Rt Calf: 152 Rt Posterior Tibial: 157 Rt Dorsalis Pedis: 126 Rt Digit: 101 1.04 1.30 1.34 1.08 0.86 Lt Brachial: 117 Lt Thigh: 132 Lt Calf: 132 Lt Posterior Tibial: 140 Lt Dorsalis Pedis: 118 Lt Digit: 111 1.13 1.13 1.20 1.01 0.95 Risk Factors Patient has a history of tobacco use-current. Patient states bilateral calves cramped and bilateral leg weakness yesterday. Today bilateral calf muscle soreness. . Report Signatures Finalized by Ryne Witt MD, RPVI on 05/17/2020 11:53 AM [facility] with eGFRon 05-16-2020 Age - Reported 59 years Normal [facility] Comment on above: Performed By: #### 2 [id number] #### [facility],[address] [place] [address] 35818 Anion gap [Moles/Vol] 15 mmol/L Normal 10 - 20 [facility] Comment on above: Performed By: #### 2 65964 #### [facility],[address] [place] [address] 89922 Calcium [Mass/Vol] 9.3 mg/dL Normal 8.6 - 10.2 [facility] Comment on above: Performed By: #### 2 64718 #### [facility],[address] [place] [address] 39478 Chloride [Moles/Vol] 99 mmol/L Normal 98 - 107 [facility] Comment on above: Performed By: #### 2 97985 #### [facility],[address] [place] [address] 03589 CO2 [Moles/Vol] 25.7 mmol/L Normal 21.0 - 31.0 [facility] Comment on above: Performed By: #### 2 09061 #### [facility],[address] [place] [address] 88965 Creatinine [Mass/Vol] 1.0 mg/dL Normal 0.7 - 1.3 [facility] Comment on above: Performed By: #### 2 16248 #### [facility],[address] [place] [address] 71253 GFR/1.73 sq M predicted among non-blacks MDRD (S/P/Bld) [Vol rate/Area] mL/min/{1.73_m2} Normal 60 - 999 [facility] Comment on above: Performed By: #### 2 55249 #### [facility],[address] [place], [place] [id number] Result Comment: ACCO RDING TO THE NATIONAL KIDNEY DISEASE EDUCATION PROGRAM(NKDE), A NORMAL eGFR IS A VALUE GREATER THAN OR EQUAL TO 60 ML/MIN/1.73 SQ METERS. CHRONIC KIDNEY DISEASE: <60mL/MIN/1.73 SQ METERS KIDNEY FAILURE: <15mL/MIN/1.73 SQ METERS THIS TEST SHOULD ONLY BE USED FOR PATIENTS 18 YEARS OF AGE AND OLDER. GFR/1.73 sq M predicted among non-blacks MDRD (S/P/Bld) [Vol rate/Area] Normal [facility] Comment on above: Result Comment: BASI C METABOLIC PANEL Performed By: #### 2 20679 #### [facility],[address] [place], [place] [id number] Glucose [Mass/Vol] 122 mg/dL High 74 - 106 [facility] Comment on above: Performed By: #### 2 76735 #### [facility],[address] [place] [address] 95927 Potassium [Moles/Vol] 4.3 mmol/L Normal 3.5 - 5.1 [facility] Comment on above: Performed By: #### 2 48803 #### [facility],[address] [place] [address] 69292 Sodium [Moles/Vol] 135 mmol/L Low 136 - 145 [facility] Comment on above: Performed By: #### 2 22407 #### [facility],[address] [place] [address] 34994 Urea nitrogen [Mass/Vol] 16 mg/dL Normal 6 - 20 [facility] Comment on above: Performed By: #### 2 87684 #### [facility],[address] [place] [address] 31685 CBC + DIFFon 05-16-2020 Basophils (Bld) [#/Vol] 0.10 x10EE3/UL Normal 0.00 - 0 .10 [facility] Comment on above: Performed By: #### 2 23056 #### [facility],[address] [place] [address] 83017 Basophils/100 WBC (Bld) 1.1 % Normal 0.0 - 2.0 [facility] Comment on above: Performed By: #### 2 96871 #### [facility],[address] [place] [address] 00715 CBC + DIFF Normal [facility] Comment on above: Result Comment: CBC- COMPLETE BLOOD COUNT Performed By: #### 2 40324 #### [facility],[address] [place], [place] [phone] Eosinophils (Bld) [#/Vol] 0.30 x10EE3/UL Normal 0.00 - 0.50 [facility] Comment on above: Performed By: #### 2 58560 #### [address] [address] Eosinophils/100 WBC (Bld) 2.8 % Normal 0.0 - 7.0 [facility] Comment on above: Performed By: #### 2 60363 #### [facility],[address] [place], [place] [phone] Erythrocyte distribution width (RBC) [Ratio] 14.4 % Normal 12.0 - 15.6 [facility] Comment on above: Performed By: #### 2 34685 #### [facility],[address] [place], [place] [phone] Hematocrit (Bld) [Volume fraction] 44.2 % Normal 40.0 - 52.0 [facility] Comment on above: Performed By: #### 2 33203 #### [facility],[address] [place] [address] 92834 Hemoglobin (Bld) [Mass/Vol] 15.2 g/dL Normal 13.0 - 17.5 [facility] Comment on above: Performed By: #### 2 24453 #### [facility],[address] [place], [place] [phone] Lymphocytes (Bld) [#/Vol] 1.80 x10EE3/UL Normal 0.80 - 2.80 [facility] Comment on above: Performed By: #### 2 26668 #### [facility],[address] [place] [address] 28087 Lymphocytes/100 WBC (Bld) 19.2 % Low 20.0 - 45.0 [facility] Comment on above: Performed By: #### 2 79344 #### [facility],[address] [place] [address] 85875 MANUAL DIFF N/A Normal [facility] Comment on above: Performed By: #### 2 52332 #### [facility],[address] [place] [address] 35104 MCH (RBC) [Entitic mass] 31 pg Normal 27 - 33 [facility] Comment on above: Performed By: #### 2 44477 #### [facility],[address] [place] [address] 14092 MCHC (RBC) [Mass/Vol] 35 X10 3 Normal 32 - 36 [facility] Comment on above: Performed By: #### 2 82961 #### [facility],[address] [place] [address] 58082 MCV (RBC) [Entitic vol] 89 fL Normal 81 - 98 [facility] Comment on above: Performed By: #### 2 32823 #### [facility],[address] [place] [address] 05015 Monocytes (Bld) [#/Vol] 0.50 x10EE3/UL Normal 0.20 - 1 .00 [facility] Comment on above: Performed By: #### 2 32045 #### [facility],[address] [place] [address] 25681 MONOS % 5.5 % Normal 0.0 - 10.0 [facility] Comment on above: Performed By: #### 2 84090 #### [facility],[address] [place] [address] Morphology Collin (Bld) [Interp] N/A Normal [facility] Comment on above: Performed By: #### 2 54786 #### [facility],[address] [place] [address] Neutrophils (Bld) [#/Vol] 6.70 x10EE3/UL Normal 1.50 - 7.10 [facility] Comment on above: Performed By: #### 2 42411 #### [facility],[address] [place], [place] [phone] Neutrophils/100 WBC (Bld) 71.4 % Normal 46.0 - 76.0 [facility] Comment on above: Performed By: #### 2 93200 #### [facility],[address] [place] [address] Platelet mean volume (Bld) [Entitic vol] 8.8 fL Normal 6.4 - 10.5 [facility] Comment on above: Result Comment: AUTO MATED DIFFERENTIAL Performed By: #### 2 05539 #### [address] [address] Platelets (Bld) [#/Vol] 240 x10EE3/UL Normal 150 - 450 [facility] Comment on above: Performed By: #### 2 51580 #### [address] [address] RBC (Bld) [#/Vol] 4.97 x 10EE6/UL Normal 4.50 - 6.00 [facility] Comment on above: Performed By: #### 2 11270 #### [address] [address] WBC (Bld) [#/Vol] 9.4 x 10EE3/UL Normal 4.5 - 10.8 [facility] Comment on above: Performed By: #### 2 54254 #### [address] [address] [address] ANGIO AAA WITH RUNOFFon 1 CT ANGIO AAA WITH RUNOFF [place] [address] [place], [place] [address] Patient: TARIQ ARIAS Phone#: : [phone] Age: 59 Gender: M Pt. Type: ER Account: [id number] Location: 052 Ordering: DR. RACHELLE BOWIE Exam Date: 05/16/2020/18:20 Family Phys: Charge Code: 526187 Physician: [place] Order #: [id number] DLP Dose#: 8.10 mGy PROCEDURE: CT ANGIOGRAPHY AAA WITH RUNOFF WITH CONTRAST COMPARISON: None. INDICATIONS: Leg weakness. TECHNIQUE: After obtaining the patient's consent, CT images of the abdomen, pelvis, and lower extremities were obtained with non-ionic intravenous contrast material. MPR/MIPS and 3D images were created to optimize visualization of vascular anatomy. All CT scans at this facility use dose modulation, iterative reconstruction, and/or weight based dosing when appropriate to reduce radiation dose to as low as reasonably achievable. IV CONTRAST: Omnipaque 350,123ml TOTAL DOSE: 8.10 CTDIvol(mGy) FINDINGS: AORTO-ILIAC: Distal to the renal arteries is an abrupt reduction in caliber of the aorta. The proximal abdominal aorta diameter is 2.4 centimeters. Distal to the renal arteries the diameter is 1.5 centimeters. This focal narrowing is a short segment measuring 10 millimeters. Immediately distal to the focal narrowing is dilatation of the aorta with diameter of 4.4 centimeters. True lumen is 3.4 x 2.8 centimeters. Thrombus is present to the right. The there is no other significant stenosis identified. 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 Stenosis is approximately 50%. RIGHT LEG: Normal. No significant stenosis or occlusion. LEFT LEG: Normal. No significant stenosis or occlusion. LIVER: Fatty changes of the liver are present.. No enlargement, atrophy, abnormal density, or significant focal lesion. BILIARY: Normal. No visible dilatation or calcification. PANCREAS: Normal. No lesion, fluid collection, ductal dilatation, or atrophy. SPLEEN: Normal. No enlargement or focal lesion. Continued Report - Page 2 of 2 Patient: TARIQ ARIAS Phone#: : 1960 Age: 59 Gender: M Pt. Type: ER Account: [id number] Location: 052 Ordering: DR. RACHELLE BOWIE Exam Date: 05/16/2020/18:20 Family Phys: Charge Code: [id number] Physician: [place] Order #: [id number] DLP Dose#: 8.10 mGy KIDNEYS: Normal. No mass, obstruction, or calcification. ADRENALS: Normal. No mass or enlargement. AORTA/VASCULAR: Normal. No aneurysm or dissection. RETROPERITONEUM: Normal. No mass or adenopathy. BOWEL/MESENTERY: Normal. No visible mass, obstruction, or bowel wall thickening. ABDOMINAL WALL: Normal. No mass or hernia. URINARY BLADDER: Normal. No visible focal wall thickening, lesion, or calculus. PELVIC NODES: Normal. No adenopathy. PELVIC ORGANS: Normal. No visible mass. Pelvic organs appropriate for patient age. BONES: Normal. No bony lesion or fracture. LUNG BASES: Normal. No visible pulmonary or pleural disease. OTHER: Negative. CONCLUSION: 1. Short segment stenosis of the abdominal aorta distal to the renal arteries. Length of the stenosis is 10 millimeters. Diameter of the aorta at this level is 1.5 centimeters. There is poststenotic dilatation with diameter 4.4 centimeters. Length of the aortic dilatation is 8.3 centimeters. 2. 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 Dictated by: Melinda Maddox MD on 05/16/2020 at 18:53 Approved by: Melinda Maddox MD on 05/16/2020 at 19:01 Normal [facility] CT LUMBAR W/O CONTRASTon CT LUMBAR W/O CONTRAST [place] [address] Patient: TARIQ ARIAS Phone#: : 1960 Age: 59 Gender: M Pt. Type: ER Account: [id number] Location: 052 Ordering: DR. RACHELLE BOWIE Exam Date: 05/16/2020/16:44 Family Phys: Charge Code: [id number] Physician: [place] Order #: [id number] DLP Dose#: 56.9 mGy PROCEDURE: CT LUMBAR SPINE WITHOUT CONTRAST COMPARISON: None. INDICATIONS: Pain. TECHNIQUE: After obtaining the patient's consent, multi-planar CT images were created without intravenous contrast material. All CT scans at this facility use dose modulation, iterative reconstruction, and/or weight based dosing when appropriate to reduce radiation dose to as low as reasonably achievable. IV CONTRAST: No IV contrast used,0ml TOTAL DOSE: 56.9 CTDIvol(mGy) FINDINGS: PARASPINAL AREA: Normal with no visible mass. BONES: No fracture, pars defect, or osseous lesion. Remote avulsion from the tip of the right transverse process at L2. Remote fracture at the base of the right transverse process at L4 LUMBAR DISC LEVELS: L1-L2: No significant disc/facet abnormality, spinal stenosis, or foraminal stenosis. L2-L3: No significant disc/facet abnormality, spinal stenosis, or foraminal stenosis. L3-L4: Bony hypertrophy is present at the articular facettes. There is right foraminal narrowing. Annular disc bulging is present. L4-L5: Bony hypertrophy is present at the articular facettes. Annular disc bulging is present to the left. There is mild narrowing of the spinal canal. L5-S1: Disc space narrowing is present. There is bony hypertrophy at the endplates. There is moderate right foraminal narrowing. CONCLUSION: Continued Report - Page 2 of 2 Patient: TARIQ ARIAS Phone#: : 1960 Age: 59 Gender: M Pt. Type: ER Account: [id number] Location: 052 Ordering: DR. RACHELLE BOWIE Exam Date: 05/16/2020/16:44 Family Phys: Charge Code: [id number] Physician: [place] Order #: [id number] DLP Dose#: 56.9 mGy 1. Degenerative changes are present in most marked at the L5-S1 level. Dictated by: Melinda Maddox MD on 05/16/2020 at 17:02 Approved by: Melinda Maddox MD on 05/16/2020 at 17:08 Normal [facility] URINALYSISon 10-26-2020 Bilirubin [Mass/Vol] Negative Normal NORMAL: NEGATIVE [facility] Comment on above: Performed By: #### 2 [id number] #### [facility],[address] [place] [address] 56898 Blood Negative Normal NORMAL: NEGATIVE [facility] Comment on above: Performed By: #### 2 [id number] #### [facility],[address] [place] [address] 47127 Clarity (U) clear Normal NORMAL: CLEAR [facility] Comment on above: Performed By: #### 2 [id number] #### [facility],[address] [place], [place] [id number] Color (U) p.yel Normal NORMAL: YELLOW [facility] Comment on above: Performed By: #### 2 [id number] #### [facility],[address] [place], [place] [id number] Glucose [Mass/Vol] NORM Normal NORMAL: NORMAL [facility] Comment on above: Performed By: #### 2 [id number] #### [facility],[address] [place], [place] [id number] Ketone Negative Normal NORMAL: NEGATIVE [facility] Comment on above: Performed By: #### 2 [id number] #### [facility],[address] [place], [place] [id number] Microscopic NOT INDICATED Normal [facility] Comment on above: Performed By: #### 2 [id number] #### [facility],[address] [place] [address] 49098 Nitrite Ql (U) Negative Normal NORMAL: NEGATIVE [facility] Comment on above: Performed By: #### 2 [id number] #### [facility],[address] [place] [address] 24325 pH (Bld) 6 Normal NORMAL: 5.0-8.0 [facility] Comment on above: Performed By: #### 2 [id number] #### [facility],[address] [place] [address] 40153 Protein (U) [Mass/Vol] Negative Normal BREANNE L: NEGATIVE [facility] Comment on above: Performed By: #### 2 43159 #### [facility],[address] [place] [address] Sp [place] 1.015 Normal NORMAL: 1.010-1.030 [facility] Comment on above: Performed By: #### 2 02660 #### [facility],[address] [place] [address] Specimen type Nom (Spec) Void Normal [facility] Comment on above: Performed By: #### 2 14686 #### [facility],[address] [place] [address] Urobilinog NORM Normal NORMAL: NORMAL [facility] Comment on above: Performed By: #### 2 03051 #### [facility],[address] [place] [address] WBC (Bld) [#/Vol] Negative Normal NORMAL: NEGATIVE [facility] Comment on above: Performed By: #### 2 [id number] #### [facility],[address] [place] [address] Vital Signs Date Time Vital Sign Value Performing Clinician Facility 11-07-2023 08:41-0400 Body mass index (BMI) [Ratio] 38.54 kg/m2 Chance Goodman MD Work Phone: [facility] 11-07-2023 08:41-0400 Body weight 108.32 kg Chance Goodman MD Work Phone: [facility] 11-07-2023 08:41-0400 Diastolic blood pressure 78 mm[Hg] Chance Goodman MD Work Phone: [facility] 11-07-2023 08:41-0400 Heart rate 65 /min Chance Goodman MD Work Phone: [facility] 11-07-2023 08:41-0400 SaO2% (BldA) [Mass fraction] 97 % Chance Goodman MD Work Phone: 0(432)765-101238 [place] [address] 11-07-2023 08:41-0400 Systolic blood pressure 140 mm[Hg] Chance Goodman MD Work Phone: 5(421)640-885538 [place] [address] 11-07-2023 07:29-0400 Body height 167.6 cm Moise Eyer [employer] Work Phone: 5(021)547-780138 [place] [address] 11-07-2023 07:29-0400 Body mass index (BMI) [Ratio] 40.35 kg/m2 Moise Eyer [employer] Work Phone: 0(063)419-603538 [place] [address] 11-07-2023 07:29-0400 Body weight 113.4 kg Moise Eyer V, [employer] Work Phone: 7(904)652-902338 [place] [address] 11-07-2023 07:29-0400 Heart rate 70 /min Moise Eyer [employer] Work Phone: 4(781)732-308838 [place] [address] 10-06-2023 08:15-0400 Body temperature 99.61 [degF] Chance Goodman MD Work Phone: 4(128)750-206938 [place] [address] 10-06-2023 08:15-0400 Diastolic blood pressure 50 mm[Hg] Chance Goodman MD Work Phone: 1(739)455-255638 [place] [address] 10-06-2023 08:15-0400 Heart rate 67 /min Chance Goodman MD Work Phone: 2(899)265-665638 [place] [address] 10-06-2023 08:15-0400 Respiratory rate 18 /min Chance Goodman MD Work Phone: 5(315)576-560138 [place] [address] 10-06-2023 08:15-0400 Systolic blood pressure 102 mm[Hg] Chance Goodman MD Work Phone: 5(693)911-410438 [place] [address] 10-06-2023 04:33-0400 Body mass index (BMI) [Ratio] 43.09 kg/m2 Chance Goodman MD Work Phone: 6(715)727-047138 [place] [address] 10-06-2023 04:33-0400 Body weight 121.11 kg Chance Goodman MD Work Phone: 2(921)717-829238 [place] [address] 10-06-2023 04:33-0400 SaO2% (BldA) [Mass fraction] 98 % Chance Goodman MD Work Phone: 4(246)056-254838 [place] [address] 09-30-2023 06:32-0400 Body height 167.6 cm Chance Goodman MD Work Phone: 6(422)824-862738 [place] [address] 09-10-2023 08:04-0500 Body height 167.6 cm Chance Goodman MD Work Phone: 6(415)185-957238 [place] [address] 09-10-2023 08:04-0500 Body mass index (BMI) [Ratio] 40.35 kg/m2 Chance Goodman MD Work Phone: 8(314)718-467838 [place] [address] 09-10-2023 08:04-0500 Body weight 113.4 kg Chance Goodman MD Work Phone: 6(652)478-182238 [place] [address] 09-10-2023 08:04-0500 Diastolic blood pressure 85 mm[Hg] Chance Goodman MD Work Phone: 5(700)940-549638 [place] [address] 09-10-2023 08:04-0500 Heart rate 55 /min Chance Goodman MD Work Phone: 4(238)931-660338 [place] [address] 09-10-2023 08:04-0500 Systolic blood pressure 145 mm[Hg] Chance Goodman MD Work Phone: 8(337)348-386038 [place] [address] 08-05-2023 13:01-0500 Body temperature 98.4 [degF] No Primary Care Physician [facility] 08-05-2023 13:01-0500 Body weight 114.3 kg No Primary Care Physician [facility] 08-05-2023 13:01-0500 Diastolic blood pressure 84 mm[Hg] No Primary Care Physician [facility] 08-05-2023 13:01-0500 Heart rate 68 /min No Primary Care Physician [facility] 08-05-2023 13:01-0500 Respiratory rate 16 /min No Primary Care Physician [facility] 08-05-2023 13:01-0500 SaO2% (BldA) [Mass fraction] 96 % No Primary Care Physician [facility] 08-05-2023 13:01-0500 Systolic blood pressure 129 mm[Hg] No Primary Care Physician [facility] 06-11-2023 10:16-0500 Body temperature 98.4 [degF] MD Latrell Bernal Work Phone: [facility] 06-11-2023 10:16-0500 Body weight 115.66 kg MD Latrell Bernal Work Phone: [facility] 06-11-2023 10:16-0500 Diastolic blood pressure 76 mm[Hg] MD Latrell Bernal Work Phone: [facility] 06-11-2023 10:16-0500 Heart rate 81 /min MD Latrell Bernal Work Phone: [facility] 06-11-2023 10:16-0500 Respiratory rate 18 /min MD Latrell Bernal Work Phone: [facility] 06-11-2023 10:16-0500 SaO2% (BldA) [Mass fraction] 96 % MD Latrell Bernal Work Phone: [facility] 06-11-2023 10:16-0500 Systolic blood pressure 123 mm[Hg] MD Latrell Bernal Work Phone: [facility] 05-13-2023 13:49-0400 Body height 167.64 cm MD Latrell Bernal Work Phone: [facility] 05-13-2023 13:49-0400 Body mass index (BMI) [Ratio] 41.3 kg/m2 MD Latrell Bernal Work Phone: [facility] 05-13-2023 13:49-0400 Body weight 116.11 kg MD Latrell Bernal Work Phone: [facility] 05-13-2023 13:49-0400 Diastolic blood pressure 84 mm[Hg] MD Latrell Bernal Work Phone: [facility] 05-13-2023 13:49-0400 Heart rate 68 /min MD Latrell Bernal Work Phone: [facility] 05-13-2023 13:49-0400 Respiratory rate 16 /min MD Latrell Bernal Work Phone: [facility] 05-13-2023 13:49-0400 Systolic blood pressure 137 mm[Hg] MD Latrell Bernal Work Phone: [facility] 05-07-2023 10:53-0400 Body mass index (BMI) [Ratio] 41.3 kg/m2 MD Latrell Bernal Work Phone: [facility] 05-07-2023 10:53-0400 Body weight 116.11 kg MD Latrell Bernal Work Phone: [facility] 05-03-2023 10:24-0400 Diastolic blood pressure 76 mm[Hg] [facility] 05-03-2023 10:24-0400 Heart rate 68 /min [facility] 05-03-2023 10:24-0400 Respiratory rate 18 /min [facility] 05-03-2023 10:24-0400 SaO2% (BldA) [Mass fraction] 97 % [facility] 05-03-2023 10:24-0400 Systolic blood pressure 118 mm[Hg] [facility] 05-03-2023 09:24-0400 Body height 167.64 cm [facility] 05-03-2023 09:24-0400 Body mass index (BMI) [Ratio] 40.3 kg/m2 [facility] 05-03-2023 09:24-0400 Body temperature 97.5 [degF] [facility] 05-03-2023 09:24-0400 Body weight 113.39 kg [facility] 03-30-2023 16:36-0400 Diastolic blood pressure 69 mm[Hg] [facility] 03-30-2023 16:36-0400 Heart rate 74 /min [facility] 03-30-2023 16:36-0400 Respiratory rate 16 /min [facility] 03-30-2023 16:36-0400 SaO2% (BldA) [Mass fraction] 98 % [facility] 03-30-2023 16:36-0400 Systolic blood pressure 125 mm[Hg] [facility] 03-30-2023 13:52-0400 Body height 167.64 cm [facility] 03-30-2023 13:52-0400 Body mass index (BMI) [Ratio] 41.8 kg/m2 [facility] 03-30-2023 13:52-0400 Body temperature 97 [degF] [facility] 03-30-2023 13:52-0400 Body weight 117.48 kg [facility] 05-18-2020 11:21-0400 Body Temperature 98.1 [degF] Generic [facility] 05-18-2020 11:21-0400 BP Diastolic 91 mm[Hg] Generic [facility] 05-18-2020 11:21-0400 BP Systolic 128 mm[Hg] Generic [facility] 05-18-2020 11:21-0400 Pulse (Heart Rate) 73 /min [facility] 05-18-2020 11:21-0400 Pulse Oximetry 96 % Generic [facility] 05-18-2020 11:21-0400 Respiratory Rate 16 /min Generic [facility] 05-18-2020 06:28-0400 BMI (Body Mass Index) 41.6 kg/m2 Generic [facility] 05-18-2020 06:28-0400 Body weight 116.9 kg Generic [facility] 05-16-2020 23:01-0400 Height 167.6 cm Generic [facility] Encounters Encounter Date Encounter Type Care Provider Facility Start: 06-14-2025 ambulatory [facility] Facility:[facility] Start: 06-29-2024 End: 06-29-2024 ambulatory Chalon Dolores Facility:[facility] Start: 11-07-2023 ambulatory [facility] Facility:[facility] Start: 11-07-2023 End: 11-07-2023 Office outpatient visit 40 minutes Chance Goodman MD Work Phone: [facility] Comment on above: Abdominal aortic ane urysm (AAA) without rupture, unspecified part Start: 11-07-2023 End: 11-07-2023 Subsequent hospital visit by physician Moise RESENDEZ Work Phone: [facility] Comment on above: Arrived Start: 09-30-2023 End: 10-06-2023 Evaluation and management of inpatient ANESTHESIA PAIN MED CONSULT Facility:[facility] Start: 09-30-2023 End: 10-06-2023 Evaluation and management of inpatient Chance Goodman MD Work Phone: [facility] Start: 09-16-2023 ambulatory [facility] Facility:[facility] Start: 09-10-2023 ambulatory [facility] Facility:[facility] Start: 09-10-2023 End: 09-10-2023 Office outpatient visit 40 minutes Chance Goodman MD Work Phone: [facility] [place] Comment on above: Juxtarenal abdominal aortic aneurysm (AAA) without rupture (Primary Dx) Start: 09-02-2023 End: 09-02-2023 ambulatory No Primary Care Physician [facility] Work Phone: Start: 09-02-2023 End: 09-02-2023 Patient encounter procedure No Primary Care Physician [facility] Services/Neurology Work Phone: Start: 08-12-2023 ambulatory [facility] Facility:[facility] Start: 08-05-2023 End: 08-05-2023 Patient encounter procedure No Primary Care Physician [facility] Work Phone: Start: 07-23-2023 End: 07-23-2023 Patient encounter procedure No Primary Care Physician [facility] Work Phone: Start: 06-24-2023 End: 06-24-2023 ambulatory MD Latrell Bernal Work Phone: [facility] Work Phone: Start: 06-24-2023 End: 06-24-2023 Patient encounter procedure MD Latrell Bernal Work Phone: [facility] Work Phone: Start: 06-24-2023 End: 06-24-2023 Patient encounter procedure MD Latrell Bernal Work Phone: [facility] Work Phone: Start: 06-20-2023 Non-patient / Non-visit MD Latrell Bernal Work Phone: [facility] Work Phone: Start: 06-17-2023 Non-patient / Non-visit MD Latrell Bernal Work Phone: [facility] Work Phone: Start: 06-12-2023 Non-patient / Non-visit MD Latrell Bernal Work Phone: [facility] Start: 06-12-2023 End: 06-12-2023 ambulatory MD Latrell Bernal Work Phone: [facility] Work Phone: Start: 06-12-2023 End: 06-12-2023 Patient encounter procedure [facility] Start: 06-11-2023 End: 06-11-2023 Patient encounter procedure MD Latrell Bernal Work Phone: [facility] Work Phone: Start: 06-10-2023 End: 06-10-2023 ambulatory MD Latrell Bernal Work Phone: [facility] Work Phone: Start: 06-10-2023 End: 06-10-2023 Patient encounter procedure MD Latrell Bernal Work Phone: [facility] Work Phone: Start: 05-27-2023 Non-patient / Non-visit MD Latrell Bernal Work Phone: [facility] Work Phone: Start: 05-24-2023 Non-patient / Non-visit MD Latrell Bernal Work Phone: [facility] Work Phone: Start: 05-24-2023 Non-patient / Non-visit MD Latrell Bernal Work Phone: [facility] Start: 05-24-2023 End: 05-24-2023 ambulatory MD Latrell Bernal Work Phone: [facility] Work Phone: Start: 05-24-2023 End: 05-24-2023 Patient encounter procedure MD [facility]atrell Bernal [facility] Start: 05-13-2023 End: 05-13-2023 Patient encounter procedure MD Latrell Bernal Work Phone: [facility] Work Phone: Start: 05-07-2023 End: 05-07-2023 Patient encounter procedure MD Latrell Bernal Work Phone: [facility] Work Phone: Start: 05-03-2023 End: 05-03-2023 Emergency department patient visit [facility] Work Phone: Start: 03-30-2023 End: 03-30-2023 [facility] Start: 03-30-2023 End: 03-30-2023 Emergency department patient visit [facility] Work Phone: Start: 01-24-2022 Telephone encounter No Current Pcp-General ([facility] Comment on above: Appointment Start: 09-21-2020 End: 09-21-2020 Orders Only Lisy Nix Work Phone: [facility] Start: 05-17-2020 End: 05-18-2020 Patient encounter procedure PROVIDER NOT IN SYSTEM [facility] Start: 05-16-2020 End: 05-18-2020 Subsequent hospital visit by physician [facility] Work Phone: [facility] Start: 05-16-2020 End: 05-16-2020 Emergency department patient visit RACHELLE Juarez [facility] Start: 07-05-2014 End: 07-06-[address] Facility:[facility] Procedures Date Procedure Procedure Detail Performing Clinician Start: 11-07-2023 Ct angio abd&plvis c ntrst mtrl w/wo cntrst img Moise Eyer [employer] Work Phone: Start: 11-07-2023 Creatinine blood Moise Eyer [employer] Work Phone: Start: 10-06-2023 Comprehensive metabo lic panel Moise Eyer [employer] Work Phone: Start: 10-05-2023 Glucose measurement, blood Chance Goodman MD Work Phone: Start: 10-05-2023 Radiologic exam ches t single view Waleska Dasilva MD Work Phone: Start: 10-05-2023 Glucose measurement, blood Chance Goodman MD Work Phone: Start: 10-05-2023 CONTINUOUS CARDIAC MONITORING STRIP Other Other Start: 10-05-2023 End: 10-05-2023 Antibody screen Chance Goodman MD Work Phone: Comment on above: Performed By: #### I PB, MGO, CMPN #### [facility] ([facility]) [address] [place] [address] Start: 10-05-2023 Blood typing serologic abo Moise Drake MD Work Phone: Start: 10-05-2023 Comprehensive metabo lic panel Moise Eyer [employer] Work Phone: Start: 10-04-2023 CONTINUOUS CARDIAC MONITORING STRIP Other Other Start: 10-04-2023 Glucose measurement, blood Chance Goodman MD Work Phone: Start: 10-04-2023 Radiologic exam ches t 2 views Moise Eyer [employer] Work Phone: Start: 10-04-2023 Glucose measurement, blood Chance Goodman MD Work Phone: Start: 10-04-2023 Assay of magnesium Rick smith Eyer [employer] Work Phone: Start: 10-04-2023 CONTINUOUS CARDIAC MONITORING STRIP Other Other Start: 10-04-2023 Glucose measurement, blood Chance Goodman MD Work Phone: Start: 10-04-2023 Glucose measurement, blood Chance Goodman MD Work Phone: Start: 10-04-2023 Radiologic exam ches t single view Moise [employer] Work Phone: Start: 10-04-2023 Glucose measurement, blood Chance Goodman MD Work Phone: Start: 10-04-2023 Comprehensive metabo lic panel Moise Eyer [employer]ITER Work Phone: Start: 10-03-2023 CONTINUOUS CARDIAC MONITORING STRIP Other Other Start: 10-03-2023 Glucose measurement, blood Chance Goodman MD Work Phone: Start: 10-03-2023 Glucose measurement, blood Chance Goodman MD Work Phone: Start: 10-03-2023 Assay of magnesium Rick smith [employer]ITER Work Phone: Start: 10-03-2023 Glucose measurement, blood Chance Goodman MD Work Phone: Start: 10-03-2023 Glucose measurement, blood Chance Goodman MD Work Phone: Start: 10-03-2023 Radiologic exam ches t single view Renetta Torres MD Work Phone: Start: 10-03-2023 Comprehensive metabo lic panel Moise [employer]yer [employer] Work Phone: Start: 10-02-2023 Glucose measurement, blood Chance Goodman MD Work Phone: Start: 10-02-2023 Glucose measurement, blood Chance Goodman MD Work Phone: Start: 10-02-2023 Blood gases any combination ph pco2 po2 co2 hco3 Moise Drake MD Work Phone: Start: 10-02-2023 Glucose measurement, blood Chance Goodman MD Work Phone: Start: 10-02-2023 Culture bct isol&prs mptv id isolate ea urine Moise [employer]yer [employer] Work Phone: Start: 10-02-2023 EXTRA MICRO Moise Eye r [employer]ITER Work Phone: Start: 10-02-2023 URINALYSIS REFLEX TO CULTURE Moise Eyer [employer] Work Phone: Start: 10-02-2023 Blood gases any combination ph pco2 po2 co2 hco3 Moise Drake MD Work Phone: Start: 10-02-2023 Radiologic exam ches t single view Moise Eyer [employer]ITER Work Phone: Start: 10-02-2023 Glucose measurement, blood Chance Goodman MD Work Phone: Start: 10-01-2023 Blood gases any combination ph pco2 po2 co2 hco3 Moise Drake MD Work Phone: Start: 10-01-2023 Potassium serum plasma/whole blood Moise Kaylah [employer] Work Phone: Start: 10-01-2023 Glucose measurement, blood Chance Goodman MD Work Phone: Start: 10-01-2023 Blood gases any combination ph pco2 po2 co2 hco3 Moise Drake MD Work Phone: Start: 10-01-2023 Glucose measurement, blood Chance Goodman MD Work Phone: Start: 10-01-2023 Glucose measurement, blood Chance Goodman MD Work Phone: Start: 10-01-2023 Assay of magnesium Rick sarah [employer] Work Phone: Start: 10-01-2023 Blood gases any combination ph pco2 po2 co2 hco3 Moise Drake MD Work Phone: Start: 10-01-2023 Radiologic exam ches t single view Candida Adams MD Work Phone: Start: 10-01-2023 Blood gases any combination ph pco2 po2 co2 hco3 Moise Drake MD Work Phone: Start: 10-01-2023 Comprehensive metabo lic panel Moise Drake MD Work Phone: Start: 10-01-2023 Glucose measurement, blood Chance Goodman MD Work Phone: Start: 10-01-2023 Blood gases any combination ph pco2 po2 co2 hco3 Moise Drake MD Work Phone: Start: 10-01-2023 Comprehensive metabo lic panel Moise Drake MD Work Phone: Start: 10-01-2023 Glucose measurement, blood Chance Goodman MD Work Phone: Start: 09-30-2023 Radiologic exam ches t single view Juan R Hernandez MD Work Phone: Start: 09-30-2023 Glucose measurement, blood Chance Goodman MD Work Phone: Start: 09-30-2023 Blood gases any combination ph pco2 po2 co2 hco3 Moise Drake MD Work Phone: Start: 09-30-2023 Comprehensive metabo lic panel Moise Drake MD Work Phone: Start: 09-30-2023 Radiologic exam abdo men 1 view Moise Drake MD Work Phone: Start: 09-30-2023 Radiologic exam ches t single view Moise Drake MD Work Phone: Start: 09-30-2023 Glucose measurement, blood Chance Goodman MD Work Phone: Start: 09-30-2023 Blood gases any combination ph pco2 po2 co2 hco3 Moise Drake MD Work Phone: Start: 09-30-2023 Comprehensive metabo lic panel Moise Drake MD Work Phone: Start: 09-30-2023 End: 09-30-2023 Calcium ionized Chance Goodman MD Work Phone: Start: 09-30-2023 End: 09-30-2023 Calcium ionized Chance Goodman MD Work Phone: Start: 09-30-2023 End: 09-30-2023 ACT* LOW RANGE, POC Chance Goodman MD Work Phone: Start: 09-30-2023 End: 09-30-2023 ACT* LOW RANGE, POC Chance Goodman MD Work Phone: Start: 09-30-2023 Calcium ionized Chance Goodman MD Work Phone: Start: 09-30-2023 Glucose measurement, blood Chance Goodman MD Work Phone: Start: 09-30-2023 End: 09-30-2023 Calcium ionized Chance Goodman MD Work Phone: Start: 09-30-2023 End: 09-30-2023 Dir rpr aneurysm abdominal aorta Chance oGodman MD Work Phone: Start: 09-30-2023 Glucose measurement, blood Chance Goodman MD Work Phone: Start: 09-30-2023 ABORH TYPE RECONFIRMATION Paulo Parra MD Work Phone: Start: 09-16-2023 Antibody screen LATRELL BERNAL Comment on above: Performed By: #### X MPO #### [facility] ([facility]) [address] [place] [address] Start: 09-16-2023 PREPARE TO TRANSFUSE OR PLASMA Chance Goodman MD Work Phone: Start: 09-16-2023 PREPARE TO TRANSFUSE OR RED BLOOD CELLS Bianca Gomez PAC Work Phone: Start: 06-24-2023 Computed tomography angiography of abdominal and/or pelvic blood vessel MD Latrell Bernal Work Phone: Start: 06-12-2023 Cardiovascular stres s test using pharmacologic stress agent MD Latrell Bernal Work Phone: Start: 06-10-2023 MRI of joint of lowe r extremity MD Latrell Bernal Work Phone: Start: 05-03-2023 Radiologic examinati on of knee Start: 03-30-2023 Plain chest X-ray Start: 01-17-2022 History of placement of stent for coronary artery disease History of coronary artery stent placement Start: 05-18-2020 Creatine kinase [Enz ymatic activity/volume] in Serum or Plasma Sangeeta Rios Work Phone: Start: 05-18-2020 MRI of lumbar spine without contrast Tu Hsieh Work Phone: Start: 05-18-2020 MRI of thoracic spin e without contrast Courtney Dakota Gomez Work Phone: Start: 05-17-2020 APTT - reference Tu Hsieh Work Phone: Start: 05-17-2020 End: 05-17-2020 Computerized tomography, limited studies External Transcribed Start: 05-17-2020 Doppler ultrasonogra phy of artery of lower limb Yumiko Armendariz Campa Work Phone: Start: 05-17-2020 aPTT in Blood by Coagulation assay Marci Freedman Work Phone: Start: 05-17-2020 Basic metabolic 2000 panel - Serum or Plasma Marci Freedman Work Phone: Start: 05-17-2020 Complete blood count with white cell differential, automated Marci Freedman Work Phone: Start: 05-17-2020 Complete blood count with white cell differential, manual Marci Freedman Work Phone: Start: 05-17-2020 Creatine kinase [Enz ymatic activity/volume] in Serum or Plasma Fredrickkeiko Duncan Jason Work Phone: Start: 05-17-2020 Erythrocyte sediment ation rate by Westergren method Fredrickkeiko Gomez Work Phone: Start: 05-17-2020 Complete blood count (hemogram) panel - Blood by Automated count Marci Freedman Work Phone: Start: 05-16-2020 Urinalysis RACHELLE DORANTES Comment on above: Result Comment: URIN ALYSIS Performed By: #### [id number] #### [facility],[address] [place], [place] [id number] Plan of Treatment Date Care Activity Detail Author Start: 03-22-2024 Influenza vaccination INFLUENZ A VACCINE (Season Ended) [facility] Start: 11-07-2023 End: 11-07-2023 Patient encounter procedure 11/07/2023 8:45 AM EDT Office Visit [facility] [address] [place], [place] [id number] Chance Goodman MD [address] [place] [address] [facility] Start: 11-07-2023 End: 11-07-2023 ambulatory Imaging [facility] Start: 10-04-2023 End: 10-03-2024 BUN CREA [facility] Start: 10-04-2023 End: 10-03-2024 CT Abdomen and Pelvis and CT angiogram Abdominal aorta WO and W contrast IV [facility] Start: 09-30-2023 End: 09-30-2023 Dir rpr aneurysm abdominal aorta REPAIR AAA RETROPERITONEAL APPROACH Juxtarenal abdominal aortic aneurysm (AAA) without rupture 09/30/2023 8:00 AM EDT [facility] Start: 09-30-2023 End: 09-30-2023 Evaluation and management of inpatient Ross PERIOP Comment on above: Juxtarenal abdominal aortic aneurysm (AAA) without rupture REPAIR AAA RETROPERI TONEAL APPROACH Start: 09-10-2023 End: 09-09-2024 CHEM 7 (LYTES,BUN,CREA,GLUC) CHEM 7 (LYTES,BUN,CREA,GLUC) Lab Routine Juxtarenal abdominal aortic aneurysm (AAA) without rupture Expected: 09/10/2023, Expires: 09/09/2024 [facility] Comment on above: Expected: 09/10/2023 , Expires: 09/09/2024 Start: 09-10-2023 End: 09-10-2024 Complete blood count with white cell differential, automated CBC, EDIF, PLATELET Lab Routine Juxtarenal abdominal aortic aneurysm (AAA) without rupture Expected: 09/10/2023, Expires: 09/10/2024 [facility] Comment on above: Expected: 09/10/2023 , Expires: 09/10/2024 Start: 09-10-2023 End: 09-10-2024 Hemoglobin A1c/Hemoglobin.total in Blood HEMOGLOBIN A1C Lab Routine Juxtarenal abdominal aortic aneurysm (AAA) without rupture Expected: 09/10/2023, Expires: 09/10/2024 [facility] Comment on above: Expected: 09/10/2023 , Expires: 09/10/2024 Start: 09-10-2023 End: 09-10-2024 PT,INR,PTT PT,INR,PTT Lab Routine Juxtarenal abdominal aortic aneurysm (AAA) without rupture Expected: 09/10/2023, Expires: 09/10/2024 [facility] Comment on above: Expected: 09/10/2023 , Expires: 09/10/2024 Start: 09-10-2023 End: 09-10-2024 TYPE AND SCREEN - PREADMISSION TYPE AND SCREEN - PREADMISSION Blood Bank Routine Juxtarenal abdominal aortic aneurysm (AAA) without rupture Expected: 09/10/2023, Expires: 09/10/2024 [facility] Comment on above: Expected: 09/10/2023 , Expires: 09/10/2024 Start: 09-10-2023 End: 09-10-2024 XR Chest PA and Lateral XR CHEST PA AND LATERAL 2 VIEWS Imaging Routine Juxtarenal abdominal aortic aneurysm (AAA) without rupture Expected: 09/10/2023, Expires: 09/10/2024 [facility] Comment on above: Expected: 09/10/2023 , Expires: 09/10/2024 Start: 05-03-2023 [facility] Start: 03-30-2023 Ambulatory ECG [facility] Start: 03-30-2023 Blood chemistry [facility] Start: 03-30-2023 Thyroid stimulating hormone measurement [facility] Start: 03-30-2023 End: 03-30-2023 [facility] Start: 03-22-2023 COVID-19 VACCINE ( season) COVID-19 VACCINE ( season) [facility] Start: 03-22-2023 Influenza vaccination O SALMERON [facility] Start: 03-22-2023 [facility] Start: 03-22-2022 Influenza vaccination INFLUENZA (#1) [facility] Start: 03-22-2020 Influenza vaccinatio n given Sequential Influenza Vaccine (#1) [facility] Start: 07-05-2017 DIABETES SCREEN DIABETES SCREEN [facility] Start: 2015 PROSTATE CANCER SCRE ENING DISCUSSION PROSTATE CANCER SCREENING DISCUSSION [facility] Start: 2010 Administration of he rpes zoster vaccine Zoster Vaccines (1 of 2) [facility] Start: 2010 Prostate specific an tigen measurement [facility] Start: 2010 Screening for malign ant neoplasm of colon [facility] Start: 2010 SHINGRIX VACCINE (1 of 2) DAIGLE GRIX VACCINE (1 of 2) [facility] Start: 2010 Zoster vaccine hzv l spencer for subcutaneous use ZOSTER (SHINGLES) VACCINE (1 of 2) [facility] Start: 2010 [facility] Start: 2005 COLOGUARD (FIT-DNA) COLOGUARD (FIT-D NA) [facility] Start: 2005 Colonoscopy COLONOSCOPY [facility] Start: 2005 COLORECTAL CANCER SCREENING COLORECTAL CANCER SCREENING [facility] Start: [address] COLONOGRAPHY [facility] Start: 2005 FECAL OCCULT BLOOD FECAL OCCULT BLOO D [facility] Start: 2005 Screening for malign ant neoplasm of colon [facility] Start: 2005 SIGMOIDOSCOPY SIGMOIDOSCOPY [facility] Start: 2000 Lipid panel [facility] Start: 1995 LIPID SCREEN LIPID SCREEN [facility] Start: 1979 Third diphtheria, te tanus and acellular pertussis (DTaP) vaccination [facility] Start: 1979 Urine microalbumin profile DTAP,TDAP,TD (1 - Tdap) [facility] Start: 1978 Hepatitis C antibody , confirmatory test Hepatitis C Screening [facility] Start: 1978 HEPATITIS C SCREENING HEPATITIS C SC REENING [facility] Start: 1978 HIV SCREENING HIV SCREENING [facility] Start: 1976 COVID-19 Vaccine (1 of 2) COVI D-19 Vaccine (1 of 2) [facility] Start: 1975 HIV screening [facility] Start: 1972 Adolescent depressio n screening assessment [facility] Start: 1966 PNEUMOCOCCAL VACCINE SERIES (1 of 2 - PCV) PNEUMOCOCCAL VACCINE SERIES (1 of 2 - PCV) [facility] Start: 1966 [facility] Start: 1963 History and physical examination, annual for health maintenance Wellness Visit [facility] Start: 1960 COVID-19 VACCINE (#1) COVID-19 VACCI NE (#1) [facility] Start: 1960 Hepatitis C screening [facility] Start: 1960 Prostate specific an tigen measurement PSA Level [facility] Start: 1960 Screening for malign ant neoplasm of lung Low-dose CT Lung Cancer Screen [facility] Start: 1960 Tetanus vaccination [facility] End: 10-02-2023 Bacteria identified in Blood by Culture [facility] Work Phone: CT Abdomen and Pelvis [facility] MR Lower Extremity Joint [facility] NM Heart Views W str ess and W radionuclide IV [facility] Patient Education [facility] Work Phone: Patient referral [facility] Work Phone: [facility] c Payers Date Payer Category Payer Self-pay [id number] 2023 Unknown 2023 Unknown [id number] 2021 Unknown MICHAEL BRAMBILA ACCE SS PPO [id number] 2021-Present [phone] [address] [place] [address] PPO [id number] 1960 Unknown [id number] 1960 Unknown [id number] 1960 Unknown [id number] 1960 Unknown [id number] 1960 Unknown [id number] 1960 Unknown [id number] 1960 Unknown [id number] 1960 Unknown [id number] 1960 Unknown [id number] 1960 Unknown [id number] Unknown [facility] [id number] Effective for all dates [id number] Unknown [id number] Unknown [facility] [phone] [id number] Unknown [facility] [id number] Unknown [id number] Unknown [id number] Social History Date Type Detail Facility Start: 05-18-2020 End: 08-09-2023 Tobacco smoking status MIIS Current every day smoker [facility] Start: 05-18-2020 End: 11-07-2023 Cigarettes smoked current (pack per day) - Reported [facility] Start: 05-18-2020 End: 08-09-2023 Tobacco use and exposure Never used [facility] Start: 05-18-2020 Alcohol intake Ex-drinker (finding) [facility] Start: 1960 Sex Assigned At Not on file [facility] Start: 03-30-2023 End: 08-05-2023 Tobacco smoking status MIIS Tobacco smoking consumption unknown [facility] Start: 1960 Sex Assigned At Male [facility] History of tobacco use Cigarette Smoker O SALMERON [facility] Start: 09-10-2023 End: 11-07-2023 Alcoholic beverage intake Lifetime non-drinker (finding) [facility] Start: 09-10-2023 End: 11-07-2023 Tobacco use panel [facility] Medical Equipment Procedure Code Equipment Code Equipment Origin al Text Equipment Identifier Dates [id number] Start: 09-30-2023 Mental Status Date Assessment Result Facility 03-30-2023 Cognitive function Level Of Cons ciousness Awake;Alert;Appropriate;Follow s Commands [facility] Work Phone: Clinical Notes 01-17-2022 to 11-07-2023 GEOFF Adair - 11/07/2023 8:45 AM EDTPatient Nicole Melendez - 10/06/2023 12:32 PM EDFermin Salguero [facility] - 10/06/2023 10:27 AM EDTLeslie Quijano MD - 10/05/2023 12:04 PM EDT Note Date & Type Note Facility 11-07-2023 History of Presen t illness Narrative Tariq Arias is a 63 y.o. male who was seen at the [facility] on 11[facility]07/2023 for follow up after open pararenal AAA. Overall he has recovered well; however he has been experiencing pain of the lower Left quadrant of his abdomen. The pain is constant, but worse with straining, sitting or driving over bumps in the road. It often keeps him up at nighttime. He denies pain with eating, claudication, leg pain. Otherwise he feels well and is back to his baseline mobility. Patients current medications and allergies reviewed. A complete review of systems was otherwise negative. Physical Exam revealed: Vitals: 11/07/23 0841 BP: 140/78 Pulse: 65 SpO2: 97% Weight: 108.3 kg (238 lb 12.8 oz) Heart: RR Lungs: CTA bilaterally Abd: Well healed RP incision. Mildly tender in the LLQ with palpation. Bowel sounds present. Pulses: Palpable femoral, DP and PT pulses. Extremities: without erythema, edema, induration. Bilateral good capillary refill, warm, pink. No ulcerations present. IMAGING REVIEWED: CTA images reviewed with attending. Formal read pending. ASSESSMENT/PLAN: Tariq Arias is a pleasant 63 y.o. male s/p open pararenal aortic aneurysm repair. Overall he is recovering well despite some c/o pain beneath the distal aspect of his incision site. CTA demonstrates widely patent aortic graft with what appears to be a seroma beneath his incision. Will follow up on final read. He can follow up in vascular surgery in five years. He will call us to be seen sooner if his pain worsens. Bianca Gomez PA-C Division of Vascular Diseases and Surgery I saw and evaluated the patient independent from the Physician's Blanket Binder. I provided a substantive portion of the care for this patient. I personally performed all aspects of the medical decision making for this encounter. I have reviewed and verified this documentation and it accurately reflects our care. The PA and I spoke with the patient and provided written and verbal instructions for the patient. The PA has scribed limited portions of this note for cohesiveness and continuity. The above note has been reviewed and I agree with the assessment and plan. Follow-up arrangements were made prior to the patient being discharged from the clinic. Doing well. Having incisional pain. No abnormal stools, no drainage from incisions. Overall healing well. However, he is a light sleeper and reports that the pain keeps him up at night. Reviewed CT - awaiting final read, but no evidence of hernia or bowel issues. There is a small to moderate seroma around the incision, but not unexpected. Otherwise aorta looks good and repair looks good. Will give him additional narcotic medications for pain control. He should call us to see if his pain gets better. Continue to move as much as possible. Chance Goodman MD Department of Vascular Surgery [facility] 11/07/2023 documented in this encounter [facility] 11-07-2023 Instructions Alise Gunn RN - 11/07/2023 8:45 AM EDT - Dr. Goodman is requesting to see you back in 5 years. Approximately 2 months prior to your follow up, you will receive a call from our office to schedule your appointment. Testing that will also be scheduled with your follow up appointment: CTA. CTA Scan Instructions - Be sure to have your required blood work done within 30 days prior to your scan. If you have your blood work done outside the [facility] system, please call [phone] to inform us where you went so that we may obtain the results. - If you are not on any fluid restrictions from your doctor, increase the amount of water you drink the evening before your test. You should continue to drink water the day of your scan. This will help flush the contrast medicine from your body when the exam is finished. - Hold all Metformin (Glucophage) drugs and any combination drugs using this medication the evening before AND the morning of your scan. You may take the rest of your normal medicines with water before your scan. - If you have an allergy to IVP dye or shellfish, be sure to take your pre-medications Benadryl (Diphenhydramine) and Prednisone as directed prior to your scan. - Do not eat or drink anything except water for 4 hours before your scan. - Bring a list of your current medications with you to your scan. - If you have any questions regarding your scheduled CTA please call radiology at [phone]. documented in this encounter [facility] 10-06-2023 History of Presen t illness Narrative Images from the original note were not included. [facility] Note: Bedside Delivery Documentation The following prescription(s) were delivered to the patient's bedside. Marques Melendez [facility] ([place]) [phone] Iesha [phone] [facility] Bedside Delivery [phone] [facility] [phone] [facility] Bedside Delivery [phone] On[facility] [phone] [facility] Bedside Delivery [phone] [place] [phone] [place] [phone] Images from the original note were not included. [facility] Note: Non-Verbal Med Rec [facility] received the following discharge prescription(s): Total cost is $26.68. I have reviewed the Discharge Rx Reconciliation Report. The discharge prescription(s) will be delivered to the patient on 10/06/2023. Sonali Salguero [facility] Specialty ([place]) [phone] [facility] [phone] [facility] Bedside Delivery [phone] [facility] [phone] [facility] Bedside Delivery [phone] [facility] [phone] [facility] Bedside Delivery [phone] [place] [phone] [place] [phone] Attempted to see on rounds twice but using bedside commode. Pain well controlled. CXR today. If this is stable, consider discharge this afternoon. VASCULAR SURGERY PROGRESS NOTE HPI: 63 y.o. male with a past medical history of T2DM not on insulin, hyperlipidemia, and HTN. He has followed in Vascular Surgery clinic for enlarging AAA, now at 5.8cm per last clinic visit. He presented for scheduled open repair via RP approach. SUBJECTIVE: NAEON, did well yesterday, responded well to lasix yesterday. Denies n/v, +Bm, +flatus OBJECTIVE: Vital Signs: Temp: [98.6 F (37 C)-99 F (37.2 C)] 98.9 F (37.2 C) Pulse (Heart Rate): [65-89] 67 Resp Rate: [18-33] 25 BP: (89-130)/(56-69) 127/60 O2 Sat (%): [93 %-97 %] 95 % Weight: [121.1 kg (266 lb 14.4 oz)] 121.1 kg (266 lb 14.4 oz) Fluid Management: I/O last 3 completed shifts: In: 790.1 [P.O.:690; IV Piggyback:100.1] Out: 2300 [Urine:2300] Wt Readings from Last 3 Encounters: 10/05/23 121.1 kg (266 lb 14.4 oz) 09/10/23 113.4 kg (250 lb) 08/09/23 111.1 kg (245 lb) Physical Exam: Gen: NAD, resting comfortably Neuro: CN II-XII grossly intact, no focal signs Cardiac: RRR Lungs: no respiratory distress, on room air Abd: soft, non-tender, minimal distention Incision: RP dressing removed. Closed w/ dissolving sutures, covered w/ skin adhesive. No erythema or ecchymosis. Extremities: pink, warm, mild distal edema, 5+ motor, sensation intact in BLE Pulses: Doppler DP/PT bilaterally LDA: The patient continues to require the followings lines, tubes and drains: Patient Lines/Drains/Airways Status Active Lines, Drains, Airways, & Wound Overview Name Placement date Placement time Site Days Peripheral IV Line - Single Lumen 09/30/23 0625 metacarpal vein (top of hand), left 09/30/23 0625 -- 5 Peripheral IV Line - Single Lumen 10/02/23 1200 forearm, anterior, right 20 gauge 10/02/23 1200 -- 2 Wound Incision 09/30/23 1036 Left;Upper Flank 09/30/23 1036 Flank 5 These are required for the following reasons: Continuation of inpatient Care Monitoring for strict blood pressure control Labs: WBC/Hgb/Hct/Plts: 8.74/7.8/23.4/203 (10/04 24) Na/K+/Phos/Mg/Ca: 136/3.9/2.5/1.9/7.9 (10/04 24) Bun/Creat/Cl/CO2/Glucose: 28/1.11/100/24/107 (10/04 0025-10/05 815) Ptt/Pt/Inr: 36.5/13.9/1.1 (10/04 24) ASSESSMENT & PLAN: Tariq Arias is a 63 y.o. male who presented with enlarging AAA. Now on 5 Days Post-Op s/p Procedure(s) (LRB): REPAIR AAA RETROPERITONEAL APPROACH (Midline) on 09/30/23. Diet: Heart Healthy Activity: OOBTC, ambulate DVT ppx: SQH Bowel regimen: senna, miralax SBP goal < 140 Daily Plan: - Cr CTM, will encourage water intake - CXR this morning - multi-modal pain management - encourage OOB, IS - NEEDS TO WALK MULTIPLE TIMES TODAY - likely home today, pending CXR and pain, son will be there with him Enlarging Pararenal AAA (POA) - s/p RP Exposure for Open AAA Repair wx9 Bifurcated Graft (09/30/23 Rex) - Anticoagulation: not indicated - Antiplatelet: 81 ASA - Incision care: PVS removed OR dressing this AM. Ok to leave open to air or cover w/ dry gauze dressing if any drainage - PT/OT for mobility/dispo planning - Hourly IS while awake Fever - UA +, cont aztreonam, fu urine cultures- Oral keflex 7 days total course - NGTD BCx Acute Pain due to surgery - Multimodal pain control: - scheduled tylenol, toradol, increase robaxin to 750mg TID - PRN variable oxycodone - Epidural- removed T2DM not on insulin (POA) - SSI - Hold home Metformin while inpatient Hyperlipidemia (POA) - Atorvastatin 40mg daily (home med) Hypertension (POA) - Metoprolol 25mg q12h (home med) - 20mg IV lasix today Complexity. Hypocalcemia - Continue to monitor and replete. Morbid Obesity Body mass index is 43.08 kg/m . - Follow with PCP for dietary and lifestyle modifications. Any conditions listed below are present on admission unless otherwise specified. .None DISPO: Continue PCU care. Transfer to [facility] when able. Waleska Dasilva MD 10/02/2023 Vascular Surgery Floor patients: M-F 6am-5pm please call. Daily # [phone]/Doug #[phone]. After 5pm M-F and weekends please page the electronic systems security assessment resident. Consults: please page the electronic systems security assessment resident ICU patients: page electronic systems security assessment fellow or chief resident. -Path.To chat is not a reliable method of communication with a surgical service for urgent needs -The person who wrote this note may be off service, post call, or otherwise unavailable 1899: Report received from ROGER August. 1944: Pt requesting something for sleep. Paged Dr. Nunn for orders. Orders for 3mg melatonin received. 1999: Initial assessment completed. See flowsheets. 0000: Reassessment. No changes unless otherwise noted. Labs drawn. 0130: Ical 4.33. Notified Dr Nunn. Orders for 2g calcium received. 0400: Reassessment.No changes unless otherwise noted in flowsheets. VASCULAR SURGERY PROGRESS NOTE HPI: 63 y.o. male with a past medical history of T2DM not on insulin, hyperlipidemia, and HTN. He has followed in Vascular Surgery clinic for enlarging AAA, now at 5.8cm per last clinic visit. He presented for scheduled open repair via RP approach. SUBJECTIVE: NAEON, yesterday little hypotensive received 500ml LR and 500ml albumin. Cr improved to 1.36 from 1.60. having +BM, denies n/v. Feels puffy in exam. OBJECTIVE: Vital Signs: Temp: [98.9 F (37.2 C)-99.5 F (37.5 C)] 99.3 F (37.4 C) Pulse (Heart Rate): [59-81] 62 Resp Rate: [16-33] 17 BP: (85-165)/(49-87) 96/64 O2 Sat (%): [83 %-97 %] 94 % Weight: [121.5 kg (267 lb 14.4 oz)] 121.5 kg (267 lb 14.4 oz) Fluid Management: I/O last 3 completed shifts: In: 2345.5 [P.O.:1010; I.V.:499.2; IV Piggyback:836.2] Out: 1275 [Urine:1275] Wt Readings from Last 3 Encounters: 10/04/23 121.5 kg (267 lb 14.4 oz) 09/10/23 113.4 kg (250 lb) 08/09/23 111.1 kg (245 lb) Physical Exam: Gen: NAD, resting comfortably Neuro: CN II-XII grossly intact, no focal signs Cardiac: RRR Lungs: no respiratory distress, on room air Abd: soft, non-tender, minimal distention Incision: RP dressing removed. Closed w/ dissolving sutures, covered w/ skin adhesive. No erythema or ecchymosis. Extremities: pink, warm, mild distal edema, 5+ motor, sensation intact in BLE Pulses: Doppler DP/PT bilaterally LDA: The patient continues to require the followings lines, tubes and drains: Patient Lines/Drains/Airways Status Active Lines, Drains, Airways, & Wound Overview Name Placement date Placement time Site Days Peripheral IV Line - Single Lumen 09/30/23 0625 metacarpal vein (top of hand), left 09/30/23 0625 -- 4 Peripheral IV Line - Single Lumen 10/02/23 1200 forearm, anterior, right 20 gauge 10/02/23 1200 -- 1 Wound Incision 09/30/23 1036 Left;Upper Flank 09/30/23 1036 Flank 3 These are required for the following reasons: Continuation of inpatient Care Monitoring for strict blood pressure control Labs: WBC/Hgb/Hct/Plts: 8.31/7.7/23.7/119 (10/03 0024) Na/K+/Phos/Mg/Ca: 133/4.8/1.9/2.1/8.2 (10/03 002) Bun/Creat/Cl/CO2/Glucose: 32/1.36/101/24/122 (10/03 0024-10/03 07) Ptt/Pt/Inr: 27.9/13.6/1.1 (10/04 23) ASSESSMENT & PLAN: Tariq Arias is a 63 y.o. male who presented with enlarging AAA. Now on 4 Days Post-Op s/p Procedure(s) (LRB): REPAIR AAA RETROPERITONEAL APPROACH (Midline) on 09/30/23. Diet: Heart Healthy Activity: OOBTC, ambulate DVT ppx: SQH Bowel regimen: senna, miralax SBP goal < 140 Daily Plan: - Cr CTM, will encourage water intake - lasix 20mg IV today - multi-modal pain management - encourage OOB, IS - NEEDS TO WALK MULTIPLE TIMES TODAY - PT to see today and will follow up recs Enlarging Pararenal AAA (POA) - s/p RP Exposure for Open AAA Repair w/ 18x9 Bifurcated Graft (09/30/23 Rex) - Anticoagulation: not indicated - Antiplatelet: 81 ASA - Incision care: PVS removed OR dressing this AM. Ok to leave open to air or cover w/ dry gauze dressing if any drainage - PT/OT for mobility/dispo planning - Hourly IS while awake Fever - UA +, cont aztreonam, fu urine cultures - Follow-up blood cultures Acute Pain due to surgery - Multimodal pain control: - scheduled tylenol, toradol, increase robaxin to 750mg TID - PRN variable oxycodone - Epidural- removed T2DM not on insulin (POA) - SSI - Hold home Metformin while inpatient Hyperlipidemia (POA) - Atorvastatin 40mg daily (home med) Hypertension (POA) - Metoprolol 25mg q12h (home med) - 20mg IV lasix today Complexity. Hyponatremia - Secondary to fluid shifts. Monitor. Hypocalcemia - Continue to monitor and replete. Hypophosphatemia - Continue to monitor and replete. Thrombocytopenia - Continue to monitor. Morbid Obesity Body mass index is 43.24 kg/m . - Follow with PCP for dietary and lifestyle modifications. Any conditions listed below are present on admission unless otherwise specified. .None DISPO: Continue PCU care. Transfer to [facility] when able. Waleska Dasilva MD 10/02/2023 Vascular Surgery Floor patients: M-F 6am-5pm please call. Daily # [phone]/Doug #[phone]. After 5pm M-F and weekends please page the electronic systems security assessment resident. Consults: please page the electronic systems security assessment resident ICU patients: page electronic systems security assessment fellow or chief resident. -Path.To chat is not a reliable method of communication with a surgical service for urgent needs -The person who wrote this note may be off service, post call, or otherwise unavailable 1899: Report received from ROGER Jain. 1999: Initial assessment completed. See flowsheets. 0: Messaged PVS via [employer] Pt complaining of shaking after waking from sleep. Just wanted you to be aware. Please message me at Barbi Mathew RN or call [phone]. Thanks. 0000: Reassessment. Changes noted in flowsheets. Labs drawn. 0120: Dr. Nunn at bedside to assess pt earlier c/o shaking after waking from sleep. Pt reassured. No new orders at this time. 0205: Ical 4.29. Notified Dr. Nunn. No new orders at this time. 0300: orders for 2g calcium obtained. 0400: Reassessment. Changes noted in flowsheets. Anesthesia Acute Pain Progress Note Tariq Arias is a 63 y.o. male who is 3 Days Post-Op from Procedure(s) (LRB): REPAIR AAA RETROPERITONEAL APPROACH (Midline). He is s/p epidural pull yesterday. No acute events overnight. Pain well-controlled with current regimen. No complaints this morning. Patient denies back pain or lower extremity paresthesias/weakness. Physical Exam: Vitals: 10/03/23 1212 BP: 88/65 Pulse: 71 Resp: (!) 27 Temp: SpO2: GEN: Reclining in bed, NAD HEENT: NC/AT CHEST: Equal chest rise bilaterally, no labored breathing CARDIOVASCULAR: Hemodynamically stable NEURO: Alert and oriented, no gross focal deficit Impression: Pain well-managed s/p epidural discontinuation yesterday. Epidural initially discontinued due to alligator clamp site breaking. Patient has since been doing well. Plan: Continue current multimodal pain regimen. APS will sign off at this time. Please call [phone] or page [phone] with any questions or concerns. Fredrick Vasquez MD, MPH Anesthesiology, PGY-1 Pager [phone] Associated attestation - Ryne Farley III, MD - 10/03/2023 6:54 PM EDT Discussed with the resident. Based on the medical record and physical exam I agree with the residents assessment and medical decision making. Ryne Farley III, MD VASCULAR SURGERY PROGRESS NOTE HPI: 63 y.o. male with a past medical history of T2DM not on insulin, hyperlipidemia, and HTN. He has followed in Vascular Surgery clinic for enlarging AAA, now at 5.8cm per last clinic visit. He presented for scheduled open repair via RP approach. SUBJECTIVE: OVN line to epidural malfunction, APS removed epidural. This morning feels okay, in chair when we saw him. Still endorses pain mainly back pain OBJECTIVE: Vital Signs: Temp: [97.8 F (36.6 C)-99.1 F (37.3 C)] 99.1 F (37.3 C) Pulse (Heart Rate): [61-82] 71 Resp Rate: [13-33] 27 BP: (88-165)/(52-87) 88/65 O2 Sat (%): [87 %-98 %] 94 % Weight: [119.5 kg (263 lb 6.4 oz)] 119.5 kg (263 lb 6.4 oz) Fluid Management: I/O last 3 completed shifts: In: 896.1 [P.O.:680; IV Piggyback:216.1] Out: 1475 [Urine:1475] Wt Readings from Last 3 Encounters: 10/03/23 119.5 kg (263 lb 6.4 oz) 09/10/23 113.4 kg (250 lb) 08/09/23 111.1 kg (245 lb) Physical Exam: Gen: NAD, resting comfortably Neuro: CN II-XII grossly intact, no focal signs Cardiac: RRR Lungs: no respiratory distress, on room air Abd: soft, non-tender, minimal distention Incision: RP dressing removed. Closed w/ dissolving sutures, covered w/ skin adhesive. No erythema or ecchymosis. Extremities: pink, warm, mild distal edema, 5+ motor, sensation intact in BLE Pulses: Doppler DP/PT bilaterally LDA: The patient continues to require the followings lines, tubes and drains: Patient Lines/Drains/Airways Status Active Lines, Drains, Airways, & Wound Overview Name Placement date Placement time Site Days Peripheral IV Line - Single Lumen 09/30/23 0625 metacarpal vein (top of hand), left 09/30/23 0625 -- 3 Peripheral IV Line - Single Lumen 10/02/23 1200 forearm, anterior, right 20 gauge 10/02/23 1200 -- 1 Wound Incision 09/30/23 1036 Left;Upper Flank 09/30/23 1036 Flank 3 These are required for the following reasons: Continuation of inpatient Care Monitoring for strict blood pressure control Labs: WBC/Hgb/Hct/Plts: 10.42/8.7/26.5/141 (10/02 126) Na/K+/Phos/Mg/Ca: 132/4.1/1.9/1.9/7.8 (10/02 126) Bun/Creat/Cl/CO2/Glucose: 26/1.38/100/23/108 (10/02 126-10/02 1138) Ptt/Pt/Inr: 38.1/14.4/1.1 (10/02 126) ASSESSMENT & PLAN: Tariq Arias is a 63 y.o. male who presented with enlarging AAA. Now on 3 Days Post-Op s/p Procedure(s) (LRB): REPAIR AAA RETROPERITONEAL APPROACH (Midline) on 09/30/23. Diet: Heart Healthy Activity: OOBTC, ambulate DVT ppx: SQH Bowel regimen: senna, miralax SBP goal < 140 Daily Plan: - Cr bump, 1.38 (1.08) CTM, will encourage water intake - multi-modal pain management - encourage OOB, IS Enlarging Pararenal AAA (POA) - s/p RP Exposure for Open AAA Repair w/ 18x9 Bifurcated Graft (09/30/23 Rex) - Anticoagulation: not indicated - Antiplatelet: 81 ASA - Incision care: PVS removed OR dressing this AM. Ok to leave open to air or cover w/ dry gauze dressing if any drainage - PT/OT for mobility/dispo planning - Hourly IS while awake Fever - UA +, cont aztreonam, fu urine cultures - Follow-up blood cultures Acute Pain due to surgery - Multimodal pain control: - scheduled tylenol, toradol, increase robaxin to 750mg TID - PRN variable oxycodone - Epidural- removed T2DM not on insulin (POA) - SSI - Hold home Metformin while inpatient Hyperlipidemia (POA) - Atorvastatin 40mg daily (home med) Hypertension (POA) - Metoprolol 25mg q12h (home med) - Lasix this PM if BP remains stable Complexity. Hyponatremia - Secondary to fluid shifts. Monitor. Hypocalcemia - Continue to monitor and replete. Hypophosphatemia - Continue to monitor and replete. Thrombocytopenia - Continue to monitor. Morbid Obesity Body mass index is 42.51 kg/m . - Follow with PCP for dietary and lifestyle modifications. Any conditions listed below are present on admission unless otherwise specified. .None DISPO: Continue PCU care. Transfer to [facility] when able. Waleska Dasilva MD 10/02/2023 Vascular Surgery Floor patients: M-F 6am-5pm please call. Daily # [phone]/[place] #[phone]. After 5pm M-F and weekends please page the electronic systems security assessment resident. Consults: please page the electronic systems security assessment resident ICU patients: page electronic systems security assessment fellow or chief resident. -Epic chat is not a reliable method of communication with a surgical service for urgent needs -The person who wrote this note may be off service, post call, or otherwise unavailable Acute Occupational Therapy Treatment Prior to Admission AM-PAC Score: PRIOR LEVEL AM-PAC Activity Raw Score: 24 PRIOR LEVEL AM-PAC Mobility Raw Score: 24 Current AM-PAC score(s): CURRENT AM-PAC Activity Raw Score: 19 Based on the above AM-PAC score(s), and OT clinical judgment, discharge destination recommendation is: Home Barriers to discharge home: Patient needs assistance with ADLs, Patient needs assistance with functional mobility Mobility equipment available at home: straight cane ADL equipment available at home: none Equipment recommendations for discharge: tub bench, 4 wheeled walker Current therapy frequency recommendation(s) in acute: 3 times a week Activity Recommendations for outside of rehab session: OOB for all meals and 3 walks per day Precautions and Weightbearing Status: Telemetry Patient Safety Communication Prior to Visit: Nursing Subjective: Thank you so much for coming back. I so appreciate you working with me. Pain: General Pain Documentation (Adult, OB, Peds) Presence of Pain: denies pain/discomfort Presence of Pain Score (Auto-calculated): 0 Objective/Observation: Vitals/Vitals Responses to Treatment: 10/03/23 1202 Vitals ICU/PCU Pulse (Heart Rate) 69 Resp Rate 22 BP 88/65 MAP (mmHg) 70 mmHg Oxygen Therapy O2 Sat (%) 95 % O2 Device room air O2 Device: room air Cognition Overall Cognitive Status: Within Functional Limits Extremity Assessments: See OT Evaluation flowsheet for Extremity Measurement updates. Balance: Sitting Balance Static Sitting-Level of Assistance: Independent Dynamic Sitting-Level of Assistance: Independent Standing Balance Static Standing-Level of Assistance: Supervision Dynamic Standing-Level of Assistance: Supervision Standing-Balance Support: 4 wheeled walker Transfer Assessment/Intervention: Sit to Stand Transfer [place] Level: Sit->Stand: supervision Assistive Device: Sit->Stand: 4 wheeled walker, armed chair Skilled Rationale: Verbal cues, Hand placement Skilled Intervention/Details: Sit->Stand: Cues to rock forward and count to 3 to gain momentum in preparation for ascent. Stand to Sit Transfer [place] Level: Stand->Sit: supervision Assistive Device: Stand->Sit: 4 wheeled walker, armed chair Skilled Rationale: Hand placement, Verbal cues, Technique of activity Skilled Intervention/Details: Stand->Sit: Cues to cross UE over chest and utilize eccentric control to slowly descend into chair. Functional Mobility: Functional Mobility [place] Level: Functional Mobility/Gait: stand-by assist Assistive Device: Functional Mobility/Gait: 4 wheeled walker Functional Mobility Distance: Distance needed for common household mobility Ambulation Distance (Feet): 250 Functional Mobility Deficits: Activity tolerance, Shortness of breath Functional Mobility Skilled Rationale: Breathing strategies, Proper pacing Skilled Intervention/Details - Functional Mobility/Gait: Pt completed functional mobility in room/on unit to simulate home environment. Pt required cues for pursed lip breathing techniques for SOB management. Functional mobility completed to increase endurance and ease activity demands of OOB and standing I/ADL tasks. Outcome Score(s): CURRENT -[facility] Daily Activity Inpatient Short Form Putting on/Taking Off Lower Body Clothin - A Little Assistance Bathin - A Little Assistance Toiletin - A Little Assistance Putting on/Taking Off Upper Body Clothin - A Little Assistance Groomin - A Little Assistance Eatin - No Assistance CURRENT AM-[facility] Activity Raw Score: 19 CURRENT AM-PAC Activity Functional Limitation/Modifier: 42.80% Currently Impaired in Daily Activity - CK Interventions: Educated pt on energy conservation techniques, such as spacing high energy tasks out throughout the day, utilizing shower chair for bathing tasks, placing chair in the kitchen for seated rest breaks prn when cooking/cleaning dishes, and utilizing pursed lip breathing techniques for SOB management. Pt verbalized understanding of all energy conservation techniques. 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 Pt limited by activity tolerance deficits in ability to perform self-care tasks with independence. Pt will continue to benefit from skilled OT during hospital admission for ADL retraining and fall prevention to increase independence with self care tasks and reduce burden of care at discharge. Patient Instruction/Education this session: Learners: Patient Education provided: Energy conservation strategies Plan for next session: LB dressing Acute OT Goals Plan of Care by Pratibha Miller OT at 10/03/2023 12:39 PM Version 1 of 1 Problem: OT - Transfers Goal: Transfers Toilet/ Bedside Commode - Patient will transfer to/from toilet/bedside commode with modified independence for improved ability to safely complete ADLs. Outcome: Progressing Problem: OT - Endurance Goal: Endurance Functional Mobility - Patient will complete distance needed for common household mobility with no greater than 1 rest break for improved tolerance to safely complete I/ADL's Outcome: Progressing OT treatment consisted of the following to work and progress towards the above goal(s): OT Evaluation and Treatment Time Therapeutic Activity Time Entry: 18 Treating Therapist: Pratibha Miller OT Additional Details: OT Co-Eval/Treatment Information Co-evaluation/co-treatment performed?: No simultaneous skilled care performed PPE used during patient interaction: gloves, facemask Patient location at end of session: chair Alarms on at end of session: RN aware Needs in reach. Time In: 1202 Time Out: 1220 Total Visit Time: 18 minutes Total Treatment Time (skilled, billable minutes): 18 minutes Upon discontinuation of Acute Care Occupational Therapy Services or patient discharge from the hospital this note represents the current Occupational Therapy Discharge Summary. Images from the original note were not included. Introduced self and role of the construction project mgr to patient/family. Provided emotional and spiritual support and the patient/family responded by sharing their experience and discussed the following: Patient/family encouraged to request a construction project mgr as needed. Chaplains are available 24 hours a day and 7 days a week. For urgent matters in [facility], please page [phone]. If the request is not urgent, please enter a consult. Consults are responded to within 24 hours. Rev. Arthur Lopez MA Voodoo, [employer] Tankage Grinder Operator [facility] Department of Green Promotions Specialist and Clinical Pastoral Education [address] [place], [address] ([place]) pager [phone] [email or web address] 10/03/23 112 Clinical Encounter Type Visited With Health Care Provider;Patient and family together Visit Type Introduction Crisis Visit Critical care Pastoral Time Spent 15 min Referral Verbal Caodaism Encounters Caodaism Needs Prayer Spiritual Assessment Spiritual Observation Spirituality helpful Emotional Observation Coping well Hope Observation Specific hope focus Support Observation Some support;By Family Interventions Provided Supportive presence;Prayer;Active listening Facilitated Verbalization of feelings Green Promotions Specialist Education Green Promotions Specialist Service Available Yes Plan of Care Continue Visiting PRN Acute Occupational Therapy Treatment Prior to Admission AM-PAC Score: PRIOR LEVEL AM-PAC Activity Raw Score: 24 PRIOR LEVEL AM-PAC Mobility Raw Score: 24 Current AM-PAC score(s): CURRENT AM-PAC Activity Raw Score: 17 Based on the above AM-PAC score(s), and OT clinical judgment, discharge destination recommendation is: Home Barriers to discharge home: Patient needs assistance with ADLs, Patient needs assistance with functional mobility Mobility equipment available at home: straight cane ADL equipment available at home: none Equipment recommendations for discharge: to be determined Current therapy frequency recommendation(s) in acute: 5 times a week Activity Recommendations for outside of rehab session: OOB for all meals and 3 walks per day Precautions and Weightbearing Status: Telemetry, Arterial line (epidural) Patient Safety Communication Prior to Visit: Nursing Subjective: I need to use the toilet before we go on a walk if that's okay. Pain: General Pain Documentation (Adult, OB, Peds) Presence of Pain: denies pain/discomfort Presence of Pain Score (Auto-calculated): 0 Objective/Observation: Vitals/Vitals Responses to Treatment: 10/02/23 1111 Vitals ICU/PCU Pulse (Heart Rate) 75 Resp Rate 24 Art Line (1) Monitoring Arterial Line (1) BP 101/58 Arterial Line (1) MAP 72 mmHg Oxygen Therapy O2 Sat (%) 93 % O2 Device nasal cannula with humidification Flow (L/min) 3 O2 Device: nasal cannula with humidification Flow (L/min): 3 Cognition Overall Cognitive Status: Within Functional Limits ADL Assessment/Intervention: ADLs: LE Dressing Assistance: Maximal LE Dressing Location: edge of bed LE Dressing Intervention/Details: Pt required assistance to thread LE through underwear due to incisional pain, however, able to well puller head hips while standing. Toilet Assistance: Stand by Toileting Location: toilet Toileting Intervention/Details: Pt had BM on toilet and stood to clean buttocks with SBA for safety. Extremity Assessments: See OT Evaluation flowsheet for Extremity Measurement updates. Balance: Sitting Balance Static Sitting-Level of Assistance: Standby Dynamic Sitting-Level of Assistance: Standby Standing Balance Static Standing-Level of Assistance: Stand-by assist Dynamic Standing-Level of Assistance: Stand-by assist Standing-Balance Support: 4 wheeled walker Mobility Assessment/Intervention: Sit to Supine Mobility Mohave Level: Sit->Supine: maximum assist (25% patient effort) Physical Assist: Sit->Supine: 2 person assist Bed Features/Set-up: Sit->Supine: Flat Skilled Rationale: Sequencing, Positioning, Hand placement, Verbal cues Skilled Intervention/Details: Sit->Supine: Cues to keep UE crossed over chest and utilize eccentric control to lower into bed Transfer Assessment/Intervention: Sit to Stand Transfer Moh[place] Level: Sit->Stand: stand-by assist Assistive Device: Sit->Stand: 4 wheeled walker, armed chair Skilled Rationale: Positioning, Sequencing, Hand placement, Verbal cues Skilled Intervention/Details: Sit->Stand: x2 reps; cues to rock forward and count to 3 to gain momentum in preparation for ascent. Stand to Sit Transfer Mohave Level: Stand->Sit: stand-by assist Assistive Device: Stand->Sit: 4 wheeled walker Skilled Rationale: Hand placement, Verbal cues, Cues for increased safety, Technique of activity, Controlled descent for sitting Skilled Intervention/Details: Stand->Sit: Cues to cross UE over chest and utilize eccentric control to slowly descend onto EOB. Toilet Transfer Mohave Level: Toilet: contact guard assist Assistive Device: Toilet: 4 wheeled walker, grab bars Skilled Rationale: Positioning, Sequencing, Hand placement, Verbal cues Skilled Intervention/Details: Toilet: Cues for postural alignment in midline throughout transfer with tactile cues provided at hips/knees to reduce risk of posterior LOB. Functional Mobility: Functional Mobility Mohave Level: Functional Mobility/Gait: stand-by assist Assistive Device: Functional Mobility/Gait: 4 wheeled walker Functional Mobility Distance: Distance needed for common household mobility Ambulation Distance (Feet): 150 Functional Mobility Deficits: Activity tolerance, Shortness of breath Functional Mobility Skilled Rationale: Breathing strategies, Proper pacing Skilled Intervention/Details - Functional Mobility/Gait: Pt completed functional mobility in room/on unit to simulate home environment. Pt required cues for pursed lip breathing techniques for SOB management and postural alignment in midline. Functional mobility completed to increase endurance and ease activity demands of OOB and standing I/ADL tasks. Outcome Score(s): CURRENT [facility] Daily Activity Inpatient Short Form Putting on/Taking Off Lower Body Clothin - A Lot of Assistance Bathin - A Lot of Assistance Toiletin - A Little Assistance Putting on/Taking Off Upper Body Clothin - A Little Assistance Groomin - A Little Assistance Eatin - No Assistance CURRENT -[facility] Activity Raw Score: 17 CURRENT -[facility] Activity Functional Limitation/Modifier: 50.11% Currently Impaired in Daily Activity - CK Assessment & Plan: Pt demonstrating good progress toward correction goals as evidenced by ability to perform toileting, LB dressing on unit, and functional mobility on unit 150', which is an improvement to date. Pt limited by activity tolerance deficits and generalized weakness in ability to perform self-care tasks with independence.Pt will continue to benefit from skilled OT during hospital admission for ADL retraining and fall prevention to increase independence with self care tasks and reduce burden of care at discharge. Patient Instruction/Education this session: Learners: Patient Education provided: Breathing exercises Plan for next session: Standing ADLs Acute OT Goals Plan of Care by Pratibha Miller OT at 10/02/2023 12:36 PM Version 1 of 1 Problem: OT - ADLs Goal: Toileting - Patient will complete toileting task with modified independence and adaptive equipment as needed for improved ability to safely complete self-care activities. Outcome: Progressing Problem: OT - Transfers Goal: Transfers Toilet/ Bedside Commode - Patient will transfer to/from toilet/bedside commode with modified independence for improved ability to safely complete ADLs. Outcome: Progressing Problem: OT - Endurance Goal: Endurance Functional Mobility - Patient will complete distance needed for common household mobility with no greater than 1 rest break for improved tolerance to safely complete I/ADL's Outcome: Progressing OT treatment consisted of the following to work and progress towards the above goal(s): OT Evaluation and Treatment Time Self Care/Home Management (ADLs) Time Entry: 15 Therapeutic Activity Time Entry: 13 Treating Therapist: Pratibha Miller OT Additional Details: OT Co-Eval/Treatment Information Co-evaluation/co-treatment performed?: No simultaneous skilled care performed Non-billable assistance during session: ROGER Enriquez PPE used during patient interaction: gloves, facemask Patient location at end of session: bed with head of bed elevated Alarms on at end of session: RN aware Needs in reach. Time In: 1111 Time Out: 1139 Total Visit Time: 28 minutes Total Treatment Time (skilled, billable minutes): 28 minutes Upon discontinuation of Acute Care Occupational Therapy Services or patient discharge from the hospital this note represents the current Occupational Therapy Discharge Summary. Anesthesia Acute Pain Epidural Progress Note Tariq Arias is a 63 y.o. male who is 2 Days Post-Op from Procedure(s) (LRB): REPAIR AAA RETROPERITONEAL APPROACH (Midline). He has an epidural in at T9-T10 in place for management of his acute post-operative pain. Pain at rest: 7/10 Pain with activity: 10 (Worst Imaginable Pain)/10 PCEA helps: No Side effects: None Pt has corcoran: Yes Pt has chest tube: No Epidural Solution: 0.125 % bupivicaine + Fentanyl 2mcg/ml Settings Increased on 09/30 initially, had to be dropped back to original 12/23/19 due to borderline hypotension. Overnight increased back to 01/22/20 due to increased pain: Basal: 7 ml/hour Bolus: 3 Lockout: 20 minutes Total: 16 ml/hour Total attempts: 49 Total delivered boluses: 25 24 hour OME requirement: (Post op only): 7.5 PO + 80 IV Pain regimen: Dilaudid 1mg q3h PRN (increased from 0.5 mg) Oxycodone 5mg q4h prn (added 10/01) Scheduled tylenol 975 mg q6h (added 10/01) Lidocaine patch prn (added 10/01) Robaxin (added 10/01) Physical Exam: Vitals: 10/02/23 0800 BP: Pulse: 79 Resp: 21 Temp: 99.1 F (37.3 C) SpO2: 96% Neuro: normal Catheter Site: Erythema: No Dressing: Dry and intact Catheter 14 cm at skin Impression: Patient with inadequately controlled pain at this time, however pain now seems to be predominantly an exacerbation of his chronic back pain. Incisional pain is now well controlled. Plan: - Continue epidural settings at basal 7 ml/hr, bolus 3 ml, 20 minute lockout, 16 ml/hr total - Encourage mobility as much as possible in addition to position changes to decrease chronic back pain. Expectation management is needed regarding what type of pain is able to be addressed with his epidural. - Appreciate onboarding of PO multimodal regimen per primary team; please continue to prioritize PO pain control over IV pain control when able. Please page acute pain service at [phone] or call [phone] with any questions or concerns. Fredrick Vasquez MD Anesthesiology Associated attestation - Ryne Farley III, MD - 10/03/2023 6:50 PM EDT I examined and independently evaluated the patient. Based on the medical record and physical exam I agree with the residents assessment and medical decision making. Ryne Farley III, MD VASCULAR SURGERY PROGRESS NOTE HPI: 63 y.o. male with a past medical history of T2DM not on insulin, hyperlipidemia, and HTN. He has followed in Vascular Surgery clinic for enlarging AAA, now at 5.8cm per last clinic visit. He presented for scheduled open repair via RP approach. SUBJECTIVE: Had trouble sleeping last night d/t significant back pain. PVS and Pain team evaluated at bedside; increased epidural dose. Feeling better this morning, now just tired from poor sleep. Had fever to 101.8F overnight, no focal infectious signs/symptoms. OBJECTIVE: Vital Signs: Temp: [98 F (36.7 C)-101.8 F (38.8 C)] 101.7 F (38.7 C) Pulse (Heart Rate): [62-82] 75 Resp Rate: [15-36] 22 BP: (100-132)/(53-93) 130/93 Arterial Line (1) BP: (94-154)/(36-141) 126/50 O2 Sat (%): [90 %-97 %] 95 % Weight: [114.8 kg (253 lb 1.4 oz)] 114.8 kg (253 lb 1.4 oz) Fluid Management: I/O last 3 completed shifts: In: 2592.3 [P.O.:860; I.V.:1611.3; IV Piggyback:121] Out: 3070 [Urine:2770; Other:300] Wt Readings from Last 3 Encounters: 10/02/23 114.8 kg (253 lb 1.4 oz) 09/10/23 113.4 kg (250 lb) 08/09/23 111.1 kg (245 lb) Physical Exam: Gen: NAD, resting comfortably Neuro: CN II-XII grossly intact, no focal signs Cardiac: RRR Lungs: no respiratory distress, on room air Abd: soft, non-tender, minimal distention Incision: RP dressing removed. Closed w/ dissolving sutures, covered w/ skin adhesive. No erythema or ecchymosis. Extremities: pink, warm, mild distal edema, 5+ motor, sensation intact in BLE Pulses: Doppler DP/PT bilaterally LDA: The patient continues to require the followings lines, tubes and drains: Patient Lines/Drains/Airways Status Active Lines, Drains, Airways, & Wound Overview Name Placement date Placement time Site Days Percutaneous Central Line - Double Lumen 09/30/23 1031 internal jugular vein, right 09/30/23 1031 -- 1 Peripheral IV Line - Single Lumen 09/30/23 0625 metacarpal vein (top of hand), left 09/30/23 0625 -- 2 Indwelling Urethral Catheter 09/30/23 1028 100% silicone 16 10 10 09/30/23 1028 -- 1 Neuraxial Analgesia/Anesthesia Assessment 09/30/23 0719 09/30/23 0719 -- 2 Arterial Line 09/30/23 0757 radial artery, left 20 gauge 09/30/23 0757 -- 1 Wound Incision 09/30/23 1036 Left;Upper Flank 09/30/23 1036 Flank 1 These are required for the following reasons: Continuation of inpatient Care Monitoring for strict blood pressure control Labs: WBC/Hgb/Hct/Plts: 11.19/9.9/30.8/145 (09/30 2333) Na/K+/Phos/Mg/Ca: 135/4.4/3.3/1.7/8.4 (09/30 2333) Bun/Creat/Cl/CO2/Glucose: 20/1.08/102/26/114 (09/30 2333-10/01 532) Ptt/Pt/Inr: 31.7/14.5/1.1 (09/30 2333) ASSESSMENT & PLAN: Tariq Arias is a 63 y.o. male who presented with enlarging AAA. Now on 2 Days Post-Op s/p Procedure(s) (LRB): REPAIR AAA RETROPERITONEAL APPROACH (Midline) on 09/30/23. Diet: Heart Healthy Activity: OOBTC, ambulate DVT ppx: SQH Bowel regimen: senna, miralax SBP goal < 140 Enlarging Pararenal AAA (POA) - s/p RP Exposure for Open AAA Repair w/ 18x9 Bifurcated Graft (09/30/23 Rex) - Anticoagulation: not indicated - Antiplatelet: 81 ASA - Incision care: PVS removed OR dressing this AM. Ok to leave open to air or cover w/ dry gauze dressing if any drainage - PT/OT for mobility/dispo planning - Remove A line - Remove CVC - Remove corcoran - Hourly IS while awake Fever - Follow-up UA w/ culture reflex - Follow-up blood cultures - Hold on antibiotics at this time Acute Pain due to surgery - Multimodal pain control: - scheduled tylenol, toradol, increase robaxin to 750mg TID - PRN variable oxycodone - Epidural - appreciate Acute Pain assistance in weaning T2DM not on insulin (POA) - SSI - Hold home Metformin while inpatient Hyperlipidemia (POA) - Atorvastatin 40mg daily (home med) Hypertension (POA) - Metoprolol 25mg q12h (home med) - Lasix this PM if BP remains stable Complexity. Hypocalcemia - Continue to monitor and replete. Thrombocytopenia - Continue to monitor. Morbid Obesity Body mass index is 40.85 kg/m . - Follow with PCP for dietary and lifestyle modifications. Any conditions listed below are present on admission unless otherwise specified. .None DISPO: Continue PCU care. Transfer to [facility] when able. Krissy Tripathi PA-C, RDMS, RVT Vascular Surgery Physician Blanket Binder Team: Doug Neavitt #[phone] Discharge Planning Patient Assessment Admission Assessment Patient Assessment Completed: Initial Anticipated discharge disposition: Home Reason for Admission: AAA Is the patient able to participate in the assessment?: Yes Information source: Patient Information Source Name/Contact: Tariq Arias Demographics Verified and Updated: Yes Has the patient been admitted to any hospital in the last 30 days?: No Advanced Care Planning Has the patient completed Advance Directives?: Not Completed Referral to Social Work for Advance Care Planning? : Patient Declines Legal Next of Kin Adult Child(edaur), List All Adult Children: Yes Name and Contact information: Ady Arias [phone] Reviewed and Updated in Demographics? : Yes Outpatient Providers Does patient have a primary care physician? : Yes When was the patient's last PCP visit?: > 30 days Does the patient follow any specialists?: Yes Reviewed and updated Care Team?: Yes Patient Care Team: Latrell Bernal MD as PCP - General (Family Medicine) Environment/Caregivers Living Environment: House How many steps does the patient have to navigate to enter or inside the home? : 0 Does the patient have a first floor set-up with bed and bathroom?: Yes Patient Caregiving Responsibilities: Self Patient-identified caregiver/support network: Family Who does the patient identify as a teachable caregiver(s)?: Child(eduar) - Independent Services Does the patient use a home health or hospice agency?: No Current with dialysis?: No Does patient use DME? : none Does the patient use oxygen?: No Does patient use medical supplies? : none Anticipated Changes Related to Illness/Injury? : No Initial ADLs Prior to Arrival What is the patient's baseline physical functioning prior to this acute illness?: independent What is the patient's baseline cognitive functioning prior to this acute illness?: independent Is the patient's baseline functioning changed by this acute illness? : No Concerns with patient being able to care for themselves at home? : No Are there therapy or specialists consults?: Yes Select consult type: PT, OT Medication Management Does the patient have prescription insurance coverage? : Yes Is the patient on Anticoagulation? : No [id number] [place] [address] [phone] [phone] [facility] [facility] [id number] [employer] Does the patient or denial management representative express financial concerns? : No Coping/Stress Concerns about patient s coping and stress?: No Values and Beliefs Cultural or latter-day practices that may impact discharge planning and/or medical care?: No Initial Discharge Planning Anticipated discharge disposition: Home Transportation Available for Discharge: Private Vehicle, Family or Friend Patient Assessment Completed: Initial Expected Discharge Date: 10/06/2023 Discharge Planning Summary Pending PT/OT recs patient will most likely go home at discharge Case Management Plan Will continue to follow and assist with planning and coordination. Lo GROVES Clinical Metal Mixer [phone] I am a Float Clinical Metal Mixer please refer to the Treatment Team for the regularly assigned field nurse case manager WEEKEND /HOLIDAY COVERAGE SUNNY/DONNA BANKS Metal Mixer [phone] Metal Mixer [phone] Social Work [phone] Social Work [phone] IESHA/ MICU (CCT 10-11) IESHA Metal Mixer [phone] Spouting Installer [phone] GINI RUBALCAVA/ MICE (CCT 10-11) Metal Mixer [phone] Social Work [phone] Acute Physical Therapy Evaluation Prior to Admission AMPAC score(s): PRIOR LEVEL AM-PAC Mobility Raw Score: 24 Current AM-PAC score(s): CURRENT AM-PAC Mobility Raw Score: 16 Based on the above AM-PAC score(s) and PT clinical judgment, patient is a good candidate for discharge to (with initial increased supervision from son/daughter) Highest Level of activity achieved on this date Gait Mohave Level: Gait: contact guard assist Physical Assist: Gait: 1 person + 1 person to manage equipment, chair follow Assistive Device: Gait: rollator Ambulation Distance (Feet): (50 feet x 2 with seated rest between walks) Mobility equipment available at home: straight cane ADL equipment available at home: none Equipment needed for discharge: to be determined Current therapy frequency recommendation in acute: Therapy Frequency: 5 times a week Precautions and Weightbearing Status: Existing Precautions/Restrictions: cardiac, fall Telemetry, Arterial line (NGT, epidural) Patient Safety Communication Prior to Visit: Nursing Subjective: Agreeable to PT session. Pain: General Pain Documentation (Adult, OB, Peds) Presence of Pain: complains of pain/discomfort Pain Location: incisional DVPRS (Defense and Veterans Pain Rating Scale) DVPRS: Rest: 8- severe pain Home Setting Residence: House Lives With: alone (pt's son will be staying with pt at d/c) First floor setup: bedroom, tub shower Number of stairs to enter home: 0 Number of stairs in home: 0 Mobility Equipment Available: straight cane ADL Equipment Available: none Previous Level of Function Prior level ADL Overview: Independent with all ADLs Dominant Hand: Ambidextrous Bed Mobility/Transfers: independent Ambulation Skills: independent Assistive Device: none used Level of Ambulation: community 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.) Objective/Observation: Vitals/Vitals Responses to Treatment: MAP=70s throughout treatment session O2 Device: nasal cannula with humidification Cognition Overall Cognitive Status: Within Functional Limits Extremity Assessments: RLE Assessment RLE Assessment: Within Functional Limits LLE Assessment LLE Assessment: Within Functional Limits Sensation Overall Sensation: Intact Mobility Assessment: Sit to Supine Mobility Mohave Level: Sit->Supine: maximum assist (25% patient effort) Physical Assist: Sit->Supine: 2 person assist Bed Features/Set-up: Sit->Supine: Flat Skilled Rationale: Verbal cues, Tactile cues, Technique of activity, Hand placement, Sequencing Balance: Sitting Balance Static Sitting-Level of Assistance: Standby Dynamic Sitting-Level of Assistance: Standby Standing Balance Static Standing-Level of Assistance: Stand-by assist Dynamic Standing-Level of Assistance: Contact guard Standing-Balance Support: Rollator Transfer Assessment: Sit to Stand Transfer Mohave Level: Sit->Stand: contact guard assist Physical Assist: Sit->Stand: 1 person + 1 person to manage equipment Assistive Device: Sit->Stand: rollator Skilled Rationale: Verbal cues, Tactile cues, Hand placement, Facilitate anterior shift Stand to Sit Transfer Mohave Level: Stand->Sit: contact guard assist Physical Assist: Stand->Sit: 1 person + 1 person to manage equipment Assistive Device: Stand->Sit: rollator Skilled Rationale: Hand placement, Verbal cues, Sequencing, Tactile cues, Controlled descent for sitting Gait/Functional Mobility: Gait Assessment Mohave Level: Gait: contact guard assist Physical Assist: Gait: 1 person + 1 person to manage equipment, chair follow Assistive Device: Gait: rollator Ambulation Distance (Feet): (50 feet x 2 with seated rest between walks) Gait Deviations Identified: decreased lan, decreased gait speed, decreased step length, decreased stride length Gait Skilled Rationale: verbal, tactile, upright posture, proximity of assistive device Stairs: Outcome Score(s): CURRENT [facility] Basic Mobility Inpatient Short Form Turning over in bed: 3 - A Little Assistance Sitting/standing from chair: 3 - A Little Assistance Moving from lying on back to sittin - A Lot of Assistance Moving to and from bed to chair: 3 - A Little Assistance Walk in hospital room: 3 - A Little Assistance Climbing 3-5 steps with a railin - A Lot of Assistance CURRENT [facility] Mobility Raw Score: 16 CURRENT [facility] Mobility Functional Limitation/Modifier: 54.16% Currently Impaired in Basic Mobility - CK Interventions: Assessment & Plan: Patient was admitted for Juxtarenal abdominal aortic aneurysm (AAA) without rupture [I71.42] AAA (abdominal aortic aneurysm) [I71.40] s/p open repair of AAA (RP approach) and seen for therapy evaluation related to post-surgical decreased functional mobility capabilities from self-reported baseline levels. Exam findings include impairments in: Strength, Balance, Transfers, Gait/Locomotion, Aerobic capacity/endurance. These impairments contribute to functional limitations including Ambulation/locomotion pain, Decreased ambulation distance/endurance, Difficulty stair climbing/descent, Increased fall risk, Difficulty with bed mobility, Difficulty with transfers, Decreased functional mobility Current clinical presentation is Evolving - changing/inconsistent clinical characteristics (Moderate). Patient history factors impacting Plan Of Care include . Patient will benefit from skilled physical therapy to address these impairments, functional limitations, and participation restrictions and has good rehab potential to achieve therapy goals. Planned Therapy Interventions: balance training, bed mobility training, endurance, functional activity tolerance, gait training, strengthening, transfer training Patient Instruction/Education this session: Learners: Patient Education provided: Plan of care, Role of this discipline, Safety Plan for next session: Promote transfers and ambulation per pt tolerance. Acute PT Goals Plan of Care by Edvin Pires PT at 10/01/2023 10:26 AM Version 1 of 1 Problem: PT - General Goals Goal: Supine <-> Sit Transfers - Patient will perform supine to/from sit transfers with independence and without use of hospital bed features in order to improve functional mobility and safety. Outcome: Ongoing Goal: Sit <-> Stand Transfers - Patient will perform sit to/from stand transfers with modified independence and least restrictive device in order to improve functional mobility and safety. Outcome: Ongoing Goal: Standing Endurance/Balance - Patient will perform standing balance tasks for 10 min with modified independence and least restrictive device while maintaining an RPE of less than 4/10 to improve endurance and safety with standing tasks. Outcome: Ongoing Goal: Ambulation - Patient will ambulate 400 feet with modified independence and least restrictive device to improve ability to safely navigate home and community. Outcome: Ongoing PT treatment consisted of the following to progress towards the above goal(s): PT Evaluation and Treatment Time PT Evaluation (Moderate) Time Entry: 34 Evaluating Therapist: Edvin Pires PT Additional Details: PT Co-Eval/Treatment Information Co-evaluation/co-treatment performed?: Yes, simultaneous billable skilled care was necessary due to medical complexity and functional deficits Other discipline: OT Rationale for need to co-eval/treat: postural control Evaluation Complexity Components History: Moderate (1-2 personal factors and/or comorbidities) Body Systems Review: Moderate (Addressing a total of 3 or more elements) Clinical Presentation: Evolving - changing/inconsistent clinical characteristics (Moderate) Clinical Decision Making: Moderate Time In: 908 Time Out: 942 Total Visit Time: 34 minutes Total Treatment Time (skilled, billable minutes): 34 minutes PPE used during patient interaction: facemask, gloves Patient location at end of session: bed with head of bed elevated Alarms on at end of session: RN aware Needs in reach. Upon discontinuation of Acute Care Physical Therapy Services or patient discharge from the hospital this note represents the current Physical Therapy Discharge Summary. Anesthesia Acute Pain Epidural Progress Note Tariq Arias is a 63 y.o. male who is 1 Day Post-Op from Procedure(s) (LRB): REPAIR AAA RETROPERITONEAL APPROACH (Midline). He has an epidural in at T9-T10 in place for management of his acute post-operative pain. Pain at rest: 9/10 Pain with activity: 10 (Worst Imaginable Pain)/10 PCEA helps: No Side effects: None Pt has corcoran: Yes Pt has chest tube: No Epidural Solution: 0.125 % bupivicaine + Fentanyl 2mcg/ml Settings Increased on 09/30: Basal: 8 ml/hour Bolus: 3 Lockout: 20 minutes Total: 17 ml/hour 24 hour OME requirement: (Post op only): 0 PO + 30 IV Pain regimen: Dilaudid 1mg q3h PRN (increased from 0.5 mg) Physical Exam: Vitals: 10/01/23 1133 BP: Pulse: Resp: Temp: 98 F (36.7 C) SpO2: Neuro: normal Catheter Site: Erythema: No Dressing: Dry and intact Catheter 14 cm at skin Impression: Patient with inadequately controlled postoperative pain at this time, predominantly lisa-incisional. Level tested with ice and patient without appreciable level on R side. Sensory blockage to T10 on left side. Test dose of 5cc 2% lidocaine with epinephine administered with appropriate sensory blockade, indicating epidural is functioning well. Plan: - Increased epidural settings to basal 8 ml/hr, bolus 3 ml, 20 minute lockout, 17 ml/hr total Please page acute pain service at [phone] or call [phone] with any questions or concerns. Fredrick Vasquez MD Anesthesiology Associated attestation - Ryne Farley III, MD - 10/03/2023 6:44 PM EDT I examined and independently evaluated the patient. Based on the medical record and physical exam I agree with the residents assessment and medical decision making. Ryne Farley III, MD Acute Occupational Therapy Evaluation Prior to Admission AM-PAC Score: PRIOR LEVEL AM-PAC Activity Raw Score: 24 Current AM-PAC score(s): CURRENT AM-PAC Activity Raw Score: 15 Based on the above AM-PAC score(s) and OT clinical judgment, discharge destination recommendation is: Home Barriers to discharge home: Patient needs assistance with ADLs, Patient needs assistance with functional mobility Mobility equipment available at home: straight cane ADL equipment available at home: none Equipment recommendations for discharge: to be determined Current therapy frequency recommendation(s) in acute: 5 times a week Activity Recommendations for outside of rehab session: OOB for all meals and 3 walks per day Precautions and Weightbearing Status: OT Existing Precautions/Restrictions: (SBP between 100 and 140) Telemetry, Arterial line, Urinary catheter (epidural, and NGT to suction) Patient Safety Communication Prior to Visit: Nursing Subjective: My back hurts. I'd like to go back to bed when we're done. Pain: General Pain Documentation (Adult, OB, Peds) Presence of Pain: complains of pain/discomfort Pain Location: incisional DVPRS (Defense and Veterans Pain Rating Scale) DVPRS: Rest: 9- severe pain Home Setting Residence: House Lives With: alone (pt's son will be staying with pt at d/c) First floor setup: bedroom, tub shower Number of stairs to enter home: 0 Number of stairs in home: 0 Mobility Equipment Available: straight cane ADL Equipment Available: none Previous Level of Function Prior level ADL Overview: Independent with all ADLs Dominant Hand: Ambidextrous Bed Mobility/Transfers: independent Ambulation Skills: independent Assistive Device: none used Level of Ambulation: community 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.) IADL History IADLs: independent Objective/Observation: Vitals/Vitals Responses to Treatment: 10/01/23 0909 Vitals ICU/PCU Temp 100.6 F (38.1 C) Pulse (Heart Rate) 67 Resp Rate 17 Art Line (1) Monitoring Arterial Line (1) BP 116/53 Arterial Line (1) MAP 72 mmHg Oxygen Therapy O2 Sat (%) 92 % O2 Device nasal cannula with humidification Flow (L/min) 2 O2 Device: nasal cannula with humidification Flow (L/min): 2 Vision Screen Currently wearing corrective lenses: Progressive lenses Hearing Hearing: no gross deficits noted Cognition Overall Cognitive Status: Within Functional Limits ADLs: ADL Anticipated Performance (ADLs not directly observed this session): Eating, Bathing, UE Dressing, Toileting Eating Assistance: Total Eating Intervention/Details: NGT to suction Grooming Assistance: Stand by Grooming Location: standing at sink Grooming Intervention/Details: Pt stood to brush her teeth with min verbal cues for postural alignment in midline to reduce risk of posterior LOB Bathing Assistance: Moderate UE Dressing Assistance: Minimal LE Dressing Assistance: Total LE Dressing Location: seated in chair LE Dressing Intervention/Details: Pt unable to bend over/utilize figure 4 method to don socks due to incisional pain/line management, requiring totalA from therapist. Toilet Assistance: Moderate Extremity Assessments: RUE Assessment RUE Assessment: Within Functional Limits LUE Assessment LUE Assessment: Within Functional Limits Balance: Sitting Balance Static Sitting-Level of Assistance: Standby Dynamic Sitting-Level of Assistance: Standby Standing Balance Static Standing-Level of Assistance: Stand-by assist Dynamic Standing-Level of Assistance: Contact guard Standing-Balance Support: 4 wheeled walker Neuro: Sensation Overall Sensation: Intact Mobility Assessment: Sit to Supine Mobility [place] Level: Sit->Supine: maximum assist (25% patient effort) Physical Assist: Sit->Supine: 2 person assist Bed Features/Set-up: Sit->Supine: Flat Skilled Rationale: Positioning, Sequencing, Hand placement, Verbal cues Transfer Assessment: Sit to Stand Transfer [place] Level: Sit->Stand: contact guard assist Physical Assist: Sit->Stand: 1 person + 1 person to manage equipment Assistive Device: Sit->Stand: 4 wheeled walker, armed chair Skilled Rationale: Positioning, Sequencing, Hand placement, Verbal cues Stand to Sit Transfer [place] Level: Stand->Sit: contact guard assist Physical Assist: Stand->Sit: 1 person + 1 person to manage equipment Assistive Device: Stand->Sit: 4 wheeled walker Functional Mobility: Functional Mobility [place] Level: Functional Mobility/Gait: contact guard assist Physical Assist: Functional Mobility/Gait: chair follow Assistive Device: Functional Mobility/Gait: 4 wheeled walker Functional Mobility Distance: Distance needed for common household mobility Functional Mobility Deficits: Activity tolerance, Pain, Shortness of breath Functional Mobility Skilled Rationale: Breathing strategies, Proper pacing Skilled Intervention/Details - Functional Mobility/Gait: 50' x2 with 1 seated rest break in between Outcome Score(s): CURRENT AM-PAC Daily Activity Inpatient Short Form Putting on/Taking Off Lower Body Clothin - Total Assistance Bathin - A Lot of Assistance Toiletin - A Lot of Assistance Putting on/Taking Off Upper Body Clothin - A Little Assistance Groomin - A Little Assistance Eatin - No Assistance CURRENT [facility] Activity Raw Score: 15 CURRENT [facility] Activity Functional Limitation/Modifier: 56.46% Currently Impaired in Daily Activity - CK Assessment & Plan: Patient was admitted for AAA repair on 09/29 and seen for therapy evaluation related to deficits in self-care tasks and mobility due to generalized weakness and activity tolerance deficits. Exam findings include impairments in: balance, edema, endurance, ergonomics and body mechanics, pain, transfers, strength. These impairments contribute to occupational performance limitations including bathing, dressing, toileting, functional mobility, ADL transfers, body mechanics. The following factors impact the plan of care: DM2, HTN, and HLD Patient will benefit from skilled occupational therapy to address these impairments, occupational performance limitations, and participation restrictions. Patient's rehab potential is: good. Planned Therapy Interventions (OT Eval): ADL retraining, balance training, bed mobility training, functional activity tolerance, strengthening, transfer training (fall prevention) Patient Instruction/Education this session: Learners: Patient Education provided: Precautions/weight bearing status, Plan of care Teaching method: Verbal Education/Instruction Learner response: Applies knowledge, Needs review Learning preferences: Auditory Learning considerations: No barriers/ready to learn Plan for next session: Standing ADLs Acute OT Goals Plan of Care by Pratibha Miller OT at 10/01/2023 11:50 AM Version 1 of 1 Problem: OT - ADLs Goal: Lower Body Dressing - Patient will complete lower body dressing tasks with modified independence using adaptive equipment/compensatory strategies as needed for improved ability to complete self-care activities. Outcome: Progressing Goal: Toileting - Patient will complete toileting task with modified independence and adaptive equipment as needed for improved ability to safely complete self-care activities. Outcome: Progressing Problem: OT - Transfers Goal: Transfers Toilet/ Bedside Commode - Patient will transfer to/from toilet/bedside commode with modified independence for improved ability to safely complete ADLs. Outcome: Progressing Problem: OT - Balance Goal: Balance - Standing - Patient will perform 5 minutes of functional task in standing with modified independence and good balance to promote safety and improved balance required for self-care activities. Outcome: Progressing Problem: OT - Endurance Goal: Endurance Functional Mobility - Patient will complete distance needed for common household mobility with no greater than 1 rest break for improved tolerance to safely complete I/ADL's Outcome: Progressing OT treatment consisted of the following to work and progress towards the above goal(s): OT Evaluation and Treatment Time OT Evaluation (Moderate) Time Entry: 34 Evaluating Therapist: Pratibha Miller OT Additional Details: OT Co-Eval/Treatment Information Co-evaluation/co-treatment performed?: Yes, simultaneous billable skilled care was necessary due to medical complexity and functional deficits Other discipline: PT Rationale for need to co-eval/treat: postural control (balance deficits, and medical status) Co-treatment goal focus: balance, mobility, transfer, endurance, self-care, strength OT Evaluation Complexity Occupational Profile and Client History: Moderate - expanded history Assessment of Occupational Performance: Moderate (3-5 performance deficits) Clinical Decision/Performance Deficits: Moderate (detailed assessments w/several treatment options) Time In: 908 Time Out: 942 Total Visit Time: 34 minutes Total Treatment Time (skilled, billable minutes): 34 minutes Assisted by during session: Bassem, PT PPE used during patient interaction: gloves, facemask Patient location at end of session: bed with head of bed elevated Alarms on at end of session: RN aware Needs in reach. Upon discontinuation of Acute Care Occupational Therapy Services or patient discharge from the hospital this note represents the current Occupational Therapy Discharge Summary. General Surgery Progress Note Last 24 Hours No overnight events. Pain well-controlled. On 2L O2 this AM. NGT with 1L output overnight. Making more than adequate UOP. Vitals Temp: [97.9 F (36.6 C)-100.6 F (38.1 C)] 100.6 F (38.1 C) Pulse (Heart Rate): [52-67] 66 Resp Rate: [15-24] 21 Arterial Line (1) BP: (114-148)/(54-71) 116/54 O2 Sat (%): [91 %-100 %] 96 % Weight: [114.3 kg (251 lb 15.8 oz)] 114.3 kg (251 lb 15.8 oz) Oxygen Therapy O2 Sat (%): 96 % O2 Device: nasal cannula with humidification Flow (L/min): 2 Fluid Management (24hrs): Intake/Output last 3 shifts: I/O last 3 completed shifts: In: 9198.6 [I.V.:7861.6; Blood:450; IV Piggyback:886.9] Out: 5090 [Urine:2610; Other:1000] WBC/Hgb/Hct/Plts: 9.04/11.0/34.6/172 (10/01 611) Na/K+/Phos/Mg/Ca: 138/4.8/--/1.8/8.3 (09/30 8-10/01 611) Bun/Creat/Cl/CO2/Glucose: 18/1.04/107/24/110, 113 (10/01 611) Physical Exam Gen: The patient is oriented and developed, nourished, and not distressed. Neuro: moves all extremities equally and purposefully, no weakness or altered sensorium Head: normocephalic and atraumatic, no lacerations or contusions EENT: EOMI, PERRL, EACs are clear, nasal passage and mouth are atraumatic Neck: no lymphadenopathy Resp: no respiratory distress, symmetric chest rise Card: Normal rate, regular rhythm. Abd: Soft, appropriately tender, mildly distended. Incisions are c/d/i. No signs of infection Skin: Skin is warm, dry and intact. No cyanosis. Extremities: warm, well-perfused, capillary refill < 2 seconds, no edema Pulses: Pedal signals present, femorals palpable Labs/Diagnostics WBC/Hgb/Hct/Plts: 9.04/11.0/34.6/172 (10/01 611) Na/K+/Phos/Mg/Ca: 138/4.8/--/1.8/8.3 (09/30 8-10/01 611) Bun/Creat/Cl/CO2/Glucose: 18/1.04/107/24/110, 113 (10/01 611) ASSESSMENT Tariq Arias is a 63 y.o. male who is now s/p open repair of AAA (RP approach) PLAN Pain: multimodal Med: continue pertinent home meds Abx: None IVF: Stop mIVF Diet: Advance to CLD, Discontinue NGT Wound: Dressing down POD2 LDAs: Keep nick corcoran FEN: replace lytes as indicated Resp: Incentive spirometry, encourage cough and deep breathing Ppx: SCD's, Out of bed as much as possible, and Heparin SQ Q8H Activity: OOB, ambulate > 3x/d Bowel: Dulcolax Labs: Change to daily Dispo: Downgrade to PCU. Anticipate d/c home when tolerating diet, and when pain is controlled with oral pain meds. Danisha Lugo MD, MS PGY4 General Surgery [phone] Staff addendum: I have personally examined and saw the patient at bedside - Patient reports pain is not well controlled. Pain team at beside to work on epidural. However, minimal output from NG, so removed at bedside and started on clears. Passing flatus. Urine output appropriate. OOB as much as possible. Start oral pain regimen. Start muscle relaxant. Ok to transition to PCU. Chance Goodman MD Department of Vascular Surgery [facility] 10/01/2023 Post-Operative Vascular Check Tariq Zechariah is a 63 y.o. male who is now status post open repair of AAA (RP approach). The patient is being examined after arrival from OR. Patient reports he is feeling well, pain has improved with some pain meds, mainly around incision area to LLQ of abdomen, patient is extubated, off pressors. Vitals: BP 130/70 (BP Location: Left arm, BP Position: Lying) Pulse 59 Temp 99.1 F (37.3 C) Resp 17 Ht 1.676 m (5' 6) Wt 113.1 kg (249 lb 6.4 oz) SpO2 100% BMI 40.25 kg/m Smoking Status Every Day Physical: Gen: laying in bed, NAD Lung: on non-rebreather mask 15L/min, CXR showed small PTX Cardiac: regular rate and rhythm Abdomen: soft, appropriately tender to palpation, non-distended; surgical dressing in place, clean dry and intact no erythema around it in LLQ Extremities: no cyanosis, strength and sensation intact to BLE pulse exam as below: Pulses: (Palpable/Doppler) R femoral: palpable L femoral: palpable R dorsalis pedis: doppler L dorsalis pedis: doppler R posterior tibial: doppler L posterior tibial: doppler Quality Checklist: BP Goal: 100-140mmHg Antiplatelet/Anticoagulation: heparin dvt Antibiotics: vanc Indication: post op FEN/Diet: PO, no meds down NGT, NGT to suction Lines: right a line, right double IJCVC, piv, corcoran Incisions: LLQ of abdomen Tariq Arias is a 63 y.o. male who is now s/p open repair of AAA (RP approach) . he is recovering well post-operatively. - pain and nausea control as needed - will continue to monitor -Rectal ASA tonight ok if doing well from hemodynamic/hematologic perspective (prior PCI -SBP goals 100-140 mmHg -Q6H labs (CBC, CMP, coags, ABG with lactate) -Goal INR <1.5, platelets > 100, post op initial Fibrinogen > 200 -Please resuscitate to above goals and normal physiology, avoid pressors if possible. -NPO, no meds down NGT, NGT to suction -Periop ABX -Q1H vascular checks -SCDS for DVT ppx -Ok with heparin for DVT ppx tonight if doing well -mIVF @ 200 ml/hr , monitor UOP to goal minimum 0.5-1 ml/kg/hr -Please do not remove corcoran, a-line, or central line -Please aggressively resuscitate with products and volume first - CXR with small PTX- respiratory management per ICU Waleska Dasilva MD Department of Pharmacy Anticoagulant Progress Note Patient: Tariq Arias Room[facility]Bed: [facility] Assessment/Plan: The patient's most recent renal function markers and weight/BMI include: Estimated Creatinine Clearance: 92 mL/min (by C-G formula based on SCr of 0.97 mg/dL). Body mass index is 40.25 kg/m . Weight: Wt Readings from Last 1 Encounters: 09/30/23 113.1 kg (249 lb 6.4 oz) Based on this, I updated orders to reflect a change from Heparin 5000 units subcutaneous Q8h to Heparin 7500 units subcutaneous Q8h . Name: Edvin Marcum RPH Phone: [phone] Date/Time: 09/30/2023 4:40 PM CVICU Attending Critical Care Note ASSESSMENT AND PLAN Tariq Arias is a 63 y.o. patient s/p open AAA repair by Chance Goodman MD on surgery date 09/30/2023. ICU Summary: 63 yo male with active tobacco abuse/COPD, CAD s/p PCIx2 in 2021, DM, and obesity who presents following procedure above. Intra-op course uncomplicated, arrived extubated to the CVICU. Important points to emphasize in the critical care management are: - AAA s/p open repair: maintain SBP 100-140, currently off vasoactive medications to achieve this. PRN labetalol/hydralazine. Strict NPO w/o medications. Rectal ASA tonight, subcutaneous heparin. - Pain: epidural placed post-procedure, management by acute pain. PRN dilaudid. - PTX: small apical ptx noted on post-op chest AP. 100%FiO2 via facemask for now, repeat chest AP tonight to assess for resolution. RELEVANT INFORMATION VITALS: Blood pressure 130/70, pulse 64, temperature 99.1 F (37.3 C), temperature source Bladder, resp. rate 21, height 1.676 m (5' 6), weight 113.1 kg (249 lb 6.4 oz), SpO2 100%. pH/PCO2/PO2/HCO3: 7.27/49/241/23 (09/29 1810) Documentation of LDA necessity Line necessity: hemodynamic monitoring Corcoran necessity: strict I/O's Airway necessity: na I spent 43 minutes providing critical care services and making complex medical decisions for this critically ill patient on behalf of Chance Goodman MD. This time includes examining the patients, reviewing patient data, discussions with other providers and speaking to family members. This time does not include performing any procedures. I have discussed this patient with the Resident and agree with their assessment, plan and decision making or have made amendments where appropriate. Documentation of Comorbid Conditions Complexity. Hypocalcemia - Continue to monitor and replete. Morbid Obesity Body mass index is 40.25 kg/m . - Follow with PCP for dietary and lifestyle modifications. Any conditions listed below are present on admission unless otherwise specified. .COPD Without Exacerbation - encourage deep breathing/IS. ALMA DELIA Quintero MD 09/30/2023 7:34 PM CVICU DAILY PROGRESS NOTE. HISTORY OF PRESENT ILLNESS: Mr. Arias is a 63 y.o. male who has a pertinent past medical history including AAA, CAD s/p cardiac stent x2, T2DM, HLD, Obesity, Active smoker DATE OF SURGERY: 09/30/2023 PROCEDURE: Repair AAA Retroperitoneal Approach SURGEON: Dr. Goodman POD: 0 Code Status:Full Code 24-hour interval history: Thoracic Epidural placed preoperatively Admitted for AAA repair with Dr. Goodman 5.2 L Crystalloid 450 mL Cell saver 1.5 L EBL 450 mL UOP Extubated in OR Plan for 09/30/2023: Volume resuscitation as indicated Start Epidural, recommendations from Acute pain team Q6H CBC/Chem/coags/ABG w/ lactate INR <1.5, plt >100, Fibrinogen >200 NPO w/o meds Heparin for DVT ppx tonight mIVF 200 mL/hr Monitor UOP SBP goal 100-140 Follow up post operative labs Addendum 1645: Small L pneumothorax identified on CXR SURGICAL PLAN S/p Retroperitoneal AAA repair 09/29/22 - Suprarenal clamp < 30 min EBL 1.5 L Epidural No chest tube -Respiratory management per ICU -Rectal ASA tonight ok if doing well from hemodynamic/hematologic perspective (prior PCI -SBP goals 100-140 mmHg -Q6H labs (CBC, CMP, coags, ABG with lactate) -Goal INR <1.5, platelets > 100, post op initial Fibrinogen > 200 -Please resuscitate to above goals and normal physiology, avoid pressors if possible. -NPO, no meds down NGT, NGT to suction -Periop ABX -Q1H vascular checks -SCDS for DVT ppx -Ok with heparin for DVT ppx tonight if doing well -mIVF @ 200 ml/hr , monitor UOP to goal minimum 0.5-1 ml/kg/hr -Please do not remove corcoran, a-line, or central line -Please aggressively resuscitate with products and volume first -CXR and AXR ordered SYSTEM BASED PLAN . Neurological: Acute Post-Operative Pain -- DVPRS: Rest: 10- severe pain (09/29 1556) DVPRS: Activity: 10- severe pain (09/29 1556) - Hydromorphone 0.5 mg Q4H PRN - Thoracic epidural in place, APS consulted, appreciate assistance Agitation/Delirium- Delirium precautions Day/night sleep cycle, sleep hygiene Cardiovascular: Coronary Artery Disease s/p stent (12/2021) - Aspirin 81 mg, held while NPO, rectal aspirin this evening - Brilinta 90 mg BID, held in immediate postoperative period - Monitor for s/sxs of ischemia Hypertension- SBP goal 100-140 PRN hydralazine and labetalol Home medications: metoprolol 25 mg daily held Hyperlipidemia- continue home Atorvastatin 80 mg, when able to take PO Pulmonary: Oxygen wean post-op (<48hr) and Acute Post-Operative Respiratory Insufficiency (<4L) with hypoxia Secondary to Recent surgical procedure Wean FiO2 to saturation >92% Goal to extubate within 6 hours of arrival to ICU Pneumothorax Most likely related to thoracoabdominal incision Small L pneumothorax on postoperative XR Hemodynamically stable 6L facemask applied for assistance with reabsorption Continue to monitor with evening chest XR Atelectasis - Maintain O2 Sat > 92% with oxygen as needed Wean supplemental oxygen/support as able. Incentive Spirometry while awake Plan: Pulmonary toilet/diuresis Renal: At Risk for KATHLEEN d/t recent surgical procedure, aortic surgery Baseline Creatinine: 0.87 Baseline GFR: >90 Urine output: monitor post operatively Monitor chemistries Avoid nephrotoxic agents. Electrolyte abnormalities: Hypokalemia - Electrolyte replacement per protocol, Maintain K>4.5 Hypomagnesemia - Electrolyte replacement per protocol, Maintain Mg>3.0 Hypocalcemia - Electrolyte replacement per protocol Hypophosphatemia- Replace as needed for goal phos >2 Gastrointestinal: Acute Post Operative Constipation - . Bowel regimen in place with scheduled miralax and senna. PRN dulcolax suppository. Obesity Body mass index is 40.25 kg/m . Integumentary/Musculoskeletal Active Incisions Wounds - Wound Incision 09/30/23 1036 Left;Upper Flank (0) Endocrinology Type II Diabetes Mellitus (POA) Post-Operative Stress Induced Hyperglycemia - Postoperative Insulin gtt transition to SSI Hold home medications at this time HgbA1c= 09/16/2023: Hemoglobin A1C HPLC 6.0 Hematology Post-operative Acute Blood Loss Anemia No concern for ongoing blood loss CTM daily H/H, no indication for transfusion at this time Post-Operative Thrombocytopenia 09/16/2023: Platelet Count 249 - Secondary to Acute Illness - bleeding precautions, monitor Infectious Disease Post-Operative Leukocytosis - - Reactive in post-operative setting - Pt is afebrile at this time, low suspicion for infection - Monitor and trend Complexity Hyponatremia - Secondary to fluid shifts. Monitor. Hypocalcemia - Continue to monitor and replete. Morbid Obesity Body mass index is 40.25 kg/m . - Follow with PCP for dietary and lifestyle modifications. ICU Liberation Checklist: ABCDEF Bundle Reviewed: [x] Yes [] No Breathing: Extubated SBT: [] Passed [] Failed [] Does not meet criteria [] N/A SAT: [] Yes [] No [] N/A Vascular Access/Line/Tubes/Drains: Lines to be removed: None List lines, tubes, drains and insertion date: - A line 09/29 - CVC Introducer RIJ 09/29 - Corcoran 09/29 - Epidural 09/29 - PIV x1 Assessed insertion site: [x] Yes [] No Choice of Analgesia/Sedation: Pain: [x] Controlled [] Uncontrolled Continuous Infusions: [] Sedation [] Analgesia [] NMB [] None Delirium: CAM: [] Positive [x] Negative [] Unable to assess Restraints: [x] None [] Soft limb [] Shanthi mitts [] Other Prophylaxis Bundle: HOB: 30 degrees Stress ulcer ppx: [x] Yes [] Therapeutic [] Home regimen [] No, not indicated Chemical DVT ppx: [x] Yes [] No, SCDs ordered Therapy Services: FASHION CONSULTANT: [] Swallow [] Cognitive Eval [] Speaking Valve [] N/A Early Mobility: PT/OT consulted: []Yes [x] No, d/t clinical status [] No, pt is independent Current Mobility Status: Needs assessed by PT/OT OBJECTIVE VITALS: Blood pressure 130/70, pulse 55, temperature 97.7 F (36.5 C), temperature source Infrared, resp. rate 20, height 1.676 m (5' 6), weight 113.1 kg (249 lb 6.4 oz), SpO2 96%. PHYSICAL EXAM: GENERAL: Recovering from general anesthesia, drowsy, oriented HEENT: PEERL, EOMI, MMM HEART: RRR, +S1+S2, No murmurs LUNG: Non-Labored, on facemask ABD: Soft, Non-Distended, Non-Tender, thoracoabdominal incision clean and dry EXT: Warm, no cyanosis, +1 edema in bilateral lower extremities. PULSE: Palpable Bilateral DP Pulses MUSC: Moves all 4 Extremities spontaneously NEURO: Grossly intact, no acute deficits appreciated PSYCH: Appropriate for the clinical situation SURGICAL INCISIONS Thoracoabdominal incision with dressing applied, clean/dry Juan R Hernandez MD Cardiovascular ICU/ Cardiac Surgery 09/30/23 4:16 PM documented in this encounter [facility] 10-06-2023 Miscellaneous Notes This RN reviewed AVS with the pt. All questions were answered at that time. PIV's pulled per policy. Pt waiting for family to arrive for discharge Problem: Patient Care Overview Goal: Plan of Care Review Outcome: Progressing Goal: Individualization & Mutuality Outcome: Progressing Goal: Discharge Needs Assessment Outcome: Progressing Goal: Interdisciplinary Rounds/Family Conf Outcome: Progressing Problem: OT - ADLs Goal: Lower Body Dressing - Patient will complete lower body dressing tasks with modified independence using adaptive equipment/compensatory strategies as needed for improved ability to complete self-care activities. Outcome: Progressing Goal: Toileting - Patient will complete toileting task with modified independence and adaptive equipment as needed for improved ability to safely complete self-care activities. Outcome: Progressing Problem: OT - Transfers Goal: Transfers Toilet/ Bedside Commode - Patient will transfer to/from toilet/bedside commode with modified independence for improved ability to safely complete ADLs. Outcome: Progressing Problem: OT - Balance Goal: Balance - Standing - Patient will perform 5 minutes of functional task in standing with modified independence and good balance to promote safety and improved balance required for self-care activities. Outcome: Progressing Problem: OT - Endurance Goal: Endurance Functional Mobility - Patient will complete distance needed for common household mobility with no greater than 1 rest break for improved tolerance to safely complete I/ADL's Outcome: Progressing Problem: PT - General Goals Goal: Supine <-> Sit Transfers - Patient will perform supine to/from sit transfers with independence and without use of hospital bed features in order to improve functional mobility and safety. Outcome: Progressing Goal: Sit <-> Stand Transfers - Patient will perform sit to/from stand transfers with modified independence and least restrictive device in order to improve functional mobility and safety. Outcome: Progressing Goal: Standing Endurance/Balance - Patient will perform standing balance tasks for 10 min with modified independence and least restrictive device while maintaining an RPE of less than 4/10 to improve endurance and safety with standing tasks. Outcome: Progressing Goal: Stand/Squat Pivot Transfers - Patient will perform stand pivot transfer to/from bed/chair/commode with modified independence and least restrictive device in order to improve functional mobility and safety. Outcome: Progressing Goal: Ambulation - Patient will ambulate 400 feet with modified independence and least restrictive device to improve ability to safely navigate home and community. Outcome: Progressing Problem: Pain, Acute (Adult) Goal: Identify Related Risk Factors and Signs and Symptoms Description: Related risk factors and signs and symptoms are identified upon initiation of Human Response Clinical Practice Guideline (CPG) Outcome: Progressing Goal: Acceptable Pain Control/Comfort Level Description: Patient will demonstrate the desired outcomes by discharge/transition of care. Outcome: Progressing Problem: Infection, Risk/Actual (Adult) Goal: Identify Related Risk Factors and Signs and Symptoms Description: Related risk factors and signs and symptoms are identified upon initiation of Human Response Clinical Practice Guideline (CPG) Outcome: Progressing Goal: Infection Prevention/Resolution Description: Patient will demonstrate the desired outcomes by discharge/transition of care. Outcome: Progressing Problem: Fall/Trauma/Injury Risk (Adult) Goal: Fall/Trauma/Injury Risk: Absence of Trauma/Injury/Falls Description: Patient will demonstrate the desired outcomes. Outcome: Progressing Goal: Knowledge of risk factors/behavior modification Description: Knowledge of risk factors/behavior modification for fall/injury prevention Outcome: Progressing Problem: Mobility, Physical Impaired (Adult) Goal: Identify Related Risk Factors and Signs and Symptoms Description: Related risk factors and signs and symptoms are identified upon initiation of Human Response Clinical Practice Guideline (CPG) Outcome: Progressing Goal: Enhanced Mobility Skills Description: Patient will demonstrate the desired outcomes by discharge/transition of care. Outcome: Progressing Goal: Enhanced Functionality Ability Description: Patient will demonstrate the desired outcomes by discharge/transition of care. Outcome: Progressing Problem: Skin Integrity Impairment, Risk/Actual (Adult) Goal: Identify Related Risk Factors and Signs and Symptoms Description: Related risk factors and signs and symptoms are identified upon initiation of Human Response Clinical Practice Guideline (CPG) Outcome: Progressing Goal: Skin Integrity/Wound Healing Description: Patient will demonstrate the desired outcomes by discharge/transition of care. Outcome: Progressing Problem: Patient Care Overview Goal: Plan of Care Review Outcome: Progressing Goal: Individualization & Mutuality Outcome: Progressing Goal: Discharge Needs Assessment Outcome: Progressing Goal: Interdisciplinary Rounds/Family Conf Outcome: Progressing Problem: Pain, Acute (Adult) Goal: Identify Related Risk Factors and Signs and Symptoms Description: Related risk factors and signs and symptoms are identified upon initiation of Human Response Clinical Practice Guideline (CPG) Outcome: Progressing Goal: Acceptable Pain Control/Comfort Level Description: Patient will demonstrate the desired outcomes by discharge/transition of care. Outcome: Progressing Problem: Infection, Risk/Actual (Adult) Goal: Identify Related Risk Factors and Signs and Symptoms Description: Related risk factors and signs and symptoms are identified upon initiation of Human Response Clinical Practice Guideline (CPG) Outcome: Progressing Goal: Infection Prevention/Resolution Description: Patient will demonstrate the desired outcomes by discharge/transition of care. Outcome: Progressing Problem: Fall/Trauma/Injury Risk (Adult) Goal: Fall/Trauma/Injury Risk: Absence of Trauma/Injury/Falls Description: Patient will demonstrate the desired outcomes. Outcome: Progressing Goal: Knowledge of risk factors/behavior modification Description: Knowledge of risk factors/behavior modification for fall/injury prevention Outcome: Progressing Problem: Mobility, Physical Impaired (Adult) Goal: Identify Related Risk Factors and Signs and Symptoms Description: Related risk factors and signs and symptoms are identified upon initiation of Human Response Clinical Practice Guideline (CPG) Outcome: Progressing Goal: Enhanced Mobility Skills Description: Patient will demonstrate the desired outcomes by discharge/transition of care. Outcome: Progressing Goal: Enhanced Functionality Ability Description: Patient will demonstrate the desired outcomes by discharge/transition of care. Outcome: Progressing Problem: Skin Integrity Impairment, Risk/Actual (Adult) Goal: Identify Related Risk Factors and Signs and Symptoms Description: Related risk factors and signs and symptoms are identified upon initiation of Human Response Clinical Practice Guideline (CPG) Outcome: Progressing Goal: Skin Integrity/Wound Healing Description: Patient will demonstrate the desired outcomes by discharge/transition of care. Outcome: Progressing Problem: Patient Care Overview Goal: Plan of Care Review Outcome: Progressing Goal: Individualization & Mutuality Outcome: Progressing Goal: Discharge Needs Assessment Outcome: Progressing Goal: Interdisciplinary Rounds/Family Conf Outcome: Progressing Problem: Pain, Acute (Adult) Goal: Identify Related Risk Factors and Signs and Symptoms Description: Related risk factors and signs and symptoms are identified upon initiation of Human Response Clinical Practice Guideline (CPG) Outcome: Progressing Goal: Acceptable Pain Control/Comfort Level Description: Patient will demonstrate the desired outcomes by discharge/transition of care. Outcome: Progressing Problem: Infection, Risk/Actual (Adult) Goal: Identify Related Risk Factors and Signs and Symptoms Description: Related risk factors and signs and symptoms are identified upon initiation of Human Response Clinical Practice Guideline (CPG) Outcome: Progressing Goal: Infection Prevention/Resolution Description: Patient will demonstrate the desired outcomes by discharge/transition of care. Outcome: Progressing Problem: Fall/Trauma/Injury Risk (Adult) Goal: Fall/Trauma/Injury Risk: Absence of Trauma/Injury/Falls Description: Patient will demonstrate the desired outcomes. Outcome: Progressing Problem: Fall/Trauma/Injury Risk (Adult) Goal: Knowledge of risk factors/behavior modification Description: Knowledge of risk factors/behavior modification for fall/injury prevention Outcome: Progressing Problem: Mobility, Physical Impaired (Adult) Goal: Identify Related Risk Factors and Signs and Symptoms Description: Related risk factors and signs and symptoms are identified upon initiation of Human Response Clinical Practice Guideline (CPG) Outcome: Progressing Problem: Mobility, Physical Impaired (Adult) Goal: Enhanced Mobility Skills Description: Patient will demonstrate the desired outcomes by discharge/transition of care. Outcome: Progressing Problem: Mobility, Physical Impaired (Adult) Goal: Enhanced Functionality Ability Description: Patient will demonstrate the desired outcomes by discharge/transition of care. Outcome: Progressing Problem: Skin Integrity Impairment, Risk/Actual (Adult) Goal: Identify Related Risk Factors and Signs and Symptoms Description: Related risk factors and signs and symptoms are identified upon initiation of Human Response Clinical Practice Guideline (CPG) Outcome: Progressing Problem: Skin Integrity Impairment, Risk/Actual (Adult) Goal: Skin Integrity/Wound Healing Description: Patient will demonstrate the desired outcomes by discharge/transition of care. Outcome: Progressing RN Shift Summary 10/02 [id number] 1340: IRENE Eyer notifed of pt chronic back pain not being controlled with current regime. At this time, no adjustments to be made. As well, informed of pt low BP. Informed that systolics are in the 80s. 500 mL of LR obtained. 1500: Dr. Andersen at bedside and notified of current BP of 79/50 after 500 mL bolus of LR infused. Sending CBC and Chem [address] Quijano. New order for 500 mL of albumin obtianed. 1600: Pt reassessed; changes noted in flowsheet 1615: PVS paged the following Can you please place PRN potassium and ionized calcium orders for pt in rm 4016-Tariq Zechariah? Thank you-ROGER Jain [phone] Problem: Patient Care Overview Goal: Plan of Care Review Outcome: Progressing Goal: Individualization & Mutuality Outcome: Progressing Goal: Discharge Needs Assessment Outcome: Progressing Goal: Interdisciplinary Rounds/Family Conf Outcome: Progressing Problem: OT - ADLs Goal: Lower Body Dressing - Patient will complete lower body dressing tasks with modified independence using adaptive equipment/compensatory strategies as needed for improved ability to complete self-care activities. Outcome: Progressing Goal: Toileting - Patient will complete toileting task with modified independence and adaptive equipment as needed for improved ability to safely complete self-care activities. Outcome: Progressing Problem: OT - Transfers Goal: Transfers Toilet/ Bedside Commode - Patient will transfer to/from toilet/bedside commode with modified independence for improved ability to safely complete ADLs. Outcome: Progressing Problem: OT - Balance Goal: Balance - Standing - Patient will perform 5 minutes of functional task in standing with modified independence and good balance to promote safety and improved balance required for self-care activities. Outcome: Progressing Problem: OT - Endurance Goal: Endurance Functional Mobility - Patient will complete distance needed for common household mobility with no greater than 1 rest break for improved tolerance to safely complete I/ADL's Outcome: Progressing Problem: PT - General Goals Goal: Supine <-> Sit Transfers - Patient will perform supine to/from sit transfers with independence and without use of hospital bed features in order to improve functional mobility and safety. Outcome: Progressing Goal: Sit <-> Stand Transfers - Patient will perform sit to/from stand transfers with modified independence and least restrictive device in order to improve functional mobility and safety. Outcome: Progressing Goal: Standing Endurance/Balance - Patient will perform standing balance tasks for 10 min with modified independence and least restrictive device while maintaining an RPE of less than 4/10 to improve endurance and safety with standing tasks. Outcome: Progressing Goal: Stand/Squat Pivot Transfers - Patient will perform stand pivot transfer to/from bed/chair/commode with modified independence and least restrictive device in order to improve functional mobility and safety. Outcome: Progressing Goal: Ambulation - Patient will ambulate 400 feet with modified independence and least restrictive device to improve ability to safely navigate home and community. Outcome: Progressing Problem: Pain, Acute (Adult) Goal: Identify Related Risk Factors and Signs and Symptoms Description: Related risk factors and signs and symptoms are identified upon initiation of Human Response Clinical Practice Guideline (CPG) Outcome: Progressing Goal: Acceptable Pain Control/Comfort Level Description: Patient will demonstrate the desired outcomes by discharge/transition of care. Outcome: Progressing Problem: Infection, Risk/Actual (Adult) Goal: Identify Related Risk Factors and Signs and Symptoms Description: Related risk factors and signs and symptoms are identified upon initiation of Human Response Clinical Practice Guideline (CPG) Outcome: Progressing Goal: Infection Prevention/Resolution Description: Patient will demonstrate the desired outcomes by discharge/transition of care. Outcome: Progressing Problem: OT - Transfers Goal: Transfers Toilet/ Bedside Commode - Patient will transfer to/from toilet/bedside commode with modified independence for improved ability to safely complete ADLs. Outcome: Progressing Problem: OT - Endurance Goal: Endurance Functional Mobility - Patient will complete distance needed for common household mobility with no greater than 1 rest break for improved tolerance to safely complete I/ADL's Outcome: Progressing ACUTE PAIN EPIDURAL PULL NOTE Tariq Arias is a 63 y.o. male 2 Days Post-Op from Procedure(s) (LRB): REPAIR AAA RETROPERITONEAL APPROACH (Midline) with epidural in place for management of acute post-operative pain. Pain assessment: Pain at rest: 6/10 Pain with activity: 8/10 PCEA helps: yes Side effects: none Physical Exam: Vitals: 10/02/23 193 BP: 95/53 Pulse: 70 Resp: 18 Temp: 98.7 F (37.1 C) SpO2: 94% Gen: No acute distress Resp: Even and unlabored Neuro: nonfocal exam grossly Catheter Site: Erythema: none, site clean without abnormalities Lab Results Component Value Date WBC 11.19 (H) 10/01/2023 HGB 9.9 (L) 10/01/2023 HCT 30.8 (L) 10/01/2023 PLATELET 145 (L) 10/01/2023 MCV 93.1 10/01/2023 Lab Results Component Value Date INR 1.1 10/01/2023 INR 1.1 10/01/2023 INR 1.0 10/01/2023 PT 14.5 (H) 10/01/2023 PT 13.8 10/01/2023 PT 13.0 10/01/2023 Lab Results Component Value Date PTT 31.7 10/01/2023 Impression: Epidural broke at alligator clamp. Catheter removed. Plan: Epidural pulled at 11:27 PM without complications, tip intact. Insertion site clean, non-erythematous, no bleeding. Site cleaned with alcohol wipe. Vital signs stable. Continue current pain medications per primary team. If acute pain remits or persists and primary team is unable to control the pain, please consult the chronic pain management team for additional assistance with medication management. DVT prophylaxis: Heparin: May resume immediately Lovenox: Resume 4* hours after epidural removal *Based on recommendations from ZAIDA Coags guidelines Acute pain will follow tomorrow to ensure transition to PO regimen. Please page [phone] or call [phone] with any questions or concerns. Geneva Rawls DO 1900: handoff report received. 1999: pt assessed. 2029: pt's epidural line found snapped and laying on the floor. Site still intact. Acute pain team notified. 2224: epidural removed per anesthesia pain team. Pt's pain adequately controlled with prn PO oxy. 0000: pt reassessed, no changes unless documented. 0400: pt reassessed, no changes unless documented. 07: handoff report given. Problem: Patient Care Overview Goal: Plan of Care Review Outcome: Progressing Goal: Individualization & Mutuality Outcome: Progressing Goal: Discharge Needs Assessment Outcome: Progressing Goal: Interdisciplinary Rounds/Family Conf Outcome: Progressing Problem: Pain, Acute (Adult) Goal: Identify Related Risk Factors and Signs and Symptoms Description: Related risk factors and signs and symptoms are identified upon initiation of Human Response Clinical Practice Guideline (CPG) Outcome: Progressing Goal: Acceptable Pain Control/Comfort Level Description: Patient will demonstrate the desired outcomes by discharge/transition of care. Outcome: Progressing Problem: Infection, Risk/Actual (Adult) Goal: Identify Related Risk Factors and Signs and Symptoms Description: Related risk factors and signs and symptoms are identified upon initiation of Human Response Clinical Practice Guideline (CPG) Outcome: Progressing Goal: Infection Prevention/Resolution Description: Patient will demonstrate the desired outcomes by discharge/transition of care. Outcome: Progressing _Nuzhat Monroy RN. Called to bedside to rectify order vs pump settings discordance. Settings previously at 12/22/19. The pump settings were changed to be in accordance with the orders at 12/23/19. Amos Churchill MD Anesthsiology Resident Acute Pain Team Pager [phone] Problem: OT - ADLs Goal: Toileting - Patient will complete toileting task with modified independence and adaptive equipment as needed for improved ability to safely complete self-care activities. Outcome: Progressing Problem: OT - Transfers Goal: Transfers Toilet/ Bedside Commode - Patient will transfer to/from toilet/bedside commode with modified independence for improved ability to safely complete ADLs. Outcome: Progressing Problem: OT - Endurance Goal: Endurance Functional Mobility - Patient will complete distance needed for common household mobility with no greater than 1 rest break for improved tolerance to safely complete I/ADL's Outcome: Progressing Patient seen, resting comfortably in bed, reports ability to sleep for 2 hours finally and additionally reports significant improvement in back pain with regimen adjustments. SBP's stable in 100's on cuff. Michael Gomes MD PGY2 Vascular Surgery [phone] Informed regarding significant pain. Patient seen and examined. Patient reports significant bilateral posterior shoulder/trapezius/upper back pain as well as hip pain. Denies abdominal and lower extremity pain. Incision c/d/I, abdomen NTND, bilateral Dp's 2+. BP in 100's on cuff (arterial line appears very positional). Discussed with acute pain team, plan to reorder PRN IV hydromorphone, reduce oxycodone PRN interval to 4 hours from 6. Will CTM. Michael Gomes MD PGY2 Vascular Surgery [phone] Acute Pain Plan of Care Paged by nurse regarding persistent pain with epidural in place. Reviewed chart -- patient had continuous epidural rate increased to 8 mL/hr this morning and then subsequently decreased back to 6 mL/hr due to lethargy and hypotension. Evaluated patient at bedside. He reports his pain is primarily in his low back (which is chronic), as well as his shoulder and hips. Also reports some incisional pain but reports this is improved from this morning. He has been using his PCEA button with some improvement in incisional pain. Tested epidural level with ice. Patient has no appreciable level on the right side (unchanged from exam this morning) and T10 level on the left. Pulled epidural back to 13 cm and administered clinician bolus. Increased continuous rate to 7 mL/hr. Also discussed with patient that his chronic back pain and pain in his shoulders/hips is unlikely to improve with epidural adjustments. Discussed with PVS team -- they will also make adjustments to PO/IV medications to optimize pain control. Sharee Sprague MD Anesthesiology PGY-3 Patient running low grade fever 100-100.2 throughout day, Michael Gomes MD notified Acute Pain Plan of Care: Epidural infusion rate decreased to 12/23/19 given hypotension and lethargy. Discussed with attending physician Dr. Farley. APS to continue to evaluate. Daniel Soto MD PGY2, Department of Anesthesiology [facility] Problem: OT - ADLs Goal: Lower Body Dressing - Patient will complete lower body dressing tasks with modified independence using adaptive equipment/compensatory strategies as needed for improved ability to complete self-care activities. Outcome: Progressing Goal: Toileting - Patient will complete toileting task with modified independence and adaptive equipment as needed for improved ability to safely complete self-care activities. Outcome: Progressing Problem: OT - Transfers Goal: Transfers Toilet/ Bedside Commode - Patient will transfer to/from toilet/bedside commode with modified independence for improved ability to safely complete ADLs. Outcome: Progressing Problem: OT - Balance Goal: Balance - Standing - Patient will perform 5 minutes of functional task in standing with modified independence and good balance to promote safety and improved balance required for self-care activities. Outcome: Progressing Problem: OT - Endurance Goal: Endurance Functional Mobility - Patient will complete distance needed for common household mobility with no greater than 1 rest break for improved tolerance to safely complete I/ADL's Outcome: Progressing 1030: PVS and pain paged d/t change in epidural dosage from 6mL/hr to 8mL/hr and bolus from 2mL to 3mL. Asked for a modified order because one is not present at this time. Patient hypotensive (MAP 50). Patient asymptomatic, PVS called and asked to call them back if MAPS drop below 50 and if Sys drops below 100, or if patient becomes symptomatic. Problem: PT - General Goals Goal: Supine <-> Sit Transfers - Patient will perform supine to/from sit transfers with independence and without use of hospital bed features in order to improve functional mobility and safety. Outcome: Ongoing Goal: Sit <-> Stand Transfers - Patient will perform sit to/from stand transfers with modified independence and least restrictive device in order to improve functional mobility and safety. Outcome: Ongoing Goal: Standing Endurance/Balance - Patient will perform standing balance tasks for 10 min with modified independence and least restrictive device while maintaining an RPE of less than 4/10 to improve endurance and safety with standing tasks. Outcome: Ongoing Goal: Ambulation - Patient will ambulate 400 feet with modified independence and least restrictive device to improve ability to safely navigate home and community. Outcome: Ongoing 09/29 1899 Report from ROGER Lopez 1945 Patient assessed. Currently on 15L non-rebreather for pneumothorax. Patient expressing incisional pain, managed via epidural INSURANCE RISK MANAGER. Reports underlying chronic back pain. Son, Ady, at bedside, given welcome packet and policies/unit hours explained. 1999 Dr. Quintero notified of ABG, increased CO2, decreased pH, w/ hx of undx'd COPD (2ppd, current smoker) w/ concern for oxygen toxicity. Advised to monitor patient mental status, repeat CXR, ABG with AM labs. and reassess. 2127 Skin check [address] Camacho and Kali BONILLA. Okay for nasal cannula. Continue Q6 lab and current modality of care. 09/30 0000 Patient reassessed, see note. No changes unless documented. Patient reports pain is tolerable with INSURANCE RISK MANAGER pump. 020 Kali Gonzales IRENE notified of potassium 5.4. Advised to monitor and resend lab at 0600. No other interventions at this time. 0400 Patient reassessed. No changes unless documented. 0700 Report and sign out. Luc Guillen RN On admission to ICU, from OR a dual RN initial assessment of skin condition was performed by Luc Guillen RN and Ness Joyce RN. Skin Assessment: Skin within defined limits:Yes Nik Score: 15 LDA Added:No Luc Guillen RN 63 yo male s/p open repair of AAA (RP approach) Suprarenal clamp < 30 min EBL 1.5 L Epidural No chest tube -Respiratory management per ICU -Rectal ASA tonight ok if doing well from hemodynamic/hematologic perspective (prior PCI -SBP goals 100-140 mmHg -Q6H labs (CBC, CMP, coags, ABG with lactate) -Goal INR <1.5, platelets > 100, post op initial Fibrinogen > 200 -Please resuscitate to above goals and normal physiology, avoid pressors if possible. 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] POST OPERATIVE DIAGNOSIS Juxtarenal abdominal aortic aneurysm (AAA) without rupture [I71.42] PROCEDURE PERFORMED Procedure(s) (LRB): REPAIR AAA RETROPERITONEAL APPROACH (Midline) PRIMARY CLOSURE Yes INTRAOPERATIVE FINDINGS RP repair of AAA 18x9 rifampin soaked gelsoft graft SURGEON Surgeons and Role: * Chance Goodman MD - Primary * Moise Drake MD - Fellow ANESTHESIOLOGIST Anesthesiologist: Faye Galeano MD Chief School Finance Officer Assisting: Jefe Hairston MD; Sharee Sprague MD Edge Dyer: Rush Teixeira SURGICAL STAFF Marketing Copywriter: Moise Mcfarlane RN; Padmini Harley RN Relief Marketing Copywriter: Greg Salazar RN Relief Scrub: Clara Villarreal Scrub Person: Nuvia Gusman Resident Assisting: Candida Adams MD; Renetta Torres MD COMPLICATIONS None ESTIMATED BLOOD LOSS 1500 ml SPECIMENS No specimen sent * No specimens in log * Moise Drake MD September 30, 2023 2:57 PM VASCULAR SURGERY OPERATIVE REPORT Tariq Arias [id number] 09/30/2023 1960 PREOPERATIVE DIAGNOSIS: Growing aortic aneurysm, pararenal POSTOPERATIVE DIAGNOSIS: Growing aortic aneurysm, pararenal PROCEDURES PERFORMED: Retroperitoneal exposure for aneurysm repair 18x9 bifurcated graft Bevelled posteriorly above the renals to the level of the SMA Suprarenal clamp SURGEON: Chance Goodman MD LEASING PROPERTY MANAGER: Juan Luis Drake MD; Candida Adams MD; Renetta Torres MD ANESTHETIC: General, epidural OPERATIVE PROCEDURE: After informed consent was obtained the patient was brought to the operative suite and placed supine on table. General anesthesia was induced. The patient was placed on a beanbag, and after all necessary lines and tubes were placed, the patient was turned into a decubitus position with the hips slightly splayed. The beanbag was insufflated. The arms were placed in appropriate positions, and all skin/limbs were tucked. The bed was flexed. The 10th rib was marked.The patient was prepped and draped in the usual sterile fashion. A time-out was performed to discuss all aspects of the procedure, including perioperative antibiotics with all team members involved. Starting at the midaxillary line, a curvillinear incison was made towards the umbilicus. We stayed lateral to the rectus. The retroperitoneal space was entered near the costal margin, and expanded bluntly. Care was taken to pull spleen and kidney upwards. The psoas was seen, and the padmini of the diaphragm was taken down. The left renal artery was identified. The crossing veins were ligated. The aorta was exposed in the standard fashion. Both iliac arteries were controlled with vessel loops. The patient was heparinized and ACTs were checked immediately and then every 30mins thereafter. Both iliac vessels were clamped with atraumatic vascular clamps. The aorta was clamped as well just above the renal artery, below the SMA. The aorta was opened longitudinally, and the proximal aorta was beveled up to the level of the SMA posteriorlyoff. A 18x 9mm graft was brought up on the field and trimmed to size. The proximal anastomosis was carried out with a 3-0 prolene running suture with felt ring. The sutures were tied down. The anastomoses was tested with saline. Flow was restored and the graft was clamped. The proximal anastomosis required two repair sutures, pledgetted. The renal arteries bilaterally and the SMA were surveyed with an intraoperative doppler and found to be patent and with good flows. Distally the aorta was trimmed and both common iliac vessels were circumferentially freed and transected. The right limb was spatulated, and anastomosed to the iliac artery in a running fashion. The graft and the artery were flushed and the sutures tied down for hemostasis. The pelvis, then right leg were reperfused. The left iliac was transected and beveled. The graft was trimmed and spatulated. This was also anastomosed to the vessel in a running fashion, and flow was restored. Once distal signals were appreciated, the patient was reversed. CHAUNCEY was ligated. Lumbars were repaired. The graft was inspected. The field was irrigated, and the patient unflexed. The retroperitoneum was closed in multiple layers. The skin was approximated with monocryl. The patient was placed supine and dressings were applied. They were taken to recovery and ICU in stable condition. I was personally scrubbed for critical portions of the procedure, and available for the entirety of the procedure. Chance Goodman MD Department of Vascular Surgery [facility] 09/30/2023 documented in this encounter [facility] 10-03-2023 Hospital Discharg e instructions Moise Andersen APRN-COMMERCIAL LINES UNDERWRITER - 10/03/2023 2:14 PM EDT You had open aortic aneurysm surgery to repair an aneurysm (a widened part) in your aorta, the large artery that carries blood to your belly (abdomen), pelvis, and legs. You have a long incision (cut) either in the middle of your belly or on the left side of your belly. Your surgeon repaired your aorta through this incision. Activity Do not drive for 2 weeks after surgery or if you are taking pain medications. If you have pain that makes turning or bending difficult, do not drive a car until you can move quickly without pain. You may ride in a car. Do not lift anything heavier than 5 pounds for 2 weeks after surgery. A gallon of milk weighs about 8 pounds. You may go up and down the stairs. Gradually increase your activity until you can do what is your usual routine. Walking is the best form of exercise after surgery. Start out slowly and gradually increase your walking distance. It is common to tire easily after surgery. This will improve each week. Try and space your activities and allow times to rest. What to Expect at Home Plan to have someone drive you home from the hospital. Do NOT drive yourself home. You should be able to do most of your regular activities in 4 to 8 weeks. Before that: Do not lift anything heavier than 10 to 15 pounds until you see your doctor. Avoid all strenuous activity. This includes heavy exercising, weightlifting, and other activities that make you breathe hard or strain. Short walks and using stairs are okay. Light housework is okay. Don't push yourself too hard. Increase how much you exercise slowly. Managing Pain Your doctor will prescribe pain medicines to use at home. If you are taking pain pills 3 or 4 times a day, try taking them at the same times each day for 3 to 4 days. They may be more effective this way. Try getting up and moving around if you are having some pain in your belly. This may ease your pain. Press a pillow over your incision when you cough or sneeze to ease discomfort and protect your incision. Make sure your home is safe as you are recovering. Wound Care Change the dressing over your surgical wound once a day, or sooner if it becomes soiled. Your doctor will tell you when you do not need to keep your wound covered. Keep the wound area clean. You may wash it with mild soap and water if your doctor says you can. You may remove the wound dressings and take showers if sutures, telma, or glue were used to close your skin if your doctor says you can. If tape strips (Steri-strips) were used to close your incision, do not try to wash off the Steri-strips or glue. Do not soak in a bathtub or hot tub, or go swimming, until your doctor tells you it is okay. Call your doctor or nurse if: You have pain in your belly or back that does not go away or is very bad. Your legs are swelling. You have chest pain or shortness of breath that does not go away with rest. You have dizziness, fainting, or you are very tired. You are coughing up blood or yellow or green mucus. You have chills or a fever over 100.5 F. Your belly hurts or feels distended. There are changes in your surgical incision: The edges are pulling apart. You have green or yellow drainage. You have more redness, pain, warmth, or swelling. Your bandage is soaked with blood. Your legs are swelling. You have blood in your stools. You are not able to move your legs. Additional Contacts: Evening and Weekend Contacts If you have questions or concerns during evening, weekend, or holiday hours, please call: -[facility] catalyst operator gasoline at [phone]. -[facility] catalyst operator gasoline at [phone] Ask the catalyst operator gasoline to page the on-call doctor for Vascular Surgery, the service that was responsible for your care while you were in the hospital. If you having an emergency, call 911. The following attachments cannot be sent through Care Everywhere.Pain and Pain Control ([facility]) ([place]anese)documented in this encounter [facility] 09-30-2023 History and physical note PERIOPERATIVE SURGICAL HISTORY AND PHYSICAL UPDATE Pre-op Diagnoses: Juxtarenal abdominal aortic aneurysm (AAA) without rupture [I71.42] Procedure(s): REPAIR AAA RETROPERITONEAL APPROACH Surgeon(s): Surgeons and Role: * Chance Goodman MD - Primary History and Physical Update: Past Medical History: Diagnosis Date Diabetes mellitus Essential hypertension, benign Hyperlipidemia Past Surgical History: Procedure Laterality Date CORONARY STENT PLACEMENT x2 HERNIA REPAIR ROTATOR CUFF REPAIR Blood pressure 130/70, pulse 55, temperature 97.7 F (36.5 C), temperature source Infrared, resp. rate 20, height 1.676 m (5' 6), weight 113.1 kg (249 lb 6.4 oz), SpO2 96%. I have reviewed this patient's medical, surgical and other pertinent history, and I have updated the medication and allergy information in the computerized patient record. I have examined the patient, reviewed the previous H&P completed on date (09/10/23) and there are no changes. Regarding Pre-operative Anti-Coagulation: (Not in an outpatient encounter) Labs: INR/Prothrombin Time Lab Results Component Value Date INR 1.0 09/16/2023 PT 12.6 09/16/2023 Lab Results Component Value Date SODIUM 140 09/16/2023 POTASSIUM 5.2 (H) 09/16/2023 CHLORIDE 105 09/16/2023 CO2 28 09/16/2023 BUN 13 09/16/2023 CREATSERUM 0.87 09/16/2023 GLUCOSE 98 09/30/2023 Lab Results Component Value Date WBC 7.84 09/16/2023 HGB 14.9 09/16/2023 HCT 46.2 09/16/2023 PLATELET 249 09/16/2023 MCV 93.0 09/16/2023 Today's surgical history and physical update was completed by Renetta Torres MD. 09/30/2023, 7:01 AM Renetta Torres MD Vascular Surgery, PGY-3 [phone] VASCULAR SURGERY H&P CC AAA HPI Mr. Arias is a 63 y.o. male with a past medical history of T2DM not on insulin, hyperlipidemia, and HTN. He has followed in Vascular Surgery clinic for enlarging AAA, now at 5.8cm per last clinic visit. He presents today for scheduled open repair via RP approach. Patient feels at his baseline this morning and denies fevers, chest pain, shortness of breath, abdominal pain, nausea, vomiting, or new extremity weakness, swelling, or numbness. NPO since last night. He has continued to take his 81 ASA. Did not take Metformin last night. Of note, he stopped Ozempic approx 1 month ago. Patient lives alone, but states his son is able to help him. ROS: Denies chest pain, diaphoresis, syncope, pre-syncope, fevers, chills, night sweats. All other review of systems negative, unless otherwise stated. Past Medical History Past Medical History: Diagnosis Date Diabetes mellitus Essential hypertension, benign Hyperlipidemia Past Surgical History: Procedure Laterality Date CORONARY STENT PLACEMENT x2 HERNIA REPAIR ROTATOR CUFF REPAIR Family History Family History Problem Relation Age of Onset No known problems Mother Other - Specify Father abdominal aneurysm Heart Disease - Other Father Social History reports that he has been smoking cigarettes. He has never used smokeless tobacco. He reports that he does not drink alcohol and does not use drugs. Social History Tobacco Use Smoking Status Every Day Types: Cigarettes Smokeless Tobacco Never Social History Substance and Sexual Activity Alcohol Use Never Allergies Allergies Allergen Reactions Penicillins As a young child Meds Current Outpatient Medications Medication Instructions Aspirin 81 mg, Oral, DAILY Atorvastatin (LIPITOR) 40 mg, Oral, DAILY metFORMIN (GLUCOPHAGE) 1,000 mg, Oral, DAILY Metoprolol (LOPRESSOR) 25 mg, Oral, 2 TIMES DAILY Semaglutide (OZEMPIC, 0.25 OR 0.5 MG/DOSE, SC) 0.25 mg, Subcutaneous, WEEKLY PHYSICAL EXAM Wt Readings from Last 1 Encounters: 09/30/23 113.1 kg (249 lb 6.4 oz) Blood pressure 130/70, pulse 55, temperature 97.7 F (36.5 C), temperature source Infrared, resp. rate 20, height 1.676 m (5' 6), weight 113.1 kg (249 lb 6.4 oz), SpO2 96%. General appearance: alert, cooperative, no distress Lungs: no respiratory distress, on room air Thorax: no chest wall tenderness w/ palpation Heart: regular rate and rhythm Abdomen: soft, no tenderness w/ palpation Extremities: no lower extremity edema Skin: warm and dry Neurologic: no gross focal deficits noted Psych: appropriate mood and affect for clinical situation Pulses: R femoral: palpable L femoral: palpable R dorsalis pedis: Doppler L dorsalis pedis: Doppler R posterior tibial: Doppler L posterior tibial: Doppler Labs: Lab Results Component Value Date WBC 7.84 09/16/2023 HGB 14.9 09/16/2023 PLATELET 249 09/16/2023 PTT 34.6 (H) 09/16/2023 INR 1.0 09/16/2023 SODIUM 140 09/16/2023 POTASSIUM 5.2 (H) 09/16/2023 CHLORIDE 105 09/16/2023 CO2 28 09/16/2023 BUN 13 09/16/2023 CREATSERUM 0.87 09/16/2023 HGBA1C 6.0 (H) 09/16/2023 No results found for: CPK, TROP No results found for: BNP PLAN: - To OR with Dr. Goodman - Signed consent on file Krissy Tripathi PA-C, RDVT, T Vascular Surgery Physician Blanket Binder Team: Doug Neavitt [phone] documented in this encounter [facility] 09-10-2023 History of Presen t illness Narrative VASCULAR SURGERY FOLLOW UP NOTE: Tariq Arias 1960 [id number] Previous procedures: None HPI: This is a very pleasant 63 y.o. male here for follow up for discussion of open aortic surgery. Mr. Balbuena is a relatively healthy 63 yo M w/ AAA, enlarging, now at 5.8cms. He has completed his PFTs, and echo/stress, all of which look amenable to open AAA repair. Past History Past medical, surgical, family, and social histories have been reviewed and updated with the patient today and are located elsewhere in the medical record. Review of Systems - negative. Outpatient Medications Prior to Visit Medication Sig Dispense Refill Aspirin [address] tablet Take 1 tablet by mouth daily. Atorvastatin 40 MG tablet Take 1 tablet by mouth daily. metFORMIN 1000 MG tablet Take 1 tablet by mouth daily. Metoprolol 25 MG tab regular release Take 1 tablet by mouth 2 times daily. Semaglutide (OZEMPIC, 0.25 OR 0.5 MG/DOSE, SC) Inject 0.25 mg under the skin once a week. No facility-administered medications prior to visit. Exam: Alert oriented, NAD RRR Abd soft Pulses Palp Testing: I have personally and independently reviewed her testing for todays visit: Reviewed prior CTA, PFTs, echo and stress tests from OSH A/P: This is a pleasant 63 y.o.male patient here for further follow up of AAA. Discussed open repair extensively, including risks and benefits, including but not limited to bleeding, clotting, NV, stroke, , respiratory insufficiency requiring trach, dialysis, and bowel ischemia. He is agreeable with proceeding. Chance Goodman MD Department of Vascular Surgery [facility] 09/10/2023 documented in this encounter [facility] 09-10-2023 Instructions Alise Gunn RN - 09/10/2023 8:00 AM EST INSTRUCTIONS FOR YOUR UPCOMING PROCEDURE: You are scheduled for a ABDOMINAL AORTIC ANEURYSM REPAIR PROCEDURE DATE: 09/30/2023 YOU WILL RECEIVE A PHONE CALL THE DAY PRIOR TO SURGERY WITH FIRM ARRIVAL AND PROCEDURE TIMES. The hospital phone number that shows on caller ID is [phone]. Please make sure this is not blocked on your phone and that your settings allow for robo calls. Otherwise, you may miss the call. PREOP testing to complete: - You need to get labwork (blood draw) prior to your testing or procedure. Please get your labs within 6 weeks of procedure. Labwork is normally done on a walk in basis, you do not need to make an appointment. If you do not go to an [facility] facility for this testing please call us at [phone] and notify the neurosurgery physician where you had your labwork done so that we may get the results to put in your chart. - You need get a chest x-ray prior to your procedure. If you go outside the [facility] system for this testing, please call us at [phone] and let us know the name of the hospital or testing center it was done. +++++++++++++++++++++++++++++++++ ++++++++++++++ MEDICATION INSTRUCTIONS: DO NOT take METFORMIN (GLUCOPHAGE) the evening before or the day of your procedure. Take ALL of your regular morning PRESCRIPTION medications the morning of your procedure EXCEPT: *If you take ASPIRIN, please continue taking it up to and including the day of surgery. Any other over the counter (or nonprescription medications) please DO NOT take the morning of your procedure. Please hold all all vitamins/supplements/herbal nonprescription medications for 7 days prior to your procedure. Do NOT take Excedrin, ibuprofen, Advil, Voltaren (Diclofenac), Motrin, naproxen, or Aleve, Mobic (Meloxicam) for the 7-14 days before surgery. Acetaminophen (Tylenol) is ok to take up until the day of surgery. +++++++++++++++++++++++++++++++++ ++++++++++++++ - Nothing to eat or drink after midnight, the night before your procedure. No gum, candy, mints or smoking (after midnight). - You will need an adult responsible constitution party to drive you home after you are discharged. You will NOT be released to a cab or public transportation without a responsible adult. You also need a responsible adult to stay with you for the first 24 hours you are at home. - Use the Hibiclens (soap) that you were provided with, in the shower, to wash from the neck down the night before and the morning of your procedure. If Hibiclens was not given, you may use other antibacterial soap, such as Dial. - Please pack a light bag (change of clothes and toiletries) in case you are admitted after your procedure. - Bring a list of your current medications, the dose and how often you take the medication. - [place] your teeth and rinse your mouth the morning of surgery. - Do NOT shave on or around the surgical site for 48 hours prior to surgery. - Do NOT wear any hearing aids, jewelry, watches, rings, hairpieces, makeup, glasses or contact lenses with you into your surgery. - Do NOT bring your dentures or partials with you into surgery. They may be lost. Give them to someone to bring to you after surgery. -Your procedure will be at the [address] [address] ([phone]) If you become ill, develop a fever, cough, or any type of infection within 14 days of your scheduled surgery, please call the surgeon's office. You may need to have your surgery moved, as we would not want to put you at risk for complications due to an illness. If you are placed on Antibiotics within 1 week of surgery, please notify our team immediately. - If you have Sleep apnea and have a CPAP or BIPAP, then bring your CPAP mask and machine with you to the hospital. Patient instructed to bring CPAP machine, with prescribed settings, and mask day of surgery. Patient Education handout DARSHAN Care after Sedation or Anesthesia given to patient. - Instructions regarding your care at home will be given to you prior to your discharge the day of your procedure. Please view these two websites for additional information regarding the division, physicians, your condition, testing, treatment and the [facility]. [email or web address] and [email or web address] - Please read all the information thoroughly regarding your surgery. If you have any questions or concerns, please feel free to call the office at [phone]. The office is open Saturday through Saturday from 7:30 am to 4:30 pm. - If you need to cancel or reschedule your surgery, we ask that you please contact our office within 48 hours prior to your procedure. It is very important that we keep the doctor's calendar current. Thank you for your cooperation. The following attachments cannot be sent through Care Everywhere.Aortic Aneurysm Abdominal: Open Surgical Repair: Pre-op (L[place]anese)Aortic Aneurysm Abdominal: Open Surgical Repair: Post-op (L[place]anese)documented in this encounter [facility] 01-17-2023 Evaluation note Diagnosis Onset Date MCL sprain of right knee acu te Right knee pain acute AAA (abdominal aortic aneurysm) without rupture acute Bruit of left carotid artery acute History of coronary artery stent placement January 17, 2022 acute Hyperlipidemia acute [facility] Work Phone: 1(801) 647-110906-29-2023 Evaluation note* Diagnosis Onset Date Resolution Status MCL sprain of right knee acu te Right knee pain acute AAA (abdominal aortic aneurysm) without rupture acute Bruit of left carotid artery acute History of coronary artery stent placement January 17, 2022 acute Hyperlipidemia acute AAA (abdominal aortic aneurysm) without rupture acute [facility] Work Phone: 1(218) 802-781006-29-2023 Evaluation note* Diagnosis Onset Date Resolution Status MCL sprain of right knee acu te Right knee pain acute AAA (abdominal aortic aneurysm) without rupture acute Bruit of left carotid artery acute History of coronary artery stent placement January 17, 2022 acute Hyperlipidemia acute AAA (abdominal aortic aneurysm) without rupture acute Effusion, right knee acute Tear of medial meniscus of right knee acute [facility] Work Phone: 1(623) 649-316007-06-2022 Miscellaneous Notes* Telephone Encounter - Emma Alonzo - 01/24/2022 1:58 PM EDT Patient is scheduled for first available and placed on wait list * Telephone Encounter - Lanie Gutierrez APRN.CNP - 01/24/2022 1:04 PM EDT It does not appear he has been seen by a [facility] inspector wire rope. He will need to be scheduled with one of the inspector wire rope. 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 They did surgery there but since he's mainly from around here he needs to establish with a inspector wire rope. He is off this Saturday before heading back on the road If he's able to be seen, if not and you can advise a few other sooner dates I would appreciate it. PH:[phone] [facility]* Diagnosis Onset Date Resolution Status Bruit of left carotid artery acute History of coronary artery stent placement January 17, 2022 acute Hyperlipidemia acute AAA (abdominal aortic aneurysm) without rupture chronic AAA (abdominal aortic aneurysm) without rupture chronic Effusion, right knee acute Tear of medial meniscus of right knee acute Effusion, right knee acute Right knee pain acute Tear of medial meniscus of right knee acute AAA (abdominal aortic aneurysm) without rupture chronic [facility] Work Phone: Discharge summary Author Cortes Fraire [facility] May 03, 2023 11:17am Note Date/Time May 03, 2023 1 1:16am [facility] Medical Records Department [address] [place] [address] Emergency Department Summary 05/03/23 MR#: [id number] Acct: [id number] Name: TARIQ ARIAS Rep #:[id number] : 1960 62 From: Cortes Fraire DO PCP: Dr. Latrell Bernal MD Status:REG ER Location: ED HPI History of Present Illness Chief Complaint: Lower Extremity Injury Narrative Narrative: 62-year-old male presenting with right knee pain. He states it is above and behind the right knee. It is on the medial aspect. Patient states he felt a pop the other day. He has been ambulating with an antalgic gait. No direct trauma. No numbness or tingling. No bruising. [facility] Medical History AAA (abdominal aortic aneurysm) without rupture Aortic stenosis Celiac artery stenosis Hyperlipidemia Obesity STEMI (ST elevation myocardial infarction) Tobacco abuse Home Medications aspirin 81 mg tablet,delayed release 81 mg PO DAILY 05/01/23 [History Last Taken Unknown] atorvastatin 40 mg tablet 40 mg PO QHS 05/01/23 [History Last Taken Unknown] glimepiride 4 mg tablet 4 mg PO DAILY 05/01/23 [History Last Taken Unknown] metformin 500 mg tablet 500 mg PO BID 05/01/23 [History Last Taken Unknown] Allergy/AdvReac Type Severity Reaction Status Date / Time Penicillins Allergy Unknown Verified 05/03/23 09:25 Family History Other Heart disease Surgical History History of appendectomy History of arthroscopy of right shoulder History of coronary artery stent placement (01/17/22) History of umbilical hernia repair Social History Smoking Status: Current every day smoker tobacco type: cigarettes alcohol intake: never substance use type: does not use ROS ROS ED Constitutional Constitutional ED: Denies chills, fever(s) or sweats Eyes Eyes: Denies blurry vision or change in vision ENT ENT ED: Denies ear pain or sore throat Cardiovascular Cardiovascular: Denies chest pain, palpitations or racing heartbeat Respiratory/Chest Respiratory/Chest: Denies cough, dyspnea or sputum Gastrointestinal Gastrointestinal: Denies abdominal pain, constipation, diarrhea, nausea or vomiting Genitourinary Genitourinary ED: Denies dysuria, hematuria or urinary frequency Musculoskeletal Musculoskeletal: Reports other Details: Left knee and posterior thigh pain ; Denies arthralgias, myalgias or neck pain Integumentary Denies abscess, Abrasions or rash Neurologic Neurologic: Denies headache(s), paresthesias or weakness Psychiatric Psychiatric: Denies anxiety, depression, suicidal ideation or suicidal thoughts Endocrine Endocrinology: Denies polydipsia or polyuria EXAM Physical Exam Const Vital Signs: 05/03/23 09:24 05/03/23 10:24 Temperature 97.5 F L Temperature Source Temporal Pulse Rate 69 68 Respiratory Rate 14 18 Blood Pressure 153/71 H 118/76 Blood Pressure Mean 98 90 Pulse Ox 98 97 Oxygen Delivery Method Room Air Positive well nourished HEENT Reports moist mucous membranes normocephalic and atraumatic Resp normal respiratory effort Cardio regular rate and regular rhythm Extremity Extremity Narrative: There is tenderness to palpation medially superior, posterior to the left knee. Left knee has no ligamentous laxity. Full range of motion in flexion and extension. No patellar tenderness. Neuro Motor Exam: strength 5/5 throughout Psych mental status grossly normal Skin no wounds MDM MDM MDM Narrative Medical decision making narrative: 62-year-old male with left knee pain. Differential includes muscle tear, knee strain, meniscal tear. Patient given ibuprofen for pain. X-ray of the left knee on my interpretation shows no acute fracture. There is small joint effusion. Patient counseled he could have torn something, however I do not believe it is a ACL, MCL, PCL. He is walking with a antalgic gait but his knee joint is not unstable. Recommended compression and NSAIDs. I will give him follow-up with orthopedics. Impression: 1. Knee strain 2. Muscle strain Radiography Diagnostic Testing: Clinical Impression(s) from Imaging Studies Knee X-Ray 05/03/23 09:50 IMPRESSION: Small joint effusion. No demonstrated fracture. Electronically Signed: Eliud Duncan MD at 10:01 EDT Reading Location ID and State: [address] [place] [address] , Service support , Discharge Plan Triage Chief Complaint: Lower Extremity Injury ED Provider: Cortes Fraire Dx/Rx/DC Orders Instructions: ED Knee Sprain, ED Muscle Strain, Extremity Prescriptions: No Action aspirin 81 mg tablet,delayed release (DR/EC) 81 mg PO DAILY Patient Comments: TAKE 1 TABLET BY MOUTH EVERY DAY atorvastatin 40 mg tablet 40 mg PO QHS glimepiride 4 mg tablet 4 mg PO DAILY metformin 500 mg tablet 500 mg PO BID Primary Care Provider: Latrell Bernal Referrals: Paulo Carter MD [Med Staff - Active Staff] - 3-5 Days Care Physician,No Primary [Non-Staff] - Disposition Disposition: Home, Self Care What to do if you have Problems For any increased pain, shortness of breath, bleeding, nausea or vomiting, chestpain, or any unexpected problems, contact your Primary Care Provider. Call [facility] ([phone]) or report to the closest Emergency Room. Call 911 if necessary. 05/03/23 1117 <Electronically signed by Cortes Fraire DO> Cosigner Signature (if applicable): CC: Dr. Latrell Bernal MD ~ Signed [facility] Work Phone: Evsccation noteNo assessment information available [facility] Work Phone: Evaluation note* Diagnosis Juxtarenal abdominal aortic aneurysm (AAA) without rupture- Primary Juxtarenal abdominal aortic aneurysm (AAA) without rupture [facility] Diagnosis AAA (abdominal aortic aneurysm)- Primary Abdominal aneurysm without mention of rupture Juxtarenal abdominal aortic aneurysm (AAA) without rupture Abdominal aortic aneurysm (AAA) without rupture, unspecified part [facility] Diagnosis Abdominal aortic aneurysm (AAA) without rupture, unspecified part [facility] Diagnosis Juxtarenal abdominal aortic aneurysm (AAA) without rupture [facility]* Attachments The following attachments cannot be sent through Care Everywhere. * Pain and Pain Control ([facility]) (Lebanese) [facility] Summary Purpose Family History No Family History Records Found Relationship Condition Age at Onset Recorded Date/T marii Not Specified Cardiac disease Unknown Advance Directives No Advanced Directives Records FoundDocuments on File Type Date Recorded Patient Canvas Cutter Expl anation Advance Directives and Livin g Will 05/17/2020 12:00 AM Latest Code Status on File Code Status Date Activated Date Inactivated Comments Full Code 05/17/2020 12:07 AM 05/18/2020 4:57 PM Documents on File Type Date Recorded Patient Canvas Cutter Expl anation Advance Directives and Livin g Will 05/17/2020 12:00 AM Latest Code Status on File Code Status Date Activated Date Inactivated Comments Full Code 05/17/2020 12:07 AM 05/18/2020 4:57 PM Advance Directive Response Recorded Date/ Time Living Will No March 30 2:38pm Power of Measurement Specialist No March 30, 2023 2:38pm Advance Directive Response Recorded Date/ Time Living Will No May 03 9:57am Power of Measurement Specialist No May 03, 2023 9:57am Advance Directive Response Recorded Date/ Time Living Will No May 03 8:57am Power of Measurement Specialist No May 03, 2023 8:57am Latest Code Status on File Code Status Date Activated Date Inactivated Comments Full Code 09/30/2023 3:43 PM Latest Code Status on File Code Status Date Activated Date Inactivated Comments Full Code 09/30/2023 3:43 PM Hospital Course * Sangeeta Rios MD - 05/18/2020 1:01 PM EDT HOSPITALIST DISCHARGE SUMMARY Patient: Tariq Arias Account: [id number] Admitted: 05/16/2020 Discharge Date/Time: 05/18/2020 Clinical Summary [...] source Oral, resp. rate 16, height 5' 6, weight 116.9 kg (257 lb 11.5 oz), [...] spent on discharge: 45 mins Completed by: Sangeeta Rios on 05/18/20, 1:01 PM documented in this encounter Discharge Instructions * Attachments The following attachments cannot be sent through Care Everywhere. * Aortic Aneurysm: Abdominal (Lebanese) documented in this encounter History of Present Illness * Courtney Gomez MD - 05/18/2020 7:08 AM EDT Neurology Inpatient Consult [facility] 05/18/2020 Patient: Tariq Arias Date of : 1960 (59 y.o.) Referring Provider: Refer to consult order in electronic medical record PCP: Provider Not in System ASSESSMENT: 59 y.o. male presented to [facility] on 05/16/2020 with an onset of bilateral [...] Portions of this chart was created using [employer] voice recognition software. Occasional wrong-word or sound-like [...] Care Team/Chart History of Present Illness: Tariq Arias is a 59 y.o. male who was [...] any radicularsymptoms. He was initially seen at [facility]. CT angiogram showed infrarenal aortic aneurysm with [...] lives alone. 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 Review of Systems: All systems [...] file Gets together: Not on file Attends latter-day service: Not on file Active member of [...] Hsieh MD - 05/17/2020 12:10 PM EDT [facility] Medicine Inpatient Follow-up 05/17/2020 Tu Hsieh MD [facility] Patient: Tariq Wilson Zechariah Date of : 1960 (59 y.o.) PCP: Provider Not in System ASSESSMENT/PLAN: Tariq Arias 59 y.o. male presented with complains of [...] rupture (HCC) Cigarette nicotine dependence without complication Chief Complaint and Reason for Visit Chief Complaint CHEST PAIN HOLTER MONITOR Chief Complaint CHEST PAIN HOLTER MONITOR RIGHT KNEE PAIN Chief Complaint CHEST PAIN HOLTER MONITOR RIGHT KNEE PAIN RIGHT KNEE CAD / EST (DOLORES) Abdominal aortic aneurysm, without rupture, unspec Amb Documentation Amb Documentation Reason for Visit MCL sprain of right knee Right knee pain AAA (abdominal aortic aneurysm) without rupture Bruit of left carotid artery History of coronary artery stent placement Hyperlipidemia Chief Complaint CHEST PAIN HOLTER MONITOR RIGHT KNEE PAIN RIGHT KNEE CAD / EST (DOLORES) Abdominal aortic aneurysm, without rupture, unspec Amb Documentation Amb Documentation M25.561 S83.411A CONSULT-ABD AORTIC ANEURYSM W/O RUPTURE Presence of coronary angioplasty implant and graft Presence of coronary angioplasty implant and graft Reason for Visit MCL sprain of right knee Right knee pain AAA (abdominal aortic aneurysm) without rupture Bruit of left carotid artery History of coronary artery stent placement Hyperlipidemia AAA (abdominal aortic aneurysm) without rupture Chief Complaint CHEST PAIN HOLTER MONITOR RIGHT KNEE PAIN RIGHT KNEE CAD / EST (DOLORES) Abdominal aortic aneurysm, without rupture, unspec Amb Documentation Amb Documentation M25.561 [id number] CONSULT-ABD AORTIC ANEURYSM W/O RUPTURE Presence of coronary angioplasty implant and graft Presence of coronary angioplasty implant and graft Amb Documentation Amb Documentation RIGHT KNEE AAA Reason for Visit MCL sprain of right knee Right knee pain AAA (abdominal aortic aneurysm) without rupture Bruit of left carotid artery History of coronary artery stent placement Hyperlipidemia AAA (abdominal aortic aneurysm) without rupture Effusion, right knee Tear of medial meniscus of right knee Chief Complaint CAD / EST (DOLORES) Abdominal aortic aneurysm, without rupture, unspec Amb Documentation Amb Documentation M25.561 [id number] CONSULT-ABD AORTIC ANEURYSM W/O RUPTURE Presence of coronary angioplasty implant and graft Presence of coronary angioplasty implant and graft Amb Documentation Amb Documentation RIGHT KNEE AAA RIGHT KNEE DISCUSS RESULTS JUXTARENAL AAA W/O RUPTURE Reason for Visit Bruit of left caroti d artery History of coronary artery stent placement Hyperlipidemia AAA (abdominal aortic aneurysm) without rupture AAA (abdominal aortic aneurysm) without rupture Effusion, right knee Tear of medial meniscus of right knee Effusion, right knee Right knee pain Tear of medial meniscus of right knee AAA (abdominal aortic aneurysm) without rupture Reason for Referral Specialty Diagnoses / Procedures Referred By Contac t Referred To Contact Physical Therapy Diagnoses Abdominal aortic aneurysm (AAA) without rupture, unspecified part Leslie Quijano MD [address] [place] [address] 2[address] [place] [address] Referral ID Status Reason Start Date Expiration Date V isits Requested Visits Authorized [id number] New Request 10/06/2023 10/30/2024 1 1 Scheduling Instructions [facility] [place] (Orthopedic, Sports Rehab) [address], [address], [place] [address] Outpatient Care [place] (Burn, Neurological, Orthopedic, Pelvic Health, Sports Rehab) [address] [place] [address], [address], [place] [address] Outpatient Care [facility] (Orthopedic Rehab) [address], [address], [place] [id number] Outpatient Care [place] (Orthopedic, Pelvic Health, Sports) [address], [address], [place] [address] Outpatient Care [place] - Pelvic Health [address], [address], [place] [address] Outpatient Care [place] (Orthopedic, Pelvic Health, Sports Rehab) [address], [address], [place] [address] Outpatient Care [place] (Aquatic, Burn, Neurological, Orthopedic, Pelvic Health Rehab) [address], [facility] [address], [place] [address] Outpatient Care [place] (Burn, Neurological, Orthopedic, Pelvic Health, Sports Rehab) [address] [facility] [place] [place], [address] [place] [address] Outpatient Rehabilitation [facility] (Burn, Neurological, Orthopedic Rehab) [address] [place] [address] Outpatient Rehabilitation [facility] (Aquatic, Burn, Neurological, Orthopedic, Pelvic Health Rehab) [address], [place] [address] Outpatient Rehabilitation [place] (Burn, Neurological, Orthopedic Rehab) [address] [place] [address] Sports Medicine [facility] (Orthopedic, Sports Rehab) [address], [address], [place] [address] Sports Medicine Rehabilitation [facility] (Orthopedic, Sports Rehab) [address], [place] [address] [facility] (Orthopedic, Sports Rehab) [address], [place] [address] Sports Medicine Rehabilitation [facility] (Aquatic, Orthopedic, Pelvic Health, Sports Rehab) [address], [place] [address] Sports Medicine Rehabilitation [facility] (Orthopedic, Sports Rehab) [address] [place] [address] [facility] (Orthopedic, Sports Rehab) [address] [facility] [address] [facility], [address], [place] [address] Specialty Diagnoses / Procedures Referred By Contac t Referred To Contact Diagnoses Juxtarenal abdominal aortic aneurysm (AAA) without rupture Procedures CT ANGIO ABDOMEN PELVIS UT CT ANGIO ABD&PLVIS CNTRST MTRL W/WO CNTRST IMGES Eyer V, Moise, [employer] UNDERWRITER [address] [place] [address] Referral ID Status Reason Start Date Expiration Date V isits Requested Visits Authorized [id number] New Request 10/04/2023 10/28/2024 1 1 Specialty Diagnoses / Procedures Referred By Contac t Referred To Contact Procedures NO MECHANICAL DVT PROPHYLAXIS Chance Goodman MD [address] [place] [address] Referral ID Status Reason Start Date Expiration Date V isits Requested Visits Authorized [id number] New Request 09/30/2023 10/24/2024 1 1 Specialty Diagnoses / Procedures Referred By Contac t Referred To Contact Procedures LOW RISK - NO PHARMACOLOGICAL DVT PROPHYLAXIS Chance Goodman MD [address] [place] [address] Referral ID Status Reason Start Date Expiration Date V isits Requested Visits Authorized [id number] New Request 09/30/2023 10/24/2024 1 1 Specialty Diagnoses / Procedures Referred By Contac t Referred To Contact Procedures DVT/VTE RISK ASSESSMENT Chance Goodman MD [address] [place] [address] Referral ID Status Reason Start Date Expiration Date V isits Requested Visits Authorized [id number] New Request 09/30/2023 10/24/2024 1 1 Specialty Diagnoses / Procedures Referred By Contac t Referred To Contact Diagnoses Juxtarenal abdominal aortic aneurysm (AAA) without rupture Procedures NO MECHANICAL DVT PROPHYLAXIS Bianca Gomez, PAC [address] [place] [address] Referral ID Status Reason Start Date Expiration Date V isits Requested Visits Authorized [id number] New Request 09/30/2023 10/24/2024 1 1 Referral ID Status Reason Start Date Expiration Date Visits Re quested Visits Authorized [id number] Closed 10/04/2023 10/28/2024 1 1 Additional Source Comments (unrecognized sect ion and content) No Status Records FoundNo Status Records FoundNo Status Records FoundNo Status Records FoundNo Status Records FoundNo Status Records Found INFORMATION SOURCE (unrecogn ized section and content) DATE CREATED AUTHOR 01/15/2018 [facility] DATE CREATED AUTHOR AUTHOR'S ORGANIZ ATION 05/27/2020 [facility] DATE CREATED AUTHOR AUTHOR'S ORGANIZ ATION 06/06/[address] [facility] DATE CREATED AUTHOR AUTHOR'S ORGANIZ ATION 03/30/2022 [facility] DATE CREATED AUTHOR AUTHOR'S ORGANIZ ATION 11/08/2023 [facility] DATE CREATED AUTHOR AUTHOR'S ORGANIZ ATION 06/01/2025 [facility] Reason for Visit (unrecogniz ed section and content) Status Reason Specialty Diagnoses / Procedures Referre d By Contact Referred To Contact Diagnoses aortic stenosis, celiac artery stenosis Reason Comments Appointment Reason Comments Follow-up To discuss surgery Specialty Diagnoses / Procedures Referred By Contac t Referred To Contact Diagnoses 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 [I71.42] Procedures UT REPR ANEURYSM/GRFT INS,ABDOMINAL AORTA REPAIR AAA RETROPERITONEAL APPROACH Chance Goodman MD [address] [place] [address] [facility] [address] [place] [address] Referral ID Status Reason Start Date Expiration Date Visits Re quested Visits Authorized [id number] 1 1 Reason Comments Follow-up Still in pain Specialty Diagnoses / Procedures Referred By Contac t Referred To Contact Diagnoses Juxtarenal abdominal aortic aneurysm (AAA) without rupture Procedures CT ANGIO ABDOMEN PELVIS UT CT ANGIO ABD&PLVIS CNTRST MTRL W/WO CNTRST IMGES Eyer V, Moise, [employer] LINES UNDERWRITER [address] [place] [id number] Referral ID Status Reason Start Date Expiration Date Visits Re quested Visits Authorized [id number] Closed 10/04/2023 10/28/2024 1 1 Crystal Cherry, PT - 05/18/2020 9:09 AM Salomón Dias III, DO - 05/17/2020 4:36 PM Audelia Tillman OTR/Jun - 05/17/2020 3:10 PM Courtney Hassan MD [...] functionally impaired Physical Therapy Assessment History: Tariq Arias is a 59 y.o. male presenting from [facility] with complaint of bilateral lower extremity weakness. [...] a CT angiogram AAA with runoff at [facility] which revealed distal to the renal artery [...] Sit: Modified independence Sit to Supine: Modified [place] Transfers Sit to Stand: Independent Bed to Chair: Independent Gait/Locomotion Gait Assistance: Supervision, Independent Assistive Device: None Distance: 100 Feet Pattern: Within Functional Limits Exercise Home Living Type of Home: House Home Layout: One level, Stairs to enter with rails Bathroom Shower/Tub: Tub/shower unit Bathroom Toilet: Standard Bathroom Accessibility: Accessible Additional Comments: no AD for gait Prior Level of Function Level of Moh[place]: Independent with ADLs and functional transfers, Independent with homemaking with ambulation Lives With: Alone Receives Help From: Family ADL Assistance: Independent Homemaking Assistance: Independent 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 Arias has a 4.4 cm infra abdominal aortic [...] [facility] and then will contact us if he wants to follow with our office for his AAA evaluation. If there are any problems or difficulties in the interval, please contact us. We will sign off of this case at the present time. HPI: This 59-year-old male was transferred to [facility] from [facility] after being seen at their emergency room [...] and palpable pulses, but the ER at [facility] was adamant about getting him into a larger facility. He states he is done well since his been in this hospital. He said no further problems with the legs. He denies any abdominal pain or back pain other than his arthritic changes with obesity. 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 He [...] the abdomen, pelvis, lower extremities formed at [facility] on May 16, 2020 was read as [...] He does report that his BLE feel sore. He reports that his son is available [...] roles. The patient's home setup is a jig boring machine operator for metal, family / caregiver support is a jig boring machine operator for metal for return to prior level of function. The patient's compliance is a jig boring machine operator for metal, awareness of own capacity and performance is a jig boring machine operator for metal to return to prior level of function. [...] No LOB, but states his legs feel sore. Exercise BUE WNL. Interventions Home Living Type of Home: House Home Layout: One level, Stairs to enter with rails Bathroom Shower/Tub: Tub/shower unit Bathroom Toilet: Standard Bathroom Accessibility: Accessible Additional Comments: Ambulates independently w/o device. Showers in standing. 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 Neurology Inpatient Consult [facility] 05/17/2020 Patient: Tariq Wilson Zechariah Date of : 1960 (59 y.o.) Referring Provider: Refer to consult order in electronic medical record PCP: Provider Not in System ASSESSMENT: 59 y.o. male presented to [facility] on 05/16/2020 with an onset of bilateral [...] Portions of this chart was created using [employer] voice recognition software. Occasional wrong-word or sound-like [...] Care Team/Chart History of Present Illness: Tariq Arias is a 59 y.o. male who was [...] radicular symptoms. He was initially seen at [facility]. CT angiogram showed infrarenal aortic aneurysm with [...] lives alone. 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 Review of Systems: All systems [...] file Gets together: Not on file Attends latter-day service: Not on file Active member of [...] VASCULAR SURGERY CONSULT NOTE Patient Name: Tariq Arias Admit Date: MR #: [id number] : 1960 Physicians: Physician No (Family); No ref. provider found (referring) Assessment and Plan: Abdominal aortic aneurysm (AAA) without rupture (HCC) Assessment & Plan A CT angiogram that was performed [place] prior to transfer to [facility] has been reviewed. Patient is noted to [...] history. 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 [...] lower extremities History of Present Illness: Tariq Arias is a 59 y.o. y/o male presenting from OSH with c/o acute episode of severe charley horse with brief leg paralysis. During this time he had sharp pain that shot from his hip down to his ankle. He has no residual side effects or symptoms at this time. Patient underwent a CT angiogram AAA with runoff at [facility] which revealed distal to the renal artery [...] stenosis identified. 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 after being seen at their emergency room [...] and palpable pulses, but the ER at [facility] was adamant about getting him into [...] history. 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 [...] (HCC) A CT angiogram that was performed [place] prior to transfer to [facility] has been reviewed. Patient is noted to [...] or prosecute any alcohol or drug abuse patient.[facility] Care Teams (unrecognized sec tion and content) Team Status: Active Member Role Status Dates No Primary Care Physician Family Provider Active No Primary Care Physician Primary Care Provider Active Team Status: Active Member Role Status Dates No Primary Care Physician Primary Care Provider Active Dr. Levy Shafer MD Attending Provider Active Team Status: Inactive Member Role Status Dates No Primary Care Physician Primary Care Provider Active Dr. Levy Shafer MD Emergency Provider Active Team Status: Active Member Role Status Dates No Primary Care Physician Family Provider Active Latrell Bernal MD Primary Care Provider Active Team Status: Inactive Member Role Status Dates No Primary Care Physician Primary Care Provider Active Dr. Levy Shafer MD Attending Provider Active Team Status: Inactive Member Role Status Dates No Primary Care Physician Primary Care Provider Active Dr. Levy Shafer MD Attending Provider, Emergency Pr ovider Active Team Status: Inactive Member Role Status Dates Dr. Cortes Fraire DO Emergency Provider Active Latrell Bernal MD Primary Care Provider Active Team Status: Inactive Member Role Status Dates No Primary Care Physician Referring Provider Active Dr. Mike Mcmahan MD Attending Provider Active Latrell Bernal MD Primary Care Provider Active Team Status: Inactive Member Role Status Kellen Bernal MD Primary Care Provider, Referring Prov ider Active Paulo Carter MD Attending Provider Active Team Status: Active Member Role Status Kellen Bernal MD Primary Care Provider Active Dr. Ryne Taylor MD Attending Provider Active Dr. Mike Mcmahan MD Referring Provider Active Team Status: Active Member Role Status Kellen Bernal MD Primary Care Provider Active Omar Tapia GOSPEL WORKER, GOSPEL WORKER-C Attending Provider Active Team Status: Active Member Role Status Kellen Bernal MD Primary Care Provider Active Dr. Rush Rankin MD Attending Provider Active Team Status: Active Member Role Status Kellen Bernal MD Primary Care Provider Active Flakita Sanders GOSPEL WORKER, GOSPEL WORKER-C Attending Provider Active Team Status: Inactive Member Role Status Kellen Bernal MD Primary Care Provider Active Dr. Mike Mcmahan MD Attending Provider, Referring Pro vider Active Team Status: Inactive Member Role Status Dates Dr. Cortes Fraire DO Attending Provider, Emergency Provider Active Latrell Bernal MD Primary Care Provider Active Team Status: Inactive Member Role Status Kellen Bernal MD Primary Care Provider, Referring Prov ider Active ROGELIO Interiano Attending Provider Active Team Status: Active Member Role Status Kellen Bernal MD Primary Care Provider Active Dr. Mike Mcmahan MD Attending Provider, Referring Provider, Other Provider Active Team Status: Inactive Member Role Status Kellen Bernal MD Primary Care Provider Active Paulo Carter MD Attending Provider, Referring Prov ider Active Team Status: Active Member Role Status Kellen Bernal MD Primary Care Provider Active Dr. Mike Mcmahan MD Attending Provider, Referring Pro vider Active Team Status: Inactive Member Role Status Kellen Bernal MD Primary Care Provider Active ROGELIO Interiano Attending Provider, Referring Provid er Active Team Status: Inactive Member Role Status Kellen Bernal MD Primary Care Provider, Referring Prov ider Active Dr. Rush Rankin MD Attending Provider Active Team Status: Inactive Member Role Status Kellen Bernal MD Primary Care Provider Active ADELAIDA REVELES Attending Provider, Referring Provid er Active Technologies Division Chair Relationship Specialty Start Date End Date Latrell Bernal MD [address] [facility] [address] [place] [id number] PCP - General Family Medicine 09/16/23 Technologies Division Chair Relationship Specialty Start Date End Date Latrell Bernal MD [address] [facility] [address] [place] [phone] PCP - General Family Medicine 09/16/23 Technologies Division Chair Relationship Specialty Start Date End Date Latrell Bernal MD [address] [facility] [address] [place] [phone] PCP - General Family Medicine 09/16/23 Goals (unrecognized section and content) Goals may be documented in a n alternate sectionGoals may be documented in an alternate sectionGoals may be documented in an alternate sectionGoals may be documented in an alternate sectionGoals may be documented in an alternate sectionGoals may be documented in an alternate sectionGoals may be documented in an alternate section Scheduled Active and Recently Administ ered Medications (unrecognized section and content) Medication Order 10/04/2023 10/05/2023 10/06/2023 Acetaminophen (TYLENOL) tablet 975 mg 975 mg, Oral, EVERY 6 HOURS, First dose on Sat10/01/23 at 0830, Until Discontinued, Maximum dose of acetaminophen is 4000 mg from all sources in 24 hours. 0548 (Given - Provider: Barbi Mathew RN)1020 (Given - Provider: Susy Howard, ROGER)1706 (Given - Provider: Nona Giang, RN)2312 (Given - Provider: Barbi Mathew RN) 0505 (Given - Provider: Barbi Mathew RN)1155 (Given - Provider: Vaughn Flowers, RN)1746 (Given - Provider: Perla Gordon, RN) 0002 (Given - Provider: Wiley Hunt, ROGER)0631 (Given - Provider: Wiley Hunt, ROGER)1149 (Not Given - Provider: Sapna Avery, ROGER - Reason: Patient/family refused - Comment: d/c) aspirin chewable tablet 81 mg 81 mg, Oral, DAILY, First dose on Sat10/01/23 at 0900, Until Discontinued 07 (Given - Provider: Susy Howard RN) 0906 (Given - Provider: Vaughn Flowers, ROGER) 0741 (Given - Provider: Sapna Avery, ROGER) Atorvastatin (LIPITOR) tablet 40 mg 40 mg, Oral, DAILY AT BEDTIME, First dose on Sat10/01/23 at 2100, Until Discontinued 2010 (Given - Provider: Barbi Mathew RN) 2116 (Given - Provider: Wiley Hunt, ROGER) Aztreonam (AZACTAM) 2 g in sodium chloride 0.9% (MB PLUS) 100 mL (total volume) IVPB (CANCELED) 2 g, Intravenous, Administer over 30 Minutes, EVERY 8 HOURS NON-STANDARD, First dose on Sat10/03/23 at 0000, Until Discontinued 0032 ($$New Bag$$ - Provider: Barbi Mathew RN)0100 (Rate/Dose Verify - Provider: Barbi Mathew RN)0105 (Stopped - Provider: Barbi Mathew RN)0806 ($$New Bag$$ - Provider: Susy Howard, RN)0836 (Stopped - Provider: Susy Howard RN) balsam-castor oil (VENELEX) ointment 1 Application 1 Application, Topical, EVERY 8 HOURS, First dose on 09/30/23 at 1545, Until Discontinued, Apply to bony prominences (like back, heels, elbows, sacrum, etc.) to promote circulation., Post-op/Post-Proc 0551 (Not Given - Provider: Barbi Mathew RN - Reason: Patient/family refused)1345 (Not Given - Provider: Nona Giang RN - Reason: Patient/family refused)2112 (Not Given - Provider: Barbi Mathew RN - Reason: Patient/family refused) 0506 (Not Given - Provider: Barbi Mathew RN - Reason: Patient/family refused)1422 (Not Given - Provider: Vaughn Flowers RN - Reason: Patient/family refused)2117 (Not Given - Provider: Wiley Hunt RN - Reason: Patient/family refused) 0557 (Not Given - Provider: Wiley Hunt RN - Reason: Patient/family refused)1400 (Canceled Entry - Provider: System Discharge - Comment: Automatically canceled at discontinue of medication order) Calcium Gluconate 10 % injection 2 g (COMPLETED) 2 g, Intravenous, ONCE, 1 dose, On Sat10/05/23 at 0215, Give each 1 gram over 5-10 minutes. Extravasation Risk 0153 (Given - Provider: Barbi Mathew RN) Calcium Gluconate 2 g in Sodium chloride 0.9%, with overfill 80 mL (total volume) IVPB (COMPLETED) 2 g, Intravenous, Administer over 30 Minutes, ONCE, 1 dose, On Sat10/04/23 at 0315, Extravasation Risk 0331 ($$New Bag$$ - Provider: Barbi Mathew RN)0357 (Stopped - Provider: Barbi Mathew RN) cephALEXin (KEFLEX) capsule 500 mg 500 mg, Oral, EVERY 12 HOURS, First dose on Sat10/04/23 at 2100, Until Discontinued 2008 (Given - Provider: Barbi Mathew RN) 0905 (Given - Provider: Vaughn Flowers, ROGER)211 (Given - Provider: Wiley Hunt, RN) 0741 (Given - Provider: Sapna Avery, RN) furOSEmide (LASIX) injection 20 mg (COMPLETED) 20 mg, Intravenous, ONCE, 1 dose, On Sat10/04/23 at 0945, Administer by slow IV push at a rate not exceeding 40mg/min 1021 (Given - Provider: Susy Howard, ROGER) furOSEmide (LASIX) injection 20 mg (COMPLETED) 20 mg, Intravenous, ONCE, 1 dose, On Sat10/05/23 at 1245, Administer by slow IV push at a rate not exceeding 40mg/min 1426 (Given - Provider: Vaughn Flowers, ROGER) Heparin injection 7,500 Units(Linked Group 1) 7,500 Units, Subcutaneous, EVERY 8 HOURS (0800/1600/2200), First dose on Sat09/30/23 at 2200, Until Discontinued 0741 (Given - Provider: Susy Howard, ROGER)1712 (Given - Provider: Nona Giang RN)211 (Given - Provider: Barbi Mathew RN) 0907 (Given - Provider: Vaughn Flowers, RN)1646 (Given - Provider: Perla Gordon, ROGER)2117 (Given - Provider: Wiley Hunt, ROGER) 0742 (Not Given - Provider: Sapna Avery, ROGER - Reason: Patient/family refused) Ketorolac (TORADOL) injection 15 mg (COMPLETED) 15 mg, Intravenous, EVERY 6 HOURS, 8 doses, First dose on Sat10/02/23 at 1200, Last dose on Sat10/04/23 at 0600 0056 (Given - Provider: Barbi Mathew RN)0548 (Given - Provider: Barbi Mathew RN) lidocaine 4 % patch 1 patch 1 patch, Transdermal, Administer over 12 Hours, EVERY 24 HOURS, First dose on Sat10/01/23 at 2345, Until Discontinued, Apply to upper back/shoulders . 1022 (Patch Removed - Provider: Susy Howard RN)2312 (Patch Applied - Provider: Barbi Mathew RN) 0128 (Patch Removed - Provider: Barbi Mathew, RN)2228 (Patch Applied - Provider: Wiley Hunt, RN) 0918 (Patch Removed - Provider: Sapna Avery, ROGER) Methocarbamol (ROBAXIN) tablet 750 mg 750 mg, Oral, 3 TIMES DAILY, First dose (after last modification) on Sat10/02/23 at 1400, Until Discontinued 0740 (Given - Provider: Susy Howard RN)1343 (Given - Provider: Nona Giang, RN)2009 (Given - Provider: Barbi Mathew RN) 0905 (Given - Provider: Vaughn Flowers, RN)1424 (Given - Provider: Vaughn Flowers RN)2117 (Given - Provider: Wiley Hunt, RN) 0741 (Given - Provider: Sapna Avery, ROGER)1400 (Canceled Entry - Provider: System Discharge - Comment: Automatically canceled at discontinue of medication order) Metoprolol (LOPRESSOR) tablet 25 mg 25 mg, Oral, 2 TIMES DAILY, First dose on Sat10/02/23 at 1000, Until Discontinued, Hold if HR less than 60 or SBP less than 100 mgHG 0742 (Not Given - Provider: Susy Howard RN - Reason: Order Parameters not met)1715 (Hold - Provider: Nona Giang RN - Reason: Order Parameters not met) 1034 (Given - Provider: Vaughn Flowers, ROGER)1646 (Given - Provider: Perla Gordon RN) 0741 (Given - Provider: Sapna Avery, ROGER) Nicotine (NICODERM CQ) 21 MG/24HR patch 1 patch(Linked Group 2) 1 patch, Transdermal, EVERY 24 HOURS, First dose on Sat10/01/23 at 0745, Until Discontinued, Apply patch to hairless skin site on upper body or arm. Rotate sites for each application. Do not cut or alter patch. Remove patch after duration of 16-24 hours. To dispose, fold adhesive ends together. 0740 (Patch Removed - Provider: Susy Howard RN)0748 (Patch Applied - Provider: Susy Howard RN) 0907 (Patch Removed - Provider: Vaughn Flowers RN)0912 (Patch Applied - Provider: Vaughn Flowers, ROGER) 0658 (Patch Applied - Provider: Wiley Hunt, RN)1232 (Due: Patch Removed - Provider: System Discharge - Comment: Time automatically adjusted from order being discontinued) Senna (SENOKOT) tablet 8.6 mg 8.6 mg, Oral, DAILY, First dose on Sat10/01/23 at 0900, Until Discontinued 0741 (Given - Provider: Susy Howard, RN) 09 (Given - Provider: Vaughn Flowers, RN) 07 (Not Given - Provider: Sapna Avery, RN - Reason: Patient/family refused) VERIFY LINKED PATCH PLACEMENT(Linked Group 2) Other, EVERY 12 HOURS, First dose on Sat10/01/23 at 0900, Until Discontinued, Confirm continued adhesion of nicotine 21 mg/24hr patch at documented site. 0854 (Patch Verify - Provider: Susy Howard, RN)2010 (Patch Verify - Provider: Barbi Mathew RN) 922 (Patch Verify - Provider: Vaughn Flowers, RN)2119 (Patch Verify - Provider: Wiley Hunt, ROGER) 07 (Patch Verify - Provider: Sapna Avery, ROGER) PRN Medication Order 10/04/2023 10/05/2023 10/06/2023 Albuterol inhaler 2 puff 2 puff, Inhalation, EVERY 6 HOURS NEEDED, Starting on Lisa 10/03/23 at 1808, Until 10/06/23 at 1432, Wheezing, Wait at least one(1) full minute between inhalations bisacodyl (DULCOLAX) suppository 10 mg 10 mg, Rectal, DAILY NEEDED, Starting on 09/30/23 at 1543, Until Sat10/06/23 at 1432, Other, If no bowel movement in 24 Hours., Post-op/Post-Proc hydrALAZINE (APRESOLINE) injection 10 mg 10 mg, Intravenous, EVERY 4 HOURS NEEDED, Starting on 09/30/23 at 1543, Until 10/06/23 at 1432, SBP < 140 Insulin lispro (HUMALOG) injection (CANCELED)(Linked Group 3) Subcutaneous, NEEDED, Starting on 10/02/23 at 1948, Until 10/05/23 at 1156, Other, As needed for snacks, Insulin to carb ratio: Standard: 1 unit insulin = 10 grams carbs Correction Factor: not to be used with this order. Kwikpen: Prime pen before each injection; refer to Pen Priming and Care Handout for further details. Warning! Confirm patient. Insulin pen is for labeled individual patient use ONLY. 1044 (Given - Provider: Susy Howard, RN) Labetalol (NORMODYNE) injection 10 mg 10 mg, Intravenous, EVERY 6 HOURS NEEDED, Starting on Sat09/30/23 at 1543, Until 10/06/23 at 1432, SBP < 140, Administration duration: up to 20 mg over 2 minutes. Telemetry required except for MICROARRAY ANALYST patients on [address] 6 and 7. For vials: labetalol should be treated as a SINGLE USE VIAL. Discard remaining contents after one use. Magnesium sulfate 4 g in sterile water 50 ml premix IVPB 4 g, Intravenous, Administer over 4 Hours, ADMINISTER DIRECTED, Starting on Sat09/30/23 at 1543, Until 10/06/23 at 1432, Other, Magenesium Replacement Therapy, If Magnesium less than 1.6 or patient is unable to take PO Magnesium, give 4 g Magnesium Sulfate IVPB over 4 hours (may give over 1 hour if arrhythmias present)., Post-op/Post-Proc Melatonin tablet 3 mg 3 mg, Oral, DAILY AT BEDTIME NEEDED, Starting on Sat10/04/23 at 2003, Until 10/06/23 at 1432, Insomnia 2009 (Given - Provider: Barbi Mathew RN) Ondansetron (ZOFRAN) tablet 4 mg(Linked Group 4) 4 mg, Oral, EVERY 6 HOURS NEEDED, Starting on Sat09/30/23 at 1543, Until 10/06/23 at 1432, Nausea / Vomiting, 1st Line, Post-op/Post-Proc Ondansetron 4mg/2ml (ZOFRAN) injection 4 mg(Linked Group 4) 4 mg, Intravenous, EVERY 6 HOURS NEEDED, Starting on Sat09/30/23 at 1543, Until 10/06/23 at 1432, Nausea / Vomiting, 1st line, If patient unable to tolerate PO., Post-op/Post-Proc oxyCODONE (ROXICODONE) tablet 5 mg(Linked Group 5) 5 mg, Oral, EVERY 4 HOURS NEEDED, Starting on Sat10/02/23 at 0954, Until 10/06/23 at 1432, Moderate Pain, Severe Pain, Use as initial dose. Higher dose may be administered if lower dose was previously documented as ineffective and did not result in adverse effects (RR<10, negative change in RASS of 2 or more). 1020 (Given - Provider: Susy Howard, ROGER)1710 (Given - Provider: Nona Giang, ROGER)2109 (Given - Provider: Barbi Mathew RN) 020 (Given - Provider: Barbi Mathew RN)0636 (Given - Provider: Barbi Mathew, RN)1029 (Given - Provider: Vaughn Flowers, RN)1646 (Given - Provider: Perla Gordon, RN)222 (Given - Provider: Wiley Hunt, ROGER) 0238 (Given - Provider: Wiley Hunt, ROGER)0741 (Given - Provider: Sapna Avery, ROGER) oxyCODONE HCl (ROXICODONE) tablet 10 mg(Linked Group 5) 10 mg, Oral, EVERY 4 HOURS NEEDED, Starting on 10/02/23 at 0954, Until 10/06/23 at 1432, Moderate Pain, Severe Pain, Higher dose may be administered if lower dose was previously documented as ineffective and did not result in adverse effects (RR<10, negative change in RASS of 2 or more). Decrease back to lower dose if patient has adverse effects or no PRN use in previous 12 hours. Hold for sedation. 1020 (See Alternative - Provider: Susy Howard RN)1710 (See Alternative - Provider: Nona iGang, ROGER)2109 (See Alternative - Provider: Barbi Mathew, ROGER) 020 (See Alternative - Provider: Barbi Mathew, ROGER)0636 (See Alternative - Provider: Barbi Mathew, ROGER)1029 (See Alternative - Provider: Vaughn Flowers, ROGER)1646 (See Alternative - Provider: Perla Gordon, ROGER)2228 (See Alternative - Provider: Wiley Hunt, ROGER) 0238 (See Alternative - Provider: Wiley Hunt, ROGER)0741 (See Alternative - Provider: Sapna Avery, ROGER) Potassium chloride (K-DUR) tablet ER 20-40 mEq 20-40 mEq, Oral, ADMINISTER DIRECTED, Starting on Lisa 10/03/23 at 1628, Until 10/06/23 at 1432, See admin instructions, If Cr 2.0 - 2.5 mg/dL 1. For Potassium 3.6-4.0, give 20 mEq potassium chloride. 2. If Potassium < 3.6, give 40 mEq potassium chloride, recheck in AM. If SCr > 2.5 and potassium < 4.0, Contact /DEWAYNE for replacement order Potassium chloride (K-DUR) tablet ER 40-60 mEq 40-60 mEq, Oral, ADMINISTER DIRECTED, Starting on Lisa 10/03/23 at 1628, Until 10/06/23 at 1432, See admin instructions, If Cr less than 2.0 mg/dL 1. For Potassium 3.6 - 4.0, give 40 mEq of Potassium Chloride orally, recheck in the AM. 2. For Potassium less than 3.6, give 60 mEq Potassium Chloride orally, recheck in 8 hours. 3. If potassium is low please administer magnesium first if indicated. 0153 (Given - Provider: Barbi Mathew RN) 0240 (Given - Provider: Wiley Hunt RN) Potassium chloride 10 mEq in sterile water 100 ml premix IVPB 10 mEq, Intravenous, Administer over 60 Minutes, ADMINISTER DIRECTED, Starting on 09/30/23 at 1543, Until 10/06/23 at 1432, Other, See admin instructions, When patient is NPO or having difficulty swallowing: IF Cr LESS than 2.0 mg/dL or urine output GREATER than 30 mL hour: 1. If Potassium range 3.6-4.0, Give 40 mEq Potassium Chloride and recheck 8 hours after completion of infusion. 2. If Potassium range less than 3.6, Give 60 mEq Potassium Chloride and recheck after completion of infusion. If potassium and magnesium low, first replete Magnesium as indicated., Post-op/Post-Proc Potassium chloride 10 mEq in sterile water 100 ml premix IVPB 10 mEq, Intravenous, Administer over 60 Minutes, ADMINISTER DIRECTED, Starting on 09/30/23 at 1543, Until 10/06/23 at 1432, Other, See admin instructions, When patient is NPO or having difficulty swallowing: Potassium Replacement Therapy: RENAL DOSAGE if Cr GREATER than 2.0 mg/dL or urine output LESS than 30 mL hour: 1. If Potassium less than 3.6-4.0, give 20 mEq Potassium Chloride recheck 8 hours after completion of infusion. 2. If Potassium less than 3.6, give 40 mEq Potassium Chloride and recheck after completion of infusion. 3. If CR greater than 2.5, and Potassium less than 4.0, Call PVS team on-call for Potassium orders. If Potassium and Magnesium low, replete Magnesium first as indicated., Post-op/Post-Proc Sodium-potassium phosphate (K-PHOS NEUTRAL) tablet 500-1,000 mg(Linked Group 6) 500-1,000 mg, Oral, ADMINISTER DIRECTED, Starting on Sat10/04/23 at 0543, Until 10/06/23 at 1432, See admin instructions, Administer 2 tablets if phosphate level is 2.1-2.6mg/dL. Administer 4 tablets for phosphorous level less than or equal to 2.0 mg/dL. If patient does not have enteral access, please notify MD/DEWAYNE for intravenous replacements. Replacement is primarily indicated in critically ill patients. 0555 (Given - Provider: Barbi Mathew RN) 0153 (Given - Provider: Barbi Mathew RN) Sodium-potassium phosphate (K-PHOS NEUTRAL) tablet 500-1,000 mg(Linked Group 6) 500-1,000 mg, Per NG tube, ADMINISTER DIRECTED, Starting on Sat10/04/23 at 0543, Until 10/06/23 at 1432, See admin instructions, Administer 2 tablets if phosphate level is 2.1-2.6mg/dL. Administer 4 tablets for phosphorous level less than or equal to 2.0 mg/dL. If patient does not have enteral access, please notify MD/DEWAYNE for intravenous replacements. Replacement is primarily indicated in critically ill patients. 0555 (See Alternative - Provider: Barbi Mathew RN) 0153 (See Alternative - Provider: Barbi Mathew RN) Linked Groups Order Group 1: Heparin injection 7,500 UnitsJump to med 7,500 Units, Subcutaneous, EVERY 8 HOURS (0800/1600/2200), First dose on Sat09/30/23 at 2200, Until Discontinued And PLATELET COUNT (CANCELED) Routine, EVERY 3 DAYS AM LAB, First occurrence on Sat09/30/23 at 1635, Until Specified, New collection Group 2: Nicotine (NICODERM CQ) 21 MG/24HR patch 1 patchJump to med 1 patch, Transdermal, EVERY 24 HOURS, First dose on Sat10/01/23 at 0745, Until Discontinued, Apply patch to hairless skin site on upper body or arm. Rotate sites for each application. Do not cut or alter patch. Remove patch after duration of 16-24 hours. To dispose, fold adhesive ends together. And VERIFY LINKED PATCH PLACEMENTJump to med Other, EVERY 12 HOURS, First dose on Sat10/01/23 at 0900, Until Discontinued, Confirm continued adhesion of nicotine 21 mg/24hr patch at documented site. Group 3: Insulin lispro (HUMALOG) injection (CANCELED) Subcutaneous, 4 TIMES DAILY WITH MEALS & AT BEDTIME, First dose on Sat10/02/23 at 2100, Until Discontinued, Insulin to carb ratio: Standard: 1 unit insulin = 10 grams carbs every meal and at bedtime Correction Factor: 151-200 = 1 unit; 201-250 = 2 units; 251-300 = 3 units; 301-350 = 4 units; 351-400 = 5 units; Kwikpen: Prime pen before each injection; refer to Pen Priming and Care Handout for further details. Warning! Confirm patient. Insulin pen is for labeled individual patient use ONLY. And Insulin lispro (HUMALOG) injection (CANCELED)Jump to med Subcutaneous, NEEDED, Starting on Sat10/02/23 at 1948, Until 10/05/23 at 1156, Other, As needed for snacks, Insulin to carb ratio: Standard: 1 unit insulin = 10 grams carbs Correction Factor: not to be used with this order. Kwikpen: Prime pen before each injection; refer to Pen Priming and Care Handout for further details. Warning! Confirm patient. Insulin pen is for labeled individual patient use ONLY. And BLOOD GLUCOSE (POC DEVICE) (CANCELED) Routine, 4 TIMES DAILY BEFORE MEALS & AT BEDTIME, First occurrence on Sat10/02/23 at 2100, If any Blood Glucose (POC) is greater than 300mg/dl, then repeat Blood Glucose (POC) in 2 hours. If the initial blood glucose was greater than 300mg/dl and if second blood glucose is greater than 200md/dl, then notify Industrial Engineering Technician. And BLOOD GLUCOSE (POC DEVICE) (CANCELED) Routine, DIRECTED, Starting on Sat10/02/23 at 1948, Until Specified, For all Blood Glucose LESS THAN 80 mg/dL, treat per Hypoglycemia in Non- Adults Clinical Practice Guideline (CPG) and recheck glucose 15 min after treatment. Repeat per CPG until glucose GREATER THAN 80 mg/dL. Once glucose IS GREATER THAN 80 mg/dL, recheck Blood Glucose every 1 hour x2, then resume as previously ordered. For Blood Glucose LESS THAN 80 mg/dL on admission OR LESS than 45 mg/dL at any time, obtain POC Blood Glucose every 4 hours for 6 occurrences AFTER treating per CPG. Obtain blood glucose for symptoms of hypoglycemia: sweating, shaking, fatigue, rapid pulse, slow thinking & dizziness. Notify physician w/results. Obtain blood glucose for symptoms of hyperglycemia: excessive thirst, blurred vision, excessive urination & tiredness. Notify physician w/results. If patient NPO, obtain POC Blood Glucose prior to administration of any insulin products. And COMMUNICATION ORDER FOR NURSING CARE: For Blood Glucose LESS THAN 80 mg/dl (CANCELED) Routine, CONTINUOUS, Starting on Sat10/02/23 at 1949, Until Specified, For Blood Glucose LESS THAN 80 mg/dl follow Hypoglycemia in Non- Adults Clinical Practice Guideline (CPG) And Dextrose 50% injection 7.5-25 g (CANCELED) 7.5-25 g, Intravenous, ADMINISTER DIRECTED, Starting on Sat10/02/23 at 1948, Until 10/05/23 at 1156, Blood glucose <80 mg/dL, For patients who are not alert, are NPO, or are on IV insulin infusion administer as directed per Hypoglycemia in Non- Adults Clinical Practice Guideline. For Blood Glucose: 60-79 mg/dL administer 7.5 gm (15ml); 45-59 mg/dL administer 12.5 gm (25ml); less than 45mg/dL administer 25gm (50ml). ++ If additional dextrose 50% needed, contact pharmacy or obtain from [facility] cart ++ And glucose (GLUTOSE) 40 % oral gel 1-2 Tube (CANCELED) 1-2 Tube, Oral, ADMINISTER DIRECTED, Starting on Sat10/02/23 at 1948, Until 10/05/23 at 1156, Blood glucose <80 mg/dL, For patients who are alert, able to tolerate PO intake and with intact cognitive status administer as directed per Hypoglycemia in Non- Adults Clinical Practice Guideline. For Blood Glucose: 60-79 mg/dL administer 1 tube; 45-59 mg/dl administer 1.5 tubes; less than 45 mg/dL administer 2 tubes. Each tube of 37.5g delivers 15g of carbohydrate. And NOTIFY PHYSICIAN, Blood Glucose LESS THAN 80 mg/dl (CANCELED) Routine, CONTINUOUS, Starting on Sat10/02/23 at 1949, Until Specified, Who to Notify: Industrial Engineering Technician, For all Blood Glucose LESS THAN 80 mg/dl, notify Industrial Engineering Technician after treatment per Hypoglycemia in Non- Adults Clinical Practice Guideline And Carbohydrate counts with meals (CANCELED) Routine, CONTINUOUS, Starting on Sat10/02/23 at 1949, Until Specified, Carbohydrate counts are to be done after each patient meal and with snack. Group 4: Ondansetron (ZOFRAN) tablet 4 mgJump to med 4 mg, Oral, EVERY 6 HOURS NEEDED, Starting on Sat09/30/23 at 1543, Until Sat10/06/23 at 1432, Nausea / Vomiting, 1st Line, Post-op/Post-Proc Or Ondansetron 4mg/2ml (ZOFRAN) injection 4 mgJump to med 4 mg, Intravenous, EVERY 6 HOURS NEEDED, Starting on Sat09/30/23 at 1543, Until Sat10/06/23 at 1432, Nausea / Vomiting, 1st line, If patient unable to tolerate PO., Post-op/Post-Proc Group 5: oxyCODONE (ROXICODONE) tablet 5 mgJump to med 5 mg, Oral, EVERY 4 HOURS NEEDED, Starting on Sat10/02/23 at 0954, Until Sat10/06/23 at 1432, Moderate Pain, Severe Pain, Use as initial dose. Higher dose may be administered if lower dose was previously documented as ineffective and did not result in adverse effects (RR<10, negative change in RASS of 2 or more). Or oxyCODONE HCl (ROXICODONE) tablet 10 mgJump to med 10 mg, Oral, EVERY 4 HOURS NEEDED, Starting on Sat10/02/23 at 0954, Until Sat10/06/23 at 1432, Moderate Pain, Severe Pain, Higher dose may be administered if lower dose was previously documented as ineffective and did not result in adverse effects (RR<10, negative change in RASS of 2 or more). Decrease back to lower dose if patient has adverse effects or no PRN use in previous 12 hours. Hold for sedation. Group 6: Sodium-potassium phosphate (K-PHOS NEUTRAL) tablet 500-1,000 mgJump to med 500-1,000 mg, Oral, ADMINISTER DIRECTED, Starting on Sat10/04/23 at 0543, Until 10/06/23 at 1432, See admin instructions, Administer 2 tablets if phosphate level is 2.1-2.6mg/dL. Administer 4 tablets for phosphorous level less than or equal to 2.0 mg/dL. If patient does not have enteral access, please notify MD/DEWAYNE for intravenous replacements. Replacement is primarily indicated in critically ill patients. Or Sodium-potassium phosphate (K-PHOS NEUTRAL) tablet 500-1,000 mgJump to med 500-1,000 mg, Per NG tube, ADMINISTER DIRECTED, Starting on Sat10/04/23 at 0543, Until 10/06/23 at 1432, See admin instructions, Administer 2 tablets if phosphate level is 2.1-2.6mg/dL. Administer 4 tablets for phosphorous level less than or equal to 2.0 mg/dL. If patient does not have enteral access, please notify MD/LIP for intravenous replacements. Replacement is primarily indicated in critically ill patients. FOR RECORDS PERTAINING TO PATIENTS WHO ARE [...] BE BASED ON THE PRIMARY CLINICAL RECORDS. [employer] provides no warranty or guarantee of the accuracy or completeness of information in this document.
--- NOTE | 2025-06-18 16:08 | STRESSREP ---
Stress Test Report Pharmacologic myocardial perfusion stress test. 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 Resting EKG demonstrates normal sinus rhythm with a rate of 56 bpm. Resting blood pressure is 130/90 mmHg. 0.4 mg of regadenoson was infused per usual protocol followed by rapid intravenous saline flush injection. Continuous EKG monitoring was performed. The maximum heart rate was 72 bpm which was 47% of max impacted heart rate the maximum workload was 1 metabolic equivalent. At rest there were no ST or T wave changes noted to suggest ischemia and at peak infusion nonspecific ST changes were noted which did not meet the criteria for ischemia. No clinical angina is noted. The final blood pressure was 138/82 mmHg. Myocardial perfusion protocol. 15 mCi of technetium 99m sestamibi was injected at rest. 0.4 mg of regadenoson was infused per usual protocol. At peak infusion 44 mCi of technetium 99m sestamibi was injected stress images were obtained stress and rest images were reconstructed and compared in the short axis vertical long and horizontal long axis. Gated images were also obtained. Perfusion SPECT analysis: Review of the stress images demonstrate normal uptake of tracer noted in all areas of the myocardium. There is an area in the basal inferior wall with reduced perfusion. A small area of the apex also has reduced perfusion. The resting images similar demonstrated normal uptake of tracer noted in all areas of the myocardium. There is a persistent basal inferior wall defect. No areas of reversibility are noted to suggest ischemia. Previous basal inferior infarct is present. The above probably extends to the apex. Gated SPECT analysis: The gated ejection fraction is normal %. Conclusion: Normal pharmacologic myocardial perfusion stress test. Preserved ejection fraction. Previous basal to mid inferior infarct present
== END | disposition home or self-care (01) ==
PROVIDERS: PCP Family Medicine; Referring Provider Nurse Practitioner Family; Visit Provider Nurse Practitioner Family
DX: R09.89 Other specified symptoms and signs involving the circulatory and respiratory systems (principal); I71.42 Juxtarenal abdominal aortic aneurysm, without rupture; E78.5 Hyperlipidemia, unspecified; Z95.5 Presence of coronary angioplasty implant and graft
CPT/HCPCS: 78452; 93017; A9500; A4216; J2785